=== PATIENT | female | born 1975 | race Caucasian/White ===

== ENCOUNTER 2023-01-14 13:38 | Inpatient (IN) | payer MEDICAID, SELFPAY ==
[2023-01-14] VITALS (9 sets, daily range): BP systolic 119–186; BP diastolic 77–122; PULSE 77–106; RESP 16–26; TEMP 36.4–37.1; O2SAT 95–98; BMI 30.6; BMI 29.7
--- NOTE | ~2023-01-14 | CT_ITS ---
EXAMINATION: CT HEAD WITHOUT CONTRAST (STROKE PROTOCOL) CLINICAL INFORMATION: Stroke protocol. Severe headache. Peripheral vision loss. COMPARISON: 02/02/2010 TECHNIQUE: Contiguous axial imaging was performed from the skull base to vertex without intravenous administration of contrast. This CT examination was performed using dose optimization techniques as appropriate, variously including the following: *Automated exposure control *Adjustment of mA and/or kV according to patient size (this includes techniques or standardized protocols for targeted exams where dose is matched to indication/reason for exam; i.e. extremities or head) *Use of iterative reconstruction technique DLP: 599 mGy-cm FINDINGS: There is no evidence of acute intracranial hemorrhage or territorial infarction. No abnormal mass effect or midline shift is seen. Silvestre to white matter differentiation is well preserved. No extra-axial fluid collections are identified. No hydrocephalus. No significant volume loss. 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 There are a few scattered foci of subcortical white matter low-attenuation changes which are nonspecific. No acute osseous or soft tissue abnormality. The mastoid air cells and visualized portions of the paranasal sinuses are well aerated. CT/CT head for stroke IMPRESSION: * No acute intracranial pathology. 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 * Mild white matter low-attenuation changes, nonspecific. This critical result was discussed with Dr Eulalia Palma at 01/14/2023 2:17 PM and it was ascertained that the content and urgency of the report was understood at the time of direct communication.
--- NOTE | ~2023-01-14 | MR_ITS ---
MRI OF THE BRAIN WITHOUT IV CONTRAST INDICATION: Hypertension and encephalopathy. COMPARISON: CT head and CTA head and neck January 14, 2023. TECHNIQUE: Multiplanar multisequence MR imaging of the brain was obtained without IV contrast. FINDINGS: Motion degraded exam. There is no hydrocephalus, extra-axial surface collection, or herniation. Small chronic appearing infarcts within the high left frontal lobe and the posterior right parasagittal parietal lobe. The major flow voids at the skull base are preserved. There is no acute infarct on diffusion-weighted imaging. There is no intracranial hemorrhage on the gradient recalled echo acquisition. The midline structures are normal. The cerebellar tonsils are normally positioned. The cerebellum and brainstem are normal. The craniocervical junction is normal. Osseous marrow signal intensity is homogenous. The visualized soft tissues are unremarkable. MR/MR head/brain wo con IMPRESSION: Motion degraded exam. No acute intracranial findings. No acute infarcts. Small chronic appearing infarcts within the high left frontal lobe and the posterior right parasagittal parietal lobe.
--- NOTE | ~2023-01-14 | CT_ITS ---
EXAMINATION: CT angio head neck stroke CLINICAL INFORMATION: Peripheral vision loss. Headache. COMPARISON: CT head 01/14/2023. TECHNIQUE: Heat Treating Furnace Tender images were obtained. A CT angiogram of the head and neck was performed in the arterial phase after the intravenous administration of 70 mL Omnipaque 350. Delayed postcontrast images of the head were also obtained. 3D images were processed on an independent workstation under concurrent supervision. Arterial stenoses are measured in accordance with NASCET criteria or similar method if applicable. This CT examination was performed using dose optimization techniques as appropriate, including one or more of the following: Automated exposure control, iterative reconstruction, and adjustment of technique factors (mA and/or kVp) according to patient size (this includes techniques or standardized protocols for targeted exams where dose is matched to indication/reason for exam). Fleischner Society criteria for the followup of incidental pulmonary nodules was implemented if appropriate. Total exam dose-length product 1438 mGy-cm FINDINGS: Head: There is a small age indeterminate cortical infarct involving the left superior frontal gyrus. Silvestre-white matter differentiation is otherwise preserved. Postcontrast images reveal no abnormal intracranial mass or enhancement. No intracranial mass effect or midline shift. No hydrocephalus. The calvarium and skull base are intact. Mastoid air cells and middle ear cavities are well-aerated. No active paranasal sinus disease. CT angiogram neck: This component of the examination is heavily degraded by patient motion particularly near the skull base. The aortic arch apex is normal. Origins of the major aortic branches are widely patent. Common carotid arteries are normal. Small amount of partially calcified atherosclerotic plaque involves both carotid bifurcations. Extracranial internal carotid arteries are grossly patent. The cervical segments of the vertebral arteries are patent. CT angiogram head: This component examination is heavily degraded by patient motion and is therefore nondiagnostic. Other: Soft tissues of the neck including the thyroid gland are normal. No pathologically enlarged cervical lymph nodes. Lung apices are clear. No acute osseous finding. Specifically no worrisome lytic or blastic osseous lesion. CT/CT angio head neck stroke IMPRESSION: The CT angiogram images through the head are heavily degraded by patient motion and are therefore nondiagnostic. Small amount of partially calcified atherosclerotic plaque involves both carotid bifurcations. Cervical carotid and vertebral arteries are grossly patent. There is a small age indeterminate cortical infarct involving the left superior frontal gyrus. A dedicated brain MRI without and with contrast is recommended for better anatomic characterization of this finding. No acute intracranial hemorrhage. No intracranial mass or enhancement. This critical result was discussed with Eulalia Palma at 2:32 PM on 01/14/2023 and it was ascertained that the content and urgency of the report was understood at the time of direct communication.
--- NOTE | 2023-01-14 13:48 | ECG_ITS ---
Test Reason : ACUTE STROKE Blood Pressure : / mmHG Vent. Rate : 084 BPM Atrial Rate : 084 BPM P-R Int : 106 ms QRS Dur : 076 ms QT Int : 384 ms P-R-T Axes : 017 012 011 degrees QTc Int : 453 ms Sinus rhythm with short AR Otherwise normal ECG No previous ECGs available Referred By: Eulalia Palma Electronically Signed By:Fitz Bella
--- NOTE | 2023-01-14 13:50 | ED_ITS ---
HPI - Neuro Symptoms/Deficit General Chief Complaint: Stroke Stated Complaint: VISION IMPAIRMENT HYPERTENSION Time Seen by Provider: 01/14/23 13:47 Source: EMS Mode of arrival: EMS Limitations: no limitations History of Present Illness HPI Narrative: Patient comes to the emergency room complaining complete visual loss on both eyes and complaining of headache. Patient states that she has had this in the past and self-resolved. Patient states that this usually happens when she is under a lot of stress, she is today. Also, patient states that she is known to have hypertension, is supposed to be taking lisinopril but stopped taking it months ago for unclear reason. Related Data Allergies Allergy/AdvReac Type Severity Reaction Status Date / Time codeine [CODEINE] Allergy Unknown HIVES Verified 01/14/23 14:28 Codeine Phosphate Allergy Unknown rash Uncoded 02/09/12 00:00 Review of Systems Review of Systems: Constitutional : No Weight loss, No Fever, No Chills, No Night Sweats, No Fatigue, No Malaise ENT/Mouth : No Hearing loss, No Ear Pain, No Nasal Congestion, No Sinus Pain, No Hoarseness, No sore throat, No Rhinorrhea, No Swallowing Difficulty Eyes: No Eye Pain, No Swelling, No Redness, No Foreign Body, No Discharge, No Vision Changes Cardiovascular : No Chest Pain, No SOB, No Dyspnea on Exertion, No Orthopnea, No Edema, No Palpitations Respiratory : No Cough, No Sputum, No Wheezing, No Smoke Exposure, No Dyspnea Gastrointestinal : No Nausea, No Vomiting, No Diarrhea, No Constipation, No abdominal Pain, No Hematochezia, No Melena Genitourinary : no irregular bleeding, No Dysuria, No Urinary Frequency, No Hematuria, No Urinary Incontinence, No Urgency, No Flank Pain, No Urinary Flow Changes, No Hesitancy Musculoskeletal : No joint pain, No Myalgias, No Joint Swelling Skin : No Skin Lesions, No rash Neuro : No Weakness, No Numbness, No Paresthesias, complaining of headache and complaining of complete visual loss bilaterally Psych : Complaining of anxiety, No Depression, No SI/HI/AH/VH, No Social Issues, Heme/Lymph: No Bruising, No Bleeding,No Lymphadenopathy Endocrine : No Polyuria, No Polydipsia, No Temperature Intolerance PMFSH Past Medical History Medical History (Updated 01/14/23 @ 16:12 by Eulalia Palma MD) Anxiety Depression Hypertension Social History Social History Advance Directives: No Advance Directives Information Provided: Yes Patient : No Physical Exam Vital Signs: Vital Signs: Last Vital Signs Temp 98.4 F 01/14/23 14:29 Pulse 94 01/14/23 14:29 Resp 16 01/14/23 14:29 BP 180/122 H 01/14/23 14:29 Pulse Ox 96 01/14/23 14:29 O2 Del Method Room Air 01/14/23 14:29 BMI result Body Mass Index 30.6 Const: Other: Appearance: Alert. Oriented X3. No acute distress. Eyes: Pupils equal, round and reactive to light. ENT: Pharynx normal. Neck: Normal inspection. Neck supple. No lymph nodes noted. No crepitus CVS: Normal heart rate and rhythm. Pulses normal. Normal S1 and S2 Respiratory: No respiratory distress. Breath sounds normal. No Wheezing. No rales Abdomen: Soft and nontender. No rigidity. No distention. Skin: Skin warm and dry. Normal skin color. Normal skin turgor. Extremities: No lower extremity edema. No Lacerations. No Rash Neuro: Oriented X 3. No motor deficit. No sensory deficit. Moving all extremities. No slurred speech. States that she has complete vision loss in both eyes Psych: calm, cooperative, anxious Course Course Course Narrative: Patient was taking to the CT scan. EMS reported that the patient's blood pressure was between 180 and 200 systolic. -per EMS, they were informed that the patient's were placed the patient does have extensive psychiatric history, especially with anxiety and depression. 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 The CT angio of the brain is nondiagnostic due to patient motion -I discussed the patient and imaging with Dr. Stevenson, unlikely to be a stroke, this is likely hypertensive encephalopathy. Patient already received 5 mg of IV labetalol, blood pressure improvement pending. -14:35: Patient reports that her vision has returned, still slightly blurry but in almost back to normal -around 15:15, patient had a seizure. Patient was given 2 mg of Ativan, patient stop seizing but she was very postictal, combative, patient was given a 2nd dose of 2 mg Ativan. Within a few minutes, patient was able to go to sleep. Patient has soft restraints because she kept trying to pull her IV due to being postictal. Patient does have a small laceration to the left side of the tongue, no stitches needed. No bladder or bowel incontinence. Patient was also given 1500 mg of Keppra. -I discussed the CT scan findings with the patient's family, to their knowledge, patient has never had seizures or strokes that they are aware of. -at this time, patient is sleeping discussed the patient with Dr. Singh, pt being admitted - Differential Diagnosis Differential Diagnoses: The differential diagnosis associated with the presentation includes (Hypertensive encephalopathy, aura, seizure.) Admission/Observation Consideration of admission/observation: Escalation of care including admission/observation considered Consult Healthcare Provider Management of the patient was discussed with: Hospitalist and Copy Reader (I discussed the patient with Dr. Stevenson) Lab Data MDM Lab Attestation statement: I reviewed the patient's lab results. 01/14/23 13:54 01/14/23 13:54 Labs: Lab Results 01/14/23 01/14/23 01/14/23 Range/Units 13:51 13:52 13:54 WBC 6.8 (4.8-10.8) X10*3/uL RBC 4.70 (4.20-5.50) X10*6/uL Hgb 14.8 (12.0-16.0) g/dl Hct 45.2 (37.0-47.0) % MCV 96.2 (80.0-98.0) fL MCH 31.5 (27.0-33.0) pg MCHC 32.7 (31.0-35.0) g/dl RDW 14.1 (11.0-16.0) % Plt Count 310 (160-400) X10*3/uL MPV 9.9 (9.4-12.3) fL Immature Gran % (Auto) 0.3 (0.0-0.4) % Neut % (Auto) 51.3 (45-73) % Lymph % (Auto) 39.5 (20-40) % [place] % (Auto) 7.7 (2-11) % Eos % (Auto) 0.9 (0-4) % Baso % (Auto) 0.3 (0-2) % Lymph # (Auto) 2.7 (1.2-4.9) X10*3/uL [place] # (Auto) 0.5 (0.1-1.2) X10*3/uL Eos # (Auto) 0.1 (0.0-0.4) X10*3/uL Baso # (Auto) 0.0 (0.0-0.2) X10*3/uL Abs Immat Gran (auto) 0.02 (0.00-0.03) X10*3/uL Absolute Neuts (auto) 3.5 (2.0-8.3) x10*3/uL Absolute Nucleated RBC 0.000 (0.0-0.012) X10*3/uL Nucleated RBC % (auto) 0.0 (0.0-0.2) /100WBC PT (11.1-13.3) SEC Whole Blood PT 11.5 (11.1-13.5) sec INR (0.9-1.1) Whole Blood INR 1.0 (0.9-1.1) Sodium (135-145) mmol/L Potassium (3.3-5.1) mmol/L Chloride (96-108) mmol/L Carbon Dioxide (22-29) mmol/L Anion Gap (12-20) BUN (9-16) mg/dL Creatinine (0.5-1.4) mg/dL Estim Creat Clear Calc Estimated GFR POC Glucose 123 H (60-115) mg/dL Random Glucose (60-115) mg/dL Calcium (8.4-10.2) mg/dL Magnesium (1.6-2.6) mg/dL Total Bilirubin (0.0-1.0) mg/dL Direct Bilirubin (0.0-0.5) mg/dL AST (5-31) U/L ALT (0-31) U/L Alkaline Phosphatase (39-117) U/L Troponin I High Sens (<3.5-17.0) ng/L Total Protein (6.5-8.0) g/dL Albumin (3.5-5.0) g/dL Ethyl Alcohol mg/dL 01/14/23 01/14/23 01/14/23 Range/Units 13:54 13:54 13:54 WBC (4.8-10.8) X10*3/uL RBC (4.20-5.50) X10*6/uL Hgb (12.0-16.0) g/dl Hct (37.0-47.0) % MCV (80.0-98.0) fL MCH (27.0-33.0) pg MCHC (31.0-35.0) g/dl RDW (11.0-16.0) % Plt Count (160-400) X10*3/uL MPV (9.4-12.3) fL Immature Gran % (Auto) (0.0-0.4) % Neut % (Auto) (45-73) % Lymph % (Auto) (20-40) % [place] % (Auto) (2-11) % Eos % (Auto) (0-4) % Baso % (Auto) (0-2) % Lymph # (Auto) (1.2-4.9) X10*3/uL [place] # (Auto) (0.1-1.2) X10*3/uL Eos # (Auto) (0.0-0.4) X10*3/uL Baso # (Auto) (0.0-0.2) X10*3/uL Abs Immat Gran (auto) (0.00-0.03) X10*3/uL Absolute Neuts (auto) (2.0-8.3) x10*3/uL Absolute Nucleated RBC (0.0-0.012) X10*3/uL Nucleated RBC % (auto) (0.0-0.2) /100WBC PT 10.7 L (11.1-13.3) SEC Whole Blood PT (11.1-13.5) sec INR 0.9 (0.9-1.1) Whole Blood INR (0.9-1.1) Sodium 138 (135-145) mmol/L Potassium 3.9 (3.3-5.1) mmol/L Chloride 105 (96-108) mmol/L Carbon Dioxide 22 (22-29) mmol/L Anion Gap 15 (12-20) BUN 11 (9-16) mg/dL Creatinine 0.86 (0.5-1.4) mg/dL Estim Creat Clear Calc 89.3 Estimated GFR > 60 POC Glucose (60-115) mg/dL Random Glucose 122 H (60-115) mg/dL Calcium 9.8 (8.4-10.2) mg/dL Magnesium 1.7 (1.6-2.6) mg/dL Total Bilirubin 0.5 (0.0-1.0) mg/dL Direct Bilirubin 0.1 (0.0-0.5) mg/dL AST 87 H (5-31) U/L ALT 71 H (0-31) U/L Alkaline Phosphatase 139 H (39-117) U/L Troponin I High Sens < 2.7 (<3.5-17.0) ng/L Total Protein 7.9 (6.5-8.0) g/dL Albumin 4.1 (3.5-5.0) g/dL Ethyl Alcohol mg/dL 01/14/23 Range/Units 13:54 WBC (4.8-10.8) X10*3/uL RBC (4.20-5.50) X10*6/uL Hgb (12.0-16.0) g/dl Hct (37.0-47.0) % MCV (80.0-98.0) fL MCH (27.0-33.0) pg MCHC (31.0-35.0) g/dl RDW (11.0-16.0) % Plt Count (160-400) X10*3/uL MPV (9.4-12.3) fL Immature Gran % (Auto) (0.0-0.4) % Neut % (Auto) (45-73) % Lymph % (Auto) (20-40) % [place] % (Auto) (2-11) % Eos % (Auto) (0-4) % Baso % (Auto) (0-2) % Lymph # (Auto) (1.2-4.9) X10*3/uL [place] # (Auto) (0.1-1.2) X10*3/uL Eos # (Auto) (0.0-0.4) X10*3/uL Baso # (Auto) (0.0-0.2) X10*3/uL Abs Immat Gran (auto) (0.00-0.03) X10*3/uL Absolute Neuts (auto) (2.0-8.3) x10*3/uL Absolute Nucleated RBC (0.0-0.012) X10*3/uL Nucleated RBC % (auto) (0.0-0.2) /100WBC PT (11.1-13.3) SEC Whole Blood PT (11.1-13.5) sec INR (0.9-1.1) Whole Blood INR (0.9-1.1) Sodium (135-145) mmol/L Potassium (3.3-5.1) mmol/L Chloride (96-108) mmol/L Carbon Dioxide (22-29) mmol/L Anion Gap (12-20) BUN (9-16) mg/dL Creatinine (0.5-1.4) mg/dL Estim Creat Clear Calc Estimated GFR POC Glucose (60-115) mg/dL Random Glucose (60-115) mg/dL Calcium (8.4-10.2) mg/dL Magnesium (1.6-2.6) mg/dL Total Bilirubin (0.0-1.0) mg/dL Direct Bilirubin (0.0-0.5) mg/dL AST (5-31) U/L ALT (0-31) U/L Alkaline Phosphatase (39-117) U/L Troponin I High Sens (<3.5-17.0) ng/L Total Protein (6.5-8.0) g/dL Albumin (3.5-5.0) g/dL Ethyl Alcohol < 10 mg/dL Independent Interpretation I performed an independent interpretation of an: EKG (Interpretation EKG: Sinus rhythm, heart rate 84, the segment depression elevation, T-wave inversion, QTC 453) Radiology Impression Discussion of test interpretation with radiology: I have reviewed the radiologist's reading. Radiologist Impression: FINDINGS: Head: There is a small age indeterminate cortical infarct involving the left superior frontal gyrus. Silvestre-white matter differentiation is otherwise preserved. Postcontrast images reveal no abnormal intracranial mass or enhancement. No intracranial mass effect or midline shift. No hydrocephalus. The calvarium and skull base are intact. Mastoid air cells and middle ear cavities are well-aerated. No active paranasal sinus disease. CT angiogram neck: This component of the examination is heavily degraded by patient motion particularly near the skull base. The aortic arch apex is normal. Origins of the major aortic branches are widely patent. Common carotid arteries are normal. Small amount of partially calcified atherosclerotic plaque involves both carotid bifurcations. Extracranial internal carotid arteries are grossly patent. The cervical segments of the vertebral arteries are patent. CT angiogram head: This component examination is heavily degraded by patient motion and is therefore nondiagnostic. Other: Soft tissues of the neck including the thyroid gland are normal. No pathologically enlarged cervical lymph nodes. Lung apices are clear. No acute osseous finding. Specifically no worrisome lytic or blastic osseous lesion. CT/CT angio head? neck stroke IMPRESSION: The CT angiogram images through the head are heavily degraded by patient motion and are therefore nondiagnostic. Small amount of partially calcified atherosclerotic plaque involves both carotid bifurcations. Cervical carotid and vertebral arteries are grossly patent. There is a small age indeterminate cortical infarct involving the left superior frontal gyrus. A dedicated brain MRI without and with contrast is recommended for better anatomic characterization of this finding. No acute intracranial hemorrhage. No intracranial mass or enhancement. Independent Historian Clinical information obtained from an independent historian. History obtained from or confirmed by: Spouse and Parent External Record Review No previous records available NIH Stroke Scale Internal: Initial- Upon Arrival Level of Consciousness: Alert Level of Consciousness Questions: Answers both questions correctly Level of Consciousness Commands: Performs both tasks correctly Best Gaze: Normal Visual: Bilateral hemianopia Facial Palsy: Normal Motor Arm (Right): No drift Motor Arm (Left): No drift Motor Leg (Right): No drift Motor Leg (Left): No drift Limb Ataxia: Absent Sensory: Normal Best Language: No aphasia Dysarthia: Normal Extinction and Inattention: No abnormality Score: 3 Critical Care Time Critical Care Time Critical Care Time: Yes Total Critical Care Time: 90 Attestation: I have personally provided critical care time. Time includes review of lab data, radiology results, discussion with consultants, and monitoring for potential decompensation. Intervention performed as documented. Discharge Plan Discharge Clinical Impression: Encephalopathy, hypertensive, New onset seizure Patient Disposition: Admitted As Inpatient
[2023-01-14 14:01] LABS: Prothrombin Time Whole Bld POC 11.5 sec (11.1-13.5)
[2023-01-14 14:11] LABS: Glucose, Whole Blood 123 mg/dL (60-115)
[2023-01-14 14:16] LABS: MANUAL DIFF FLAG NO
[2023-01-14 14:19] LABS: Basophils Percent Auto 0.3 % (0-2); Eosinophils Absolute Auto 0.1 X10*3/uL (0.0-0.4); Eosinophils Percent Auto 0.9 % (0-4); Hematocrit 45.2 % (37.0-47.0); Hemoglobin 14.8 g/dl (12.0-16.0); Imm Gran Abs Auto 0.02 X10*3/uL (0.00-0.03); Imm Gran Pct Auto 0.3 % (0.0-0.4); Lymphocytes Absolute Auto 2.7 X10*3/uL (1.2-4.9); Lymphocytes Percent Auto 39.5 % (20-40); Mean Corpuscular HGB Conc 32.7 g/dl (31.0-35.0); Mean Corpuscular Hemoglobin 31.5 pg (27.0-33.0); Mean Corpuscular Volume 96.2 fL (80.0-98.0); Mean Platelet Volume 9.9 fL (9.4-12.3); Monocytes Absolute Auto 0.5 X10*3/uL (0.1-1.2); Monocytes Percent Auto 7.7 % (2-11); Neutrophils Absolute Auto 3.5 x10*3/uL (2.0-8.3); Neutrophils Percent Auto 51.3 % (45-73); Platelet Count 310 X10*3/uL (160-400); Red Cell Distribution Width 14.1 % (11.0-16.0); White Blood Count 6.8 X10*3/uL (4.8-10.8)
[2023-01-14 14:24] LABS: INTERNATIONAL NORM RATIO 0.9 (0.9-1.1); Prothrombin Time 10.7 SEC (11.1-13.3)
[2023-01-14 14:41] LABS: Ethanol < 10 mg/dL
[2023-01-14 14:42] LABS: Alanine Aminotransferase 71 U/L (0-31); Albumin Level 4.1 g/dL (3.5-5.0); Alkaline Phosphatase 139 U/L (39-117); Anion Gap 15 (12-20); Aspartate Amino Transferase 87 U/L (5-31); Bilirubin Direct 0.1 mg/dL (0.0-0.5); Bilirubin Total 0.5 mg/dL (0.0-1.0); Blood Urea Nitrogen 11 mg/dL (9-16); Calcium 9.8 mg/dL (8.4-10.2); Carbon Dioxide 22 mmol/L (22-29); Chloride 105 mmol/L (96-108); Creatinine Clr Calc Pharmacy 89.3; Estimated Glomerular Filt Rate > 60; Glucose Random 122 mg/dL (60-115); Magnesium 1.7 mg/dL (1.6-2.6); Potassium 3.9 mmol/L (3.3-5.1); Sodium 138 mmol/L (135-145); Total Protein 7.9 g/dL (6.5-8.0)
[2023-01-14] MEDS: Labetalol HCL 100 MG/20 ML VIAL IVPUSH (14:48)
--- NOTE | 2023-01-14 14:52 | PC.NURSE ---
pt a&ox4, hypertensive, other vss, medicated per MAR, reporting 7/10 h/a - vision changes are improving. no new orders at this time.
[2023-01-14 15:02] LABS: Troponin-I High Sensitivity < 2.7 ng/L (<3.5-17.0)
[2023-01-14] MEDS: LORazepam 2 MG/ML VIAL IVPUSH ×2 (15:56)
--- NOTE | 2023-01-14 15:56 | PC.NURSE ---
family notified staff of pt change in status, right fixed gazed, pt reporting increased pain, seizure type activity, provider at bedside, medicated w 3mg ativan IV per provider verbal order, remaining 1mg held per MD. seizure pads in place, upper extremity soft restraints applied. pt resting quietly, no new orders at this time.
--- NOTE | 2023-01-14 16:14 | PM.IMHP ---
History of Present Illness Date of Service: 01/14/23 Chief Complaint: Transient visual loss 47 year old female with presented with bilateral visual loss and found to have BP 180/122, and seizure in the ED. Head, CTA head and neck negative for acute finding. She reportedly had similar episode abou 6 years ago. AFter IV labetalol 5 mg, BP is now 120/77. Given Ativan 2 mg x 2 and 500 mg of Keppra. She stopped taking her BP meds for quite some time. Her vision have been resotred and but she's having headche. Her mother and significant other also said she had some facial droop that has reslved. Review of Systems Review of Systems: Gen: no fever Resp: no sob, no cough CV: no chest, no INGRAM, no leg edema GI: No n/v, no abd pain Neuro: No confusion, +headache, memoery issues according to mother [facility] Medical History Anxiety Depression Hypertension Social History Household Members: Significant Other Housing: Apartment Do you presently have visiting nurse or other home services: No Patient Tobacco Use Status: Never used Tobacco Use of substances other than those prescribed or required for medical reasons: No Substance Use Type: Marijuana Substance Use Frequency: Daily Last Used Substance: Unknown Currently Displaying Signs/Symptoms of Drug Intoxication Withdrawal: No Have you been hit, kicked, punched, or otherwise hurt by someone within the past year? If so, by whom?: No Do you feel safe in your current relationship?: Yes Is there a partner from a previous relationship who is making you feel unsafe now?: No Are you made to feel afraid or neglected: No Advance Directives: No Advance Directives Information Provided: Yes Do you have thoughts of harming others: None Do you have a plan to hurt others: No Plan Recently lost weight without trying: No Nutrition Risks: No Nutritional Risk Patient : No Meds Allergies Allergy/AdvReac Type Severity Reaction Status Date / Time codeine [CODEINE] Allergy Unknown HIVES Verified 01/14/23 14:28 Codeine Phosphate Allergy Unknown rash Uncoded 02/09/12 00:00 Home Medications Medication Instructions Recorded Confirmed Last Taken Type acetaminophen 325 mg tablet 650 mg PO Q6H PRN Pain 01/14/23 01/14/23 Unknown History fluoxetine 20 mg capsule 20 mg PO DAILY 01/14/23 01/14/23 Unknown History melatonin 3 mg tablet 3 mg PO BEDTIME PRN Insomnia 01/14/23 01/14/23 Unknown History Physical Exam Vital Signs and Narrative: Vital Signs: Last Vital Signs Temp 98.7 F 01/14/23 15:51 Pulse 101 H 01/14/23 15:51 Resp 16 01/14/23 15:51 BP 120/77 01/14/23 15:51 Pulse Ox 95 01/14/23 15:51 O2 Del Method Room Air 01/14/23 15:51 BMI result Body Mass Index 30.6 Const: Other: Constitutional: Alert, in no distress, overweight. Mental Status: Oriented to person, place and time. Eyes: Pupils are equal, round and reactive to light, vision is now intact Ear, Nose and Throat: Oropharynx clear, mucous membranes moist. Ears and nose without eformities. Trachea midline. Respiratory: Clear to auscultation. No wheezing, rales or rhonchi. Cardiovascular: S1 S2 regular. No murmurs, rubs or gallops. Gastrointestinal: Abdomen soft, non-tender, non-distended. Normal bowel sounds.? Neurologic: Cranial nerves II-XII grossly intact. No focal neurological deficits. Moves all extremities spontaneously.? Skin: No rashes or lesions.? Musculoskeletal: No cyanosis or clubbing. Psychiatric: Normal mood and affect? Results Labs 01/14/23 13:54 01/14/23 13:54 Labs: Laboratory Results - last 24 hr 01/14/23 01/14/23 01/14/23 13:51 13:52 13:54 MCV 96.2 MCH 31.5 MCHC 32.7 RDW 14.1 Plt Count 310 MPV 9.9 Immature Gran % (Auto) 0.3 Neut % (Auto) 51.3 Lymph % (Auto) 39.5 [place] % (Auto) 7.7 Eos % (Auto) 0.9 Baso % (Auto) 0.3 Lymph # (Auto) 2.7 [place] # (Auto) 0.5 Eos # (Auto) 0.1 Baso # (Auto) 0.0 Abs Immat Gran (auto) 0.02 Absolute Neuts (auto) 3.5 Absolute Nucleated RBC 0.000 Nucleated RBC % (auto) 0.0 PT Whole Blood PT 11.5 INR Whole Blood INR 1.0 Anion Gap Estim Creat Clear Calc Estimated GFR POC Glucose 123 H Random Glucose Calcium Magnesium Total Bilirubin Direct Bilirubin AST ALT Alkaline Phosphatase Total Protein Albumin Ethyl Alcohol 01/14/23 01/14/23 01/14/23 13:54 13:54 13:54 MCV MCH MCHC RDW Plt Count MPV Immature Gran % (Auto) Neut % (Auto) Lymph % (Auto) [place] % (Auto) Eos % (Auto) Baso % (Auto) Lymph # (Auto) [place] # (Auto) Eos # (Auto) Baso # (Auto) Abs Immat Gran (auto) Absolute Neuts (auto) Absolute Nucleated RBC Nucleated RBC % (auto) PT 10.7 L Whole Blood PT INR 0.9 Whole Blood INR Anion Gap 15 Estim Creat Clear Calc 89.3 Estimated GFR > 60 POC Glucose Random Glucose 122 H Calcium 9.8 Magnesium 1.7 Total Bilirubin 0.5 Direct Bilirubin 0.1 AST 87 H ALT 71 H Alkaline Phosphatase 139 H Total Protein 7.9 Albumin 4.1 Ethyl Alcohol < 10 Imaging Radiologist's Impressions: Impressions Head CT 01/14/23 13:58 IMPRESSION: * No acute intracranial pathology. 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 * Mild white matter low-attenuation changes, nonspecific. This critical result was discussed with Dr Eulalia Palma at 01/14/2023 2:17 PM and it was ascertained that the content and urgency of the report was understood at the time of direct communication. Head/Neck CTA 01/14/23 14:13 IMPRESSION: The CT angiogram images through the head are heavily degraded by patient motion and are therefore nondiagnostic. Small amount of partially calcified atherosclerotic plaque involves both carotid bifurcations. Cervical carotid and vertebral arteries are grossly patent. There is a small age indeterminate cortical infarct involving the left superior frontal gyrus. A dedicated brain MRI without and with contrast is recommended for better anatomic characterization of this finding. No acute intracranial hemorrhage. No intracranial mass or enhancement. This critical result was discussed with Eulalia Palma at 2:32 PM on 01/14/2023 and it was ascertained that the content and urgency of the report was understood at the time of direct communication. Assessment and Plan (1) Encephalopathy, hypertensive: Status: Acute (2) New onset seizure: Status: Acute Plan 47/female with history of HTN non compliant with meds here with transient julian blindness, seizure and BP of 180/22.. Transient cortico blindness due to Hypertension emergency--vision now restore Hypertension emergency--aggresive treatment of BP, restart oral meds. New onset seizure--likely related to HTN emergency, EEG tomorrow, neuro consult, and no driving per state guideline Headache--Motrin or Tyelenol Time Spent With Patient Time: Total time managing care of this patient today ____ minutes. Quality Stroke Does the patient have a stroke diagnosis?: No VTE Prior VTE?: No VTE Risk Level:: Medical - low VTE Device Contraindication: Treatment Not Indicated VTE Drug Contraindication: Treatment Not Indicated
[2023-01-14] MEDS: levETIRAcetam 500 MG/5 ML VIAL 1500 MG IVPUSH (16:26)
--- NOTE | 2023-01-14 16:42 | PHA.MEDREC ---
Pharmacy Consult ? Medication Reconciliation Pharmacy has completed the medication reconciliation. Patient's family confirmed medications. They were not too sure. They know she is on fluoxetine and believe only the 20 mg tablets. They reported patient stopped taking all BP medications. Claim history showed patient filled HCTZ 25 mg on 11/11/22. Ronna Montgomery, PharmD
[2023-01-14] MEDS: amLODIPine Besylate 5 MG TABLET PO (17:44)
[2023-01-14 17:55] LABS: Appearance Urine Clear; Color Urine Yellow; Glucose Urine UA Negative (Negative); Leukocyte Esterase Urine Negative (Negative); Nitrite Urine Negative (Negative); PH 5.5 (5.0-9.0); Specific Gravity - Urine >= 1.030 (1.005-1.025); Urine Blood Negative (Negative); Urine Ketones Negative (Negative); Urine Protein Trace mg/dL (Neg-Trace)
[2023-01-14 18:03] LABS: Amphetamine Screen Urine Not Detected (Not Detect); Barbiturates, Urine Not Detected (Not Detect); Benzodiazepines Screen Urine Not Detected (Not Detect); Cannabinoid Screen Urine POSITIVE (Not Detect); Cocaine Screen Urine Not Detected (Not Detect); Fentanyl, urine Not Detected (Not Detect); Opiate Screen Urine Not Detected (Not Detect); Phencyclidine Screen Urine Not Detected (Not Detect)
[2023-01-14] MEDS: Acetaminophen 325 MG TABLET 650 MG PO (18:47)
--- NOTE | 2023-01-14 19:03 | PC.NURSE ---
pt requesting ativan for increased anxiety, hospitalist notified.
--- NOTE | 2023-01-14 22:16 | PM.EVENT ---
Event Note Date of Service: 01/14/23 Event Note: Patient reports being a daily drinker last drink 2-3 days ago. Scoring 5 on CIwa, which is. Will start her on phenobarb protocol Time Spent With Patient Time: Total time managing care of this patient today ____ minutes.
[2023-01-14] MEDS: diphenhydrAMINE HCL 25 MG CAPSULE 50 MG PO (22:17)
[2023-01-14] MEDS: Butalb/Acetamin/Caff 50/325/40 TABLET 1 TAB PO (22:18)
[2023-01-14] MEDS: PHENobarbitaL sodium 130 MG/ML IM ONCE 237 MG IM (23:14)
[2023-01-14] MEDS: 0.9 % Sodium Chloride Flush 3 ML SYRINGE IVFLUSH (23:18)
--- NOTE | 2023-01-15 | EEG_ITS ---
This is a 16-channel EEG with an EKG lead. The patient is reported awake during the tracing. Background EEG rhythm is mixed theta, beta of lower amplitude faster posteriorly and lower amplitude fast anteriorly. Photic stimulation does not produce any significant abnormality. Hyperventilation is not performed. Cardiac lead does not reveal any significant abnormality. No sharp wave spikes or paroxysmal tendency noted. Some lead and muscle artifacts are noted. IMPRESSION: No significant abnormality noted on this EEG. MD SHEMAR Palma/HEBER / [id number]
--- NOTE | 2023-01-15 00:09 | PC.NURSE ---
Addendum entered by Elvie Schmidt RN 01/15/23 03:37: Order for PO phenobarbital. Verified dosage with overnight pharmacy. Addendum entered by Elvie Schmidt RN 01/15/23 02:57: Patient is refusing the second dose IM phenobarb, she reports it hurts and she does not want any more IM injections. Patient is also refusing the future dose for 0500 IM phenobarb. She is scoring a 4 on the ciwa; still foggy with the date, mild headache and slight tremors that are felt to touch. Dr. Garcia notified Original Note: On admission assessment, patient answering most questions appropriately, daughter and fiance at bedside. Per patient and daughter, patient is a daily drinker, daughter reports patient drink wine coolers and sometimes shots, last drink 2-3 days ago. On CIWA, patient scored a 5 (patient feeling anxious, reports a headache, uncertain of todays date). Dr. Garcia notified. Phenobarb protocol started. High fall risk precautions in place, seizure precautions in place. Patient refusing telesitter. Bed alarm on.
[2023-01-15 03:32] VITALS: BP 136/74; PULSE 86; RESP 17; TEMP 37.1; O2SAT 97
[2023-01-15] MEDS: PHENobarbitaL 30 MG TABLET 180 MG PO ×2 (03:34→06:34)
[2023-01-15 07:39] VITALS: BP 133/72; PULSE 77; RESP 20; TEMP 36.4; O2SAT 92
[2023-01-15] MEDS: PHENobarbitaL 15 MG TABLET 45 MG PO ×2 (08:46→21:23)
[2023-01-15] MEDS: amLODIPine Besylate 5 MG TABLET PO (08:46)
[2023-01-15] MEDS: FLUoxetine HCl 20 MG CAPSULE PO (08:46)
[2023-01-15] MEDS: 0.9 % Sodium Chloride Flush 3 ML SYRINGE IVFLUSH ×3 (08:51→21:26)
--- NOTE | 2023-01-15 09:18 | PM.DS ---
DS: Providers Provider Date of Service: 01/16/23 Date of admission: 01/14/23 16:45 Primary care physician: Fanta Soto MD Consults: 01/15/23 09:16 Consult to Neurology Routine Consulting Provider: [facility] Reason for consultation: seizure, tranient blindness Has provider been notified: No DS: Diagnosis Discharge Diagnosis (1) Encephalopathy, hypertensive: Status: Acute (2) New onset seizure: Status: Acute DS: Summary Hospital Course Hospital Course: Admission HPI Chief Complaint: Transient visual loss 47 year old female with? presented with bilateral visual loss and found to have BP 180/122,? and seizure in the ED.? Head, CTA head and neck negative for acute finding. She reportedly had similar episode abou 6 years ago. AFter IV labetalol 5 mg,? BP is now 120/77. Given Ativan 2 mg x 2 and 500 mg of Keppra. She stopped taking her BP meds for quite some time. Her vision have been resotred and but she's having headche. Her mother and significant other also said she had some facial droop that has reslved. Hospital course: Patient presented with transient bilateral visual loss, facial drop, headache and BP of 180/122, CTA and CT head were negative for acute infarct but *? 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 She doesn't take her blood pressure medication, She also suffered seizure in the ED and was given Keppra once, fortunately all symptoms have resolved. MRI showed an old frontal infarct, no acute stroke. Neuro recommends ASA, BP control, Statin and SSRI for anxiety. She recieved IV Labetalol, she's is started on Norvasc 5 mg daily, HCTZ 12.5 and strongly advised to take meds as recommended and follow up with PCP for further adjusttment, Baby asprin 81 mg daily added, Lipitor for HLD (LDL: 136, Chol 230, HDL 68, TG 130), EEG showed no seizure at the time of exam, Not to drive for 6 months per state guideline (discussed with her in person). Was see Time Spent with Patient Time attestation: Total time managing care of this patient today ____ minutes. Discharge coordination time: Greater than 30 minutes Quality: Safe Use of Opioids Does Pt have an Active Cancer Diagnosis on the Problem List?: No Quality: Stroke Does the patient have a stroke diagnosis?: No Physical Exam Vital Signs: Vital Signs: Selected Entries 01/16/23 07:35 Temperature 97.6 F Pulse Rate 77 Respiratory Rate 16 Blood Pressure 133/81 Pulse Oximetry 98 Oxygen Delivery Me thod Room Air Const: Other: General: AO X 3, no acute distress Resp: CTA bilateral CVS: S1,S2,RRR GI: +BS, NT, no distention Skin: No rash Neuro: motor grossly intact Psych: appropriate affect DS: Data Data Completed and Pending Labs on day of discharge: Laboratory Results - last 24 hr 01/14/23 01/14/23 01/14/23 13:51 13:52 13:54 WBC 6.8 RBC 4.70 Hgb 14.8 Hct 45.2 MCV 96.2 MCH 31.5 MCHC 32.7 RDW 14.1 Plt Count 310 MPV 9.9 Immature Gran % (Auto) 0.3 Neut % (Auto) 51.3 Lymph % (Auto) 39.5 [place] % (Auto) 7.7 Eos % (Auto) 0.9 Baso % (Auto) 0.3 Lymph # (Auto) 2.7 [place] # (Auto) 0.5 Eos # (Auto) 0.1 Baso # (Auto) 0.0 Abs Immat Gran (auto) 0.02 Absolute Neuts (auto) 3.5 Absolute Nucleated RBC 0.000 Nucleated RBC % (auto) 0.0 PT Whole Blood PT 11.5 INR Whole Blood INR 1.0 Sodium Potassium Chloride Carbon Dioxide Anion Gap BUN Creatinine Estim Creat Clear Calc Estimated GFR POC Glucose 123 H Random Glucose Lactic Acid Calcium Magnesium Total Bilirubin Direct Bilirubin AST ALT Alkaline Phosphatase Troponin I High Sens Total Protein Albumin Urine Color Urine Appearance Urine pH Ur Specific [place] Urine Protein Urine Glucose (UA) Urine Ketones Urine Blood Urine Nitrite Ur Leukocyte Esterase Urine Opiates Screen Urine Fentanyl Screen Ur Barbiturates Screen Ur Phencyclidine Scrn Ur Amphetamines Screen U Benzodiazepines Scrn Urine Cocaine Screen U Marijuana (THC) Screen Ethyl Alcohol 01/14/23 01/14/23 01/14/23 13:54 13:54 13:54 WBC RBC Hgb Hct MCV MCH MCHC RDW Plt Count MPV Immature Gran % (Auto) Neut % (Auto) Lymph % (Auto) [place] % (Auto) Eos % (Auto) Baso % (Auto) Lymph # (Auto) [place] # (Auto) Eos # (Auto) Baso # (Auto) Abs Immat Gran (auto) Absolute Neuts (auto) Absolute Nucleated RBC Nucleated RBC % (auto) PT 10.7 L Whole Blood PT INR 0.9 Whole Blood INR Sodium 138 Potassium 3.9 Chloride 105 Carbon Dioxide 22 Anion Gap 15 BUN 11 Creatinine 0.86 Estim Creat Clear Calc 89.3 Estimated GFR > 60 POC Glucose Random Glucose 122 H Lactic Acid Calcium 9.8 Magnesium 1.7 Total Bilirubin 0.5 Direct Bilirubin 0.1 AST 87 H ALT 71 H Alkaline Phosphatase 139 H Troponin I High Sens < 2.7 Total Protein 7.9 Albumin 4.1 Urine Color Urine Appearance Urine pH Ur Specific [place] Urine Protein Urine Glucose (UA) Urine Ketones Urine Blood Urine Nitrite Ur Leukocyte Esterase Urine Opiates Screen Urine Fentanyl Screen Ur Barbiturates Screen Ur Phencyclidine Scrn Ur Amphetamines Screen U Benzodiazepines Scrn Urine Cocaine Screen U Marijuana (THC) Screen Ethyl Alcohol 01/14/23 01/14/23 01/14/23 13:54 17:35 17:35 WBC RBC Hgb Hct MCV MCH MCHC RDW Plt Count MPV Immature Gran % (Auto) Neut % (Auto) Lymph % (Auto) [place] % (Auto) Eos % (Auto) Baso % (Auto) Lymph # (Auto) [place] # (Auto) Eos # (Auto) Baso # (Auto) Abs Immat Gran (auto) Absolute Neuts (auto) Absolute Nucleated RBC Nucleated RBC % (auto) PT Whole Blood PT INR Whole Blood INR Sodium Potassium Chloride Carbon Dioxide Anion Gap BUN Creatinine Estim Creat Clear Calc Estimated GFR POC Glucose Random Glucose Lactic Acid Calcium Magnesium Total Bilirubin Direct Bilirubin AST ALT Alkaline Phosphatase Troponin I High Sens Total Protein Albumin Urine Color Yellow Urine Appearance Clear Urine pH 5.5 Ur Specific [place] >= 1.030 H Urine Protein Trace Urine Glucose (UA) Negative Urine Ketones Negative Urine Blood Negative Urine Nitrite Negative Ur Leukocyte Esterase Negative Urine Opiates Screen Not Detected Urine Fentanyl Screen Not Detected Ur Barbiturates Screen Not Detected Ur Phencyclidine Scrn Not Detected Ur Amphetamines Screen Not Detected U Benzodiazepines Scrn Not Detected Urine Cocaine Screen Not Detected U Marijuana (THC) Screen POSITIVE H Ethyl Alcohol < 10 01/14/23 18:25 WBC RBC Hgb Hct MCV MCH MCHC RDW Plt Count MPV Immature Gran % (Auto) Neut % (Auto) Lymph % (Auto) [place] % (Auto) Eos % (Auto) Baso % (Auto) Lymph # (Auto) [place] # (Auto) Eos # (Auto) Baso # (Auto) Abs Immat Gran (auto) Absolute Neuts (auto) Absolute Nucleated RBC Nucleated RBC % (auto) PT Whole Blood PT INR Whole Blood INR Sodium Potassium Chloride Carbon Dioxide Anion Gap BUN Creatinine Estim Creat Clear Calc Estimated GFR POC Glucose Random Glucose Lactic Acid 2.0 Calcium Magnesium Total Bilirubin Direct Bilirubin AST ALT Alkaline Phosphatase Troponin I High Sens Total Protein Albumin Urine Color Urine Appearance Urine pH Ur Specific [place] Urine Protein Urine Glucose (UA) Urine Ketones Urine Blood Urine Nitrite Ur Leukocyte Esterase Urine Opiates Screen Urine Fentanyl Screen Ur Barbiturates Screen Ur Phencyclidine Scrn Ur Amphetamines Screen U Benzodiazepines Scrn Urine Cocaine Screen U Marijuana (THC) Screen Ethyl Alcohol Discharge Plan Discharge Anticipated Discharge Date/Time: 01/15/23 09:05 Patient Disposition: Home, Self-Care Discharge Diagnosis: HTN emergency, seizure, TIA Referrals: Fanta Soto MD [Primary Care Provider] - 1 Week Discharge Medications: New atorvastatin 20 mg Tablet 20 mg PO BEDTIME Qty: 30 0RF amlodipine 5 mg Tablet 5 mg PO DAILY Qty: 30 0RF Protocol: Hold for SBP< HOLD for SBP < : 90 aspirin 81 mg Tablet,Chewable 81 mg PO DAILY Qty: 30 0RF Rx Instructions: offer OTC baby aspirin hydrochlorothiazide 12.5 mg Tablet 12.5 mg PO DAILY Qty: 30 0RF Protocol: Hold for SBP< HOLD for SBP < : 90 sertraline 25 mg tablet 25 mg PO DAILY Qty: 14 0RF Continued acetaminophen 325 mg Tablet 650 mg PO Q6H PRN (Reason: Pain) melatonin 3 mg Tablet 3 mg PO BEDTIME PRN (Reason: Insomnia) fluoxetine 20 mg capsule 20 mg PO DAILY Discharge Orders: Discharge Order (Routine); Ordered 01/16/23 Ordered By: Herbie Neal Diet: Advance to usual diet Activity on Discharge: As tolerated Stand Alone Forms: Patient Portal Discharge page Care Plan Goals: stroke prevention, control of blood pressure Health Concerns: as above Plan of Treatment: Take blood pressure medication as directed including hydrochlorothiazide 12.5 mg daily, Norvasc 5 mg daily. Follow-up with her primary care doctor for blood pressure check and medication adjustment as needed. Take Lipitor as directed to redo showed cholesterol--all to prevent stroke, Carlos doctor for referral to an eye doctor. Take 1 baby aspirin daily Take Sertraline for anxiety and follow up with your Doctor in 2 weeks In [place], individuals who have experienced a seizure are not allowed to drive for at least 6 months seizure-free period, this apply to you, uneless after seeing Dr. Stevenson in follow up he states otherwise Assessment: as above
[2023-01-15] MEDS: hydroCHLOROthiazide 12.5 MG TABLET PO (09:37)
[2023-01-15] MEDS: Aspirin 81 MG TAB.CHEW PO (09:37)
--- NOTE | 2023-01-15 09:45 | MHC.CM.PN ---
EMR REVIEWED, PT ADMITTED W/HTN EMERGENCY... CM MET W/PT AND S.O. AT BEDSIDE, PT REPORTS SHE LIVES W/S.O. AND 2 CHILDREN, PT IS INDEP W/ALL CARE, DENIES USE OF DME/SERVICES, PT REPORTS SHE WOULD LIKE TO COMPLETE A HCP PRIOR TO D/C HOWEVER WHEN CM MET W/PT TO COMPLETE PT WAS GROGGY AND SIGNED IN THE WRONG PLACE, CM DISCUSSED W./PT AND CM WILL REVISIT WHEN PT IS MORE ALERT AND AWAKE. ANTIC D/C HOME SELF-CARE W/RECOVERY TEAM INTERVENTION PRIOR TO DC, FAMILY FOR TRANSPORT
[2023-01-15 10:14] LABS: Cholesterol 230 mg/dL; HDL Cholesterol 68 mg/dL; LDL Cholesterol Calculated 136 mg/dl; Triglycerides 130 mg/dL
[2023-01-15 12:00] VITALS: BP 144/86; PULSE 83; RESP 20; TEMP 36.7; O2SAT 95
--- NOTE | 2023-01-15 12:00 | PM.NEUROCN ---
History of Present Illness Data of Consult Service Date: 01/15/23 Primary Care Provider: Fanta Soto MD [facility] Reason for consult: Hypertensive encephalopathy 47 years old woman with anxiety disorder and hypertension, which she has not been treating. She saw her primary care physician few weeks ago and was given of blood pressure medicine but she has not been taking it. She came to hospital when she noted blurred vision. Vision was colitis coping type seeing colored round fingers. This made her vision blurred. She said that it lasted for about 20 minutes. She denied any headaches but in previous documentation she has reported headache. She also stated that few years ago she had similar episode of loss of vision when she was admitted [facility] and was told that it was all due to stress. There was no associated cardiac symptom. Review of Systems Review of Systems: No recent cold or flu-like illness or head trauma PMFSH Past Medical History Medical History Anxiety Depression Hypertension Social History Social History Household Members: Significant Other Housing: Apartment Do you presently have visiting nurse or other home services: No Patient Tobacco Use Status: Never used Tobacco Use of substances other than those prescribed or required for medical reasons: No Substance Use Type: Marijuana Substance Use Frequency: Daily Last Used Substance: Unknown Currently Displaying Signs/Symptoms of Drug Intoxication Withdrawal: No Have you been hit, kicked, punched, or otherwise hurt by someone within the past year? If so, by whom?: No Do you feel safe in your current relationship?: Yes Is there a partner from a previous relationship who is making you feel unsafe now?: No Are you made to feel afraid or neglected: No Advance Directives: No Advance Directives Information Provided: Yes Do you have thoughts of harming others: None Do you have a plan to hurt others: No Plan Recently lost weight without trying: No Nutrition Risks: No Nutritional Risk Patient : No service: No Meds Allergies Allergy/AdvReac Type Severity Reaction Status Date / Time codeine [CODEINE] Allergy Unknown HIVES Verified 01/14/23 14:28 Codeine Phosphate Allergy Unknown rash Uncoded 02/09/12 00:00 Active Medications: Current Medications Acetaminophen (Acetaminophen 325 Mg Tablet) 650 mg PO Q6H PRN PRN Reason: Headache Last Admin: 01/14/23 18:47 Dose: 650 mg Amlodipine Besylate (Amlodipine Besylate 5 Mg Tablet) 5 mg PO DAILY [facility]; Protocol Last Admin: 01/15/23 08:46 Dose: 5 mg Aspirin (Aspirin 81 Mg Tab.Chew) 81 mg PO DAILY [facility] Last Admin: 01/15/23 09:37 Dose: 81 mg Atorvastatin Calcium (Atorvastatin Calcium 20 Mg Tablet) 20 mg PO BEDTIME [facility] Fluoxetine HCl (Fluoxetine Hcl 20 Mg Capsule) 20 mg PO DAILY [facility] Last Admin: 01/15/23 08:46 Dose: 20 mg Hydrochlorothiazide (Hydrochlorothiazide 12.5 Mg Tablet) 12.5 mg PO DAILY [facility]; Protocol Last Admin: 01/15/23 09:37 Dose: 12.5 mg Hydroxyzine HCl (Hydroxyzine Hcl 50 Mg/Ml Vial) 25 mg IM Q4H PRN PRN Reason: anxiety/restlessness Magnesium Hydroxide (Milk Of Magnesia 30 Ml Oral.Susp) 30 ml PO DAILY PRN PRN Reason: Constipation Melatonin (Melatonin 3 Mg Tablet) 3 mg PO BEDTIME PRN PRN Reason: Insomnia Ondansetron HCl (Ondansetron Hcl 4 Mg/2 Ml Vial) 4 mg IVPUSH Q8H PRN PRN Reason: Nausea and Vomiting Pharmacy Consult (Consult Rx Etoh Phenob Po Only) 1 each MISCELLANE ONCE PRN; Protocol PRN Reason: Consult order Phenobarbital (Phenobarbital 15 Mg Tablet) 45 mg PO BID [facility]; Protocol Stop: 01/16/23 21:01 Last Admin: 01/15/23 08:46 Dose: 45 mg Phenobarbital (Phenobarbital 30 Mg Tablet) 30 mg PO BID [facility]; Protocol Stop: 01/18/23 21:01 Phenobarbital (Phenobarbital 30 Mg Tablet) 30 mg PO DAILY [facility]; Protocol Stop: 01/20/23 09:01 Sodium Chloride (0.9 % Sodium Chloride Flush 3 Ml Syringe) 3 ml IVFLUSH [facility] Last Admin: 01/15/23 08:51 Dose: 3 ml Home Medications Medication Instructions Recorded Confirmed Last Taken Type acetaminophen 325 mg tablet 650 mg PO Q6H PRN Pain 01/14/23 01/14/23 Unknown History fluoxetine 20 mg capsule 20 mg PO DAILY 01/14/23 01/14/23 Unknown History melatonin 3 mg tablet 3 mg PO BEDTIME PRN Insomnia 01/14/23 01/14/23 Unknown History Physical Exam Vital Signs: Vital Signs: Last Vital Signs Temp 97.6 F 01/15/23 07:39 Pulse 77 01/15/23 07:39 Resp 20 01/15/23 07:39 BP 133/72 01/15/23 07:39 Pulse Ox 92 01/15/23 07:39 O2 Del Method Room Air 01/15/23 07:39 BMI result Body Mass Index 29.7 Neuro: Other: She is alert and awake with normal spontaneity of speech fluency comprehension and anxious affect. Face is symmetrical. Visual claudio are full. [id number] testing is okay. [id number] testing is slow but okay. Deep tendon reflexes are 3 to 4+ with flexor plantars. Speech is normal. Results Labs 01/14/23 13:54 01/14/23 13:54 Labs: Short CBC 01/14/23 Range/Units 13:54 WBC 6.8 (4.8-10.8) X10*3/uL Hgb 14.8 (12.0-16.0) g/dl Hct 45.2 (37.0-47.0) % Plt Count 310 (160-400) X10*3/uL BMP 01/14/23 13:54 Sodium 138 Potassium 3.9 Chloride 105 Carbon Dioxide 22 BUN 11 Creatinine 0.86 Calcium 9.8 Liver Function 01/14/23 Range/Units 13:54 Total Bilirubin 0.5 (0.0-1.0) mg/dL Direct Bilirubin 0.1 (0.0-0.5) mg/dL AST 87 H (5-31) U/L ALT 71 H (0-31) U/L Alkaline Phosphatase 139 H (39-117) U/L Albumin 4.1 (3.5-5.0) g/dL Urine 01/14/23 Range/Units 17:35 Urine Color Yellow Urine Appearance Clear Urine pH 5.5 (5.0-9.0) Ur Specific [place] >= 1.030 H (1.005-1.025) Urine Protein Trace (Neg-Trace) mg/dL Urine Glucose (UA) Negative (Negative) mg/dL Head CT revealed a chronic left subcortical frontal ischemic infarction. CTA was limited but did not reveal any obvious extracranial stenosis. CT of brain also revealed mild diffuse cortical atrophy. Assessment and Plan (1) Encephalopathy, hypertensive: Status: Acute 47 years old woman with hypertensive encephalopathy resulting in blurred vision. There is a possibility of migraine resulting in similar phenomenon but she denied having migraines in the past. In steroid, she reported that few years ago she had an episode of loss of vision when she was admitted [facility] and was told that it was due to stress. In that regard I see that she has mild cerebral cortical atrophy, which put her at risk for behavioral disorder. But she definitely has uncontrolled hypertension and her blood pressure was quite high, which could explain her visual symptoms and also hyper reflexia on examination from hypertensive encephalopathy. In addition to that, she has a chronic small left frontal ischemic infarction. My recommendations at this time I are education, I talked to the patient frankly and in length explaining risks to her brain and heart with uncontrolled hypertension, appropriate blood pressure medicines, baby aspirin daily, and statin. In addition, I recommend either formal psychiatric consultation or starting her on small dose of an SSRI. She is asking for benzodiazepine but probably an SSRI is a better option for her. Also, a noncontrast MRI of brain can help to precisely define the lesion seen on CT scan and put light on encephalopathy. Time Spent With Patient Time: Total time managing care of this patient today ____ minutes. Procedures Date of Service Date of Service: 01/15/23
--- NOTE | 2023-01-15 13:30 | MHC.STROKE ---
01/14/23 1333 EMS PRE-NOTIFIED HTN, MALONE. NO STROKE ALERT. ARRIVED AT [facility] [place] [facility], STROKE PROTOCOL ACTIVATED AND DR. KING SPOKE WITH DR. CAMPOS. SEE HER NOTE. TODAY I MET WITH THE PATIENT, HER AND MOTHER. SHE HAS A HISTORY OF HTN AND STOPPED TAKING HER MEDICATIONS A FEW YEARS AGO, NO REASON. I REVIEWED THE CTH AND CTA AND DR. CAMPOS'S RECOMMENDATIONS. I EXPLAINED THAT HER TREATMENT PLAN IS FOR STROKE PREVENTION AND REVIEWED HER BP'S, LIPID PANEL AND WHY SHE NEEDS TO BE ON ASPIRIN. I ANSWERED ALL OF THEIR QUESTIONS. I REVIEWED THIS WITH THE RN WELL. SHE HAS A BP CUFF AT HOME AND I ENCOURAGED THEM TO TAKE THE BP AND GAVE THEM THE RANGE GOAL FOR BP AND LDL. WE ALSO DISCUSSED WHY SHE NEEDS TO BE ON A STATIN. I WILL FOLLOW NEEDED. ALL STROKE QUALITY MEASURES ARE MET.
[2023-01-15 16:00] VITALS: BP 135/83; PULSE 86; RESP 20; TEMP 36.1; O2SAT 93
[2023-01-15 18:55] VITALS: BP 122/73; PULSE 90; RESP 20; TEMP 36.8; O2SAT 93
[2023-01-15] MEDS: Atorvastatin Calcium 20 MG TABLET PO (21:23)
[2023-01-15] MEDS: Acetaminophen 325 MG TABLET 650 MG PO (21:23)
[2023-01-15] MEDS: Lidocaine HCl Viscous 2 % 15 ML SOLUTION MUCOUS MEM (23:04)
[2023-01-15 23:49] VITALS: BP 143/79; PULSE 75; RESP 16; TEMP 36.2; O2SAT 96
--- NOTE | 2023-01-16 01:39 | PC.NURSE ---
Patient alert and oriented x 4, pt high risk for fall and has seizure diagnosis, pt refuse camera. Safety education provided to patient and her daughter.
--- NOTE | 2023-01-16 01:43 | PC.NURSE ---
Pt was told that d/t hospital policy her visitor wasn't allowed to stay overnight. 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 MD came to the bedside and explained risk of leaving. Patient later agreed to stay. Patient lost IV access, refused placement of new IV.
[2023-01-16 04:00] VITALS: BP 127/88; PULSE 66; RESP 15; TEMP 36.2; O2SAT 97
[2023-01-16 07:35] VITALS: BP 133/81; PULSE 77; RESP 16; TEMP 36.4; O2SAT 98
[2023-01-16] MEDS: Aspirin 81 MG TAB.CHEW PO (08:01)
[2023-01-16] MEDS: hydroCHLOROthiazide 12.5 MG TABLET PO (08:02)
[2023-01-16] MEDS: amLODIPine Besylate 5 MG TABLET PO (08:02)
[2023-01-16] MEDS: PHENobarbitaL 15 MG TABLET 45 MG PO (08:02)
[2023-01-16] MEDS: FLUoxetine HCl 20 MG CAPSULE PO (08:02)
--- NOTE | 2023-01-16 08:27 | MHC.CM.PN ---
order for home, self care. CM acknowledge.
== END 2023-01-16 08:35 | disposition home or self-care (01) | DRG 52 ==
LOC: HO.ED 16:12 → HO.EDOVER 16:54 → HO.IMC 19:13
PROVIDERS: Admitting Provider Internal Medicine; Emergency Provider Emergency Medicine; PCP Family Medicine; Visit Provider Internal Medicine
DX: I67.4 Hypertensive encephalopathy (principal); R56.9 Unspecified convulsions; F10.90 Alcohol use, unspecified, uncomplicated; F32.A Depression, unspecified; I16.1 Hypertensive emergency; H53.123 Transient visual loss, bilateral; F41.9 Anxiety disorder, unspecified; Y90.0 Blood alcohol level of less than 20 mg/100 ml; I10 Essential (primary) hypertension; Z91.148 Patient's other noncompliance with medication regimen for other reason; Z79.82 Long term (current) use of aspirin; Z79.899 Other long term (current) drug therapy
CPT/HCPCS: 36415; 70450; 70496; 70498; 70551; 80048; 80061; 80076; 80307; 81003; 82947; 83605; 83735; 84484; 85025; 85610; 93005; 95816; 99285; J1953; J2060; J2560

== ENCOUNTER → 2023-01-14 13:48 | Outpatient (BNV) | payer MEDICAID, SELFPAY | PROVIDERS: Admitting Provider Internal Medicine; Emergency Provider Emergency Medicine; PCP Family Medicine; Visit Provider Internal Medicine Cardiovascular Disease | DX: I63.9 Cerebral infarction, unspecified (principal) | CPT/HCPCS: 93010 ==

== ENCOUNTER → 2023-01-14 16:45 | Outpatient (BNV) | payer MEDICAID, SELFPAY | PROVIDERS: Admitting Provider Internal Medicine; Emergency Provider Emergency Medicine; PCP Family Medicine; Visit Provider Internal Medicine | DX: I67.4 Hypertensive encephalopathy (principal); R56.9 Unspecified convulsions | CPT/HCPCS: 99223; 99239; 99499 ==

== ENCOUNTER 2023-01-23 15:02 | Emergency (ER) | payer MEDICAID, SELFPAY ==
[2023-01-23 15:03] VITALS: BP 175/108; PULSE 121; RESP 20; TEMP 36.8; O2SAT 96; BMI 29.2
--- NOTE | 2023-01-23 15:04 | ED_ITS ---
HPI - General Adult General Chief complaint: Neuro Symptoms/Deficit Stated complaint: ? stroke Time Seen by Provider: 01/23/23 16:05 Source: patient, RN notes reviewed and old records reviewed Mode of arrival: ambulatory Limitations: no limitations History of Present Illness HPI narrative: 47-year-old female with past medical history significant for hypertension, seizure disorder, presents for evaluation of numbness, tingling and spasms in her hands. Patient was discharged is facility last week on 01/15/2023. She was admitted for hypertension and new onset seizure. She was discharged with amlodipine and Keppra She has been taking all her medications and has no further seizures She reports that around 1:30 p.m. today she noticed some numbness in both her hands and spasms in her hands She also had symptoms in her left leg with concern for stroke so presents for evaluation Apparently when the patient arrived she had a positive Chvostek sign and positive Trousseau sign. The patient reports her symptoms resolved around 330 to 345 Related Data Home Medications Medication Instructions Recorded Confirmed acetaminophen 325 mg tablet 650 mg PO Q6H PRN Pain 01/14/23 01/14/23 fluoxetine 20 mg capsule 20 mg PO DAILY 01/14/23 01/14/23 melatonin 3 mg tablet 3 mg PO BEDTIME PRN Insomnia 01/14/23 01/14/23 Previous Rx's Medication Instructions Recorded amlodipine 5 mg tablet 5 mg PO DAILY #30 tabs 01/16/23 aspirin 81 mg chewable tablet 81 mg PO DAILY #30 tabs 01/16/23 atorvastatin 20 mg tablet 20 mg PO BEDTIME #30 tabs 01/16/23 hydrochlorothiazide 12.5 mg tablet 12.5 mg PO DAILY #30 tabs 01/16/23 sertraline 25 mg tablet 25 mg PO DAILY #14 tabs 01/16/23 Allergies Allergy/AdvReac Type Severity Reaction Status Date / Time codeine [CODEINE] Allergy Unknown HIVES Verified 01/14/23 14:28 Codeine Phosphate Allergy Unknown rash Uncoded 02/09/12 00:00 Review of Systems Constitutional: Constitutional: Denies chills, Denies fatigue, Denies fever(s) and Denies weakness Eyes: Eyes: Denies blind spots, Denies blurry vision and Denies loss of vision ENT: Denies vertigo and Denies dizziness Cardiovascular: Cardiovascular: Denies chest pain and Denies dyspnea Respiratory: Respiratory: Denies cough and Denies dyspnea Gastrointestinal: Gastrointestinal: Denies abdominal pain, Denies nausea and Denies vomiting Musculoskeletal: Musculoskeletal: Denies back pain, Reports numbness and Reports tingling Integumentary/Breasts: Skin/Breast: Denies rash Neurologic: Denies Abnormal speech present, Denies vertigo, Denies dizziness, Denies focal weakness, Denies loss of vision, Reports numbness, Reports tingling, Reports paresthesias and Denies weakness Psychiatric: Psychiatric: Denies suicidal ideation Endocrine: Endocrine: Denies fatigue PMFSH Past Medical History Medical History Anxiety Depression Hypertension Social History Social History Household Members: Significant Other Housing: Apartment Do you presently have visiting nurse or other home services: No Patient Tobacco Use Status: Never used Tobacco Substance Use Type: Marijuana Advance Directives: No Advance Directives Information Provided: No service: No Physical Exam ED Vital Signs: Vital Signs - 24 hr 01/23/23 15:03 01/23/23 17:48 Temperature 98.3 F Pulse Rate 121 H 94 Respiratory Rate 20 15 Blood Pressure 175/108 H 149/93 H Pulse Oximetry 96 93 Oxygen Delivery Method Room Air Room Air BMI result Body Mass Index 29.2 Const General: healthy appearing, comfortable, no acute distress, alert and awake Nutritional Appearance: well nourished Orientation/consciousness: patient oriented x3 HENMT Head: Yes normocephalic and Yes atraumatic Eyes Eyelids: Yes eyelids normal Conjunctivae: conjunctivae normal Sclerae: sclerae normal Corneas: corneas normal Pupils: Equal, round and reactive pupils present EOM: EOMs intact bilaterally Neck Neck: Yes full ROM Resp Effort & Inspection: normal respiratory effort, able to speak in complete sentences and not labored GI Inspection: No distended Palpation (GI): Soft to palpation, not firm, nontender, no guarding and not rigid Skin General skin exam: no rashes or lesions noted and elasticity normal Neuro General: patient oriented x3 Cranial nerves: Yes CN's II-XII intact bilaterally, Yes Equal, round and reactiv e pupils present and Yes Bilaterally intact EOM present Cognition (Neuro): normal cognition Speech: No Abnormal speech present Extrem Other: Moving all extremities well without any obvious deformities Course Course Course Narrative: This is a rapid medical exam. Deferred additional HPI, ROS, PE to primary provider. 47 yo female with history of anxiety, depression, hypertension here with bilateral arm numbness, left leg numbness since 130pm. Also c/o left arm pain. In triage during blood pressure check left arm is cramping and painful. Seen here one week ago for and admitted for seizure, hypertensive encepahlopathy. Quite anxious in triage, hypertensive in triage, tachycardic in triage. Medications Administered Discontinued Medications Generic Name Dose Route Start Last Admin Trade Name Freq PRN Reason Stop Dose Admin Amlodipine Besylate 5 mg 01/23/23 15:52 01/23/23 16:04 Amlodipine Besylate 5 Mg Tablet PO 01/23/23 15:53 5 mg ONCE ONE Administration Protocol Calcium Gluconate 2 gm in 100 mls @ 50 mls/hr 01/23/23 15:55 01/23/23 16:44 Calcium Gluconate IV 01/23/23 17:54 50 mls/hr ONCE ONE Administration Magnesium Sulfate 2 gm in 50 mls @ 25 mls/hr 01/23/23 15:59 01/23/23 16:44 Magnesium Sulfate/H2o IV 01/23/23 17:58 Infused ONCE ONE Infusion Lorazepam 1 mg 01/23/23 15:52 01/23/23 16:04 Lorazepam 2 Mg/Ml Vial IVPUSH 01/23/23 15:53 1 mg STAT STA Administration Medical Decision Making Medical Decision Making MDM Narrative: 47-year-old male presents for evaluation of numbness and tingling. She also had paresthesias and carpopedal spasms. I arrived on shift at 4:00 p.m. today, the patient reports her symptoms resolved around 3:45 p.m. just prior to my arrival. I spoke to previous provider who reports the patient did have positive Chvostek stand Trousseau sign, but apparently her symptoms resolved prior to my evaluation. She was treated with calcium and magnesium prior to my arrival. She has a NIH stroke score of 0. Her magnesium was low at 1.5 and her phosphorus is low at 2.6. Random calcium was within normal limits, apparently a a ionized calcium level is a send out and will not result today. However, given that her symptoms resolved with electrolyte repletion, I feel the patient can be safely discharged. She follows up with her PCP on Wednesday to have repeat labs. Differential Diagnosis Differential Diagnoses: The differential diagnosis associated with the presentation includes Hypocalcemia Hypomagnesemia Paresthesias CVA less likely Lab Data MDM Lab Attestation statement: I reviewed the patient's lab results. No leukocytosis or anemia. Normal platelet count. Sodium and potassium within normal limits. Patient's magnesium is low at 1.5, phosphorus is low at 2.6. Renal function is within normal limits. 01/23/23 15:18 01/23/23 15:18 Labs: Lab Results 01/23/23 01/23/23 01/23/23 Range/Units 15:17 15:18 15:18 WBC 9.3 (4.8-10.8) X10*3/uL RBC 4.59 (4.20-5.50) X10*6/uL Hgb 14.7 (12.0-16.0) g/dl Hct 44.1 (37.0-47.0) % MCV 96.1 (80.0-98.0) fL MCH 32.0 (27.0-33.0) pg MCHC 33.3 (31.0-35.0) g/dl RDW 13.0 (11.0-16.0) % Plt Count 395 D (160-400) X10*3/uL MPV 9.5 (9.4-12.3) fL Immature Gran % (Auto) 0.2 (0.0-0.4) % Neut % (Auto) 59.6 (45-73) % Lymph % (Auto) 30.1 (20-40) % [place] % (Auto) 8.2 (2-11) % Eos % (Auto) 0.9 (0-4) % Baso % (Auto) 1.0 (0-2) % Lymph # (Auto) 2.8 (1.2-4.9) X10*3/uL [place] # (Auto) 0.8 (0.1-1.2) X10*3/uL Eos # (Auto) 0.1 (0.0-0.4) X10*3/uL Baso # (Auto) 0.1 (0.0-0.2) X10*3/uL Abs Immat Gran (auto) 0.02 (0.00-0.03) X10*3/uL Absolute Neuts (auto) 5.6 (2.0-8.3) x10*3/uL Absolute Nucleated RBC 0.000 (0.0-0.012) X10*3/uL Nucleated RBC % (auto) 0.0 (0.0-0.2) /100WBC PT 12.0 (11.1-13.3) SEC INR 1.0 (0.9-1.1) APTT 28.6 (26.0-36.4) SEC Sodium (135-145) mmol/L Potassium (3.3-5.1) mmol/L Chloride (96-108) mmol/L Carbon Dioxide (22-29) mmol/L Anion Gap (12-20) BUN (9-16) mg/dL Creatinine (0.5-1.4) mg/dL Estim Creat Clear Calc Estimated GFR POC Glucose (60-115) mg/dL Random Glucose (60-115) mg/dL Calcium (8.4-10.2) mg/dL Phosphorus (2.7-4.5) mg/dL Magnesium (1.6-2.6) mg/dL Total Bilirubin (0.0-1.0) mg/dL Direct Bilirubin (0.0-0.5) mg/dL AST (5-31) U/L ALT (0-31) U/L Alkaline Phosphatase (39-117) U/L Total Creatine Kinase (26-140) U/L Troponin I High Sens < 2.7 (<3.5-17.0) ng/L Total Protein (6.5-8.0) g/dL Albumin (3.5-5.0) g/dL 01/23/23 01/23/23 Range/Units 15:18 15:42 WBC (4.8-10.8) X10*3/uL RBC (4.20-5.50) X10*6/uL Hgb (12.0-16.0) g/dl Hct (37.0-47.0) % MCV (80.0-98.0) fL MCH (27.0-33.0) pg MCHC (31.0-35.0) g/dl RDW (11.0-16.0) % Plt Count (160-400) X10*3/uL MPV (9.4-12.3) fL Immature Gran % (Auto) (0.0-0.4) % Neut % (Auto) (45-73) % Lymph % (Auto) (20-40) % [place] % (Auto) (2-11) % Eos % (Auto) (0-4) % Baso % (Auto) (0-2) % Lymph # (Auto) (1.2-4.9) X10*3/uL [place] # (Auto) (0.1-1.2) X10*3/uL Eos # (Auto) (0.0-0.4) X10*3/uL Baso # (Auto) (0.0-0.2) X10*3/uL Abs Immat Gran (auto) (0.00-0.03) X10*3/uL Absolute Neuts (auto) (2.0-8.3) x10*3/uL Absolute Nucleated RBC (0.0-0.012) X10*3/uL Nucleated RBC % (auto) (0.0-0.2) /100WBC PT (11.1-13.3) SEC INR (0.9-1.1) APTT (26.0-36.4) SEC Sodium 138 (135-145) mmol/L Potassium 3.7 (3.3-5.1) mmol/L Chloride 99 (96-108) mmol/L Carbon Dioxide 25 (22-29) mmol/L Anion Gap 18 (12-20) BUN 14 (9-16) mg/dL Creatinine 0.80 (0.5-1.4) mg/dL Estim Creat Clear Calc 93.9 Estimated GFR > 60 POC Glucose 99 (60-115) mg/dL Random Glucose 109 (60-115) mg/dL Calcium 9.9 (8.4-10.2) mg/dL Phosphorus 2.6 L (2.7-4.5) mg/dL Magnesium 1.5 L (1.6-2.6) mg/dL Total Bilirubin 0.3 (0.0-1.0) mg/dL Direct Bilirubin 0.2 (0.0-0.5) mg/dL AST 64 H (5-31) U/L ALT 72 H (0-31) U/L Alkaline Phosphatase 138 H (39-117) U/L Total Creatine Kinase 76 (26-140) U/L Troponin I High Sens (<3.5-17.0) ng/L Total Protein 7.9 (6.5-8.0) g/dL Albumin 4.2 (3.5-5.0) g/dL Tests considered The following testing was considered but not selected: Consider CT scan the brain, however the patient had CT scan, CT angiography and MRI within the last 2 weeks and have a very low suspicion for stroke. This was deferred at this time. Discharge Plan Discharge Clinical Impression: Hypomagnesemia, Paresthesias Patient Disposition: Home, Self-Care Instructions: Paresthesia (ED), Hypomagnesemia (ED) Additional Instructions: You did not have a seizure today Your symptoms are most likely related to low levels of electrolytes Your symptoms were classic for low calcium Unfortunately we could not run an ionized calcium level today but we will call you with results is critical. Your magnesium was low today at 1.5 Follow-up with your primary doctor on Wednesday as scheduled. You should have them redraw electrolytes, specifically sodium, potassium, ph osphorus, magnesium, calcium You may continue taking other medications as prescribed Prescriptions: No Action acetaminophen 325 mg Tablet 650 mg PO Q6H PRN (Reason: Pain) melatonin 3 mg Tablet 3 mg PO BEDTIME PRN (Reason: Insomnia) fluoxetine 20 mg capsule 20 mg PO DAILY atorvastatin 20 mg Tablet 20 mg PO BEDTIME Qty: 30 0RF amlodipine 5 mg Tablet 5 mg PO DAILY Qty: 30 0RF Protocol: Hold for SBP< HOLD for SBP < : 90 aspirin 81 mg Tablet,Chewable 81 mg PO DAILY Qty: 30 0RF Rx Instructions: offer OTC baby aspirin hydrochlorothiazide 12.5 mg Tablet 12.5 mg PO DAILY Qty: 30 0RF Protocol: Hold for SBP< HOLD for SBP < : 90 sertraline 25 mg tablet 25 mg PO DAILY Qty: 14 0RF
--- NOTE | 2023-01-23 15:10 | ECG_ITS ---
Test Reason : SEIZURES Blood Pressure : / mmHG Vent. Rate : 095 BPM Atrial Rate : 095 BPM P-R Int : 112 ms QRS Dur : 080 ms QT Int : 376 ms P-R-T Axes : 026 008 -05 degrees QTc Int : 472 ms Normal sinus rhythm Inferior infarct , age undetermined Abnormal ECG When compared with ECG of 14-JAN-2023 14:42, No significant change was found Referred By: Kayli Newman Electronically Signed By:LEONIDES HENDRIX
[2023-01-23 15:22] LABS: MANUAL DIFF FLAG NO
[2023-01-23 15:23] LABS: Basophils Absolute Auto 0.1 X10*3/uL (0.0-0.2); Eosinophils Absolute Auto 0.1 X10*3/uL (0.0-0.4); Eosinophils Percent Auto 0.9 % (0-4); Hematocrit 44.1 % (37.0-47.0); Hemoglobin 14.7 g/dl (12.0-16.0); Imm Gran Abs Auto 0.02 X10*3/uL (0.00-0.03); Imm Gran Pct Auto 0.2 % (0.0-0.4); Lymphocytes Absolute Auto 2.8 X10*3/uL (1.2-4.9); Lymphocytes Percent Auto 30.1 % (20-40); Mean Corpuscular HGB Conc 33.3 g/dl (31.0-35.0); Mean Corpuscular Volume 96.1 fL (80.0-98.0); Mean Platelet Volume 9.5 fL (9.4-12.3); Monocytes Absolute Auto 0.8 X10*3/uL (0.1-1.2); Monocytes Percent Auto 8.2 % (2-11); Neutrophils Absolute Auto 5.6 x10*3/uL (2.0-8.3); Neutrophils Percent Auto 59.6 % (45-73); Platelet Count 395 X10*3/uL (160-400); Red Blood Count 4.59 X10*6/uL (4.20-5.50); White Blood Count 9.3 X10*3/uL (4.8-10.8)
[2023-01-23 15:31] LABS: Partial Thromboplastin Time 28.6 SEC (26.0-36.4)
[2023-01-23 15:47] LABS: Glucose, Whole Blood 99 mg/dL (60-115)
[2023-01-23 15:56] LABS: Troponin-I High Sensitivity < 2.7 ng/L (<3.5-17.0)
[2023-01-23 15:56] LABS: Alanine Aminotransferase 72 U/L (0-31); Albumin Level 4.2 g/dL (3.5-5.0); Alkaline Phosphatase 138 U/L (39-117); Anion Gap 18 (12-20); Aspartate Amino Transferase 64 U/L (5-31); Bilirubin Direct 0.2 mg/dL (0.0-0.5); Bilirubin Total 0.3 mg/dL (0.0-1.0); Blood Urea Nitrogen 14 mg/dL (9-16); Calcium 9.9 mg/dL (8.4-10.2); Carbon Dioxide 25 mmol/L (22-29); Chloride 99 mmol/L (96-108); Creatinine Clr Calc Pharmacy 93.9; Estimated Glomerular Filt Rate > 60; Glucose Random 109 mg/dL (60-115); Magnesium 1.5 mg/dL (1.6-2.6); Phosphorus 2.6 mg/dL (2.7-4.5); Potassium 3.7 mmol/L (3.3-5.1); Sodium 138 mmol/L (135-145); Total Protein 7.9 g/dL (6.5-8.0)
[2023-01-23] MEDS: amLODIPine Besylate 5 MG TABLET PO (16:04)
[2023-01-23] MEDS: LORazepam 2 MG/ML VIAL 1 MG IVPUSH (16:04)
[2023-01-23] MEDS: Magnesium Sulfate/H2O 2 GM/50 ML PIGGYBACK IV (16:11)
[2023-01-23] MEDS: Calcium Gluconate/NaCl,Iso-Osm 2 GM/100 ML PLAST..BAG IV (16:44)
[2023-01-23 17:48] VITALS: BP 149/93; PULSE 94; RESP 15; O2SAT 93
[2023-01-25 20:34] LABS: Calcium, Ionized 5.1 mg/dL (4.7-5.5)
== END 2023-01-23 18:34 | disposition home or self-care (01) ==
PROVIDERS: Emergency Medicine; Nurse Practitioner Family; Emergency Provider Emergency Medicine
DX: R20.2 Paresthesia of skin (principal); E83.42 Hypomagnesemia; I10 Essential (primary) hypertension; F41.9 Anxiety disorder, unspecified; Z79.899 Other long term (current) drug therapy; Z79.82 Long term (current) use of aspirin
CPT/HCPCS: 36415; 80048; 80076; 82330; 82550; 82947; 83735; 84100; 84484; 85025; 85610; 85730; 93005; 96365; 96375; 99284; J0613; J2060; J3475

== ENCOUNTER 2023-04-20 13:54 | Inpatient (IN) | payer MEDICAID, SELFPAY ==
[2023-04-20] VITALS (8 sets, daily range): BP systolic 107–181; BP diastolic 58–159; PULSE 74–102; RESP 16–19; TEMP 36.2–36.9; O2SAT 96–99; BMI 30.7
--- NOTE | ~2023-04-20 | FL_ITS ---
FLUOROSCOPIC LUMBAR PUNCTURE Indication: Right temporal hyperintense signal on MRI Risks and benefits and possible complications were discussed with the patient and the consent form was signed. Patient was placed prone on the fluoroscopy table. The back was prepped and draped in routine sterile fashion. Betadine was used as a skin antiseptic. Utilizing fluoroscopic guidance, the L3-4 interlaminar space was accessed with a 22 gauge Jasmyne spinal needle and clear CSF fluid obtained passed centrally at the needle hub. 9 cc of fluid was sent for analysis. The needle was removed without immediate complications. Total fluoroscopy time: 8 seconds FL/FL guided lumbar puncture LP IMPRESSION: Successful Fluoroscopic lumbar puncture This procedure was performed by Austen Fatima PA-C and supervised by Dr. Otto.
--- NOTE | ~2023-04-20 | MR_ITS ---
EXAMINATION: MR BRAIN WITHOUT CONTRAST CLINICAL INFORMATION: Postcontrast imaging for temporal encephalitis. COMPARISON: Brain MRI from 04/21/2023 and 01/15/2023. TECHNIQUE: Attempt to perform follow-up postcontrast MRI of the brain. However, the patient was unable to cooperate with the exam at this time. Only motion degraded coronal T2-weighted imaging of the head was obtained. No contrast was utilized for this exam. MR/MR head/brain wo con FINDINGS/IMPRESSION: Limited moderately motion degraded exam redemonstrates chronic regions of cortical T2 FLAIR hyperintensity in the high left frontal lobe and parasagittal right parietal lobe. Similar to the recent MRI, there remains asymmetric T2 FLAIR hyperintensity within the right hippocampus. No overtly demonstrated new signal abnormalities on limited evaluation.
--- NOTE | ~2023-04-20 | MR_ITS ---
EXAMINATION: MR BRAIN WITHOUT CONTRAST CLINICAL INFORMATION: 48-year-old with seizure. COMPARISON: 01/15/2023 MRI TECHNIQUE: Multiplanar multisequence MR imaging of the brain was done without IV contrast. Study is very limited due to motion artifact. FINDINGS: Brain Volume: Grossly within normal limits within the limitations of a qualitative assessment. Structural: No malformations. Brain and Meninges: DWI sequence demonstrates no restricted diffusion to suggest acute or subacute cerebral ischemia. Note that the right hippocampus/mesial right temporal lobe shows asymmetric DWI bright signal without restricted diffusion on the ADC map, which could be artifactual, but could also be related to T2 shine-through as there is asymmetry of T2 signal as well being brighter on the right, the significance of which is uncertain. Cannot exclude the possibility of limbic encephalitis. Enhanced imaging would be of additional value in this regard if this can be obtained. The remainder of the brain is remarkable for the presence of a chronic left frontal lobe infarct which was noted on previous CT of the brain of 04/20/2023. There is also a small probable remote infarct in the right mesial parietal lobe also noted on previous CT. No extra-axial fluid collections, space-occupying process or mass effect are identified. Gradient echo sequence was very limited due to motion artifact. No gross evidence for magnetic susceptibility signal loss to suggest hemorrhage, hemosiderin staining or abnormal mineralization within the limitations of the exam. Ventricles and Subarachnoid Spaces: The ventricular system and subarachnoid spaces are within normal range; there is no hydrocephalus. Orbital Structures: The visualized orbital structures are grossly unremarkable within the limitations of the study. Vascular: Signal voids are noted in the visualized major intracranial vessels. Osseous Structures, Sinuses/Mastoids, Extracranial Soft Tissues: Grossly unremarkable, but very limited assessment. MR/MR head/brain wo con IMPRESSION: 1. Question of the possibility of autoimmune limbic versus herpes encephalitis involving the mesial right temporal lobe. Recommend MRI of the brain with contrast for further assessment if this can be obtained. Sedation may be required for this. Correlate clinically as well. 2. 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 The [facility] staff will call to confirm receipt of this report with acknowledgement of the findings and any recommendations.
--- NOTE | ~2023-04-20 | CT_ITS ---
EXAMINATION: CT HEAD WITHOUT CONTRAST CLINICAL INFORMATION: Seizures and hypertension COMPARISON: 01/14/2023 and 01/15/2023. TECHNIQUE: Contiguous axial imaging was performed from the skull base to vertex without intravenous administration of contrast. This CT examination was performed using dose optimization techniques as appropriate, variously including the following: *Automated exposure control *Adjustment of mA and/or kV according to patient size (this includes techniques or standardized protocols for targeted exams where dose is matched to indication/reason for exam; i.e. extremities or head) *Use of iterative reconstruction technique DLP: 601 mGy-cm FINDINGS: No intra or extra-axial fluid collection, hemorrhage, mass, or mass effect. Sulci and ventricles are unremarkable. Note is made of small involutional changes or areas of diminished attenuation in the left frontal lobe but this is chronic, and unchanged from 01/14/2023 and the brain MRI of 01/15/2023. Calvarium intact. CT/CT head/brain wo IV con IMPRESSION: No acute intracranial pathology.
--- NOTE | 2023-04-20 13:59 | ECG_ITS ---
Test Reason : SEIZURE Blood Pressure : / mmHG Vent. Rate : 096 BPM Atrial Rate : 096 BPM P-R Int : 120 ms QRS Dur : 082 ms QT Int : 556 ms P-R-T Axes : 061 -04 040 degrees QTc Int : 702 ms Normal sinus rhythm Nonspecific ST and T wave abnormality Abnormal ECG When compared with ECG of 23-JAN-2023 15:26, T wave inversion no longer evident in Inferior leads ST more depressed Lateral leads Referred By: Emmanuel Fletcher Electronically Signed By:NEREIDA KIDD MD
--- NOTE | 2023-04-20 14:00 | PC.NURSE ---
pt determined not to be stroke alert anymore on ems arrival per md saha. anxious. normal breathing. htn improved from field now 167/94. see neuro assmt
--- NOTE | 2023-04-20 14:46 | PC.NURSE ---
md saha at bedside- pt start to have seizure like activity. stiff. shaking arms. frothy spit in mouth- clearing secretions. lasted approx 2 min. per md saha ordering iv ativan for seizure. last drink today @ 1100.
[2023-04-20 14:47] LABS: MANUAL DIFF FLAG NO
[2023-04-20 14:50] LABS: Basophils Absolute Auto 0.1 X10*3/uL (0.0-0.2); Basophils Percent Auto 0.6 % (0-2); Eosinophils Absolute Auto 0.1 X10*3/uL (0.0-0.4); Eosinophils Percent Auto 0.6 % (0-4); Hematocrit 43.5 % (37.0-47.0); Hemoglobin 14.8 g/dl (12.0-16.0); Imm Gran Abs Auto 0.03 X10*3/uL (0.00-0.03); Imm Gran Pct Auto 0.4 % (0.0-0.4); Lymphocytes Absolute Auto 1.8 X10*3/uL (1.2-4.9); Lymphocytes Percent Auto 21.2 % (20-40); Mean Corpuscular Hemoglobin 32.8 pg (27.0-33.0); Mean Corpuscular Volume 96.5 fL (80.0-98.0); Mean Platelet Volume 9.6 fL (9.4-12.3); Monocytes Absolute Auto 0.6 X10*3/uL (0.1-1.2); Monocytes Percent Auto 7.3 % (2-11); Neutrophils Absolute Auto 5.9 x10*3/uL (2.0-8.3); Neutrophils Percent Auto 69.9 % (45-73); Platelet Count 291 X10*3/uL (160-400); Red Blood Count 4.51 X10*6/uL (4.20-5.50); Red Cell Distribution Width 14.2 % (11.0-16.0); White Blood Count 8.5 X10*3/uL (4.8-10.8)
[2023-04-20] MEDS: LORazepam 2 MG/ML VIAL IVPUSH (14:56)
--- NOTE | 2023-04-20 14:56 | ED.GENADULT ---
HPI - General Adult General Chief complaint: General Medical Stated complaint: STROKE ALERT Time Seen by Provider: 04/20/23 13:55 Source: patient and EMS Mode of arrival: EMS Limitations: no limitations History of Present Illness HPI narrative: patient called in as a stroke alert. States that she got upset on the phone and started shaking and had high blood pressure. Patient presents hyperventilating with hand feet and face numbness Onset (ago): hour(s) Severity: mild Related Data Home Medications Medication Instructions Recorded Confirmed acetaminophen 325 mg tablet 650 mg PO Q6H PRN Pain 01/14/23 01/14/23 fluoxetine 20 mg capsule 20 mg PO DAILY 01/14/23 01/14/23 melatonin 3 mg tablet 3 mg PO BEDTIME PRN Insomnia 01/14/23 01/14/23 Previous Rx's Medication Instructions Recorded amlodipine 5 mg tablet 5 mg PO DAILY #30 tabs 01/16/23 aspirin 81 mg chewable tablet 81 mg PO DAILY #30 tabs 01/16/23 atorvastatin 20 mg tablet 20 mg PO BEDTIME #30 tabs 01/16/23 hydrochlorothiazide 12.5 mg tablet 12.5 mg PO DAILY #30 tabs 01/16/23 sertraline 25 mg tablet 25 mg PO DAILY #14 tabs 01/16/23 Allergies Allergy/AdvReac Type Severity Reaction Status Date / Time codeine [CODEINE] Allergy Unknown HIVES Verified 04/20/23 14:12 Codeine Phosphate Allergy Unknown rash Uncoded 04/20/23 14:12 Review of Systems Review of Systems: Yes all other systems are reviewed and are negative Neurologic: Denies Sensory deficit (Neuro) PMFSH Past Medical History Medical History Hypertension Depression Anxiety Social History Social History Household Members: Significant Other Housing: Apartment Do you presently have visiting nurse or other home services: No Alcohol intake: current Alcohol intake frequency: 3 or more drinks per day Alcohol type: hard liquor Patient Tobacco Use Status: Never used Tobacco Smoked in Last 30 Days: No Use of substances other than those prescribed or required for medical reasons: Yes Substance Use Type: Marijuana Substance Use Frequency: Occasionally Advance Directives: No Advance Directives Information Provided: No service: No Physical Exam ED Vital Signs: Vital Signs - 24 hr 11/14/23 14:05 04/20/23 14:30 04/20/23 15:10 Temperature 98.2 F 97.9 F 97.9 F Pulse Rate 80 93 74 Respiratory Rate 18 19 16 Blood Pressure 167/94 H 167/94 H 107/58 L Pulse Oximetry 99 98 96 Oxygen Delivery Method Room Air Room Air Nasal Cannula Oxygen Flow Rate 2 BMI result Body Mass Index 30.7 Const Other: anxious obese female shaking Orientation/consciousness: oriented to person and patient oriented x3 Limitations: no limitations HENMT Head: Yes normal to inspection Ears: external ears normal General nose exam: Normal external nose present Mouth: Normal oral and palatal mucosa present and oropharynx normal Throat: Yes posterior oropharynx normal Eyes General: appearance normal, both eyes and all related structures Neck Neck: Yes normal visual inspection Chest Chest palpation & inspection: normal inspection of the chest Resp Auscultation: clear to auscultation bilaterally Cardio Jugular venous distension: no JVD Rate: regular rate Rhythm: regular rhythm Heart sounds: S1 normal heart sound present and S2 normal heart sound present GI Inspection: Yes normal to inspection Palpation (GI): Soft to palpation, nontender and No hepatosplenomegaly present Auscultation: normal bowel sounds General: Yes no CVA tenderness Back/Spine/Pelvis Back: no CVA tenderness Skin General skin exam: no rashes or lesions noted Neuro General: oriented to person and patient oriented x3 Cranial nerves: Yes CN's II-XII intact bilaterally Motor exam (neuro): 5/5 motor strength present throughout Sensory Exam: No Sensory deficit (Neuro) Extrem General: Yes normal to inspection Psych Appearance: grossly normal Course Reevaluation(s) Reevaluation #1: patient had a witnessed tonic clonic seizure. Family states she drank alcohol this morning. IV ativan given Time: 14:57 Reevaluation #2: Patient resting comfortably, BP down to 130 systolic Time: 15:54 Reevaluation #3: physician observation: patient placed in physician observation, needs to wake up from seizure and see if she is in withdrawal or feels better Time: 15:58 Medications Administered Discontinued Medications Generic Name Dose Route Start Last Admin Trade Name Freq PRN Reason Stop Dose Admin Lorazepam 2 mg 04/20/23 13:59 04/20/23 15:07 Lorazepam 2 Mg/Ml Vial IVPUSH 04/20/23 14:00 Not Given ONCE ONE Lorazepam 2 mg 04/20/23 14:53 04/20/23 14:56 Lorazepam 2 Mg/Ml Vial IVPUSH 04/20/23 14:54 2 mg STAT STA Administration Medical Decision Making Differential Diagnosis Differential Diagnoses: The differential diagnosis associated with the presentation includes (anxiety, alcohol withdrawal, seizure, stroke all considered) Admission/Observation Consideration of admission/observation: Escalation of care including admission/observation considered (upon arrival patient considered for admission) Lab Data MDM Lab Attestation statement: I reviewed the patient's lab results. (all within normal limits) 04/20/23 14:43 04/20/23 14:43 Labs: Lab Results 04/20/23 Range/Units 14:43 WBC 8.5 (4.8-10.8) X10*3/uL RBC 4.51 (4.20-5.50) X10*6/uL Hgb 14.8 (12.0-16.0) g/dl Hct 43.5 (37.0-47.0) % MCV 96.5 (80.0-98.0) fL MCH 32.8 (27.0-33.0) pg MCHC 34.0 (31.0-35.0) g/dl RDW 14.2 (11.0-16.0) % Plt Count 291 D (160-400) X10*3/uL MPV 9.6 (9.4-12.3) fL Immature Gran % (Auto) 0.4 (0.0-0.4) % Neut % (Auto) 69.9 (45-73) % Lymph % (Auto) 21.2 (20-40) % [place] % (Auto) 7.3 (2-11) % Eos % (Auto) 0.6 (0-4) % Baso % (Auto) 0.6 (0-2) % Lymph # (Auto) 1.8 (1.2-4.9) X10*3/uL [place] # (Auto) 0.6 (0.1-1.2) X10*3/uL Eos # (Auto) 0.1 (0.0-0.4) X10*3/uL Baso # (Auto) 0.1 (0.0-0.2) X10*3/uL Abs Immat Gran (auto) 0.03 (0.00-0.03) X10*3/uL Absolute Neuts (auto) 5.9 (2.0-8.3) x10*3/uL Absolute Nucleated RBC 0.000 (0.0-0.012) X10*3/uL Nucleated RBC % (auto) 0.0 (0.0-0.2) /100WBC Sodium 136 (135-145) mmol/L Potassium 3.8 (3.3-5.1) mmol/L Chloride 102 (96-108) mmol/L Carbon Dioxide 24 (22-29) mmol/L Anion Gap 14 (12-20) BUN 8 L (9-16) mg/dL Creatinine 0.81 (0.5-1.4) mg/dL Estim Creat Clear Calc 97.2 Estimated GFR > 60 Random Glucose 127 H (60-115) mg/dL Calcium 9.9 (8.4-10.2) mg/dL Troponin I High Sens < 2.7 (<3.5-17.0) ng/L Ethyl Alcohol < 10 mg/dL Independent Interpretation I performed an independent interpretation of an: EKG (sinus [address] or twave changes) and CT Scan (head: no bleed) Radiology Impression Discussion of test interpretation with radiology: I have reviewed the radiologist's reading. Independent Historian Clinical information obtained from an independent historian. History obtained from or confirmed by: Other (family) External Record Review External record reviewed: Inpatient record Chronic Conditions Patient?s care impacted by: Other (anxiety and alcoholism) Social Determinants Patient?s care significantly limited by Social Determinants of Health including: Alcoholism and drug addiction in family Discharge Plan Discharge Clinical Impression: Anxiety, Alcoholism, Seizure Patient Disposition: Still a Patient Prescriptions: No Action acetaminophen 325 mg Tablet 650 mg PO Q6H PRN (Reason: Pain) melatonin 3 mg Tablet 3 mg PO BEDTIME PRN (Reason: Insomnia) fluoxetine 20 mg capsule 20 mg PO DAILY atorvastatin 20 mg Tablet 20 mg PO BEDTIME Qty: 30 0RF amlodipine 5 mg Tablet 5 mg PO DAILY Qty: 30 0RF Protocol: Hold for SBP< HOLD for SBP < : 90 aspirin 81 mg Tablet,Chewable 81 mg PO DAILY Qty: 30 0RF Rx Instructions: offer OTC baby aspirin hydrochlorothiazide 12.5 mg Tablet 12.5 mg PO DAILY Qty: 30 0RF Protocol: Hold for SBP< HOLD for SBP < : 90 sertraline 25 mg tablet 25 mg PO DAILY Qty: 14 0RF
[2023-04-20 15:00] LABS: Anion Gap 14 (12-20); Blood Urea Nitrogen 8 mg/dL (9-16); Calcium 9.9 mg/dL (8.4-10.2); Carbon Dioxide 24 mmol/L (22-29); Chloride 102 mmol/L (96-108); Creatinine Clr Calc Pharmacy 97.2; Estimated Glomerular Filt Rate > 60; Glucose Random 127 mg/dL (60-115); Potassium 3.8 mmol/L (3.3-5.1); Sodium 136 mmol/L (135-145)
[2023-04-20 15:08] LABS: Troponin-I High Sensitivity < 2.7 ng/L (<3.5-17.0)
--- NOTE | 2023-04-20 15:12 | PC.NURSE ---
per md saha hold ecg and go to ct scan- rn talked w ct- on their way. piv c/d/i. en route to ct w rn and staff
[2023-04-20 15:17] LABS: Ethanol < 10 mg/dL
--- NOTE | 2023-04-20 15:23 | PC.NURSE ---
back from t scan- remains on monitor- seizure pads remain on.
--- NOTE | 2023-04-20 19:00 | PC.NURSE ---
Assumed care of pt. Pt lying on stretcher, tremulous, withdrawal like symptoms. Mother at bedside. MD aware of sx, planing for Pheno protocol. No other acute distress.
[2023-04-20] MEDS: levETIRAcetam in NaCl (iso-os) 1,000 MG/100 ML PIGGYBACK 400 MG IV (19:19)
--- NOTE | 2023-04-20 19:24 | PC.NURSE ---
Addendum entered by Elizabeth Rodriguez 04/20/23 19:27: Dr. Garcia made aware, and at bedside talking to pt Original Note: Pt refused ambulation trial due to 03/16 pain, Pt states it feels like the back of my head is going to explode. Pt medicated per AUG. Pt and family aware of plan of care.
--- NOTE | 2023-04-20 19:44 | PM.IMHP ---
History of Present Illness Date of Service: 04/20/23 Chief Complaint: Vision loss, seizure This is a 48-year-old female with pertinent history of essential hypertension, mixed hyperlipidemia, mood disorder, alcohol use disorder, history of CVA who presents to the emergency department for evaluation of visual loss. Patient states she had sudden onset of headache and visual loss while she was at home. No facial droop. No motor extremity weakness. Patient was brought to the ER and witnessed a tonic-clonic seizure episode while in the ER. Of note, patient was admitted at [facility] about 3 months ago for similar complaints. Patient has a history of medication noncompliance. She was found to have a chronic infarct on imaging during previous hospitalization. Her last alcoholic drink was on the day of presentation. Patient is lethargic at the time of my evaluation, likely postictal due to seizure episode. History obtained from mother at bedside and chart review. Unable to obtain review of systems. Review of Systems Review of Systems: Yes Unobtainable due to mental status [facility] Medical History Hypertension Depression Anxiety Pertinent family history: Unable to obtain Social History Household Members: Significant Other Housing: Apartment Do you presently have visiting nurse or other home services: No Alcohol intake: current Alcohol intake frequency: 3 or more drinks per day Alcohol type: hard liquor Patient Tobacco Use Status: Never used Tobacco Smoked in Last 30 Days: No Use of substances other than those prescribed or required for medical reasons: Yes Substance Use Type: Marijuana Substance Use Frequency: Occasionally Advance Directives: No Advance Directives Information Provided: No service: No Meds Allergies Allergy/AdvReac Type Severity Reaction Status Date / Time codeine [CODEINE] Allergy Unknown HIVES Verified 04/20/23 14:12 Codeine Phosphate Allergy Unknown rash Uncoded 04/20/23 14:12 Active Medications: Current Medications Pharmacy Consult (Consult Rx Etoh Phenob Im/Po) 1 each MISCELLANE ONCE PRN; Protocol PRN Reason: Consult order Phenobarbital (Phenobarbital 30 Mg Tablet) 30 mg PO Q4H PRN PRN Reason: Breakthrough alcohol withdrawa Home Medications Medication Instructions Recorded Confirmed Last Taken Type melatonin 3 mg tablet 3 mg PO BEDTIME PRN Insomnia 01/14/23 04/20/23 Unknown History amlodipine 10 mg tablet 10 mg PO DAILY 04/20/23 04/20/23 04/20/23 History fluoxetine 40 mg capsule 40 mg PO DAILY 04/20/23 04/20/23 04/20/23 History hydrochlorothiazide 25 mg tablet 25 mg PO DAILY 04/20/23 04/20/23 04/20/23 History Physical Exam Vital Signs and Narrative: Vital Signs: Last Vital Signs Temp 98.4 F 04/20/23 18:00 Pulse 100 04/20/23 18:00 Resp 18 04/20/23 18:00 BP 150/100 H 04/20/23 18:00 Pulse Ox 97 04/20/23 18:00 O2 Del Method Nasal Cannula 04/20/23 18:00 O2 Flow Rate 2 04/20/23 18:00 BMI result Body Mass Index 30.7 Middle-aged female lying in bed in no distress Neck supple, no JVD Tachycardic with regular rhythm, S1-S2 heard Regular breath sounds bilaterally, no wheezing or crackles appreciated Abdomen soft nontender, no guarding, no rigidity Patient is drowsy and only eye opening to verbal stimulus, slow to respond, unable to follow commands or take part in conversation, unable to assess orientation Psych: Lethargic No pedal edema Results Labs 04/20/23 14:43 04/20/23 14:43 Labs: Laboratory Results - last 24 hr 04/20/23 14:43 MCV 96.5 MCH 32.8 MCHC 34.0 RDW 14.2 Plt Count 291 D MPV 9.6 Immature Gran % (Auto) 0.4 Neut % (Auto) 69.9 Lymph % (Auto) 21.2 [place] % (Auto) 7.3 Eos % (Auto) 0.6 Baso % (Auto) 0.6 Lymph # (Auto) 1.8 [place] # (Auto) 0.6 Eos # (Auto) 0.1 Baso # (Auto) 0.1 Abs Immat Gran (auto) 0.03 Absolute Neuts (auto) 5.9 Absolute Nucleated RBC 0.000 Nucleated RBC % (auto) 0.0 Anion Gap 14 Estim Creat Clear Calc 97.2 Estimated GFR > 60 Random Glucose 127 H Calcium 9.9 Ethyl Alcohol < 10 Imaging Radiologist's Impressions: Impressions Head CT 04/20/23 15:24 IMPRESSION: No acute intracranial pathology. Assessment and Plan (1) Seizure: Status: Acute (2) Alcoholism: Status: Acute (3) Hypertensive emergency: Status: Acute Plan This is a 48-year-old female with pertinent history of essential hypertension, mixed hyperlipidemia, mood disorder, alcohol use disorder, history of CVA who presents to the emergency department for evaluation of visual loss. #. Visual loss: ?likely related to hypertensive emergency. Will admit patient with cardiac monitoring. Also obtaining MRI to rule out acute CVA. Consulted neurology, appreciate assistance #. Seizure, ?due to elevated blood pressure vs alcohol withdrawal: Loaded with Keppra in the ER. Obtaining EEG and consulted neurology #. Hypertensive urgency/emergency: Aggressive control of BP. Restart oral meds, does have a history of medication noncompliance #. Alcohol use disorder: Initiated on phenobarb protocol in the ER. Monitor CIWA. Initaited thiamine, consulted addiction medicine #. Mood disorder: Continue home mood stabilizers #. History of CVA: On antiplatelet agent, increasing statin to high-intensity dosage DVT prophylaxis: Sabrinalakshmix Admit as inpatient and will require two night minimum hospital stay for evaluation of seizure and possible acute CVA with close hemodynamic monitoring (as above), which is not possible in a lesser acute setting. Specialist consult pending Quality Stroke Does the patient have a stroke diagnosis?: No VTE Prior VTE?: No VTE Risk Level:: Medical - moderate - high VTE Device Contraindication: Treatment Not Indicated VTE Drug Contraindication: N/A - Med Ordered
--- NOTE | 2023-04-20 19:48 | MHC.EDTECH ---
This tech took over care of patient at 1900,hourly rounds,vitals and belonging list completed and copy placed in chart, call lindsey within reach and family at bedside
--- NOTE | 2023-04-20 20:10 | PHA.MEDREC ---
Pharmacy Consult ? Medication Reconciliation Pharmacy has completed the medication reconciliation. Patient not responding, utilized claim history to completed med rec. She did report taking morning medications. Ronna Montgomery, EarlineD
[2023-04-20] MEDS: PHENobarbitaL sodium 130 MG/ML IM ONCE 369.2 MG IM (20:18)
[2023-04-20] MEDS: Enoxaparin Sodium 40 MG/0.4 ML SYRINGE SUBCUT (20:19)
--- NOTE | 2023-04-20 21:01 | PC.NURSE ---
Pt taken to MRI by chemical waste management technician
--- NOTE | 2023-04-20 21:17 | PC.NURSE ---
Per reuse technician, pt given sip of water per MD, however refused MRI.
[2023-04-20] MEDS: Atorvastatin Calcium 40 MG TABLET PO (22:20)
[2023-04-20] MEDS: Thiamine HCL 100 MG in 0.9 % Sodium Chloride 100 ML 202 MG IV (22:20)
[2023-04-20] MEDS: PHENobarbitaL sodium 130 MG/ML VIAL IM Q3Hx2 278.2 MG IM (23:44)
[2023-04-21] VITALS (8 sets, daily range): BP systolic 128–169; BP diastolic 84–96; PULSE 73–102; RESP 14–20; TEMP 36.4–37.3; O2SAT 95–98; BMI 29.9
--- NOTE | 2023-04-21 01:20 | MHC.EDTECH ---
Hourly rounds and vitals completed,patient is sleeping at this time and call lindsey within reach
[2023-04-21] MEDS: PHENobarbitaL sodium 130 MG/ML VIAL IM Q3Hx2 278.2 MG IM (03:22)
--- NOTE | 2023-04-21 04:11 | MHC.EDTECH ---
Hourly rounds and vitals completed, patient is sleeping at this time with call césar reynaga
--- NOTE | 2023-04-21 05:49 | MHC.EDTECH ---
Hourly rounds completed,patient is sleeping at this time and call lindsey within reach.
[2023-04-21 05:53] LABS: Hematocrit 40.4 % (37.0-47.0); Hemoglobin 13.3 g/dl (12.0-16.0); Mean Corpuscular HGB Conc 32.9 g/dl (31.0-35.0); Mean Corpuscular Hemoglobin 32.7 pg (27.0-33.0); Mean Corpuscular Volume 99.3 fL (80.0-98.0); Mean Platelet Volume 10.3 fL (9.4-12.3); Platelet Count 265 X10*3/uL (160-400); Red Blood Count 4.07 X10*6/uL (4.20-5.50); Red Cell Distribution Width 14.1 % (11.0-16.0); White Blood Count 7.7 X10*3/uL (4.8-10.8)
[2023-04-21 06:08] LABS: Anion Gap 13 (12-20); Blood Urea Nitrogen 11 mg/dL (9-16); Calcium 9.3 mg/dL (8.4-10.2); Carbon Dioxide 26 mmol/L (22-29); Chloride 102 mmol/L (96-108); Creatinine Clr Calc Pharmacy 97.2; Estimated Glomerular Filt Rate > 60; Glucose Random 92 mg/dL (60-115); Potassium 3.5 mmol/L (3.3-5.1); Sodium 137 mmol/L (135-145)
[2023-04-21] MEDS: PHENobarbitaL 15 MG TABLET 45 MG PO ×2 (08:16→19:50)
[2023-04-21] MEDS: hydroCHLOROthiazide 25 MG TABLET PO (08:16)
[2023-04-21] MEDS: amLODIPine Besylate 10 MG TABLET PO (08:17)
[2023-04-21] MEDS: Aspirin 81 MG TAB.CHEW PO (08:17)
[2023-04-21] MEDS: FLUoxetine HCl 20 MG CAPSULE 40 MG PO (08:17)
[2023-04-21] MEDS: Thiamine HCL 100 MG TABLET PO (08:17)
[2023-04-21 08:58] LABS: Alanine Aminotransferase 127 U/L (0-31); Albumin Level 3.5 g/dL (3.5-5.0); Alkaline Phosphatase 139 U/L (39-117); Aspartate Amino Transferase 149 U/L (5-31); Bilirubin Direct 0.3 mg/dL (0.0-0.5); Bilirubin Total 0.7 mg/dL (0.0-1.0); Magnesium 1.8 mg/dL (1.6-2.6); Total Protein 6.7 g/dL (6.5-8.0)
--- NOTE | 2023-04-21 09:37 | PC.NURSE ---
assumed care of pt at 0700. pt sleeping most of morning. woke up to eat breakfast and take morning meds. pt brought over to EEG, unable to complete due to knotted hair. pt brought back to ED. awaiting MRI. pt has ativan ordered to medicate before scan. pt currently resting quietly on stretcher. seizure pads in place for pt safety. pt CIWA scored as 2. pt offers no complaints, appears well but tired. IV in LAC patent. medicated per aug. VSS. pt on 2L O2 via NC sating 96-97%. rr even/unlabored. call lindsey within pt reach. plan of care ongoing.
--- NOTE | 2023-04-21 10:42 | MHC.CM.PN ---
PATIENT LIVES WITH FAMILY AND SIGNIFICANT OTHER. SHE USES NO DME OR VNA SERVICES. PCP IS WITH [facility]. FAMILY TO TRANSPORT HOME AT TIME OF DC. NO HCP ON FILE AND ONE CAN BE DISCUSSED AT A BETTER TIME, PATIENT IS CURRENTLY LETHARGIC.
--- NOTE | 2023-04-21 11:15 | P.CNNE_ITS ---
History of Present Illness Data of Consult Service Date: 04/21/23 Primary Care Provider: Unknown Physician HPI Reason for consult: Seizure disorder 48 years old woman who probably has been drinking significant alcohol for a while, with it diffuse cerebral cortical and mild cerebellar atrophy on her scan, and a chronic left frontal small lesion probably ischemic in nature, previously seen within episode suggestive of complex migraine. This time she was here with somewhat similar symptoms but then had a grand mal seizure or tonic clonic seizure in emergency room. She said that she had 1 such episode in the past. She also said that she was not drinking recently. There was no physical injury or incontinence associated with this episode. Review of Systems 2 Review of Systems: No recent cold or flu-like illness or trauma. [facility] Past Medical History Medical History Hypertension Depression Anxiety Social History Social History Household Members: Significant Other Housing: Apartment Do you presently have visiting nurse or other home services: No Alcohol intake: current Alcohol intake frequency: 3 or more drinks per day Alcohol type: hard liquor Patient Tobacco Use Status: Never used Tobacco Smoked in Last 30 Days: No Use of substances other than those prescribed or required for medical reasons: Yes Substance Use Type: Marijuana Substance Use Frequency: Occasionally Advance Directives: No Advance Directives Information Provided: No Nutrition Risks: No Nutritional Risk service: No Meds Allergies Allergy/AdvReac Type Severity Reaction Status Date / Time codeine [CODEINE] Allergy Unknown HIVES Verified 04/20/23 14:12 Codeine Phosphate Allergy Unknown rash Uncoded 04/20/23 14:12 Active Medications: Current Medications Acetaminophen (Acetaminophen 325 Mg Tablet) 650 mg PO Q6H PRN PRN Reason: Pain, Mild (Pain Scale 1-3) Amlodipine Besylate (Amlodipine Besylate 10 Mg Tablet) 10 mg PO DAILY [facility]; Protocol Last Admin: 04/21/23 08:17 Dose: 10 mg Aspirin (Aspirin 81 Mg Tab.Chew) 81 mg PO DAILY [facility] Last Admin: 04/21/23 08:17 Dose: 81 mg Atorvastatin Calcium (Atorvastatin Calcium 40 Mg Tablet) 40 mg PO BEDTIME [facility] Last Admin: 04/20/23 22:20 Dose: 40 mg Enoxaparin Sodium (Enoxaparin Sodium 40 Mg/0.4 Ml Syringe) 40 mg SUBCUT Q24H [facility] Last Admin: 04/20/23 20:19 Dose: 40 mg Fluoxetine HCl (Fluoxetine Hcl 20 Mg Capsule) 40 mg PO DAILY [facility] Last Admin: 04/21/23 08:17 Dose: 40 mg Hydrochlorothiazide (Hydrochlorothiazide 25 Mg Tablet) 25 mg PO DAILY [facility]; Protocol Last Admin: 04/21/23 08:16 Dose: 25 mg Melatonin (Melatonin 3 Mg Tablet) 6 mg PO BEDTIME PRN PRN Reason: Insomnia Melatonin (Melatonin 3 Mg Tablet) 3 mg PO BEDTIME PRN PRN Reason: Insomnia Ondansetron HCl (Ondansetron Hcl 4 Mg/2 Ml Vial) 4 mg IVPUSH Q8H PRN PRN Reason: Nausea and Vomiting Pharmacy Consult (Consult Rx Etoh Phenob Im/Po) 1 each MISCELLANE ONCE PRN; Protocol PRN Reason: Consult order Phenobarbital (Phenobarbital 30 Mg Tablet) 30 mg PO Q4H PRN PRN Reason: Breakthrough alcohol withdrawa Phenobarbital (Phenobarbital 15 Mg Tablet) 45 mg PO BID [facility]; Protocol Stop: 04/22/23 21:01 Last Admin: 04/21/23 08:16 Dose: 45 mg Phenobarbital (Phenobarbital 30 Mg Tablet) 30 mg PO BID [facility]; Protocol Stop: 04/24/23 21:01 Phenobarbital (Phenobarbital 15 Mg Tablet) 15 mg PO DAILY [facility]; Protocol Stop: 04/26/23 09:01 Sodium Chloride (0.9 % Sodium Chloride Flush 3 Ml [facility]) [facility] Admin: 04/21/23 07:46 Dose: Not Given Thiamine HCl (Thiamine Hcl 100 Mg Tablet) 100 mg PO DAILY [facility] Last Admin: 04/21/23 08:17 Dose: 100 mg Home Medications Medication Instructions Recorded Confirmed Last Taken Type melatonin 3 mg tablet 3 mg PO BEDTIME PRN Insomnia 01/14/23 04/20/23 Unknown History amlodipine 10 mg tablet 10 mg PO DAILY 04/20/23 04/20/23 04/20/23 History fluoxetine 40 mg capsule 40 mg PO DAILY 04/20/23 04/20/23 04/20/23 History hydrochlorothiazide 25 mg tablet 25 mg PO DAILY 04/20/23 04/20/23 04/20/23 History Physical Exam 2 Vital Signs: Vital Signs: Last Vital Signs Temp 98.9 F 04/21/23 08:20 Pulse 94 04/21/23 08:20 Resp 18 04/21/23 08:20 BP 169/96 H 04/21/23 08:20 Pulse Ox 97 04/21/23 08:20 O2 Del Method Nasal Cannula 04/21/23 08:20 O2 Flow Rate 2 04/21/23 08:20 BMI result Body Mass Index 30.7 Neuro: Other: Alert and awake with normal spontaneity of speech fluency comprehension and vague affect. Oral hygiene is poor. There is no asterisks or significant tremor. Deep tendon reflexes are absent with withdrawing plantars. Results Labs 04/21/23 05:06 04/21/23 05:06 Labs: Short CBC 04/20/23 04/21/23 Range/Units 14:43 05:06 WBC 8.5 7.7 (4.8-10.8) X10*3/uL Hgb 14.8 13.3 (12.0-16.0) g/dl Hct 43.5 40.4 (37.0-47.0) % Plt Count 291 D 265 (160-400) X10*3/uL BMP 04/20/23 04/21/23 14:43 05:06 Sodium 136 137 Potassium 3.8 3.5 Chloride 102 102 Carbon Dioxide 24 26 BUN 8 L 11 Creatinine 0.81 0.81 Calcium 9.9 9.3 D Liver Function 04/21/23 Range/Units 05:06 Total Bilirubin 0.7 (0.0-1.0) mg/dL Direct Bilirubin 0.3 (0.0-0.5) mg/dL AST 149 H (5-31) U/L ALT 127 H (0-31) U/L Alkaline Phosphatase 139 H (39-117) U/L Albumin 3.5 (3.5-5.0) g/dL Her head CT and MRI were reviewed. Findings were as reported above. Assessment and Plan (1) Seizure: Status: Acute 48 years old woman with multiple risk factor for seizure disorder had a generalized seizure in emergency room. My recommendation is to put her on levetiracetam 500 mg twice a day. She should be advised to not to drink alcohol, not drive, and not be involved in activities that could put her life in danger such as swimming alone or sitting in a soaking tub alone. Procedures Date of Service Date of Service: 04/21/23
[2023-04-21] MEDS: LORazepam 2 MG/ML VIAL 1 MG IVPUSH (11:31)
--- NOTE | 2023-04-21 11:50 | PC.NURSE ---
pt medicated per aug for MRI with ativan. pt complaining of pain to IV site in LAC. 2nd IV established to Right Forearm. 20G.pt tolerated well. pt started pulling at IV line, wrapped with bandage and secured. LAC IV dressings changed as well. pt also keeps taking off O2 nasal canula. pt placed back on it, on 2L sating 98%. rr even/unlabored. pt currently resting quietly on stretcher, lethargic and sleeping. awaiting MRI. call lindsey within pt reach. pt own fan on. CIWA 5. plan of care ongoing.
--- NOTE | 2023-04-21 14:43 | HO.PM.IMPN ---
Subjective Subjective Date of Service: 04/21/23 Interval History: no further seizures drinks 10 nips of vodka/day no headache Review of Systems Review of Systems: Yes all other systems are reviewed and are negative Physical Exam Vital Signs: Vital Signs: Last Vital Signs Temp 98.9 F 04/21/23 08:20 Pulse 80 04/21/23 14:01 Resp 14 04/21/23 14:01 BP 151/88 H 04/21/23 14:01 Pulse Ox 95 04/21/23 14:01 O2 Del Method Nasal Cannula 04/21/23 14:01 O2 Flow Rate 2 04/21/23 14:01 BMI result Body Mass Index 30.7 Gen: in no acute distress, disheveled HEENT: sclera anicteric, moist mucus membranes Neck: supple Lungs: clear to auscultation bilaterally Heart: regular rate and rhythm, no murmurs Abd: soft, non-tender, non-distended Ext: no edema Skin: warm/well-perfused Neuro: alert and oriented x3, EOMI, no facial droop, normal strength, normal visual claudio Psych: appropriate affect Objective Data Active Medications Acetaminophen (Acetaminophen 325 Mg Tablet) 650 mg PO Q6H PRN PRN Reason: Pain, Mild (Pain Scale 1-3) Amlodipine Besylate (Amlodipine Besylate 10 Mg Tablet) 10 mg PO DAILY [facility]; Protocol Last Admin: 04/21/23 08:17 Dose: 10 mg Documented By: LINDA Aspirin (Aspirin 81 Mg Tab.Chew) 81 mg PO DAILY [facility] Last Admin: 04/21/23 08:17 Dose: 81 mg Documented By: LINDA Atorvastatin Calcium (Atorvastatin Calcium 40 Mg Tablet) 40 mg PO BEDTIME [facility] Last Admin: 04/20/23 22:20 Dose: 40 mg Documented By: HERBIE Enoxaparin Sodium (Enoxaparin Sodium 40 Mg/0.4 Ml Syringe) 40 mg SUBCUT Q24H [facility] Last Admin: 04/20/23 20:19 Dose: 40 mg Documented By: HERBIE Fluoxetine HCl (Fluoxetine Hcl 20 Mg Capsule) 40 mg PO DAILY [facility] Last Admin: 04/21/23 08:17 Dose: 40 mg Documented By: LINDA Hydrochlorothiazide (Hydrochlorothiazide 25 Mg Tablet) 25 mg PO DAILY [facility]; Protocol Last Admin: 04/21/23 08:16 Dose: 25 mg Documented By: LINDA Levetiracetam (Keppra) 500 mg in 100 mls @ 400 mls/hr IV Q12H [facility] Melatonin (Melatonin 3 Mg Tablet) 6 mg PO BEDTIME PRN PRN Reason: Insomnia Melatonin (Melatonin 3 Mg Tablet) 3 mg PO BEDTIME PRN PRN Reason: Insomnia Ondansetron HCl (Ondansetron Hcl 4 Mg/2 Ml Vial) 4 mg IVPUSH Q8H PRN PRN Reason: Nausea and Vomiting Pharmacy Consult (Consult Rx Etoh Phenob Im/Po) 1 each MISCELLANE ONCE PRN; Protocol PRN Reason: Consult order Phenobarbital (Phenobarbital 30 Mg Tablet) 30 mg PO Q4H PRN PRN Reason: Breakthrough alcohol withdrawa Phenobarbital (Phenobarbital 15 Mg Tablet) 45 mg PO BID [facility]; Protocol Stop: 04/22/23 21:01 Last Admin: 04/21/23 08:16 Dose: 45 mg Documented By: LINDA Phenobarbital (Phenobarbital 30 Mg Tablet) 30 mg PO BID [facility]; Protocol Stop: 04/24/23 21:01 Phenobarbital (Phenobarbital 15 Mg Tablet) 15 mg PO DAILY [facility]; Protocol Stop: 04/26/23 09:01 Sodium Chloride (0.9 % Sodium Chloride Flush 3 Ml [facility]ringe) [facility] Last Admin: 04/21/23 07:46 Dose: Not Given Documented By: LINDA Non-Admin Reason: Med Not Available Thiamine HCl (Thiamine Hcl 100 Mg Tablet) 100 mg PO DAILY [facility] Last Admin: 04/21/23 08:17 Dose: 100 mg Documented By: LINDA Labs 04/21/23 05:06 04/21/23 05:06 Labs: Laboratory Results - last 24 hr 04/20/23 04/21/23 14:43 05:06 MCV 96.5 99.3 H MCH 32.8 32.7 MCHC 34.0 32.9 RDW 14.2 14.1 Plt Count 291 D 265 MPV 9.6 10.3 Immature Gran % (Auto) 0.4 Neut % (Auto) 69.9 Lymph % (Auto) 21.2 [place] % (Auto) 7.3 Eos % (Auto) 0.6 Baso % (Auto) 0.6 Lymph # (Auto) 1.8 [place] # (Auto) 0.6 Eos # (Auto) 0.1 Baso # (Auto) 0.1 Abs Immat Gran (auto) 0.03 Absolute Neuts (auto) 5.9 Absolute Nucleated RBC 0.000 0.000 Nucleated RBC % (auto) 0.0 0.0 Anion Gap 14 13 Estim Creat Clear Calc 97.2 97.2 Estimated GFR > 60 > 60 Random Glucose 127 H 92 Calcium 9.9 9.3 D Magnesium 1.8 Total Bilirubin 0.7 Direct Bilirubin 0.3 AST 149 H ALT 127 H Alkaline Phosphatase 139 H Total Protein 6.7 Albumin 3.5 Ethyl Alcohol < [address] 04/20/23 15:24 IMPRESSION: No acute intracranial pathology. Brain MRI 04/21/23 12:30 IMPRESSION: 1. Question of the possibility of autoimmune limbic versus herpes encephalitis involving the mesial right temporal lobe. Recommend MRI of the brain with contrast for further assessment if this can be obtained. Sedation may be required for this. Correlate clinically as well. 2. 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 The [facility] staff will call to confirm receipt of this report with acknowledgement of the findings and any recommendations. Assessment and Plan (1) Hypertensive emergency: Status: Acute (2) Seizure: Status: Acute (3) Alcoholism: Status: Acute Plan d2 48yo F with HTN, HLD, mood disorder, AUD, prior CVA admitted after seizure + transient visual loss [has resolved] seizure - likely EtOH withdrawal. Neuro consult, EEG, Keppra AUD with possible withdrawal - phenobarbital taper, thiamine, Addiction Medicine consultation MRI findings of ?temporal encephalitis - repeat MRI + contrast, Neuro consult HTN urgency - resume amlodipine + HCTZ mood disorder - fluoxetine HLD - statin hx CVA - ASA VTE ppx - LMWH dispo - TBD In my clinical judgment, the patient requires continued inpatient hospitalization for the following reasons: neuro workup, phenobarbital taper Total time managing care of this patient today: 35 minutes. Quality Stroke Does the patient have a stroke diagnosis?: No VTE Prior VTE?: No VTE Risk Level:: Medical - moderate - high VTE Device Contraindication: Treatment Not Indicated VTE Drug Contraindication: N/A - Med Ordered
--- NOTE | 2023-04-21 16:11 | MHC.EDTECH ---
This pct assumed care of pt at 1500 ,vitals taken ,pt mom is here at bedside ,pt awake and watching television.,call lindsey within Pt reach .
--- NOTE | 2023-04-21 16:15 | MHC.EDTECH ---
Patient was hooked up to court recording monitor by this pct .
--- NOTE | 2023-04-21 17:47 | PC.NURSE ---
report given to FABIAN Fraser. awaiting pt transport.
[2023-04-21 18:46] LABS: Amphetamine Screen Urine Not Detected (Not Detect); Barbiturates, Urine POSITIVE (Not Detect); Benzodiazepines Screen Urine Not Detected (Not Detect); Cannabinoid Screen Urine POSITIVE (Not Detect); Cocaine Screen Urine Not Detected (Not Detect); Fentanyl, urine Not Detected (Not Detect); Opiate Screen Urine Not Detected (Not Detect); Phencyclidine Screen Urine Not Detected (Not Detect)
[2023-04-21] MEDS: Atorvastatin Calcium 40 MG TABLET PO (19:49)
[2023-04-21] MEDS: Enoxaparin Sodium 40 MG/0.4 ML SYRINGE SUBCUT (19:50)
[2023-04-21] MEDS: levETIRAcetam in NaCl (iso-os) 500 MG/100 ML PIGGYBACK 400 MG IV (19:53)
[2023-04-21] MEDS: 0.9 % Sodium Chloride Flush 3 ML SYRINGE IVFLUSH (19:58)
[2023-04-21] MEDS: hydrOXYzine HCL 25 MG TABLET PO (20:14)
[2023-04-22] VITALS (7 sets, daily range): BP systolic 124–150; BP diastolic 75–89; PULSE 71–95; RESP 18–20; TEMP 36.1–37.2; O2SAT 93–98
[2023-04-22 06:32] LABS: Hemoglobin 13.7 g/dl (12.0-16.0); Mean Corpuscular HGB Conc 32.6 g/dl (31.0-35.0); Mean Corpuscular Hemoglobin 32.5 pg (27.0-33.0); Mean Corpuscular Volume 99.5 fL (80.0-98.0); Mean Platelet Volume 9.9 fL (9.4-12.3); Platelet Count 235 X10*3/uL (160-400); Red Blood Count 4.22 X10*6/uL (4.20-5.50); White Blood Count 7.1 X10*3/uL (4.8-10.8)
[2023-04-22 06:41] LABS: Prothrombin Time 11.8 SEC (11.1-13.3)
[2023-04-22 06:47] LABS: Alanine Aminotransferase 93 U/L (0-31); Albumin Level 3.6 g/dL (3.5-5.0); Alkaline Phosphatase 130 U/L (39-117); Anion Gap 13 (12-20); Aspartate Amino Transferase 94 U/L (5-31); Bilirubin Direct 0.4 mg/dL (0.0-0.5); Bilirubin Total 0.8 mg/dL (0.0-1.0); Blood Urea Nitrogen 13 mg/dL (9-16); Calcium 9.1 mg/dL (8.4-10.2); Carbon Dioxide 27 mmol/L (22-29); Chloride 99 mmol/L (96-108); Creatinine Clr Calc Pharmacy 100.9; Estimated Glomerular Filt Rate > 60; Glucose Random 82 mg/dL (60-115); Magnesium 1.9 mg/dL (1.6-2.6); Potassium 3.1 mmol/L (3.3-5.1); Sodium 136 mmol/L (135-145); Total Protein 6.7 g/dL (6.5-8.0)
[2023-04-22 07:23] LABS: Folate 5.4 ng/mL (> or = 4.0); Vitamin B12 352 pg/mL (200-900)
[2023-04-22] MEDS: 0.9 % Sodium Chloride Flush 3 ML SYRINGE IVFLUSH ×2 (09:11→21:05)
[2023-04-22] MEDS: Potassium Chloride ER 20 MEQ TAB.ER.PRT 40 MEQ PO (09:15)
[2023-04-22] MEDS: Thiamine HCL 100 MG TABLET PO (09:15)
[2023-04-22] MEDS: FLUoxetine HCl 20 MG CAPSULE 40 MG PO (09:15)
[2023-04-22] MEDS: amLODIPine Besylate 10 MG TABLET PO (09:15)
[2023-04-22] MEDS: PHENobarbitaL 15 MG TABLET 45 MG PO ×2 (09:15→21:05)
[2023-04-22] MEDS: Aspirin 81 MG TAB.CHEW PO (09:15)
[2023-04-22] MEDS: hydroCHLOROthiazide 25 MG TABLET PO (09:16)
[2023-04-22] MEDS: levETIRAcetam in NaCl (iso-os) 500 MG/100 ML PIGGYBACK 400 MG IV ×2 (09:16→21:23)
--- NOTE | 2023-04-22 11:30 | EEG_ITS ---
This is a 16-channel EEG with an EKG lead. The patient is reported awake and drowsy during the tracing. Background EEG rhythm is 7 to 8 hertz with at times somewhat faster low-amplitude background rhythm with no obvious asymmetry or paroxysmal tendency. Frequent lead and muscle artifacts are noted. Cardiac lead does not reveal any significant abnormality. Photic stimulation is unremarkable. Hyperventilation is not performed. IMPRESSION: Mild slowing with no evidence of seizure disorder. MD SHEMAR Palma/HEBER / [phone]
--- NOTE | 2023-04-22 11:58 | P.PNIM_ITS ---
Subjective Subjective Date of Service: 04/22/23 Interval History: no MALONE no fever no seizures Review of Systems Review of Systems: Yes all other systems are reviewed and are negative Physical Exam 2 Vital Signs: Vital Signs: Last Vital Signs Temp 97.1 F 04/22/23 11:49 Pulse 86 04/22/23 11:49 Resp 18 04/22/23 11:49 BP 124/81 04/22/23 11:49 Pulse Ox 95 04/22/23 11:49 O2 Del Method Nasal Cannula 04/22/23 11:49 O2 Flow Rate 2 04/22/23 11:49 BMI result Body Mass Index 29.9 Gen: in no acute distress, disheveled HEENT: sclera anicteric, moist mucus membranes Neck: supple Lungs: clear to auscultation bilaterally Heart: regular rate and rhythm, no murmurs Abd: soft, non-tender, non-distended Ext: no edema Skin: warm/well-perfused Neuro: alert and oriented x3, EOMI, no facial droop, normal strength, normal visual claudio Psych: appropriate affect Objective Data Active Medications Acetaminophen (Acetaminophen 325 Mg Tablet) 650 mg PO Q6H PRN PRN Reason: Pain, Mild (Pain Scale 1-3) Amlodipine Besylate (Amlodipine Besylate 10 Mg Tablet) 10 mg PO DAILY [facility]; Protocol Last Admin: 04/22/23 09:15 Dose: 10 mg Documented By: PRIETO Aspirin (Aspirin 81 Mg Tab.Chew) 81 mg PO DAILY [facility] Last Admin: 04/22/23 09:15 Dose: 81 mg Documented By: PRIETO Atorvastatin Calcium (Atorvastatin Calcium 40 Mg Tablet) 40 mg PO BEDTIME [facility] Last Admin: 04/21/23 19:49 Dose: 40 mg Documented By: ERIK Enoxaparin Sodium (Enoxaparin Sodium 40 Mg/0.4 Ml Syringe) 40 mg SUBCUT Q24H [facility] Last Admin: 04/21/23 19:50 Dose: 40 mg Documented By: ERIK Fluoxetine HCl (Fluoxetine Hcl 20 Mg Capsule) 40 mg PO DAILY [facility] Last Admin: 04/22/23 09:15 Dose: 40 mg Documented By: PRIETO Hydrochlorothiazide (Hydrochlorothiazide 25 Mg Tablet) 25 mg PO DAILY [facility]; Protocol Last Admin: 04/22/23 09:16 Dose: 25 mg Documented By: PRIETO Levetiracetam (Keppra) 500 mg in 100 mls @ 400 mls/hr IV Q12H [facility] Last Infusion: 04/22/23 09:40 Dose: Infused Documented By: PRIETO Melatonin (Melatonin 3 Mg Tablet) 6 mg PO BEDTIME PRN PRN Reason: Insomnia Melatonin (Melatonin 3 Mg Tablet) 3 mg PO BEDTIME PRN PRN Reason: Insomnia Ondansetron HCl (Ondansetron Hcl 4 Mg/2 Ml Vial) 4 mg IVPUSH Q8H PRN PRN Reason: Nausea and Vomiting Pharmacy Consult (Consult Rx Etoh Phenob Im/Po) 1 each MISCELLANE ONCE PRN; Protocol PRN Reason: Consult order Phenobarbital (Phenobarbital 30 Mg Tablet) 30 mg PO Q4H PRN PRN Reason: Breakthrough alcohol withdrawa Phenobarbital (Phenobarbital 15 Mg Tablet) 45 mg PO BID [facility]; Protocol Stop: 04/22/23 21:01 Last Admin: 04/22/23 09:15 Dose: 45 mg Documented By: PRIETO Phenobarbital (Phenobarbital 30 Mg Tablet) 30 mg PO BID [facility]; Protocol Stop: 04/24/23 21:01 Phenobarbital (Phenobarbital 15 Mg Tablet) 15 mg PO DAILY [facility]; Protocol Stop: 04/26/23 09:01 Sodium Chloride (0.9 % Sodium Chloride Flush 3 Ml Syringe) 3 ml IVFLUSH QSHIFT [facility] Last Admin: 04/22/23 09:11 Dose: 3 ml Documented By: PRIETO Thiamine HCl (Thiamine Hcl 100 Mg Tablet) 100 mg PO DAILY [facility] Last Admin: 04/22/23 09:15 Dose: 100 mg Documented By: PRIETO Labs 04/22/23 06:04 04/22/23 06:04 Labs: Laboratory Results - last 24 hr 04/21/23 04/22/23 18:33 06:04 MCV 99.5 H MCH 32.5 MCHC 32.6 RDW 14.0 Plt Count 235 MPV 9.9 Absolute Nucleated RBC 0.000 Nucleated RBC % (auto) 0.0 PT 11.8 INR 1.0 Anion Gap 13 Estim Creat Clear Calc 100.9 Estimated GFR > 60 Random Glucose 82 Calcium 9.1 Magnesium 1.9 Total Bilirubin 0.8 Direct Bilirubin 0.4 AST 94 H ALT 93 H Alkaline Phosphatase 130 H Total Protein 6.7 Albumin 3.6 Vitamin B12 352 Folate 5.4 Urine Opiates Screen Not Detected Urine Fentanyl Screen Not Detected Ur Barbiturates Screen POSITIVE H Ur Phencyclidine Scrn Not Detected Ur Amphetamines Screen Not Detected U Benzodiazepines Scrn Not Detected Urine Cocaine Screen Not Detected U Marijuana (THC) Screen POSITIVE H Laboratory Results WBC 7.1 X10*3/uL (4.8-10.8) 04/22/23 06:04 RBC 4.22 X10*6/uL (4.20-5.50) 04/22/23 06:04 Hgb 13.7 g/dl (12.0-16.0) 04/22/23 06:04 Hct 42.0 % (37.0-47.0) 04/22/23 06:04 MCV 99.5 fL (80.0-98.0) H 04/22/23 06:04 MCH 32.5 pg (27.0-33.0) 04/22/23 06:04 MCHC 32.6 g/dl (31.0-35.0) 04/22/23 06:04 RDW 14.0 % (11.0-16.0) 04/22/23 06:04 Plt Count 235 X10*3/uL (160-400) 04/22/23 06:04 MPV 9.9 fL (9.4-12.3) 04/22/23 06:04 Immature Gran % (Auto) 0.4 % (0.0-0.4) 04/20/23 14:43 Neut % (Auto) 69.9 % (45-73) 04/20/23 14:43 Lymph % (Auto) 21.2 % (20-40) 04/20/23 14:43 [place] % (Auto) 7.3 % (2-11) 04/20/23 14:43 Eos % (Auto) 0.6 % (0-4) 04/20/23 14:43 Baso % (Auto) 0.6 % (0-2) 04/20/23 14:43 Lymph # (Auto) 1.8 X10*3/uL (1.2-4.9) 04/20/23 14:43 [place] # (Auto) 0.6 X10*3/uL (0.1-1.2) 04/20/23 14:43 Eos # (Auto) 0.1 X10*3/uL (0.0-0.4) 04/20/23 14:43 Baso # (Auto) 0.1 X10*3/uL (0.0-0.2) 04/20/23 14:43 Abs Immat Gran (auto) 0.03 X10*3/uL (0.00-0.03) 04/20/23 14:43 Absolute Neuts (auto) 5.9 x10*3/uL (2.0-8.3) 04/20/23 14:43 Absolute Nucleated RBC 0.000 X10*3/uL (0.0-0.012) 04/22/23 06:04 Nucleated RBC % (auto) 0.0 /100WBC (0.0-0.2) 04/22/23 06:04 PT 11.8 SEC (11.1-13.3) 04/22/23 06:04 INR 1.0 (0.9-1.1) 04/22/23 06:04 Sodium 136 mmol/L (135-145) 04/22/23 06:04 Potassium 3.1 mmol/L (3.3-5.1) L 04/22/23 06:04 Chloride 99 mmol/L (96-108) 04/22/23 06:04 Carbon Dioxide 27 mmol/L (22-29) 04/22/23 06:04 Anion Gap 13 (12-20) 04/22/23 06:04 BUN 13 mg/dL (9-16) 04/22/23 06:04 Creatinine 0.77 mg/dL (0.5-1.4) 04/22/23 06:04 Estim Creat Clear Calc 100.9 04/22/23 06:04 Estimated GFR > 60 04/22/23 06:04 Random Glucose 82 mg/dL (60-115) 04/22/23 06:04 Calcium 9.1 mg/dL (8.4-10.2) 04/22/23 06:04 Magnesium 1.9 mg/dL (1.6-2.6) 04/22/23 06:04 Total Bilirubin 0.8 mg/dL (0.0-1.0) 04/22/23 06:04 Direct Bilirubin 0.4 mg/dL (0.0-0.5) 04/22/23 06:04 AST 94 U/L (5-31) H 04/22/23 06:04 ALT 93 U/L (0-31) H 04/22/23 06:04 Alkaline Phosphatase 130 U/L (39-117) H 04/22/23 06:04 Troponin I High Sens < 2.7 ng/L (<3.5-17.0) 04/20/23 14:43 Total Protein 6.7 g/dL (6.5-8.0) 04/22/23 06:04 Albumin 3.6 g/dL (3.5-5.0) 04/22/23 06:04 Vitamin B12 352 pg/mL (200-900) 04/22/23 06:04 Folate 5.4 ng/mL (> or = 4.0) 04/22/23 06:04 Urine Opiates Screen Not Detected (Not Detect) 04/21/23 18:33 Urine Fentanyl Screen Not Detected (Not Detect) 04/21/23 18:33 Ur Barbiturates Screen POSITIVE (Not Detect) H 04/21/23 18:33 Ur Phencyclidine Scrn Not Detected (Not Detect) 04/21/23 18:33 Ur Amphetamines Screen Not Detected (Not Detect) 04/21/23 18:33 U Benzodiazepines Scrn Not Detected (Not Detect) 04/21/23 18:33 Urine Cocaine Screen Not Detected (Not Detect) 04/21/23 18:33 U Marijuana (THC) Screen POSITIVE (Not Detect) H 04/21/23 18:33 Ethyl Alcohol < 10 mg/dL 04/20/23 14:[address] 04/20/23 15:24 IMPRESSION: No acute intracranial pathology. Brain MRI 04/21/23 21:32 FINDINGS/IMPRESSION: Limited moderately motion degraded exam redemonstrates chronic regions of cortical T2 FLAIR hyperintensity in the high left frontal lobe and parasagittal right parietal lobe. Similar to the recent MRI, there remains asymmetric T2 FLAIR hyperintensity within the right hippocampus. No overtly demonstrated new signal abnormalities on limited evaluation. Assessment and Plan (1) Hypertensive emergency: Status: Acute (2) Seizure: Status: Acute (3) Alcoholism: Status: Acute Plan d3 48yo F with HTN, HLD, mood disorder, AUD, prior CVA admitted after seizure + transient visual loss [has resolved] R temporal enhancement - LP to r/o meningoencephalitis, empiric acyclovir seizure - likely EtOH withdrawal but r/o inflammatory process as above. Neuro consulted, continue Keppra, EEG pending AUD with possible withdrawal - phenobarbital taper, thiamine, Addiction Medicine consultation HTN urgency - resolved, resumed amlodipine + HCTZ mood disorder - fluoxetine HLD - statin hx CVA - ASA VTE ppx - LMWH on hold for LP dispo - TBD In my clinical judgment, the patient requires continued inpatient hospitalization for the following reasons: neuro workup, phenobarbital taper Total time managing care of this patient today: 45 minutes. Quality Stroke Does the patient have a stroke diagnosis?: No VTE Prior VTE?: No VTE Risk Level:: Medical - moderate - high VTE Device Contraindication: Treatment Not Indicated VTE Drug Contraindication: N/A - Med Ordered
--- NOTE | 2023-04-22 15:01 | PC.NURSE ---
Patient alert and oriented x3 still forgetful of events. GUSTAFSON to command 5/5 sensation intact, +pp bilat no edema noted. Denies headache, dizziness or vision changes pupils PERRLA 3B. LSCTA denies SOB or CP, NSR on tele. BS+X4 abdomen soft non-tender denies nausea/vomiting. IV keppra given per order no seizure like activity noted at this time precautions in place. Off unit for EEG this am. IV Acyclovir started per order this afternoon. Plan for LP tomorrow unable to take patient today. Pt updated on plan. Will continue to monitor and report changes
[2023-04-22] MEDS: Atorvastatin Calcium 40 MG TABLET PO (21:05)
[2023-04-23 03:07] VITALS: BP 132/82; PULSE 73; RESP 20; TEMP 36.1; O2SAT 92
[2023-04-23 06:50] LABS: Alanine Aminotransferase 76 U/L (0-31); Albumin Level 3.6 g/dL (3.5-5.0); Alkaline Phosphatase 130 U/L (39-117); Anion Gap 11 (12-20); Aspartate Amino Transferase 81 U/L (5-31); Bilirubin Total 0.7 mg/dL (0.0-1.0); Blood Urea Nitrogen 13 mg/dL (9-16); Calcium 9.2 mg/dL (8.4-10.2); Carbon Dioxide 29 mmol/L (22-29); Chloride 99 mmol/L (96-108); Creatinine Clr Calc Pharmacy 107.9; Estimated Glomerular Filt Rate > 60; Glucose Random 93 mg/dL (60-115); Magnesium 1.8 mg/dL (1.6-2.6); Potassium 3.1 mmol/L (3.3-5.1); Sodium 136 mmol/L (135-145); Total Protein 6.7 g/dL (6.5-8.0)
[2023-04-23 07:17] VITALS: BP 130/78; PULSE 75; RESP 18; TEMP 36.2; O2SAT 95
[2023-04-23 08:25] LABS: HBS Num1 0.03 mIU/mL (0-7.99); HBc Num1 0.09 S/CO (0.00-0.79); HBsAGNum1 0.31 S/CO (0.00-0.99); HIV AB/AG Nonreactive (Nonreactive); HIV Num 1 0.05 S/CO (0.00-0.99); Hepatitis B Core Antibody Nonreactive (Nonreactive); Hepatitis B Surface Antigen Negative (Negative); ~HepC Num1 0.08 S/CO (0.00-0.79); ~Hepatitis B Surface Antibody NONREACTIVE (Nonreactive); ~Hepatitis C Antibody Nonreactive (Nonreactive)
[2023-04-23] MEDS: Thiamine HCL 100 MG TABLET PO (09:46)
[2023-04-23] MEDS: Aspirin 81 MG TAB.CHEW PO (09:46)
[2023-04-23] MEDS: levETIRAcetam in NaCl (iso-os) 500 MG/100 ML PIGGYBACK 400 MG IV ×2 (09:46→21:11)
[2023-04-23] MEDS: hydroCHLOROthiazide 25 MG TABLET PO (09:46)
[2023-04-23] MEDS: FLUoxetine HCl 20 MG CAPSULE 40 MG PO (09:46)
[2023-04-23] MEDS: amLODIPine Besylate 10 MG TABLET PO (09:46)
[2023-04-23] MEDS: PHENobarbitaL 30 MG TABLET PO ×2 (09:46→21:11)
[2023-04-23] MEDS: Potassium Chloride ER 20 MEQ TAB.ER.PRT 40 MEQ PO (09:46)
--- NOTE | 2023-04-23 09:53 | HO.PM.IMPN ---
Subjective Subjective Date of Service: 04/23/23 Interval History: feels well, no MALONE or fever, no visual blurring, no seizures Review of Systems Review of Systems: Yes all other systems are reviewed and are negative Physical Exam Vital Signs: Vital Signs: Last Vital Signs Temp 97.2 F 04/23/23 07:17 Pulse 75 04/23/23 07:17 Resp 18 04/23/23 07:17 BP 130/78 04/23/23 07:17 Pulse Ox 95 04/23/23 07:17 O2 Del Method Room Air 04/23/23 07:17 O2 Flow Rate 2 04/22/23 11:49 BMI result Body Mass Index 29.9 Gen: in no acute distress HEENT: sclera anicteric, moist mucus membranes Neck: supple Lungs: clear to auscultation bilaterally Heart: regular rate and rhythm, no murmurs Abd: soft, non-tender, non-distended Ext: no edema Skin: warm/well-perfused Neuro: alert and oriented x3, no focal findings Psych: appropriate affect Objective Data Active Medications Acetaminophen (Acetaminophen 325 Mg Tablet) 650 mg PO Q6H PRN PRN Reason: Pain, Mild (Pain Scale 1-3) Amlodipine Besylate (Amlodipine Besylate 10 Mg Tablet) 10 mg PO DAILY [facility]; Protocol Last Admin: 04/23/23 09:46 Dose: 10 mg Documented By: BERNADETTE Aspirin (Aspirin 81 Mg Tab.Chew) 81 mg PO DAILY [facility] Last Admin: 04/23/23 09:46 Dose: 81 mg Documented By: BERNADETTE Atorvastatin Calcium (Atorvastatin Calcium 40 Mg Tablet) 40 mg PO BEDTIME [facility] Last Admin: 04/22/23 21:05 Dose: 40 mg Documented By: NIRAV Enoxaparin Sodium (Enoxaparin Sodium 40 Mg/0.4 Ml Syringe) 40 mg SUBCUT Q24H [facility] Last Admin: 04/21/23 19:50 Dose: 40 mg Documented By: ERIK Fluoxetine HCl (Fluoxetine Hcl 20 Mg Capsule) 40 mg PO DAILY [facility] Last Admin: 04/23/23 09:46 Dose: 40 mg Documented By: BERNADETTE Hydrochlorothiazide (Hydrochlorothiazide 25 Mg Tablet) 25 mg PO DAILY [facility]; Protocol Last Admin: 04/23/23 09:46 Dose: 25 mg Documented By: BERNADETTE Levetiracetam (Keppra) 500 mg in 100 mls @ 400 mls/hr IV Q12H [facility] Last Admin: 04/23/23 09:46 Dose: 400 mls/hr Documented By: BERNADETTE Acyclovir Sodium 715.6 mg/ (Sodium Chloride) 264.312 mls @ 264.312 mls/hr IV Q8H [facility] Last Infusion: 04/23/23 07:42 Dose: Infused Documented By: BERNADETTE Melatonin (Melatonin 3 Mg Tablet) 6 mg PO BEDTIME PRN PRN Reason: Insomnia Melatonin (Melatonin 3 Mg Tablet) 3 mg PO BEDTIME PRN PRN Reason: Insomnia Ondansetron HCl (Ondansetron Hcl 4 Mg/2 Ml Vial) 4 mg IVPUSH Q8H PRN PRN Reason: Nausea and Vomiting Pharmacy Consult (Consult Rx Etoh Phenob Im/Po) 1 each MISCELLANE ONCE PRN; Protocol PRN Reason: Consult order Phenobarbital (Phenobarbital 30 Mg Tablet) 30 mg PO Q4H PRN PRN Reason: Breakthrough alcohol withdrawa Phenobarbital (Phenobarbital 30 Mg Tablet) 30 mg PO BID [facility]; Protocol Stop: 04/24/23 21:01 Last Admin: 04/23/23 09:46 Dose: 30 mg Documented By: BERNADETTE Phenobarbital (Phenobarbital 15 Mg Tablet) 15 mg PO DAILY [facility]; Protocol Stop: 04/26/23 09:01 Sodium Chloride (0.9 % Sodium Chloride Flush 3 Ml Syringe) 3 ml IVFLUSH QSHIFT [facility] Last Admin: 04/23/23 09:44 Dose: Not Given Documented By: BERNADETTE Non-Admin Reason: IV Running Thiamine HCl (Thiamine Hcl 100 Mg Tablet) 100 mg PO DAILY [facility] Last Admin: 04/23/23 09:46 Dose: 100 mg Documented By: BERNADETTE Labs 04/22/23 06:04 04/23/23 05:56 Labs: Laboratory Results - last 24 hr 04/23/23 05:56 Hold Purple Top SEE NOTE Anion Gap 11 L Estim Creat Clear Calc 107.9 Estimated GFR > 60 Random Glucose 93 Calcium 9.2 Magnesium 1.8 Total Bilirubin 0.7 AST 81 H ALT 76 H Alkaline Phosphatase 130 H Total Protein 6.7 Albumin 3.6 Hep Bs Antigen Negative Hep Bs Antibody NONREACTIVE Hep B Core Total Ab Nonreactive Hepatitis C Ab (EIA) Nonreactive HIV 1&2 Ab/P24 Ag 4thGn Nonreactive Assessment and Plan (1) Hypertensive emergency: Status: Acute (2) Seizure: Status: Acute (3) Alcoholism: Status: Acute Plan d4 48yo F with HTN, HLD, mood disorder, AUD, prior CVA admitted after seizure + transient visual loss [has resolved] R temporal enhancement - LP to r/o meningoencephalitis today, empiric acyclovir pending results [started 04/22] seizure - likely EtOH withdrawal but r/o inflammatory process as above. Neuro consulted, continue Keppra, EEG read pending AUD with possible withdrawal - phenobarbital taper, thiamine, Addiction Medicine consultation HTN urgency - resolved, resumed amlodipine + HCTZ mood disorder - fluoxetine HLD - statin hx CVA - ASA VTE ppx - LMWH on hold for LP dispo - eventual home In my clinical judgment, the patient requires continued inpatient hospitalization for the following reasons: neuro workup, phenobarbital taper Total time managing care of this patient today: 35 minutes. Quality Stroke Does the patient have a stroke diagnosis?: No VTE Prior VTE?: No VTE Risk Level:: Medical - moderate - high VTE Device Contraindication: Treatment Not Indicated VTE Drug Contraindication: N/A - Med Ordered
[2023-04-23 11:08] VITALS: BP 128/77; PULSE 85; RESP 18; TEMP 36.3; O2SAT 95
--- NOTE | 2023-04-23 11:44 | MHC.CM.PN ---
EMR reviewed and per MD rounds, pt is not medically cleared for D/C today due to pending lumbar puncture and neuro workup. CM will continue to follow.
--- NOTE | 2023-04-23 14:13 | HO.RADPN ---
RADIOLOGY Narrative Narrative: Lumbar puncture at L3-4 performed. 9 cc of clear csf removed and sent for analysis. No immediate complications. Full dictation to follow. Austen MARKHAM Interventional Radiology
--- NOTE | 2023-04-23 14:39 | MHC.RECOVRN ---
48 year old Romansh speaking female presented to [facility] ED via EMS on 04/20/2023 due to difficulty seeing/seeing spots in bilateral eyes, hand spasms/tingling in fingers and toes and left facial weakness.? Pt. experienced a tonic clonic seizure while in the ER and due to lethargy and mental status not returning to baseline after several hours, Pt admitted to [facility]. T/w along with Recovery Support Nurse Fanta, met with pt to discuss alcohol use. Pt. denies any current W/D sx and none observed.? Pt. reports she only started drinking approximately 6 months ago and thinks it was due to stress.? She was drinking 2 sleeves of vodka a day and recently has been able to decrease to 1 sleeve of Vodka per day.? Her last drink was the morning she came into the ER which was 04/20/23.? Pt also reports a history of OUD and is currently receiving MAT services for this.? She reports she has maintained sobriety from opiates for approximately 10 years.? She is currently getting [facility] from [facility] [place] but that clinic has recently closed.? Pt does have a h/o seizures but per her report they are not related to W/D.? Pt. has only disclosed using opiates PO and has not disclosed any IV use.? When I asked if she wanted help to stop drinking she declined.? Patient discussed attending AA and NA in the past but did not find it helpful.? Pt reports a h/o AUD in family on fathers side.? Pt lives with fianc? who is very supportive and is also in recovery for OUD.? Services available for AUD were introduced to pt.? She accepted a referral to our out pt. clinic for OUD as her clinic has closed. ?[facility] appt 05/05 at 2PM.? ?She was given literature on information for AUD and we will continue to follow up with pt. re:? this.? In addition, patient was provided with resources for therapy and Support groups.? Patient?s hospitalist was contacted as she is not currently receiving her suboxone, with request to restart.?
[2023-04-23 14:41] LABS: CSF Appearance Clear, Colorless; CSF Tube # 1
[2023-04-23 14:59] LABS: Glucose CSF 62 mg/dL
[2023-04-23 15:09] VITALS: BP 128/76; PULSE 82; RESP 18; TEMP 35.8; O2SAT 93
[2023-04-23 15:48] LABS: Appearance CSF CLEAR; CSF Monos 60 %; CSF Tube # 4; Color CSF COLORLESS; Lymphocytes CSF 40 %; Red Blood Cell CSF 0 MM*3; White Blood Cell CSF 1 MM*3
[2023-04-23 16:05] LABS: Cryptococcus neoformans/gattii Not Detected (Not Detect.); Enterovirus Not Detected (Not Detect.); Escherichia coli K1 Not Detected (Not Detect.); Haemophilus influenzae Not Detected (Not Detect.); Herpes simplex virus 1 Not Detected (Not Detect.); Herpes simplex virus 2 Not Detected (Not Detect.); Human herpesvirus 6 Not Detected (Not Detect.); Human parechovirus Not Detected (Not Detect.); Listeria monocytogenes Not Detected (Not Detect.); Neisseria meningitidis Not Detected (Not Detect.); Streptococcus agalactiae Not Detected (Not Detect.); Streptococcus pneumoniae Not Detected (Not Detect.); Varicella zoster virus Not Detected (Not Detect.)
--- NOTE | 2023-04-23 18:17 | P.CDIM_ITS ---
PROVIDER RESPONSE TEXT: To clarify, the appropriate diagnosis supported by the clinical indicators: Hypokalemia QUERY TEXT: PHYSICIAN'S DOCUMENTATION REQUEST Date of Query: 04/23/2023 08:41 AM EST Patient Name: Stefany Hutton Admit Date: 04/21/2023 Dear Felix Ott, A review of the medical record indicates additional documentation may be needed. Please review below and update the documentation accordingly. Clinical Indicators: On 05/02/23, potassium 3.1 On 04/23/23, potassium 3.1 The following diagnoses or signs and symptoms were noted in the patient record: Treated with Potassium Chloride 40 meq po once on 04/23/23 Based on the above, could you clarify the appropriate diagnosis, if significant, that supports the ab ove abnormalities and additional evaluation, monitoring, and/or treatment rendered: Hypokalemia Labs indicate a diagnosis of (please specify) Other (explain) Clinically unable to determine (explain) Thank you, Mayra Morales RN Use of terms such as suspected, likely, concern for, or probable (associated with a specific diagnosi s that is being evaluated, monitored, or treated as if it exists) are acceptable and can be coded in the inpatient se tting, when documented at the time of discharge. Please use your independent medical judgment in providing your response. THIS QUERY IS PART OF THE PERMANENT MEDICAL RECORD
[2023-04-23 19:12] VITALS: BP 142/95; PULSE 94; RESP 18; TEMP 35.9; O2SAT 96
[2023-04-23] MEDS: Atorvastatin Calcium 40 MG TABLET PO (21:11)
[2023-04-23] MEDS: 0.9 % Sodium Chloride Flush 3 ML SYRINGE IVFLUSH (21:11)
[2023-04-23 23:52] VITALS: BP 133/79; PULSE 89; RESP 18; TEMP 36.6; O2SAT 92
[2023-04-24 04:00] VITALS: BP 143/56; PULSE 81; RESP 18; TEMP 36.6; O2SAT 93
[2023-04-24 07:09] VITALS: BP 138/74; PULSE 69; RESP 18; TEMP 36.9; O2SAT 93
[2023-04-24 07:14] LABS: Anion Gap 12 (12-20); Blood Urea Nitrogen 11 mg/dL (9-16); Carbon Dioxide 29 mmol/L (22-29); Chloride 102 mmol/L (96-108); Creatinine Clr Calc Pharmacy 100.9; Estimated Glomerular Filt Rate > 60; Glucose Random 94 mg/dL (60-115); Sodium 139 mmol/L (135-145)
[2023-04-24] MEDS: hydroCHLOROthiazide 25 MG TABLET PO (10:24)
[2023-04-24] MEDS: amLODIPine Besylate 10 MG TABLET PO (10:24)
[2023-04-24] MEDS: Aspirin 81 MG TAB.CHEW PO (10:24)
[2023-04-24] MEDS: Buprenorphine/Naloxone 12/3 mg FILM 1 FILM SUBLINGUAL (10:25)
[2023-04-24] MEDS: FLUoxetine HCl 20 MG CAPSULE 40 MG PO (10:25)
[2023-04-24] MEDS: PHENobarbitaL 30 MG TABLET PO (10:25)
[2023-04-24] MEDS: levETIRAcetam 500 MG TABLET PO (10:25)
[2023-04-24] MEDS: 0.9 % Sodium Chloride Flush 3 ML SYRINGE IVFLUSH (10:25)
[2023-04-24] MEDS: Thiamine HCL 100 MG TABLET PO (10:25)
--- NOTE | 2023-04-24 10:56 | P.PNIM_ITS ---
Subjective Subjective Date of Service: 04/24/23 Interval History: no MALONE, no seizures, no tremors, feels well Review of Systems Review of Systems: Yes all other systems are reviewed and are negative Physical Exam 2 Vital Signs: Vital Signs: Last Vital Signs Temp 98.4 F 04/24/23 07:09 Pulse 69 04/24/23 07:09 Resp 18 04/24/23 07:09 BP 138/74 04/24/23 07:09 Pulse Ox 93 04/24/23 07:09 O2 Del Method Room Air 04/24/23 07:09 O2 Flow Rate 2 04/22/23 11:49 BMI result Body Mass Index 29.9 Gen: in no acute distress HEENT: sclera anicteric, moist mucus membranes Neck: supple Lungs: clear to auscultation bilaterally Heart: regular rate and rhythm, no murmurs Abd: soft, non-tender, non-distended Ext: no edema Skin: warm/well-perfused Neuro: alert and oriented x3, no focal findings Psych: appropriate affect Objective Data Active Medications Acetaminophen (Acetaminophen 325 Mg Tablet) 650 mg PO Q6H PRN PRN Reason: Pain, Mild (Pain Scale 1-3) Amlodipine Besylate (Amlodipine Besylate 10 Mg Tablet) 10 mg PO DAILY [facility]; Protocol Last Admin: 04/24/23 10:24 Dose: 10 mg Documented By: BERNADETTE Aspirin (Aspirin 81 Mg Tab.Chew) 81 mg PO DAILY [facility] Last Admin: 04/24/23 10:24 Dose: 81 mg Documented By: BERNADETTE Atorvastatin Calcium (Atorvastatin Calcium 40 Mg Tablet) 40 mg PO BEDTIME [facility] Last Admin: 04/23/23 21:11 Dose: 40 mg Documented By: MINDI Buprenorphine/Naloxone (Buprenorphine/Naloxone 12/3 Mg Film) 1 film SUBLINGUAL DAILY [facility] Last Admin: 04/24/23 10:25 Dose: 1 film Documented By: BERNADETTE Enoxaparin Sodium (Enoxaparin Sodium 40 Mg/0.4 Ml Syringe) 40 mg SUBCUT Q24H [facility] Last Admin: 04/21/23 19:50 Dose: 40 mg Documented By: ERIK Fluoxetine HCl (Fluoxetine Hcl 20 Mg Capsule) 40 mg PO DAILY [facility] Last Admin: 04/24/23 10:25 Dose: 40 mg Documented By: BERNADETTE Hydrochlorothiazide (Hydrochlorothiazide 25 Mg Tablet) 25 mg PO DAILY [facility]; Protocol Last Admin: 04/24/23 10:24 Dose: 25 mg Documented By: BERNADETTE Levetiracetam (Levetiracetam 500 Mg Tablet) 500 mg PO BID [facility] Last Admin: 04/24/23 10:25 Dose: 500 mg Documented By: BERNADETTE Melatonin (Melatonin 3 Mg Tablet) 6 mg PO BEDTIME PRN PRN Reason: Insomnia Melatonin (Melatonin 3 Mg Tablet) 3 mg PO BEDTIME PRN PRN Reason: Insomnia Ondansetron HCl (Ondansetron Hcl 4 Mg/2 Ml Vial) 4 mg IVPUSH Q8H PRN PRN Reason: Nausea and Vomiting Pharmacy Consult (Consult Rx Etoh Phenob Im/Po) 1 each MISCELLANE ONCE PRN; Protocol PRN Reason: Consult order Phenobarbital (Phenobarbital 30 Mg Tablet) 30 mg PO Q4H PRN PRN Reason: Breakthrough alcohol withdrawa Phenobarbital (Phenobarbital 30 Mg Tablet) 30 mg PO BID [facility]; Protocol Stop: 04/24/23 21:01 Last Admin: 04/24/23 10:25 Dose: 30 mg Documented By: BERNADETTE Phenobarbital (Phenobarbital 15 Mg Tablet) 15 mg PO DAILY [facility]; Protocol Stop: 04/26/23 09:01 Sodium Chloride (0.9 % Sodium Chloride Flush 3 Ml Syringe) [facility] Last Admin: 04/24/23 10:25 Dose: 3 ml Documented By: BERNADETTE Thiamine HCl (Thiamine Hcl 100 Mg Tablet) 100 mg PO DAILY [facility] Last Admin: 04/24/23 10:25 Dose: 100 mg Documented By: BERNADETTE Labs 04/22/23 06:04 04/24/23 05:57 Labs: Laboratory Results - last 24 hr 04/23/23 04/23/23 04/24/23 13:41 13:41 05:57 Hold Purple Top Anion Gap 12 Estim Creat Clear Calc 100.9 Estimated GFR > 60 Random Glucose 94 Calcium 9.0 CSF Tube Number 1 4 CSF Volume 3.0 CSF Appearance CLEAR CSF Color COLORLESS CSF WBC 1 CSF RBC 0 CSF Lymphocytes 40 CSF Monocytes % 60 CSF Appearance (b) Clear, Colorless CSF Glucose 62 CSF Total Protein 39.0 CSF C.neoform/gat PCR Not Detected CSF CMV DNA (PCR) Not Detected CSF Enterovirus (PCR) Not Detected CSF E. coli K1 (PCR) Not Detected CSF H. influenzae (PCR) Not Detected CSF HSV I (PCR) Not Detected CSF HSV II (PCR) Not Detected CSF HHV 6 (PCR) Not Detected CSF L.monocytogenes PCR Not Detected CSF N. meningitidis PCR Not Detected CSF Parechovirus (PCR) Not Detected CSF S. agalactiae (PCR) Not Detected CSF S. pneumoniae (PCR) Not Detected CSF VZV (PCR) Not Detected 04/24/23 06:14 Hold Purple Top SEE NOTE Anion Gap Estim Creat Clear Calc Estimated GFR Random Glucose Calcium CSF Tube Number CSF Volume CSF Appearance CSF Color CSF WBC CSF RBC CSF Lymphocytes CSF Monocytes % CSF Appearance (b) CSF Glucose CSF Total Protein CSF C.neoform/gat PCR CSF CMV DNA (PCR) CSF Enterovirus (PCR) CSF E. coli K1 (PCR) CSF H. influenzae (PCR) CSF HSV I (PCR) CSF HSV II (PCR) CSF HHV 6 (PCR) CSF L.monocytogenes PCR CSF N. meningitidis PCR CSF Parechovirus (PCR) CSF S. agalactiae (PCR) CSF S. pneumoniae (PCR) CSF VZV (PCR) Impressions Lumbar Puncture Fluoroscopy 04/23/23 14:11 IMPRESSION: Successful Fluoroscopic lumbar puncture This procedure was performed by Austen Fatima PA-C and supervised by Dr. Otto. Microbiology Microbiology Results: Microbiology 04/23/23 13:41 Gram Stain - Final Cerebrospinal Fluid CSF Examination - Final Fluid Description - Final Assessment and Plan (1) Hypertensive emergency: Status: Acute (2) Seizure: Status: Acute (3) Alcoholism: Status: Acute Plan d5 48yo F with HTN, HLD, mood disorder, AUD, prior CVA admitted after seizure + transient visual loss [has resolved] R temporal enhancement - LP done to r/o meningoencephalitis, PCR negative and only 1 WBCs, normal pr/glu; will d/c acyclovir [started 04/22]. Oligoclonal bands pending. seizure - Neuro consulted, continue Keppra, EEG read pending. Could be due to EtOH withdrawal AUD with possible withdrawal - phenobarbital taper, thiamine, Addiction Medicine consulted, f/u with [facility] 05/05 at 14:00 OUD - resumed Suboxone HTN urgency - resolved, resumed amlodipine + HCTZ mood disorder - fluoxetine HLD - statin hx CVA - ASA VTE ppx - LMWH dispo - eventual home In my clinical judgment, the patient requires continued inpatient hospitalization for the following reasons: EtOH withdrawal Total time managing care of this patient today: 35 minutes. Quality Stroke Does the patient have a stroke diagnosis?: No VTE Prior VTE?: No VTE Risk Level:: Medical - moderate - high VTE Device Contraindication: Treatment Not Indicated VTE Drug Contraindication: N/A - Med Ordered
--- NOTE | 2023-04-24 12:57 | P.DS_ITS ---
DS: Providers Provider Date of Service: 04/24/23 Date of admission: 04/20/23 19:43 Date of discharge: 04/24/23 Primary care physician: Unknown Physician Consults: 04/20/23 19:42 Consult to Neurology Routine Consulting Provider: [facility] Reason for consultation: seizure, visual loss 04/20/23 19:52 Addiction Medicine Routine Consulting Provider: Addiction Covering Reason for consultation: alcohol use disorder DS: Diagnosis Discharge Diagnosis (1) Hypertensive emergency: Status: Acute (2) Seizure: Status: Acute (3) Alcoholism: Status: Acute (4) Alcohol withdrawal: Status: Acute DS: Summary Hospital Course Hospital Course: from admission H+P by hospitlaist Dorian Amaya, 04/20/23: This is a 48-year-old female with pertinent history of essential hypertension, mixed hyperlipidemia, mood disorder, alcohol use disorder, history of CVA who presents to the emergency department for evaluation of visual loss. Patient states she had sudden onset of headache and visual loss while she was at home. No facial droop. No motor extremity weakness. Patient was brought to the ER and witnessed a tonic-clonic seizure episode while in the ER. Of note, patient was admitted at [facility] about 3 months ago for similar complaints. Patient has a history of medication noncompliance. She was found to have a chronic infarct on imaging during previous hospitalization. Her last alcoholic drink was on the day of presentation. Patient is lethargic at the time of my evaluation, likely postictal due to seizure episode. History obtained from mother at bedside and chart review. Unable to obtain review of systems. Ms Hutton is a 48yo F with HTN, HLD, mood disorder, AUD, and prior CVA. She was admitted after seizure + transient visual loss. Neurology was consulted. She was started on phenobarbital taper for concern of alcohol withdrawal. She was also started on Keppra. MRI showed R temporal enhancement. CSF analysis was normal and meningoencephalitis panel was negative; oligoclonal bands are pending at the time of discharge. She did not have any more seizures and she ambulated normally and had no persistent neurological deficit. She met with Addiction Medicine and will follow up with [facility] on 05/05/23 at 14:00. Hypertension normalized with resumption of her home high blood pressure medications. She was discharged on Keppra and should follow up with Nephrology in 2 weeks. Time Attestation Discharge coordination time: Greater than 30 minutes Quality: Safe Use of Opioids Does Pt have an Active Cancer Diagnosis on the Problem List?: No Quality: Stroke Does the patient have a stroke diagnosis?: No Physical Exam Vital Signs: Vital Signs: Last Vital Signs Temp 98.4 F 04/24/23 07:09 Pulse 69 04/24/23 07:09 Resp 18 04/24/23 07:09 BP 138/74 04/24/23 07:09 Pulse Ox 93 04/24/23 07:09 O2 Del Method Room Air 04/24/23 07:09 O2 Flow Rate 2 04/22/23 11:49 BMI result Body Mass Index 29.9 Gen: in no acute distress HEENT: sclera anicteric, moist mucus membranes Neck: supple Lungs: clear to auscultation bilaterally Heart: regular rate and rhythm, no murmurs Abd: soft, non-tender, non-distended Ext: no edema Skin: warm/well-perfused Neuro: alert and oriented x3, no focal findings Psych: appropriate affect DS: Data Data Completed and Pending Completed studies during hospitalization [Text1]: Laboratory Results WBC 7.1 X10*3/uL (4.8-10.8) 04/22/23 06:04 RBC 4.22 X10*6/uL (4.20-5.50) 04/22/23 06:04 Hgb 13.7 g/dl (12.0-16.0) 04/22/23 06:04 Hct 42.0 % (37.0-47.0) 04/22/23 06:04 MCV 99.5 fL (80.0-98.0) H 04/22/23 06:04 MCH 32.5 pg (27.0-33.0) 04/22/23 06:04 MCHC 32.6 g/dl (31.0-35.0) 04/22/23 06:04 RDW 14.0 % (11.0-16.0) 04/22/23 06:04 Plt Count 235 X10*3/uL (160-400) 04/22/23 06:04 MPV 9.9 fL (9.4-12.3) 04/22/23 06:04 Immature Gran % (Auto) 0.4 % (0.0-0.4) 04/20/23 14:43 Neut % (Auto) 69.9 % (45-73) 04/20/23 14:43 Lymph % (Auto) 21.2 % (20-40) 04/20/23 14:43 Jessamine % (Auto) 7.3 % (2-11) 04/20/23 14:43 Eos % (Auto) 0.6 % (0-4) 04/20/23 14:43 Baso % (Auto) 0.6 % (0-2) 04/20/23 14:43 Lymph # (Auto) 1.8 X10*3/uL (1.2-4.9) 04/20/23 14:43 Jessamine # (Auto) 0.6 X10*3/uL (0.1-1.2) 04/20/23 14:43 Eos # (Auto) 0.1 X10*3/uL (0.0-0.4) 04/20/23 14:43 Baso # (Auto) 0.1 X10*3/uL (0.0-0.2) 04/20/23 14:43 Abs Immat Gran (auto) 0.03 X10*3/uL (0.00-0.03) 04/20/23 14:43 Absolute Neuts (auto) 5.9 x10*3/uL (2.0-8.3) 04/20/23 14:43 Absolute Nucleated RBC 0.000 X10*3/uL (0.0-0.012) 04/22/23 06:04 Nucleated RBC % (auto) 0.0 /100WBC (0.0-0.2) 04/22/23 06:04 Hold Purple Top SEE NOTE 04/24/23 06:14 PT 11.8 SEC (11.1-13.3) 04/22/23 06:04 INR 1.0 (0.9-1.1) 04/22/23 06:04 Sodium 139 mmol/L (135-145) 04/24/23 05:57 Potassium 4.0 mmol/L (3.3-5.1) D 04/24/23 05:57 Chloride 102 mmol/L (96-108) 04/24/23 05:57 Carbon Dioxide 29 mmol/L (22-29) 04/24/23 05:57 Anion Gap 12 (12-20) 04/24/23 05:57 BUN 11 mg/dL (9-16) 04/24/23 05:57 Creatinine 0.77 mg/dL (0.5-1.4) 04/24/23 05:57 Estim Creat Clear Calc 100.9 04/24/23 05:57 Estimated GFR > 60 04/24/23 05:57 Random Glucose 94 mg/dL (60-115) 04/24/23 05:57 Calcium 9.0 mg/dL (8.4-10.2) 04/24/23 05:57 Magnesium 1.8 mg/dL (1.6-2.6) 04/23/23 05:56 Total Bilirubin 0.7 mg/dL (0.0-1.0) 04/23/23 05:56 Direct Bilirubin 0.4 mg/dL (0.0-0.5) 04/22/23 06:04 AST 81 U/L (5-31) H 04/23/23 05:56 ALT 76 U/L (0-31) H 04/23/23 05:56 Alkaline Phosphatase 130 U/L (39-117) H 04/23/23 05:56 Troponin I High Sens < 2.7 ng/L (<3.5-17.0) 04/20/23 14:43 Total Protein 6.7 g/dL (6.5-8.0) 04/23/23 05:56 Albumin 3.6 g/dL (3.5-5.0) 04/23/23 05:56 Vitamin B12 352 pg/mL (200-900) 04/22/23 06:04 Folate 5.4 ng/mL (> or = 4.0) 04/22/23 06:04 CSF Tube Number 1 04/23/23 13:41 CSF Tube Number 4 04/23/23 13:41 CSF Volume 3.0 ML 04/23/23 13:41 CSF Appearance CLEAR 04/23/23 13:41 CSF Color COLORLESS 04/23/23 13:41 CSF WBC 1 MM*3 04/23/23 13:41 CSF RBC 0 MM*3 04/23/23 13:41 CSF Lymphocytes 40 % 04/23/23 13:41 CSF Monocytes % 60 % 04/23/23 13:41 CSF Appearance (b) Clear, Colorless 04/23/23 13:41 CSF Glucose 62 mg/dL 04/23/23 13:41 CSF Total Protein 39.0 mg/dL (15-45) 04/23/23 13:41 CSF C.neoform/gat PCR Not Detected (Not Detect.) 04/23/23 13:41 CSF CMV DNA (PCR) Not Detected (Not Detect.) 04/23/23 13:41 CSF Enterovirus (PCR) Not Detected (Not Detect.) 04/23/23 13:41 CSF E. coli K1 (PCR) Not Detected (Not Detect.) 04/23/23 13:41 CSF H. influenzae (PCR) Not Detected (Not Detect.) 04/23/23 13:41 CSF HSV I (PCR) Not Detected (Not Detect.) 04/23/23 13:41 CSF HSV II (PCR) Not Detected (Not Detect.) 04/23/23 13:41 CSF HHV 6 (PCR) Not Detected (Not Detect.) 04/23/23 13:41 CSF L.monocytogenes PCR Not Detected (Not Detect.) 04/23/23 13:41 CSF N. meningitidis PCR Not Detected (Not Detect.) 04/23/23 13:41 CSF Parechovirus (PCR) Not Detected (Not Detect.) 04/23/23 13:41 CSF S. agalactiae (PCR) Not Detected (Not Detect.) 04/23/23 13:41 CSF S. pneumoniae (PCR) Not Detected (Not Detect.) 04/23/23 13:41 CSF VZV (PCR) Not Detected (Not Detect.) 04/23/23 13:41 Urine Opiates Screen Not Detected (Not Detect) 04/21/23 18:33 Urine Fentanyl Screen Not Detected (Not Detect) 04/21/23 18:33 Ur Barbiturates Screen POSITIVE (Not Detect) H 04/21/23 18:33 Ur Phencyclidine Scrn Not Detected (Not Detect) 04/21/23 18:33 Ur Amphetamines Screen Not Detected (Not Detect) 04/21/23 18:33 U Benzodiazepines Scrn Not Detected (Not Detect) 04/21/23 18:33 Urine Cocaine Screen Not Detected (Not Detect) 04/21/23 18:33 U Marijuana (THC) Screen POSITIVE (Not Detect) H 04/21/23 18:33 Ethyl Alcohol < 10 mg/dL 04/20/23 14:43 Hep Bs Antigen Negative (Negative) 04/23/23 05:56 Hep Bs Antibody NONREACTIVE (Nonreactive) 04/23/23 05:56 Hep B Core Total Ab Nonreactive (Nonreactive) 04/23/23 05:56 Hepatitis C Ab (EIA) Nonreactive (Nonreactive) 04/23/23 05:56 HIV 1&2 Ab/P24 Ag 4thGn Nonreactive (Nonreactive) 04/23/23 05:[address] 04/20/23 15:24 IMPRESSION: No acute intracranial pathology. Brain MRI 04/21/23 21:32 FINDINGS/IMPRESSION: Limited moderately motion degraded exam redemonstrates chronic regions of cortical T2 FLAIR hyperintensity in the high left frontal lobe and parasagittal right parietal lobe. Similar to the recent MRI, there remains asymmetric T2 FLAIR hyperintensity within the right hippocampus. No overtly demonstrated new signal abnormalities on limited evaluation. Lumbar Puncture Fluoroscopy 04/23/23 14:11 IMPRESSION: Successful Fluoroscopic lumbar puncture This procedure was performed by Austen Fatima PA-C and supervised by Dr. Otto. Labs on day of discharge: Discharge Plan Discharge Anticipated Discharge Date/Time: 04/24/23 12:52 Patient Disposition: Home, Self-Care Discharge Diagnosis: seizure, hypertensive urgency, alcohol withdrawal Referrals: Vitaliy Stevenson MD [Physician] - 2 Weeks Sheila Alexis CNP [Nurse Practitioner] - 1 Week Physician,Unknown J [Primary Care Provider] - 1 Week Discharge Medications: New buprenorphine-naloxone [Suboxone] 12-3 mg Film 1 film sublingual DAILY Qty: 1 0RF levetiracetam 500 mg Tablet 500 mg PO BID Qty: 60 0RF thiamine mononitrate (vit B1) 100 mg Tablet 100 mg PO DAILY Qty: 30 0RF Continued melatonin 3 mg Tablet 3 mg PO BEDTIME PRN (Reason: Insomnia) atorvastatin 20 mg Tablet 20 mg PO BEDTIME Qty: 30 0RF aspirin 81 mg Tablet,Chewable 81 mg PO DAILY Qty: 30 0RF Rx Instructions: offer OTC baby aspirin fluoxetine 40 mg capsule 40 mg PO DAILY amlodipine 10 mg tablet 10 mg PO DAILY hydrochlorothiazide 25 mg tablet 25 mg PO DAILY Discharge Orders: Discharge Order (Routine); Ordered 04/24/23 Ordered By: Felix Ott Diet: Advance to usual diet Activity on Discharge: As tolerated Stand Alone Forms: Patient Portal Discharge page Care Plan Goals: control seizures control blood pressure sobriety Health Concerns: seizure, hypertensive urgency, alcohol withdrawal Plan of Treatment: take Keppra [levetiracetam] 500 mg twice daily follow up with Neurology [Dr Stevenson] in 2 weeks avoid alcohol take your blood pressure medications appointment on 05/05/23 at 14:[address] [facility], [address] [place] [address] [phone], [phone] Please follow up with your primary care doctor within 1 week. Return to the hospital if you experience recurrent or worsening symptoms. Assessment: See Discharge Summary.
--- NOTE | 2023-04-24 14:45 | MHC.RECOVRN ---
RN met with patient, briefly, to check in. She has family visiting. Reports she is doing well- denies any concerning s/s. She is tolerating the Suboxone 12-3mg film without issue. She is aware and agreeable to keeping her OV at [facility] 05/05 at 2pm. Denies having any other questions or need for resources at this time. She is discharging today- confirmed hospitalist included scripts for Suboxone in DC orders. Discussed w/Sheila.
== END 2023-04-24 13:59 | disposition home or self-care (01) | DRG 199 ==
LOC: HO.ED 15:57 → HO.EDOVER 19:53 → HO.IMC 04-21 17:33 → HO.S3 04-24 11:11 → HO.IMC 04-24 11:18
PROVIDERS: Physician Assistant Surgical; Admitting Provider Student in an Organized Health Care Education/Training Program; Emergency Provider Emergency Medicine; PCP Family Medicine; Visit Provider Family Medicine
PROC: 009U3ZZ Drainage of Spinal Canal, Percutaneous Approach (ICD-10-PCS; CPT 62270; principal; 2023-04-23 12:30)
DX: I16.1 Hypertensive emergency (principal); R56.9 Unspecified convulsions; E78.2 Mixed hyperlipidemia; I10 Essential (primary) hypertension; F39 Unspecified mood [affective] disorder; E87.6 Hypokalemia; F10.239 Alcohol dependence with withdrawal, unspecified; F11.20 Opioid dependence, uncomplicated; Z79.82 Long term (current) use of aspirin; Z79.899 Other long term (current) drug therapy
CPT/HCPCS: 36415; 62328; 70450; 70551; 80048; 80053; 80076; 80307; 82607; 82746; 82945; 83735; 83916; 84157; 84484; 85025; 85027; 85610; 86704; 86706; 86803; 87015; 87070; 87205; 87340; 87389; 87483; 89051; 93005; 95816; 97162; 99285; A9585; J0133; J1650; J1953; J2060; J2560; J3411

== ENCOUNTER 2023-04-20 19:43 | Outpatient (BNV) | payer MEDICAID, SELFPAY | END 2023-04-23 13:35 | PROVIDERS: Admitting Provider Student in an Organized Health Care Education/Training Program; Emergency Provider Emergency Medicine; Visit Provider Radiology Diagnostic Radiology | DX: R56.9 Unspecified convulsions (principal) | CPT/HCPCS: 62328 ==

== ENCOUNTER → 2023-04-20 19:43 | Outpatient (BNV) | payer MEDICAID, SELFPAY | PROVIDERS: Admitting Provider Student in an Organized Health Care Education/Training Program; Emergency Provider Emergency Medicine; Visit Provider Student in an Organized Health Care Education/Training Program | DX: I16.1 Hypertensive emergency (principal); R56.9 Unspecified convulsions; F10.20 Alcohol dependence, uncomplicated | CPT/HCPCS: 99222; 99232; 99239 ==

== ENCOUNTER 2023-06-11 05:05 | Inpatient (IN) | payer MEDICAID, SELFPAY ==
[2023-06-11] VITALS (9 sets, daily range): BP systolic 157–196; BP diastolic 93–105; PULSE 65–134; RESP 17–22; TEMP 36.9–37.9; O2SAT 87–98; BMI 35.6
--- NOTE | ~2023-06-11 | MR_ITS ---
EXAMINATION: MR BRAIN WITHOUT AND WITH CONTRAST CLINICAL INFORMATION: Hypodensity left frontal gyrus. COMPARISON: CT scan of the head 06/11/2023. TECHNIQUE: Multiplanar MR imaging of the brain was performed without contrast. FINDINGS: Patient motion degrades image quality therefore the diagnostic accuracy of this examination is limited. There is a small focus of cystic encephalomalacia involving the left superior frontal gyrus best visualized on axial image 20 of 26 series 5 representing chronic changes of an old infarct. No acute territorial infarct. No pathological magnetic susceptibility artifact. Intracranial vascular flow voids are grossly maintained. Postcontrast images reveal no abnormal intracranial mass or enhancement. There is no intracranial mass effect or midline shift. Lateral and third ventricles are normal. No hydrocephalus. Midline structures including the cervicomedullary junction are normal. No acute bone marrow signal changes. No mastoid middle ear effusion. No active paranasal sinus disease. Globes and orbits are symmetric. 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 Otherwise unremarkable examination. No evidence of acute territorial infarct or hemorrhage. No abnormal intracranial mass or enhancement.
--- NOTE | 2023-06-11 06:08 | PC.NURSE ---
Patient BIBA from home for evaluation of possible seizure. Patient's returned home and found patient shaking on the couch. He contacted EMS services. Per EMS reports patient presented shaking, however was trying to remove blood pressure cuff, screaming. When transferred to ED stretcher patient became shaky, when RN attempted to apply BP cuff, patient moved her arm away and continued to shake, moan, and opened her eyes to see what RN was doing. EKG completed, patient continued to have intermitted controlled seizure like activity, no urinary incontinence, no tongue biting. Dr. Palma called to bedside and assessed patient, labs ordered and drawn, 20 G IV line inserted to left foirearm, manager land in place, HR 86, normal sinus rhythm. Seizure precautions in place.
--- NOTE | 2023-06-11 07:03 | ED.GENADULT ---
HPI - General Adult General Chief complaint: Seizure Stated complaint: seizure Time Seen by Provider: 06/11/23 06:37 Source: patient Mode of arrival: ambulatory Limitations: other (palomo historian ) History of Present Illness HPI narrative: 38-year-old female presents for complaints of just feeling unwell. Patient reports she has been feeling this way for few days, she reports she may have had a seizure, has been reported to EMS that he found her shaking on the couch and she was having a seizure. When patient arrived according to nursing and previous provider on patient appeared to be postictal. patient does have history of alcoholism last drink a few days ago she also does have history of alcohol withdrawal patient palomo historian. Related Data Home Medications Medication Instructions Recorded Confirmed melatonin 3 mg tablet 3 mg PO BEDTIME PRN Insomnia 01/14/23 04/20/23 amlodipine 10 mg tablet 10 mg PO DAILY 04/20/23 04/20/23 fluoxetine 40 mg capsule 40 mg PO DAILY 04/20/23 04/20/23 hydrochlorothiazide 25 mg tablet 25 mg PO DAILY 04/20/23 04/20/23 Previous Rx's Medication Instructions Recorded aspirin 81 mg chewable tablet 81 mg PO DAILY #30 tabs 01/16/23 atorvastatin 20 mg tablet 20 mg PO BEDTIME #30 tabs 01/16/23 buprenorphine 12 mg-naloxone 3 mg 1 film sublingual DAILY #1 ea 04/24/23 sublingual film (Suboxone) levetiracetam 500 mg tablet 500 mg PO BID #60 tabs 04/24/23 thiamine mononitrate (vit B1) 100 100 mg PO DAILY #30 tabs 04/24/23 mg tablet Allergies Allergy/AdvReac Type Severity Reaction Status Date / Time codeine [CODEINE] Allergy Unknown HIVES Verified 04/20/23 14:12 Codeine Phosphate Allergy Unknown rash Uncoded 04/20/23 14:12 Review of Systems Review of Systems: Constitutional : No Weight loss, No Fever, No Chills, No Fatigue, No Malaise ENT/Mouth : No sore throat, No Rhinorrhea Eyes: No Eye Pain, No Swelling, No Redness Cardiovascular : No Chest Pain, No SOB, No Dyspnea on Exertion, No Orthopnea, No Edema, No Palpitations Respiratory : No Cough, No Sputum, No Wheezing Gastrointestinal : No Nausea, No Vomiting, No Diarrhea, No Constipation, No abdominal Pain, No Hematochezia, No Melena Genitourinary : No Dysuria, No Urinary Frequency, No Hematuria, Musculoskeletal : No joint pain, No Myalgias, No Joint Swelling Skin : No Skin Lesions, No rash Neuro : No Weakness, No Numbness, No Dizziness, No Headache Psych : No Anxiety/Panic, No Depression All other systems reviewed and are negative Yes all other systems are reviewed and are negative [facility] Past Medical History Attestation statement: The following information was validated with the patient. Source: old records reviewed and nursing notes reviewed Onset Date is defined in the Problem List Problems that require an onset date and time if occurred within 24 hrs of arrival to the ED Aortic Dissection and Rupture; Neurologic impairment; Cardiopulmonary Arrest; Endotracheal Intubation; Insertion or Replacement of Mechanical Circulatory Assist Device Medical History Hypertension Depression Anxiety Social History Social History Household Members: Spouse and Children Housing: Apartment Do you presently have visiting nurse or other home services: No Alcohol intake: current Alcohol intake frequency: 3 or more drinks per day Alcohol type: hard liquor Comment: patient and family refuse camera Patient Tobacco Use Status: Never used Tobacco Substance Use Type: Marijuana Advance Directives: No service: No Physical Exam ED Vital Signs: Vital Signs - 24 hr 06/11/23 05:17 06/11/23 06:27 06/11/23 08:00 Temperature 98.6 F 98.5 F Pulse Rate 65 97 87 Respiratory Rate 18 17 22 H Blood Pressure 157/100 H 166/105 H Pulse Oximetry 98 98 Oxygen Delivery Method Room Air Room Air 06/11/23 08:32 Temperature Pulse Rate Respiratory Rate Blood Pressure Pulse Oximetry 87 L Oxygen Delivery Method Room Air BMI result Body Mass Index 35.6 vss Appearance: Alert.? Oriented X3.? No acute distress.? Head: Normocephalic, atraumatic, no step-offs or deformities Eyes: Pupils equal, round and reactive to light.? Neck: Normal inspection.? Neck supple.? CVS: Normal heart rate and rhythm.? Pulses normal.? Respiratory: No respiratory distress.? Breath sounds normal.? Abdomen: Soft and nontender.? Skin: Skin warm and dry.? Normal skin color.? Normal skin turgor.? Extremities: No lower extremity edema.? No calf ttp. 5/5 strength to bilateral upper and lower extremities Neuro: Oriented X 3.? No motor deficit.? No sensory deficit. CN 2-12 intact Course Reevaluation(s) Reevaluation #1: CBC no acute findings. Chemistry with elevated anion gap ( likely due to high lactic from seizure vs ? ethanol) , elevated glucose, elevated lactic acid. elevated lactic acid likely due to seizure unlikely due to sepsis/ infection. Chronically elevated transaminases. Troponin negative, CPK normal. Patient's ethanol negative. CIWA- 18 Patient now tells nurse and I she is trying to stop drinking last drank a few days ago and typically has a bottle of vodka . Time: 08:33 Reevaluation #2: Patient 87% on RA viral test and cxr ordered. Time: 08:34 Reevaluation #3: chest x-ray b/l atelectasis with left frontal lobe para gyral hypodensity ( MRI recommended ) no need for emergent MRI but hospitalist aware of finding. plan at this time is hospital admission Time: 10:08 Medications Administered Discontinued Medications Generic Name Dose Route Start Last Admin Trade Name Freq PRN Reason Stop Dose Admin Levetiracetam 1,500 mg in 100 mls @ 400 mls/hr 06/11/23 06:30 06/11/23 07:10 Keppra IV 06/11/23 06:44 Infused ONCE ONE Infusion Sodium Chloride 1,000 mls @ 999 mls/hr 06/11/23 08:15 06/11/23 08:19 Ns IV 06/11/23 09:15 999 mls/hr .Q1H1M ALESSIA Administration Sodium Chloride 1,000 mls @ 999 mls/hr 06/11/23 08:15 06/11/23 08:21 Ns IV 06/11/23 09:15 999 mls/hr .Q1H1M ALESSIA Administration Lorazepam 2 mg 06/11/23 06:55 06/11/23 07:01 Lorazepam 2 Mg/Ml Vial IVPUSH 06/11/23 06:56 2 mg ONCE ONE Administration Ondansetron HCl 4 mg 06/11/23 08:13 06/11/23 08:18 Ondansetron Hcl 4 Mg/2 Ml Vial IVPUSH 06/11/23 08:14 4 mg ONCE ONE Administration Phenobarbital Sodium 320 mg 06/11/23 09:00 06/11/23 08:39 Phenobarbital Sodium 130 Mg/Ml Im Once IM 06/11/23 09:01 320 mg ONCE ONE Administration Protocol Medical Decision Making Medical Decision Making [facility] Narrative: 704 48 yo f presents s/p seizure witnessed by PE patient anxious appearing this is likely Alcohol withdrawal seizure versus epileptic seizure versus pseudo-seizure. Will rule out rhabdo, electrolyte abnormalities. Will rule out intracranial pathologies such as intracranial hemorrhage although stroke, posterior stroke and intracranial hemorrhage or unlikely. Patient very anxious. Will also rule out UTI patient will receive 2 mg of IV Ativan to increased seizure threshold as well as Keppra. Labs, EKG will be obtained Differential Diagnosis Differential Diagnoses: The differential diagnosis associated with the presentation includes this is likely alcohol withdrawal seizure versus epileptic seizure versus pseudo-seizure. Will rule out rhabdo, electrolyte abnormalities. Will rule out intracranial pathologies such as intracranial hemorrhage although stroke, posterior stroke and intracranial hemorrhage or unlikely. Patient very anxious. Will also rule out UTI Admission/Observation Consideration of admission/observation: Escalation of care including admission/observation considered unlikely Lab Data [facility] Lab Attestation statement: I reviewed the patient's lab results. 06/11/23 06:05 06/11/23 06:05 Labs: Lab Results 06/11/23 06/11/23 06/11/23 Range/Units 06:05 07:12 09:34 WBC 8.6 (4.8-10.8) X10*3/uL RBC 4.41 (4.20-5.50) X10*6/uL Hgb 14.5 (12.0-16.0) g/dl Hct 46.7 (37.0-47.0) % MCV 105.9 H (80.0-98.0) fL MCH 32.9 (27.0-33.0) pg MCHC 31.0 (31.0-35.0) g/dl RDW 14.0 (11.0-16.0) % Plt Count 299 D (160-400) X10*3/uL MPV 10.0 (9.4-12.3) fL Immature Gran % (Auto) 0.6 H (0.0-0.4) % Neut % (Auto) 52.9 (45-73) % Lymph % (Auto) 37.7 (20-40) % Crook % (Auto) 6.7 (2-11) % Eos % (Auto) 1.6 (0-4) % Baso % (Auto) 0.5 (0-2) % Lymph # (Auto) 3.2 (1.2-4.9) X10*3/uL Crook # (Auto) 0.6 (0.1-1.2) X10*3/uL Eos # (Auto) 0.1 (0.0-0.4) X10*3/uL Baso # (Auto) 0.0 (0.0-0.2) X10*3/uL Abs Immat Gran (auto) 0.05 H (0.00-0.03) X10*3/uL Absolute Neuts (auto) 4.5 (2.0-8.3) x10*3/uL Absolute Nucleated RBC 0.020 H (0.0-0.012) X10*3/uL Nucleated RBC % (auto) 0.2 (0.0-0.2) /100WBC Sodium 138 (135-145) mmol/L Potassium 3.8 (3.3-5.1) mmol/L Chloride 104 (96-108) mmol/L Carbon Dioxide 13 L (22-29) mmol/L Anion Gap 25 H (12-20) BUN 9 (9-16) mg/dL Creatinine 0.91 (0.5-1.4) mg/dL Estim Creat Clear Calc 81.0 Estimated GFR > 60 Random Glucose 195 H (60-115) mg/dL Lactic Acid 12.8 H* (0.5-2.0) mmol/L Lactic Acid F/U @ 2Hr 1.9 (0.5-2.0) mmol/L Calcium 9.2 (8.4-10.2) mg/dL Magnesium 1.8 (1.6-2.6) mg/dL Total Bilirubin 0.4 (0.0-1.0) mg/dL AST 148 H (5-31) U/L ALT 131 H (0-31) U/L Alkaline Phosphatase 144 H (39-117) U/L Total Creatine Kinase 55 (26-140) U/L Troponin I High Sens < 2.7 (<3.5-17.0) ng/L Total Protein 6.7 (6.5-8.0) g/dL Albumin 3.8 (3.5-5.0) g/dL Ethyl Alcohol < 10 mg/dL COVID-19 (EDILBERTO) Negative (Negative) COVID-19 Clin Com See Note Independent Interpretation I performed an independent interpretation of an: Plain X-Ray and CT Scan Radiology Impression Discussion of test interpretation with radiology: I have reviewed the radiologist's reading. Tests considered The following testing was considered but not selected: considered Encephalittis/ meningitis but unlikely nol indication for LP Chronic Conditions Patient?s care impacted by: Hypertension and Other (alcohol use d/o, HLD ) Critical Care Time Critical Care Time Critical Care Time: Yes Total Critical Care Time: 45 Attestation: I attest to this time spent taking care of the patient, obtaining history, physical, reviewing labs, imaging, speaking to my attending Discharge Plan Discharge Clinical Impression: Alcohol withdrawal, Seizure Patient Disposition: Admitted As Inpatient Prescriptions: No Action melatonin 3 mg Tablet 3 mg PO BEDTIME PRN (Reason: Insomnia) atorvastatin 20 mg Tablet 20 mg PO BEDTIME Qty: 30 0RF aspirin 81 mg Tablet,Chewable 81 mg PO DAILY Qty: 30 0RF Rx Instructions: offer OTC baby aspirin fluoxetine 40 mg capsule 40 mg PO DAILY amlodipine 10 mg tablet 10 mg PO DAILY hydrochlorothiazide 25 mg tablet 25 mg PO DAILY buprenorphine-naloxone [Suboxone] 12-3 mg Film 1 film sublingual DAILY Qty: 1 0RF levetiracetam 500 mg Tablet 500 mg PO BID Qty: 60 0RF thiamine mononitrate (vit B1) 100 mg Tablet 100 mg PO DAILY Qty: 30 0RF
--- NOTE | 2023-06-11 10:34 | PC.NURSE ---
this RN resumed care of pt at this time. vs up to date. nsr on the personnel monitor. pt incontinent of urine. bedding changed/fresh linen applied. purewick applied so urine sample can be obtained. when changing pt - pt felt warm to touch. 100.2 rectal temp obtained/documented. CIWA updated in worklist. pt c/o 03/16 headache at this time. seizure pads in place. will administer 3rd liter of fluid once prior fluids are infused. resting comfortably in no apparent distress. partner bedside for support. pt/family aware of pending admission at this time. call lindsey placed within reach.
--- NOTE | 2023-06-11 11:02 | PM.IMHP ---
History of Present Illness Date of Service: 06/11/23 Chief Complaint: seizures The patient is a 48 year old female with a long standing history of alcohol disorder and possible seizure disorder who [place] [facility] [place]. The patient is currently post-ictal/sedate/unable to provide a meaningful history. Hence, the history is obtained from the patient's significant other Cj @ [phone] and her mother Blanca @ [phone]. The patient was admitted in April for seizures which were initially felt to be alcohol withdrawal seizures. Work up during that admission was + for abnormal MRI (see report). Her CSF was normal and negative for meningoencephalitis. She was treated with phenobarb and keppra, the second whic she was discharged on. Per discussion with Cj, she may have only taken it 2-3 weeks. Cj reports that she typically drinks 20 nips (shots) of vodka daily. She has been trying to taper off and find an outpatient rehab. She was down the 8 drinks over the last several days, with last drink the evening before admission. Apparently, overnight, the patient woke up her significant other around 330AM stating that she was having visual changes (this happens when she is about to have seizures). [facility] ambulance was called and she was brought to the ED. Apparently she had a witnessed seizure. In the ED, the patient was given IV keprra, IV ativan, IM phenobarb, IVF. Her initial lactate was 12 and now has normalized. She remains altered and will be admitted for further care. Review of Systems Review of Systems: unable to review due to mental status [facility] Medical History Hypertension Depression Anxiety Social History Household Members: Spouse and Children Housing: Apartment Do you presently have visiting nurse or other home services: No Alcohol intake: current Alcohol intake frequency: 3 or more drinks per day Alcohol type: hard liquor Comment: patient and family refuse camera Patient Tobacco Use Status: Never used Tobacco Smoked in Last 30 Days: No Use of substances other than those prescribed or required for medical reasons: Yes Substance Use Type: Marijuana Advance Directives: No Patient : No service: No Meds Allergies Allergy/AdvReac Type Severity Reaction Status Date / Time codeine [CODEINE] Allergy Unknown HIVES Verified 04/20/23 14:12 Codeine Phosphate Allergy Unknown rash Uncoded 04/20/23 14:12 Active Medications: Current Medications Acetaminophen (Acetaminophen 325 Mg Tablet) 650 mg PO Q6H PRN PRN Reason: Pain, Mild (Pain Scale 1-3) Enoxaparin Sodium (Enoxaparin Sodium 40 Mg/0.4 Ml Syringe) 40 mg SUBCUT Q24H [facility] Levetiracetam (Keppra) 500 mg in 100 mls @ 400 mls/hr IV Q12H [facility] Pharmacy Consult (Consult Rx Etoh Phenob Im/Po) 1 each MISCELLANE ONCE PRN; Protocol PRN Reason: Consult Order Phenobarbital (Phenobarbital 15 Mg Tablet) 45 mg PO BID [facility]; Protocol Stop: 06/13/23 09:01 Phenobarbital (Phenobarbital 30 Mg Tablet) 30 mg PO BID [facility]; Protocol Stop: 06/15/23 09:01 Phenobarbital (Phenobarbital 30 Mg Tablet) 30 mg PO Q24H [facility]; Protocol Stop: 06/16/23 21:01 Phenobarbital Sodium (Phenobarbital Sodium 130 Mg/Ml Vial Im Q3hx2) 240 mg IM Q3H [facility]; Protocol Stop: 06/11/23 15:01 Sodium Chloride (0.9 % Sodium Chloride Flush 3 Ml Syringe) 3 ml IVFLUSH QSHIFT [facility] Home Medications Medication Instructions Recorded Confirmed Last Taken Type amlodipine 10 mg tablet 10 mg PO DAILY 04/20/23 06/11/23 06/10/23 History fluoxetine 40 mg capsule 40 mg PO DAILY 04/20/23 06/11/23 06/10/23 History hydrochlorothiazide 25 mg tablet 25 mg PO DAILY 04/20/23 06/11/23 06/10/23 History Physical Exam Vital Signs and Narrative: Vital Signs: Last Vital Signs Temp 100.2 F 06/11/23 10:32 Pulse 97 06/11/23 10:32 Resp 22 H 06/11/23 10:32 BP 168/100 H 06/11/23 10:32 Pulse Ox 95 06/11/23 10:32 O2 Del Method Nasal Cannula 06/11/23 10:32 O2 Flow Rate 2.5 06/11/23 10:32 BMI result Body Mass Index 35.6 Const: Other: Constitutional - somnolent but answering questions with shoulder shrug/head shake Eyes - PEERLA Cardiovascular - S1S2, RRR, No edema Respiratory - diminished sounds Gastrointestinal - NT / ND; +BS; No rebound or guarding - No CVA tenderness Extremities - no calf tenderness bilaterally, no swelling Musculoskeletal - Normal inspection, normal ROM Skin - Warm/Dry Neurological - somnolent, but does move all 4 limbs when asked to, no obvious facial asymmetry Results Labs 06/11/23 06:05 06/11/23 06:05 Labs: Laboratory Results - last 24 hr 06/11/23 06/11/23 06/11/23 06:05 07:12 09:34 MCV 105.9 H MCH 32.9 MCHC 31.0 RDW 14.0 Plt Count 299 D MPV 10.0 Immature Gran % (Auto) 0.6 H Neut % (Auto) 52.9 Lymph % (Auto) 37.7 [place] % (Auto) 6.7 Eos % (Auto) 1.6 Baso % (Auto) 0.5 Lymph # (Auto) 3.2 [place] # (Auto) 0.6 Eos # (Auto) 0.1 Baso # (Auto) 0.0 Abs Immat Gran (auto) 0.05 H Absolute Neuts (auto) 4.5 Absolute Nucleated RBC 0.020 H Nucleated RBC % (auto) 0.2 Anion Gap 25 H Estim Creat Clear Calc 81.0 Estimated GFR > 60 Random Glucose 195 H Lactic Acid 12.8 H* Lactic Acid F/U @ 2Hr 1.9 Calcium 9.2 Magnesium 1.8 Total Bilirubin 0.4 AST 148 H ALT 131 H Alkaline Phosphatase 144 H Total Creatine Kinase 55 Total Protein 6.7 Albumin 3.8 Ethyl Alcohol < 10 COVID-19 ([facility]) Negative COVID-19 Clin Com See Note Influenza Type A (PCR) NEGATIVE Influenza Type B (PCR) NEGATIVE RSV RNA Qual (PCR) NEGATIVE SARS-CoV-2 RNA (RT-PCR) NEGATIVE Imaging Radiologist's Impressions: Impressions Head CT 06/11/23 08:53 IMPRESSION: Left frontal lobe para gyral hypodensity question underlying inflammatory, infectious process or underlying lesion. Recommend of patient MRI brain without and with contrast. Bibasilar atelectasis. Chest X-Ray 06/11/23 09:15 IMPRESSION: Left frontal lobe para gyral hypodensity question underlying inflammatory, infectious process or underlying lesion. Recommend of patient MRI brain without and with contrast. Bibasilar atelectasis. Assessment and Plan (1) Alcohol withdrawal: Status: Acute (2) Seizure: Status: Acute Plan 48 yo F with history of alcohol use disorder and possible seizure disorder who presents with witnessed seizures. 1. Alcohol dependence with acute withdrawal Phenobarb Thiamin monitor lytes Care team consult once she is more awake last drink the day prior to admission per family 2. Seizures patient typically drinks 20 shots per day, down to 6-8 over the last several days additionally she was discharged on keprra last admission, but has been non-compliant will continue keprra 500mg BID (IV for now given mental status) consult neurology abnormal CT, MRI previously completed; will await neuro input prior to repeat 3. Lactic acidosis due to seizures and not sepsis normalized 4. Acute hypoxic respiratory failure, possible aspiration pneumonia SpO2 87% on RA, CXR with bibasilar atelectasis; she also has a low grade temp of 100.2 will empirically cover with antibiotics patients hypoxia, mental status ad lactate are NOT due to severe sepsis 5. Transaminitis due to alcohol, monitor 5. HTN uncontrolled likely exacerbated by alcohol withdrawal, monitor for now and resume PO meds once able 6. mood continue fluoxetine 7. OUD suboxone once more awake 8. history of cva statin/aspirin Full Code DVT pptx, Lovenox Patient with severe alcohol withdrawal with seizures antcipated to require 48-72 hours of treatment and monitoring, along with abnormal CT requiring specialist input. Admission expected to span at least 2 midnights and therefore, will be admitted as inpatient. Quality Stroke Does the patient have a stroke diagnosis?: No VTE Prior VTE?: No VTE Risk Level:: Medical - moderate - high VTE Device Contraindication: N/A - Device Ordered VTE Drug Contraindication: N/A - Med Ordered
--- NOTE | 2023-06-11 11:11 | PHA.MEDREC ---
Pharmacy Consult ? Medication Reconciliation Pharmacy has completed the medication reconciliation. Spoke to patient's BF (zeb - [phone]) to confirm meds. Per patient's BF, patient stopped taking Keppra for over 3 weeks because it made them feel like they ran a marathon when waking up and caused their body to hurt/ache all over.
--- NOTE | 2023-06-11 12:34 | PC.NURSE ---
pt passed swallow eval. medication administered per provider order. seizure pads remain in place. family bedside. call lindsey placed within reach.
--- NOTE | 2023-06-11 14:18 | PC.NURSE ---
vss and up to date at this time. nsr on the monitoring and evaluation advisor. pt remains lethargic but easily arouseable to verbal/physical stimuli. CIWA updated. no sob/wob noted. respirations remain even and unlabored. pt resting comfortably in no apparent distress w/ the lights dimmed. call lindsey placed within reach.
--- NOTE | 2023-06-11 16:06 | PC.NURSE ---
assumed care of pt at 1600
--- NOTE | 2023-06-11 19:37 | PC.NURSE ---
this rn assumed care of pt. pt changed and repositioned at this time. delay in Keppra admin due to pt only having one iv access. pt comfortable in bed at this time.
--- NOTE | 2023-06-11 20:42 | PC.NURSE ---
pt medicated per mar, no acute distress noted.
[2023-06-12] VITALS (7 sets, daily range): BP systolic 115–195; BP diastolic 73–118; PULSE 69–86; RESP 14–20; TEMP 36–36.8; O2SAT 92–96; BMI 34.4
--- NOTE | 2023-06-12 04:53 | PC.NURSE ---
pt medicated per mar, per provider order.
--- NOTE | 2023-06-12 05:16 | PC.NURSE ---
pt changed and repositioned at this time, purewick replaced.
[2023-06-12 07:42] LABS: Alanine Aminotransferase 87 U/L (0-31); Albumin Level 3.5 g/dL (3.5-5.0); Alkaline Phosphatase 125 U/L (39-117); Anion Gap 14 (12-20); Aspartate Amino Transferase 94 U/L (5-31); Blood Urea Nitrogen 5 mg/dL (9-16); Calcium 8.9 mg/dL (8.4-10.2); Carbon Dioxide 23 mmol/L (22-29); Chloride 104 mmol/L (96-108); Creatinine Clr Calc Pharmacy 98.3; Estimated Glomerular Filt Rate > 60; Glucose Random 90 mg/dL (60-115); Potassium 3.1 mmol/L (3.3-5.1); Sodium 138 mmol/L (135-145); Total Protein 6.6 g/dL (6.5-8.0)
--- NOTE | 2023-06-12 07:43 | HO.PM.IMPN ---
Subjective Subjective Date of Service: 06/12/23 Interval History: Seen in follow up for alcohol withdrawal seizure, hypoxia Interval history: No overnight events, no further seizures. On CIWA, phenobarbital. No cough, sob, chest pain. Afebrile. weaned from o2 Review of Systems Review of Systems: Yes all other systems are reviewed and are negative Physical Exam Vital Signs: Vital Signs: Last Vital Signs Temp 98.8 F 06/11/23 23:12 Pulse 74 06/12/23 04:16 Resp 20 06/12/23 04:16 BP 151/99 H 06/12/23 05:14 Pulse Ox 96 06/12/23 04:16 O2 Del Method Room Air 06/12/23 04:16 O2 Flow Rate 2.5 06/11/23 18:34 BMI result Body Mass Index 35.6 Constitutional - Awake and Alert, No apparent distress Eyes - PERRLA, EOMI Cardiovascular - S1S2, RRR, No edema Respiratory - Normal lung expansion, Normal respiratory effort, No respiratory distress, CTA bilaterally Gastrointestinal - NT / ND; +BS; No rebound or guarding Extremities - no calf tenderness bilaterally, no swelling Skin - Warm/Dry Neurological - Alert & oriented x3 Psychological - Appropriate affect Objective Data Active Medications Acetaminophen (Acetaminophen 325 Mg Tablet) 650 mg PO Q6H PRN PRN Reason: Pain, Mild (Pain Scale 1-3) Amlodipine Besylate (Amlodipine Besylate 10 Mg Tablet) 10 mg PO DAILY [facility]; Protocol Aspirin (Aspirin 81 Mg Tab.Chew) 81 mg PO DAILY [facility] Atorvastatin Calcium (Atorvastatin Calcium 20 Mg Tablet) 20 mg PO BEDTIME [facility] Last Admin: 06/11/23 20:41 Dose: 20 mg Documented By: CHRISTIAN Enoxaparin Sodium (Enoxaparin Sodium 40 Mg/0.4 Ml Syringe) 40 mg SUBCUT Q24H [facility] Last Admin: 06/11/23 12:07 Dose: 40 mg Documented By: ABHAY Fluoxetine HCl (Fluoxetine Hcl 20 Mg Capsule) 40 mg PO DAILY [facility] Hydrochlorothiazide (Hydrochlorothiazide 25 Mg Tablet) 25 mg PO DAILY [facility]; Protocol Levetiracetam (Keppra) 500 mg in 100 mls @ 400 mls/hr IV Q12H [facility] Last Infusion: 06/12/23 06:36 Dose: Infused Documented By: CHRISTIAN Ampicillin Sodium/Sulbactam (Sodium 3 gm/ Sodium Chloride) 100 mls @ 200 mls/hr IV Q6H [facility] Last Infusion: 06/12/23 06:17 Dose: Infused Documented By: CHRISTIAN Pharmacy Consult (Consult Rx Etoh Phenob Im/Po) 1 each MISCELLANE ONCE PRN; Protocol PRN Reason: Consult Order Phenobarbital (Phenobarbital 15 Mg Tablet) 45 mg PO BID [facility]; Protocol Stop: 06/13/23 09:01 Last Admin: 06/11/23 20:40 Dose: 45 mg Documented By: CHRISTIAN Phenobarbital (Phenobarbital 30 Mg Tablet) 30 mg PO BID [facility]; Protocol Stop: 06/15/23 09:01 Phenobarbital (Phenobarbital 30 Mg Tablet) 30 mg PO Q24H [facility]; Protocol Stop: 06/16/23 21:01 Sodium Chloride (0.9 % Sodium Chloride Flush 3 Ml Syringe) 3 ml IVFLUSH QSHIFT [facility] Last Admin: 06/12/23 00:00 Dose: Not Given Documented By: CHRISTIAN Non-Admin Reason: IV Running Thiamine HCl (Thiamine Hcl 100 Mg Tablet) 100 mg PO DAILY [facility] Labs 06/11/23 06:05 06/12/23 06:04 Labs: Laboratory Results - last 24 hr 06/11/23 06/11/23 06/11/23 06:05 09:34 12:38 Hold Purple Top Anion Gap Estim Creat Clear Calc Estimated GFR Random Glucose Lactic Acid F/U @ 2Hr 1.9 Calcium Magnesium 1.8 AST ALT Alkaline Phosphatase Total Creatine Kinase 55 Total Protein Albumin Urine Color Yellow Urine Appearance Clear Urine pH 8.0 Ur Specific [place] 1.010 Urine Protein Negative Urine Glucose (UA) Negative Urine Ketones Negative Urine Blood Negative Urine Nitrite Negative Ur Leukocyte Esterase Negative Urine Opiates Screen Not Detected Urine Fentanyl Screen Not Detected Ur Barbiturates Screen POSITIVE H Ur Phencyclidine Scrn Not Detected Ur Amphetamines Screen Not Detected U Benzodiazepines Scrn Not Detected Urine Cocaine Screen Not Detected U Marijuana (THC) Screen POSITIVE H Influenza Type A (PCR) NEGATIVE Influenza Type B (PCR) NEGATIVE RSV RNA Qual (PCR) NEGATIVE SARS-CoV-2 RNA (RT-PCR) NEGATIVE 06/12/23 06:04 Hold Purple Top SEE NOTE Anion Gap 14 Estim Creat Clear Calc 98.3 Estimated GFR > 60 Random Glucose 90 Lactic Acid F/U @ 2Hr Calcium 8.9 Magnesium AST 94 H ALT 87 H Alkaline Phosphatase 125 H Total Creatine Kinase Total Protein 6.6 Albumin 3.5 Urine Color Urine Appearance Urine pH Ur Specific [place] Urine Protein Urine Glucose (UA) Urine Ketones Urine Blood Urine Nitrite Ur Leukocyte Esterase Urine Opiates Screen Urine Fentanyl Screen Ur Barbiturates Screen Ur Phencyclidine Scrn Ur Amphetamines Screen U Benzodiazepines Scrn Urine Cocaine Screen U Marijuana (THC) Screen Influenza Type A (PCR) Influenza Type B (PCR) RSV RNA Qual (PCR) SARS-CoV-2 RNA (RT-PCR) Assessment and Plan (1) Alcohol withdrawal: Status: Acute (2) Seizure: Status: Acute (3) Alcoholism: Status: Acute Plan 48 yo F with history of alcohol use disorder and possible seizure disorder who presents with witnessed seizures, likely alcohol withdrawal seizures has patient recently made significant decrease in amount of alcohol consumed on daily basis currently being monitored for withdrawal and on phenobarbital per protocol Alcohol dependence with acute withdrawal/seizure Phenobarb per protocol Thiamine, folic acid monitor lytes addiction med consult last drink the day prior to admission per family Seizures patient typically drinks 20 shots per day, down to 6-8 over the last several days additionally she was discharged on keppra last admission, but has been non-compliant will continue keprra 500mg BID, change to PO given improvement in mental status neuro consult abnormal CT, MRI previously completed; will await neuro input prior to repeat Lactic acidosis due to seizures and not sepsis normalized Acute hypoxic respiratory failure, possible aspiration pneumonia SpO2 87% on RA, CXR with bibasilar atelectasis; she also has a low grade temp of 100.2 empiric unasyn (initiated 06/11) patients hypoxia, mental status ad lactate are NOT due to severe sepsis Transaminitis due to alcohol, monitor HTN uncontrolled likely exacerbated by alcohol withdrawal, resume hctz and amlodipine mood disorder continue fluoxetine OUD suboxone once more awake history of cva statin/aspirin Full Code DVT pptx, Lovenox Patient with severe alcohol withdrawal with seizures anticipated requires ongoing inpt stay for ongoing management of alcohol withdrawal with recent alcohol withdrawal seizures on phenobarbital per protocol and closely monitoring on CIWA Quality Stroke Does the patient have a stroke diagnosis?: No VTE Prior VTE?: No VTE Risk Level:: Medical - moderate - high VTE Device Contraindication: N/A - Device Ordered VTE Drug Contraindication: N/A - Med Ordered
[2023-06-12 07:57] LABS: Bilirubin Total 0.8 mg/dL (0.0-1.0)
[2023-06-12 08:11] LABS: Magnesium 1.8 mg/dL (1.6-2.6)
--- NOTE | 2023-06-12 08:36 | PC.NURSE ---
resting quietly in room, alert and oriented with respirations even and unlabored. offering no complaints at this time. CIWA scale completed, ciwa of 1. call lindsey remains within reach.
--- NOTE | 2023-06-12 11:44 | PC.NURSE ---
Addendum entered by Clara Crenshaw 06/12/23 11:57: requesting ativan for anxiety, hospitalist aware Original Note: patient continues to be alert and oriented, respirations even and unlabored. ambulating to bathroom independently with strong, steady gait. medicated per the MAR. family at bedside, call lindsey within reach.
--- NOTE | 2023-06-12 12:27 | PM.NEUROCN ---
History of Present Illness Data of Consult Service Date: 06/12/23 Primary Care Provider: Fanta Soto MD [facility] Reason for consult: Seizure disorder 48 years old woman with long history of alcohol abuse, a left frontal embolic ischemic type of lesion noted on her CT scan in 2022, which was not there in 2009, right hippocampal hyper intensity on FLAIR noted on MRI of brain in 2022 suggestive of mesial sclerosis, has been admitted in [facility] with seizure disorder before was here again with a seizure. She did not know much detail of what happens during the seizure but stated that before the seizure suddenly she would turned blind? and dizzy and then something what happened. Has mother stated that her eyes would roll over, body would extend on both sides, and she would shake. She had multiple similar episode during last few months to years, usually attributed to alcohol drinking. During last admission she had a lumbar puncture to investigated any possibility of an inflammatory process affecting her hippocampus, which did not reveal any obvious signs of inflammation or a pathology in CSF. Review of Systems Review of Systems: No recent cold or flu-like illness. She was still drinking. [facility] Past Medical History Medical History Hypertension Depression Anxiety Social History Social History Household Members: Spouse and Children Housing: Apartment Do you presently have visiting nurse or other home services: No Alcohol intake: current Alcohol intake frequency: 3 or more drinks per day Alcohol type: hard liquor Comment: patient and family refuse camera Patient Tobacco Use Status: Never used Tobacco Smoked in Last 30 Days: No Use of substances other than those prescribed or required for medical reasons: Yes Substance Use Type: Marijuana Advance Directives: No Nutrition Risks: No Nutritional Risk Patient : No service: No Meds Allergies Allergy/AdvReac Type Severity Reaction Status Date / Time codeine [CODEINE] Allergy Unknown HIVES Verified 04/20/23 14:12 Codeine Phosphate Allergy Unknown rash Uncoded 04/20/23 14:12 Active Medications: Current Medications Acetaminophen (Acetaminophen 325 Mg Tablet) 650 mg PO Q6H PRN PRN Reason: Pain, Mild (Pain Scale 1-3) Amlodipine Besylate (Amlodipine Besylate 10 Mg Tablet) 10 mg PO DAILY [facility]; Protocol Last Admin: 06/12/23 08:32 Dose: 10 mg Aspirin (Aspirin 81 Mg Tab.Chew) 81 mg PO DAILY [facility] Last Admin: 06/12/23 08:31 Dose: 81 mg Atorvastatin Calcium (Atorvastatin Calcium 20 Mg Tablet) 20 mg PO BEDTIME [facility] Last Admin: 06/11/23 20:41 Dose: 20 mg Buprenorphine/Naloxone (Buprenorphine/Naloxone 12/3 Mg Film) 1 film SUBLINGUAL DAILY [facility] Last Admin: 06/12/23 11:39 Dose: 1 film Enoxaparin Sodium (Enoxaparin Sodium 40 Mg/0.4 Ml Syringe) 40 mg SUBCUT Q24H [facility] Last Admin: 06/12/23 11:40 Dose: Not Given Fluoxetine HCl (Fluoxetine Hcl 20 Mg Capsule) 40 mg PO DAILY [facility] Last Admin: 06/12/23 08:31 Dose: 40 mg Folic Acid (Folic Acid 1 Mg Tablet) 1 mg PO DAILY [facility] Last Admin: 06/12/23 11:40 Dose: 1 mg Hydrochlorothiazide (Hydrochlorothiazide 25 Mg Tablet) 25 mg PO DAILY [facility]; Protocol Last Admin: 06/12/23 08:32 Dose: 25 mg Ampicillin Sodium/Sulbactam (Sodium 3 gm/ Sodium Chloride) 100 mls @ 200 mls/hr IV Q6H [facility] Last Admin: 06/12/23 11:39 Dose: 200 mls/hr Levetiracetam (Levetiracetam 500 Mg Tablet) 500 mg PO BID [facility] Pharmacy Consult (Consult Rx Etoh Phenob Im/Po) 1 each MISCELLANE ONCE PRN; Protocol PRN Reason: Consult Order Phenobarbital (Phenobarbital 15 Mg Tablet) 45 mg PO BID [facility]; Protocol Stop: 06/13/23 09:01 Last Admin: 06/12/23 08:31 Dose: 45 mg Phenobarbital (Phenobarbital 30 Mg Tablet) 30 mg PO BID [facility]; Protocol Stop: 06/15/23 09:01 Phenobarbital (Phenobarbital 30 Mg Tablet) 30 mg PO Q24H [facility]; Protocol Stop: 06/16/23 21:01 Sodium Chloride (0.9 % Sodium Chloride Flush 3 Ml Syringe) 3 ml IVFLUSH QSHIFT [facility] Last Admin: 06/12/23 08:38 Dose: 3 ml Thiamine HCl (Thiamine Hcl 100 Mg Tablet) 100 mg PO DAILY [facility] Last Admin: 06/12/23 08:32 Dose: 100 mg Home Medications Medication Instructions Recorded Confirmed Last Taken Type amlodipine 10 mg tablet 10 mg PO DAILY 04/20/23 06/11/23 06/10/23 History fluoxetine 40 mg capsule 40 mg PO DAILY 04/20/23 06/11/23 06/10/23 History hydrochlorothiazide 25 mg tablet 25 mg PO DAILY 04/20/23 06/11/23 06/10/23 History Physical Exam Vital Signs: Vital Signs: Last Vital Signs Temp 98.8 F 06/11/23 23:12 Pulse 69 06/12/23 07:58 Resp 18 06/12/23 07:58 BP 147/90 H 06/12/23 07:58 Pulse Ox 94 06/12/23 07:58 O2 Del Method Room Air 06/12/23 07:58 O2 Flow Rate 2.5 06/11/23 18:34 BMI result Body Mass Index 35.6 Neuro: Other: She is alert and awake with normal spontaneity of speech fluency comprehension and affect. Face is symmetrical. Visual claudio are full. Deep tendon reflexes are absent with flat plantars. Results Labs 06/11/23 06:05 06/12/23 06:04 Labs: BMP 06/12/23 06:04 Sodium 138 Potassium 3.1 L Chloride 104 Carbon Dioxide 23 BUN 5 L Creatinine 0.75 Calcium 8.9 Liver Function 06/12/23 Range/Units 06:04 Total Bilirubin 0.8 (0.0-1.0) mg/dL AST 94 H (5-31) U/L ALT 87 H (0-31) U/L Alkaline Phosphatase 125 H (39-117) U/L Albumin 3.5 (3.5-5.0) g/dL Urine 06/11/23 Range/Units 12:38 Urine Color Yellow Urine Appearance Clear Urine pH 8.0 (5.0-9.0) Ur Specific [place] 1.010 (1.005-1.025) Urine Protein Negative (Neg-Trace) mg/dL Urine Glucose (UA) Negative (Negative) mg/dL As reported in HPI. Recent CT scan did not reveal any new pathology. 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 Alcohol drinking only complicated this picture. She was prescribed Keppra, which she said she did not like. I recommend starting her on phenobarbital 30 mg twice a day, which might help to counter alcoholism. She should be strongly advised to discontinue drinking alcohol. (2) Epilepsy: Qualifiers: Epilepsy type: other generalized Intractability: not intractable Status epilepticus: without status epilepticus Qualified Code(s): G40.409 - Other generalized epilepsy and epileptic syndromes, not intractable, without status epilepticus Status: Acute (3) Cerebral infarction: Qualifiers: Cerebral infarction mechanism: embolism Precerebral and cerebral artery: middle cerebral artery Laterality of affected vessel: left Qualified Code(s): I63.412 - Cerebral infarction due to embolism of left middle cerebral artery Status: Acute Etiology of this embolic infarct is unclear. Previous CTA of brain and neck did not reveal any large vessel disease. I recommend an echocardiogram with bubble studies to rule out shunting. Because of this solitary lesion, hypercoagulable state seems unlikely to be the cause. Baby aspirin daily and blood pressure control her recommended. (4) Alcoholism: Status: Acute She should be referred for detox and should be given prescription for thiamine, folate, multi vitamin and B complex vitamins. Procedures Date of Service Date of Service: 06/12/23
--- NOTE | 2023-06-12 16:06 | MHC.RECOVRN ---
Attempted to meet with pt in ED19 after consult placed to Addiction Medicine for alcohol use. Pt had been BIBA from home for evaluation of possible seizure. Upon evaluation, pt admitted for seizure and alcohol withdrawal. Pts mother present when t/w entered the room, discussing pts alcohol use. Pt sitting in bed, awake, appears drowsy. Briefly discussed resources and different levels of care, answered all questions by mother and pt. Provided written information as well as t/w contact information. Will return at a later time to obtain history.
[2023-06-12 18:09] LABS: Cholesterol 225 mg/dL (<200); HDL Cholesterol 55 mg/dL (>40); LDL Cholesterol Calculated 138 mg/dL (<100); Triglycerides 164 mg/dL (<150)
--- NOTE | 2023-06-12 18:50 | PC.NURSE ---
Pt arrived from ED on stretcher able to ambulate with steady gait, oriented to room, call lindsey system and staff. Alert to self, place and year off on month. Speech clear, face symmetric, tongue midline. GUSTAFSON to command 5/5 sensation intact, +pp bilat no edema noted. Denies headache, dizziness or vision changes pupils PERRLA 2B. LSCTA denies SOB or CP, NSR on tele. BS+X4 abdomen soft non-tender denies nausea/vomiting tolerating diet. Denies pain/discomfort. VOiding without difficulty. IV antibiotics given per order. Initial ciwa on arrival 0. Pt c/o anxiety 1830 asking for ativan A. Rosalie MARKHAM notified one time dose ordered. Bed in lowest locked position alarm and camera for safety. No siezure like activity noted at this time. Will continue to monitor and report changes
--- NOTE | 2023-06-12 22:48 | PC.NURSE ---
Late Entry 1300: Dr. Stevenson evaluated patient. See neuro note for full evaluation and recommendations.
[2023-06-13 03:19] VITALS: BP 138/82; PULSE 65; RESP 19; TEMP 36.5; O2SAT 95
[2023-06-13 07:17] VITALS: BP 133/66; PULSE 69; RESP 19; TEMP 36.8; O2SAT 92
--- NOTE | 2023-06-13 07:33 | HO.PM.IMPN ---
Subjective Subjective Date of Service: 06/13/23 Interval History: Seen in follow up for alcohol withdrawal seizure, hypoxia Interval history: No overnight events, no further seizures. On CIWA, phenobarbital. No cough, sob, chest pain Review of Systems Review of Systems: Yes all other systems are reviewed and are negative Physical Exam Vital Signs: Vital Signs: Last Vital Signs Temp 98.2 F 06/13/23 07:17 Pulse 69 06/13/23 07:17 Resp 19 06/13/23 07:17 BP 133/66 06/13/23 07:17 Pulse Ox 92 06/13/23 07:17 O2 Del Method Room Air 06/13/23 07:17 O2 Flow Rate 2.5 06/11/23 18:34 BMI result Body Mass Index 34.4 Constitutional - Awake and Alert, No apparent distress Eyes - PERRLA, EOMI Cardiovascular - S1S2, RRR, No edema Respiratory - Normal lung expansion, Normal respiratory effort, No respiratory distress, CTA bilaterally Gastrointestinal - NT / ND; +BS; No rebound or guarding Extremities - no calf tenderness bilaterally, no swelling Skin - Warm/Dry Neurological - Alert & oriented x3 Psychological - Appropriate affect Objective Data Active Medications Acetaminophen (Acetaminophen 325 Mg Tablet) 650 mg PO Q6H PRN PRN Reason: Pain, Mild (Pain Scale 1-3) Amlodipine Besylate (Amlodipine Besylate 10 Mg Tablet) 10 mg PO DAILY [facility]; Protocol Last Admin: 06/12/23 08:32 Dose: 10 mg Documented By: LYNDA Aspirin (Aspirin 81 Mg Tab.Chew) 81 mg PO DAILY [facility] Last Admin: 06/12/23 08:31 Dose: 81 mg Documented By: YLNDA Atorvastatin Calcium (Atorvastatin Calcium 80 Mg Tablet) 80 mg PO BEDTIME [facility] Last Admin: 06/12/23 21:07 Dose: 80 mg Documented By: BAYLEE Buprenorphine/Naloxone (Buprenorphine/Naloxone 12/3 Mg Film) 1 film SUBLINGUAL DAILY [facility] Last Admin: 06/12/23 11:39 Dose: 1 film Documented By: LYNDA Enoxaparin Sodium (Enoxaparin Sodium 40 Mg/0.4 Ml Syringe) 40 mg SUBCUT Q24H [facility] Last Admin: 06/12/23 11:40 Dose: Not Given Documented By: LYNDA Non-Admin Reason: Patient Refused Fluoxetine HCl (Fluoxetine Hcl 20 Mg Capsule) 40 mg PO DAILY [facility] Last Admin: 06/12/23 08:31 Dose: 40 mg Documented By: LYNDA Folic Acid (Folic Acid 1 Mg Tablet) 1 mg PO DAILY [facility] Last Admin: 06/12/23 11:40 Dose: 1 mg Documented By: LYNDA Hydrochlorothiazide (Hydrochlorothiazide 25 Mg Tablet) 25 mg PO DAILY [facility]; Protocol Last Admin: 06/12/23 08:32 Dose: 25 mg Documented By: LYNDA Ampicillin Sodium/Sulbactam (Sodium 3 gm/ Sodium Chloride) 100 mls @ 200 mls/hr IV Q6H [facility] Last Infusion: 06/13/23 06:39 Dose: Infused Documented By: BAYLEE Levetiracetam (Levetiracetam 500 Mg Tablet) 500 mg PO BID [facility] Last Admin: 06/12/23 21:07 Dose: 500 mg Documented By: BAYLEE Pharmacy Consult (Consult Rx Etoh Phenob Im/Po) 1 each MISCELLANE ONCE PRN; Protocol PRN Reason: Consult Order Phenobarbital (Phenobarbital 15 Mg Tablet) 45 mg PO BID [facility]; Protocol Stop: 06/13/23 09:01 Last Admin: 06/12/23 21:06 Dose: 45 mg Documented By: BAYLEE Phenobarbital (Phenobarbital 30 Mg Tablet) 30 mg PO BID [facility]; Protocol Stop: 06/15/23 09:01 Phenobarbital (Phenobarbital 30 Mg Tablet) 30 mg PO Q24H [facility]; Protocol Stop: 06/16/23 21:01 Sodium Chloride (0.9 % Sodium Chloride Flush 3 Ml Syringe) 3 ml IVFLUSH QSHIFT [facility] Last Admin: 06/13/23 00:28 Dose: 3 ml Documented By: BAYLEE Thiamine HCl (Thiamine Hcl 100 Mg Tablet) 100 mg PO DAILY [facility] Last Admin: 06/12/23 08:32 Dose: 100 mg Documented By: LYNDA Labs 06/13/23 06:46 06/13/23 06:46 Labs: Laboratory Results - last 24 hr 06/12/23 06/13/23 06:04 06:46 MCV 102.6 H MCH 34.4 H MCHC 33.5 RDW 13.8 Plt Count 217 D MPV 10.2 Immature Gran % (Auto) 0.5 H Neut % (Auto) 52.4 Lymph % (Auto) 37.7 Jerome % (Auto) 6.0 Eos % (Auto) 2.9 Baso % (Auto) 0.5 Lymph # (Auto) 2.1 Jerome # (Auto) 0.3 Eos # (Auto) 0.2 Baso # (Auto) 0.0 Abs Immat Gran (auto) 0.03 Absolute Neuts (auto) 2.9 Absolute Nucleated RBC 0.000 Nucleated RBC % (auto) 0.0 Anion Gap 14 12 Estim Creat Clear Calc 98.3 93.9 Estimated GFR > 60 > 60 Random Glucose 90 91 Calcium 8.9 8.9 Magnesium 1.8 2.0 Total Bilirubin 0.8 AST 94 H ALT 87 H Alkaline Phosphatase 125 H Total Protein 6.6 Albumin 3.5 Triglycerides 164 H Cholesterol 225 H LDL Cholesterol, Calc 138 H HDL Cholesterol 55 Assessment and Plan (1) Alcohol withdrawal: Status: Acute (2) Seizure: Status: Acute (3) Alcoholism: Status: Acute Plan 48 yo F with history of alcohol use disorder and possible seizure disorder who presents with witnessed seizures, likely alcohol withdrawal seizures has patient recently made significant decrease in amount of alcohol consumed on daily basis currently being monitored for withdrawal and on phenobarbital per protocol Alcohol dependence with acute withdrawal/seizure Phenobarb per protocol (D3) Thiamine, folic acid monitor lytes addiction med consult last drink the day prior to admission per family Seizures patient typically drinks 20 shots per day, down to 6-8 over the last several days additionally she was discharged on keppra last admission, but has been non-compliant likely has 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 Alcohol complicated picture per neuro Check MRI brain w/wo contrast Change keppra to phenobarb 30mg BID. Counseled on alcohol cessation neuro input appreciated Cerebral infarction -seen on prior head ct/mri -LDL 138, increase atorvastatin to 80mg nightly -continue asa daily -echo wtih bubble per neurology ?Multiple sclerosis possibly contributing to seizure disorder MRI brain w/wo contrast ordered Lactic acidosis due to seizures and not sepsis normalized Acute hypoxic respiratory failure, possible aspiration pneumonia SpO2 87% on RA, CXR with bibasilar atelectasis; she also has a low grade temp of 100.2 empiric unasyn (initiated 06/11) patients hypoxia, mental status ad lactate are NOT due to severe sepsis Transaminitis due to alcohol, monitor HTN uncontrolled likely exacerbated by alcohol withdrawal, resume hctz and amlodipine mood disorder continue fluoxetine OUD suboxone once more awake history of cva statin/aspirin Full Code DVT pptx, Lovenox Patient with severe alcohol withdrawal with seizures anticipated requires ongoing inpt stay for ongoing management of alcohol withdrawal with recent alcohol withdrawal seizures on phenobarbital per protocol and closely monitoring on CIWA as well as further work up for MS given this is possibly contributing to seizure activity Quality Stroke Does the patient have a stroke diagnosis?: No VTE Prior VTE?: No VTE Risk Level:: Medical - moderate - high VTE Device Contraindication: N/A - Device Ordered VTE Drug Contraindication: N/A - Med Ordered
--- NOTE | 2023-06-13 11:04 | MHC.CM.PN ---
Pt self-care, lives at home with her 18 year old son, 11 year old daughter, and her fiance. Pts fiance will transport her home. HCP completed, now on file. PCP: Dr. Fanta Soto
[2023-06-13 11:18] VITALS: BP 143/83; PULSE 85; RESP 20; TEMP 36.9; O2SAT 96
--- NOTE | 2023-06-13 12:52 | MHC.RECOVRN ---
Addendum entered by Fanta Orellana 06/14/23 09:49: Pt has [facility] appt 06/17 at 10:30AM with Marycarmen Steiner NP. Original Note: Met with pt and pts partner, Cj, in 452 to follow up after meeting yesterday. Pt laying in bed, awake, alert, easily engages in conversation. Pt and partner familiar with t/w from previous consults. Pt reports alcohol use, up to 2 sleeves vodka daily, x 7 months. Prior to that, pt had been in recovery from all substances for approx 12 years. Pt reports remote hx Percocet use, has been taking Suboxone for years. During last admission, pt reported her [facility] office was closing and an appt was made at the [facility]. Pt did not make it to that appt. Per [facility], pts last Suboxone rx was in March 2023. Pt reports she has been buying films illicitly but has continued taking the medication. Denies Percocet/illicit opioid use. Discussed [facility] again, pt would like to make an appt. T/w to make pt appt Wednesday morning when office is open. In regards to alcohol use, educated pt on STAR, pt is interested in campral. This will also be addressed at [facility] intake appt. Discussed other recovery support options, pt is not interested in inpatient treatment at this time. Provided pt with written resources as well as [facility] and t/w contact information. Pt denies questions or concerns at this time.
[2023-06-13 15:27] VITALS: BP 123/74; PULSE 71; RESP 16; TEMP 36.1; O2SAT 92
[2023-06-13 20:00] VITALS: BP 121/75; PULSE 77; RESP 18; TEMP 36.4; O2SAT 92
[2023-06-13 23:29] VITALS: BP 120/72; PULSE 73; RESP 16; TEMP 36.4; O2SAT 92
[2023-06-14 03:22] VITALS: BP 141/83; PULSE 68; RESP 16; TEMP 36.4; O2SAT 91
--- NOTE | 2023-06-14 07:00 | CA_ITS ---
Transthoracic Echocardiogram Patient (Last, First, Middle): Stefany Hutton A Gender: Female Date of : 1975 Age: 48 Procedure Date: 06/14/2023 Procedure Type: Transthoracic Echocardiogram [place] [facility] [place]: 160.02 cm Weight: 90.72 kg BSA: 1.93 m2 Heart Rate: 74 bpm BP: 147 / 90 mmHg Airplane Mechanic: ОЛЬГА Fragoso MD: Paula MARKHAM Head Of Ethics And Compliance: Jovon Palmer MD Symptoms: cva Study Quality: Technically Difficult ECG Rhythm: Sinus Conclusions: - 1. Normal LV systolic and diastolic function with LVEF of 60 65%. 2. No evidence of shunting on this study after agitated saline 3. Normal cardiac valvular Dopplers 4. No gross pericardial effusion Findings Procedure Information Contrast agent, definity, is being given per protocol without apparent complications. Left Ventricle Normal left ventricular size, thickness, and systolic function. The visually estimated ejection fraction is between 60-65%. Spectral Doppler is indicative of a normal filling pattern. Right Ventricle The right ventricle was not well visualized. Atria The left atrium is normal in size. There is no evidence of interatrial shunt by agitated saline. The right atrium was not well visualized. Aortic Valve The aortic valve structure and function is likely normal. There is no aortic valve stenosis. There is no aortic valve regurgitation. Mitral Valve Likely normal mitral valve structure and function. There is trace mitral valve regurgitation. There is no mitral valve stenosis. Tricuspid Valve Likely normal tricuspid valve structure and function. Tricuspid regurgitation envelope is inadequate for calculation of right ventricular systolic pressure. Great Vessels All visible segments of the aorta are normal in size. The pulmonary artery was not well visualized. Venous The inferior vena cava is normal in size and collapses greater than 50% with inspiration. Pericardium/Pleural The pericardium was not well visualized. Prior Study Comparison No prior study available for comparison. Recommendations, Care & Conclusions Consider a MOLLY if clinically appropriate. Measurements 2D Linear Measurements IVSd: 0.97 0.6-0.9/0.6-1.0 cm LVIDd: 4.38 3.9-5.3/4.2-5.9 cm LVIDd Index: 2.27 2.4-3.2/2.2-3.1 cm/m2 LVIDs: 2.04 2.0-3.6 cm LVPWd: 0.97 0.7-1.1 cm LA Diam: 2.80 2.7-3.8/3.0-4.0 cm LAIDs Index: 1.45 1.5-2.3 cm/m2 LV Mass: 174.65 67-162/88-224 g LV Mass Index: 90.49 43-95/49-115 g/m2 LVOT Diam: 1.90 3.0+(-)1.3 cm 2D Systolic Function EF 4C: 60.90 >55% EF 2C: 62.50 >55% EF BiP: 60.80 >55% Mitral Valve MV Pk E: 0.72 MV PK A: 0.74 MV Decel Time: 303.00 E/A: 1.00 E'Lateral: 7.07 E'Medial: 6.20 E/E' Med: 11.60 E/E' Lat: 10.20 PHT: 89.00 MVA PHT: 2.47 Decel [place]: 2.38 Aortic Valve AoV Pk Abdirahman: 1.19 AoV Mn Abdirahman: 0.91 AoV VTI: 0.24 AoV Pk Grad: 6.00 Aov Mn Grad: 4.00 CYNTHIA Cont.VTI: 2.55 LVOT LVOT Pk Abdirahman: 1.13 LVOT Mn Abdirahman: 0.79 LVOT VTI: 0.21 LVOT Pk Grad: 5.00 LVOT Mn Grad: 3.00 LVOT Diam: 1.90 LVOT Area: 2.84 Diastolic Function MV Pk E: 0.72 MV Pk A: 0.74 E/A: 1.00 E'Medial: 6.20 E/E' Med: 11.60 E' Laterial: 7.07 E/E' Lat: 10.20 Right Ventricle TAPSE (mm): 16.60 TVS' Abdirahman: 10.70 Great Vessels Aorta Sinus of Valsalva: 3.10 2.0-3.5 cm Ao Asc: 2.80 2.1-3.4 cm Pulmonary Valve PV Pk Abdirahman: 0.81 Peak PV Grad: 3.00 Updated in Other Vendor System with Status of Final Jovon Palmer MD electronically signed on 06/14/2023 4:10:59 PM with status of Final
[2023-06-14 07:36] LABS: Anion Gap 12 (12-20); Blood Urea Nitrogen 13 mg/dL (9-16); Calcium 9.7 mg/dL (8.4-10.2); Carbon Dioxide 32 mmol/L (22-29); Chloride 97 mmol/L (96-108); Creatinine Clr Calc Pharmacy 88.2; Estimated Glomerular Filt Rate > 60; Glucose Random 89 mg/dL (60-115); Potassium 4.3 mmol/L (3.3-5.1); Sodium 137 mmol/L (135-145)
[2023-06-14 07:45] VITALS: BP 134/84; PULSE 80; RESP 18; TEMP 36.3; O2SAT 94
--- NOTE | 2023-06-14 10:48 | P.DS_ITS ---
DS: Providers Provider Date of Service: 06/15/23 Date of admission: 06/11/23 10:51 Date of discharge: 06/15/23 Primary care physician: Fanta Soto MD Attending physician on admission: Figueroa Lou Consults: 06/11/23 10:59 Consult to Neurology Routine Consulting Provider: [facility] Reason for consultation: seizures, abnormal CT brain (and prior MRI), alcohol withdrawal 06/12/23 10:50 Addiction Medicine Routine Consulting Provider: Addiction Covering Reason for consultation: etoh dependence, substance use Attending physician on discharge: Herbie [facility] Discharging clinician: Paula Wiggins DS: Diagnosis Discharge Diagnosis (1) Alcohol withdrawal: Status: Acute (2) Seizure: Status: Acute (3) Alcoholism: Status: Acute DS: Summary Hospital Course Hospital Course: HPI on admission by Dr. Lou 06/11: The patient is a 48 year old female with a long standing history of alcohol disorder and possible seizure disorder who presented to [facility] ED by ambulance. The patient is currently post-ictal/sedate/unable to provide a meaningful history. Hence, the history is obtained from the patient's significant other Cj @ [phone] and her mother Blanca @ [phone]. The patient was admitted in April for seizures which were initially felt to be alcohol withdrawal seizures. Work up during that admission was + for abnormal MRI (see report). Her CSF was normal and negative for meningoencephalitis. She was treated with phenobarb and keppra, the second whic she was discharged on. Per discussion with Cj, she may have only taken it 2-3 weeks. Cj reports that she typically drinks 20 nips (shots) of vodka daily. She has been trying to taper off and find an outpatient rehab. She was down the 8 drinks over the last several days, with last drink the evening before admission. Gina arently, overnight, the patient woke up her significant other around 330AM stating that she was having visual changes (this happens when she is about to have seizures). [facility] was brought to [facility]. Apparently she had a witnessed seizure. In the ED, the patient was given IV keprra, IV ativan, IM phenobarb, IVF. Her initial lactate was 12 and now has normalized. She remains altered and will be admitted for further care. Hospital course: Pt admitted to med/tele for further management of seizure likely in setting of alcohol withdrawal as she had been trying to cut back on alcohol intake at home rather rapidly. She was monitored on CIWA and treated with phenobarbital per protocol for alcohol withdrawal. 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 Echocardiogram with bubble study was performed to evaluate for any shunting was negative. MRI w/wo contrast showing small chronic cortical infarct involving left superior frontal gyrus, otherwise unremarkable. Neuro recommended treated with phenobarbital 30mg BID for seizures as well as etoh w/d. She understands that she cannot drink alcohol on this medication and expresses desire for total cessation. Was evaluated by addiction team while admitted and will follow up outpt for campral. She declines inpt rehab. She should follow up with neurology on an outpt basis as well as pcp. Continue baby aspirin and antihypertensives to control blood pressure and reduce risk of recurrent CVA. Continue all other home meditions. Status at Discharge Functional status at discharge: independent ambulation Overall status at discharge: patient is progressing back to baseline Time Attestation Discharge coordination time: Greater than 30 minutes Quality: Safe Use of Opioids Does Pt have an Active Cancer Diagnosis on the Problem List?: No Quality: Stroke Does the patient have a stroke diagnosis?: No Physical Exam Vital Signs: Vital Signs: Last Vital Signs Temp 97.4 F 06/14/23 07:45 Pulse 80 06/14/23 07:45 Resp 18 06/14/23 07:45 BP 134/84 06/14/23 07:45 Pulse Ox 94 06/14/23 07:45 O2 Del Method Room Air 06/14/23 07:45 O2 Flow Rate 2.5 06/11/23 18:34 BMI result Body Mass Index 34.4 DS: Data Data Completed and Pending Completed studies during hospitalization [Text1]: Procedures Detoxification Services for Substance Abuse Treatment (04/20/23) Drainage of Spinal Canal, Percutaneous Approach, Diagnostic (04/20/23) Fluoroscopy of Spinal Cord (04/20/23) Labs on day of discharge: Laboratory Results - last 24 hr 06/14/23 06/14/23 06:06 06:09 Hold Purple Top SEE NOTE Sodium 137 Potassium 4.3 D Chloride 97 Carbon Dioxide 32 H Anion Gap 12 BUN 13 Creatinine 0.82 Estim Creat Clear Calc 88.2 Estimated GFR > 60 Random Glucose 89 Calcium 9.7 D Discharge Plan Discharge Anticipated Discharge Date/Time: 06/15/23 10:14 Patient Disposition: Home, Self-Care Discharge Diagnosis: alcohol withdrawal with seizure, alcohol use disorder Referrals: [facility] 06/17/23 10:30 AM [Other] - 1 Week Vitaliy Stevenson MD [Physician] - 1 Week Fanta Soto MD [Primary Care Provider] - 1 Week Discharge Medications: New buprenorphine-naloxone [Suboxone] 12-3 mg film 1 film buccal Q24H Qty: 5 0RF atorvastatin 80 mg Tablet 80 mg PO BEDTIME Qty: 90 0RF amoxicillin-pot clavulanate 875-125 mg Tablet 1 tab PO Q12H Qty: 1 0RF vitamin B complex Tablet 1 tab PO DAILY Qty: 90 0RF phenobarbital 30 mg tablet 30 mg PO BID Qty: 120 0RF Continued aspirin 81 mg Tablet,Chewable 81 mg PO DAILY Qty: 30 0RF Rx Instructions: offer OTC baby aspirin fluoxetine 40 mg capsule 40 mg PO DAILY amlodipine 10 mg tablet 10 mg PO DAILY hydrochlorothiazide 25 mg tablet 25 mg PO DAILY buprenorphine-naloxone [Suboxone] 12-3 mg Film 1 film sublingual DAILY Qty: 1 0RF Discontinued atorvastatin 20 mg Tablet 20 mg PO BEDTIME Qty: 30 0RF levetiracetam 500 mg Tablet 500 mg PO BID Qty: 60 0RF thiamine mononitrate (vit B1) 100 mg Tablet 100 mg PO DAILY Qty: 30 0RF Discharge Orders: Discharge Order (Routine); Ordered 06/15/23 Ordered By: Paula Wiggins Diet: Advance to usual diet Activity on Discharge: As tolerated Stand Alone Forms: Patient Portal Discharge page Other Ambulatory Orders: Phenobarbital (Routine) Timeframe: 1 Week Facility: [facility] - Location: Laboratory Ordered By: Paula Wiggins Care Plan Goals: Alcohol cessation Prevent seizures Health Concerns: Alcohol use disorder Alcohol withdrawal Epilepsy Cerebral infarction Plan of Treatment: Alcohol use disorder with wthdrawal and seizures -continue phenobarbital 30mg twice daily -Follow up with [facility] as scheduled to initiate campral -Stop drinking alcohol- you have completed phenobarbital protocol for acute alcohol withdrawal -Take vitamin b complex daily Seizures/Cerebral infarction -likely multifactorial related to alcohol use as well cerebral infarction and possible MS seen on prior imaging, though repeat MRI did not appear consistent with this -Echocardiogram did not show any evidence of shunting which could predispose you to embolic stroke -Continue phenobarbital as above -Continue atorvastatin 80mg and aspirin 81 mg daily -Follow up with neurology Assessment: See above. See discharge summary Discharge Date/Time: 06/15/23 11:16
[2023-06-14 11:23] VITALS: BP 135/86; PULSE 95; RESP 19; TEMP 36.6; O2SAT 94
--- NOTE | 2023-06-14 14:03 | HO.PM.IMPN ---
Subjective Subjective Date of Service: 06/14/23 Interval History: Seen in follow up for alcohol withdrawal seizure, hypoxia Interval history: No overnight events, no further seizures. On CIWA, phenobarbital. No cough, sob, chest pain. Very anxious Review of Systems Review of Systems: Yes all other systems are reviewed and are negative Physical Exam Vital Signs: Vital Signs: Last Vital Signs Temp 97.8 F 06/14/23 11:23 Pulse 95 06/14/23 11:23 Resp 19 06/14/23 11:23 BP 135/86 06/14/23 11:23 Pulse Ox 94 06/14/23 11:23 O2 Del Method Room Air 06/14/23 11:23 O2 Flow Rate 2.5 06/11/23 18:34 BMI result Body Mass Index 34.4 Constitutional - Awake and Alert, No apparent distress Eyes - PERRLA, EOMI Cardiovascular - S1S2, RRR, No edema Respiratory - Normal lung expansion, Normal respiratory effort, No respiratory distress, CTA bilaterally Gastrointestinal - NT / ND; +BS; No rebound or guarding Extremities - no calf tenderness bilaterally, no swelling Skin - Warm/Dry Neurological - Alert & oriented x3 Psychological - Appropriate affect, anxious Objective Data Active Medications Acetaminophen (Acetaminophen 325 Mg Tablet) 650 mg PO Q6H PRN PRN Reason: Pain, Mild (Pain Scale 1-3) Amlodipine Besylate (Amlodipine Besylate 10 Mg Tablet) 10 mg PO DAILY PENDING SALE TO [facility]; Protocol Last Admin: 06/14/23 08:17 Dose: 10 mg Documented By: MAC Aspirin (Aspirin 81 Mg Tab.Chew) 81 mg PO DAILY PENDING SALE TO [facility] Last Admin: 06/14/23 08:16 Dose: 81 mg Documented By: MAC Atorvastatin Calcium (Atorvastatin Calcium 80 Mg Tablet) 80 mg PO BEDTIME PENDING SALE TO [facility] Last Admin: 06/13/23 21:09 Dose: 80 mg Documented By: BAYLEE Buprenorphine/Naloxone (Buprenorphine/Naloxone 12/3 Mg Film) 1 film SUBLINGUAL DAILY PENDING SALE TO [facility] Last Admin: 06/14/23 08:16 Dose: 1 film Documented By: MAC Enoxaparin Sodium (Enoxaparin Sodium 40 Mg/0.4 Ml Syringe) 40 mg SUBCUT Q24H PENDING SALE TO [facility] Last Admin: 06/14/23 13:46 Dose: 40 mg Documented By: MAC Fluoxetine HCl (Fluoxetine Hcl 20 Mg Capsule) 40 mg PO DAILY PENDING SALE TO [facility] Last Admin: 06/14/23 08:17 Dose: 40 mg Documented By: MAC Folic Acid (Folic Acid 1 Mg Tablet) 1 mg PO DAILY PENDING SALE TO [facility] Last Admin: 06/14/23 08:17 Dose: 1 mg Documented By: MAC Hydrochlorothiazide (Hydrochlorothiazide 25 Mg Tablet) 25 mg PO DAILY PENDING SALE TO [facility]; Protocol Last Admin: 06/14/23 08:17 Dose: 25 mg Documented By: MAC Ampicillin Sodium/Sulbactam (Sodium 3 gm/ Sodium Chloride) 100 mls @ 200 mls/hr IV Q6H PENDING SALE TO [facility] Last Admin: 06/14/23 13:46 Dose: 200 mls/hr Documented By: MAC Levetiracetam (Levetiracetam 500 Mg Tablet) 500 mg PO BID PENDING SALE TO [facility] Last Admin: 06/14/23 08:17 Dose: 500 mg Documented By: MAC Pharmacy Consult (Consult Rx Etoh Phenob Im/Po) 1 each MISCELLANE ONCE PRN; Protocol PRN Reason: Consult Order Phenobarbital (Phenobarbital 30 Mg Tablet) 30 mg PO BID PENDING SALE TO [facility]; Protocol Stop: 06/15/23 09:01 Last Admin: 06/14/23 08:17 Dose: 30 mg Documented By: MAC Sodium Chloride (0.9 % Sodium Chloride Flush 3 Ml Syringe) 3 ml IVFLUSH QSHIFT PENDING SALE TO [facility] Last Admin: 06/14/23 08:16 Dose: 3 ml Documented By: MAC Thiamine HCl (Thiamine Hcl 100 Mg Tablet) 100 mg PO DAILY PENDING SALE TO [facility] Last Admin: 06/14/23 08:17 Dose: 100 mg Documented By: MAC Labs 06/13/23 06:46 06/14/23 06:09 Labs: Laboratory Results - last 24 hr 06/14/23 06/14/23 06:06 06:09 Hold Purple Top SEE NOTE Anion Gap 12 Estim Creat Clear Calc 88.2 Estimated GFR > 60 Random Glucose 89 Calcium 9.7 D Assessment and Plan (1) Alcohol withdrawal: Status: Acute (2) Seizure: Status: Acute (3) Alcoholism: Status: Acute Plan 48 yo F with history of alcohol use disorder and possible seizure disorder who presents with witnessed seizures, likely alcohol withdrawal seizures has patient recently made significant decrease in amount of alcohol consumed on daily basis currently being monitored for withdrawal and on phenobarbital per protocol Alcohol dependence with acute withdrawal/seizure Continue phenobarb 30mg BID per neuro Thiamine, folic acid monitor lytes addiction med input appreciated. 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 Alcohol complicated picture per neuro Check MRI brain w/wo contrast- attempted MRI earlier today but unable to tolerate due to anxiety. MRI rescheduled to later tonight Change keppra to phenobarb 30mg BID per neuro. Counseled on alcohol cessation neuro input appreciated Cerebral infarction seen on prior head ct/mri LDL 138, increase atorvastatin to 80mg nightly continue asa daily echo with bubble per neurology MRI w/wo contrast ordered given possible MS noted on prior MRI which could be contributory ?Multiple sclerosis possibly contributing to seizure disorder MRI brain w/wo contrast ordered Lactic acidosis due to seizures and not sepsis normalized Acute hypoxic respiratory failure, possible aspiration pneumonia SpO2 87% on RA, CXR with bibasilar atelectasis; she also has a low grade temp of 100.2 empiric unasyn (initiated 06/11), change to augmentin 875 BID x 3 days patients hypoxia, mental status ad lactate are NOT due to severe sepsis Transaminitis due to alcohol, monitor HTN uncontrolled likely exacerbated by alcohol withdrawal, resume hctz and amlodipine mood disorder continue fluoxetine OUD suboxone once more awake history of cva statin/aspirin Full Code DVT pptx, Lovenox Patient with severe alcohol withdrawal with seizures anticipated requires ongoing inpt stay further work up for MS with MRI w/wo contrast and echo w/ bubble study to r/o shunting as this could be contributing to seizures and putting her at increased risk for CVA. Given poor outpt compliance studies should be completed as an inpt Quality Stroke Does the patient have a stroke diagnosis?: No VTE Prior VTE?: No VTE Risk Level:: Medical - moderate - high VTE Device Contraindication: N/A - Device Ordered VTE Drug Contraindication: N/A - Med Ordered
[2023-06-14 15:17] VITALS: BP 123/85; PULSE 80; RESP 20; TEMP 36; O2SAT 92
[2023-06-14 19:20] VITALS: BP 120/83; PULSE 82; RESP 20; TEMP 36.3; O2SAT 94
[2023-06-14] MEDS: LORazepam 2 MG/ML VIAL IVPUSH (19:30)
[2023-06-14] MEDS: gadobutroL 10 ML VIAL IVPUSH (20:42)
[2023-06-14] MEDS: Atorvastatin Calcium 80 MG TABLET PO (21:31)
[2023-06-14] MEDS: levETIRAcetam 500 MG TABLET PO (21:31)
[2023-06-14] MEDS: PHENobarbitaL 30 MG TABLET PO (21:32)
[2023-06-14] MEDS: Amoxicillin/Potassium Clav 875 MG TABLET PO (21:32)
[2023-06-14 23:46] VITALS: BP 126/71; PULSE 74; RESP 18; TEMP 36.6; O2SAT 94
[2023-06-15 03:58] VITALS: BP 123/81; PULSE 74; RESP 20; TEMP 36.5; O2SAT 95
[2023-06-15 07:05] VITALS: BP 127/75; PULSE 81; RESP 18; TEMP 36.9; O2SAT 97
[2023-06-15] MEDS: FLUoxetine HCl 20 MG CAPSULE 40 MG PO (07:39)
[2023-06-15] MEDS: amLODIPine Besylate 10 MG TABLET PO (07:39)
[2023-06-15] MEDS: Buprenorphine/Naloxone 12/3 mg FILM 1 FILM SUBLINGUAL (07:39)
[2023-06-15] MEDS: Aspirin 81 MG TAB.CHEW PO (07:39)
[2023-06-15] MEDS: Amoxicillin/Potassium Clav 875 MG TABLET PO (07:39)
[2023-06-15] MEDS: levETIRAcetam 500 MG TABLET PO (07:40)
[2023-06-15] MEDS: hydroCHLOROthiazide 25 MG TABLET PO (07:40)
[2023-06-15] MEDS: Folic Acid 1 MG TABLET PO (07:40)
[2023-06-15] MEDS: Thiamine HCL 100 MG TABLET PO (07:40)
[2023-06-15] MEDS: PHENobarbitaL 30 MG TABLET PO (07:40)
--- NOTE | 2023-06-15 10:38 | MHC.CM.PN ---
Patient has been medically cleared for dc to home today, self care.
== END 2023-06-15 11:16 | disposition home or self-care (01) | DRG 53 ==
LOC: HO.ED 10:11 → HO.EDOVER 11:19 → HO.IMC 06-12 15:35
PROVIDERS: Admitting Provider Family Medicine; Emergency Provider Student in an Organized Health Care Education/Training Program; PCP Family Medicine; Visit Provider Physician Assistant
DX: G40.909 Epilepsy, unspecified, not intractable, without status epilepticus (principal); J96.01 Acute respiratory failure with hypoxia; J69.0 Pneumonitis due to inhalation of food and vomit; F10.239 Alcohol dependence with withdrawal, unspecified; F11.20 Opioid dependence, uncomplicated; F41.9 Anxiety disorder, unspecified; F32.A Depression, unspecified; G35 Multiple sclerosis; G93.81 Temporal sclerosis; R56.9 Unspecified convulsions; E87.20 Acidosis, unspecified; Z86.73 Personal history of transient ischemic attack (TIA), and cerebral infarction without residual deficits; Z91.148 Patient's other noncompliance with medication regimen for other reason; Z20.822 Contact with and (suspected) exposure to COVID-19; Z79.82 Long term (current) use of aspirin; Z79.899 Other long term (current) drug therapy
CPT/HCPCS: 0241U; 36415; 70450; 70553; 71045; 80048; 80053; 80061; 80307; 81003; 82550; 83605; 83735; 84484; 85025; 87635; 93005; 93306; 97161; 97165; 99285; A9585; J0295; J1650; J1920; J1953; J2060; J2405; J2560; Q9957

== ENCOUNTER → 2023-06-11 05:24 | Outpatient (BNV) | payer MEDICAID, SELFPAY | PROVIDERS: Admitting Provider Family Medicine; Emergency Provider Student in an Organized Health Care Education/Training Program; PCP Family Medicine; Visit Provider Internal Medicine Cardiovascular Disease | DX: R94.31 Abnormal electrocardiogram [ECG] [EKG] (principal) | CPT/HCPCS: 93010 ==

== ENCOUNTER 2023-06-11 10:51 | Outpatient (BNV) | payer MEDICAID, SELFPAY | END 2023-06-14 07:00 | PROVIDERS: Admitting Provider Family Medicine; Emergency Provider Student in an Organized Health Care Education/Training Program; PCP Family Medicine; Visit Provider Internal Medicine Cardiovascular Disease | DX: I63.9 Cerebral infarction, unspecified (principal) | CPT/HCPCS: 93306 ==

== ENCOUNTER → 2023-06-11 10:51 | Outpatient (BNV) | payer MEDICAID, SELFPAY | PROVIDERS: Admitting Provider Family Medicine; Emergency Provider Student in an Organized Health Care Education/Training Program; PCP Family Medicine; Visit Provider Family Medicine | DX: F10.939 Alcohol use, unspecified with withdrawal, unspecified (principal); R56.9 Unspecified convulsions; F10.20 Alcohol dependence, uncomplicated | CPT/HCPCS: 99223; 99232; 99239 ==

== ENCOUNTER 2023-07-05 13:18 | Outpatient (AMB) | payer MEDICAID, SELFPAY ==
--- NOTE | 2023-07-05 13:20 | A.OFFVISCC_ITS ---
Intake Vital Signs 07/05/23 13:25 BP 126/78 Blood Pressure Location Lt radial Position Sitting Pulse 94 Pulse Source Pulse Oximeter Pulse Oximetry (%) 97 Oxygen Delivery Method Room Air Intake Visit Reasons: MAT Intake Intake Note: the patient presents for a mat intake Fish Conservationist Required: No Allergies codeine [CODEINE] Allergy (Unknown, Verified 07/05/23 13:26) HIVES Codeine Phosphate Allergy (Unknown, Uncoded 07/05/23 13:26) rash Medication List - Last Reconciled 07/05/23 by Sheila Alexis CNP amlodipine 10 mg PO DAILY aspirin 81 mg PO DAILY atorvastatin 80 mg PO BEDTIME buprenorphine-naloxone 12-3 mg (Suboxone) 1 film buccal Q24H fluoxetine 40 mg PO DAILY phenobarbital 30 mg PO BID vitamin B complex 1 tab PO DAILY Do you need a note to return to daycare/school/sports/work: No HPI MAT Intake HPI Details Patient presents for continuation of treatment for OUD and possibly start treatment for AUD She reports that she had previously been treated at [facility] until they recently closed Has been at 12mg for one year Substance Use History: -started using pain medications when juliano churchill was sick 2009 (taking his hospice pain medications) -she continued to use pills after his de ath, and when she found herself considering heroin use, she entered treatment (outpatient) -went to [facility] about 13 years ago -no other type of MOUD -currently drinking past 1.5 years --vod ka and whiskey 25-30 nips daily -recently seizing --she denies that it i s related to alcohol use -23 days no alcohol --has been taking ph enobarbitol for seizures(was started here at [facility]) Medical History: -[facility]--Fanta Soto (PCP) -hypertension -new onset seizures 4 within the last ye ar -started on phenobarbitol while at [facility] f or seizures--still has to see neurology Social History: -unemployed at this time --resigned as s he reports she was starting to drink before and during work -previously employed at [employer] -engaged and lives with 2 of her 3 child carley -father with AUD She reports her goals are to continue abstaining from alcohol use PFSH Medical History Hypertension Depression Anxiety Social History Household Members: Children Housing: Apartment Do you presently have visiting nurse or other home services: No Alcohol intake: current Alcohol intake frequency: 3 or more drinks per day Alcohol type: hard liquor Comment: patient and family refuse camera Patient Tobacco Use Status: Never used Tobacco Substance Use Type: Marijuana service: No Review of Systems Const Reports as per HPI Psych Reports anxiety and Reports difficulty concentrating Physical Exam Vital Signs: Last Vital Signs Pulse 94 07/05/23 13:25 BP 126/78 07/05/23 13:25 Pulse Ox 97 07/05/23 13:25 Oxygen Delivery Method Room Air 07/05/23 13:25 Const General: cooperative, healthy appearing and anxious Psych Appearance: well kempt Speech and movement: Clear speech present Affect: Anxious affect present Attitude: cooperative Thought process: Circumstantial thought process present Insight: Fair insight present (Psych) Judgement: Fair judgement present (Psych) Results AMB 14 Panel Urine Drug Screen Urine Marijuana (THC) Positive Last Edit by Lizet Bautista CMA on 07/05/23 14:11 Urine Cocaine Negative Last Edit by Lizet Bautista CMA on 07/05/23 14:11 Urine Morphine Negative Last Edit by Lizet Bautista CMA on 07/05/23 14:11 Urine Methamphetamine Negative Last Edit by Lizet Bautista CMA on 07/05/23 14:11 Urine Amphetamine Negative Last Edit by Lizet Bautista CMA on 07/05/23 14:1 1 Urine Benzodiazepine Positive Last Edit by Lizet Bautista CMA on 07/05/23 14:11 Urine Barbiturates Positive Last Edit by Lizet Bautista CMA on 07/05/23 14: 11 Urine Methadone Negative Last Edit by Lizet Bautista CMA on 07/05/23 14:11 Urine Buprenorphine Positive Last Edit by Lizet Bautista CMA on 07/05/23 14 :11 Urine Tricyclic Antidepressant Negative Last Edit by Lizet Bautista CMA on 07/05/23 14:11 Urine MDMA Negative Last Edit by Lizet Bautista CMA on 07/05/23 14:11 Urine Oxycodone Negative Last Edit by Lizet Bautista CMA on 07/05/23 14:11 Urine Phencyclidine Negative Last Edit by Lizet Bautista CMA on 07/05/23 14 :11 Urine Propoxyphene Negative Last Edit by Lizet Bautista CMA on 07/05/23 14: 11 Results Reviewed Results Reviewed: Laboratory Last Values POC Urine Buprenorphine Positive 07/05/23 14:02 POC Urine Morphine Negative 07/05/23 14:02 POC Urine Oxycodone Negative 07/05/23 14:02 POC Urine Methadone Negative 07/05/23 14:02 POC Urine Propoxyphene Negative 07/05/23 14:02 POC Urine Barbiturates Positive 07/05/23 14:02 POC U Tricyclic Antidpr Negative 07/05/23 14:02 POC Urine PCP Negative 07/05/23 14:02 POC Ur Amphetamines Negative 07/05/23 14:02 POC Ur Methamphetamine Negative 07/05/23 14:02 POC Urine MDMA Negative 07/05/23 14:02 POC Ur Benzodiazepine Positive 07/05/23 14:02 POC Urine Cocaine Negative 07/05/23 14:02 POC Ur Marijuana (THC) Positive 07/05/23 14:02 Assessment & Plan Assessment & Plan (1) Alcohol use disorder, severe, dependence: Code(s): F10.20 - Alcohol dependence, uncomplicated Plan: * Discussed STAR, agreeable to Link --reviewed dosing, goals of medication, and side effects--also provided information in writing * relapse and risk reduciton discussion (2) Opioid use disorder, moderate, in sustained remission: Code(s): F11.21 - Opioid dependence, in remission Plan: * continue suboxone at current dose * follow up 2 weeks Orders: Orders AMB 14 Panel Urine Drug Screen 07/05/23 Z51.81 - Encounter for therapeutic drug level monitoring Medications: New acamprosate 666 mg (2 x 333 mg) PO BID 120 tabs 0RF Refilled buprenorphine-naloxone 12-3 mg (Suboxone) 1 film buccal Q24H 5 ea 0RF buprenorphine-naloxone 12-3 mg (Suboxone) 1 film buccal Q24H 15 ea 0RF Coding Level of Care Code New Pt Level 4 (10690) Diagnoses Alcohol use disorder, severe, dependence F10.20 Opioid use disorder, moderate, in sustained remission F11.21
[2023-07-05 13:25] VITALS: BP 126/78; PULSE 94; O2SAT 97
== END 2023-07-05 14:06 | disposition home or self-care (01) ==
PROVIDERS: PCP Family Medicine; Visit Provider Nurse Practitioner Psychiatric/Mental Health
DX: F10.20 Alcohol dependence, uncomplicated (principal); F11.21 Opioid dependence, in remission
CPT/HCPCS: 99204

== ENCOUNTER → 2023-07-05 13:18 | Outpatient (BNVA) | payer MEDICAID, SELFPAY | PROVIDERS: PCP Family Medicine; Visit Provider Nurse Practitioner Psychiatric/Mental Health | DX: F10.20 Alcohol dependence, uncomplicated (principal); F11.21 Opioid dependence, in remission | CPT/HCPCS: 80305; 99212 ==

== ENCOUNTER 2023-07-19 13:31 | Outpatient (AMB) | payer MEDICAID, SELFPAY ==
--- NOTE | 2023-07-19 13:33 | MHC.AM.SUB ---
Intake Vital Signs 07/19/23 13:39 BP 136/90 H Blood Pressure Location Lt radial Position Sitting Pulse 94 Pulse Source Pulse Oximeter Pulse Oximetry (%) 93 Oxygen Delivery Method Room Air Comment had 3 coffees Intake Visit Reasons: MAT Visit Intake Note: the patient presents for a mat visit Wired Music Operator Required: No Allergies codeine [CODEINE] Allergy (Unknown, Verified 07/19/23 13:41) HIVES Codeine Phosphate Allergy (Unknown, Uncoded 07/19/23 13:41) rash Do you need a note to return to daycare/school/sports/work: No HPI MAT Visit HPI Details Patient presents for GUY follow up Chely father after last visit Tearful reporting she drank 2 nights ago drank 6 drinks when out with family yesterday drank 17 shots of vodka nothing today Has not had phenobarb since last She reports that PCP will not refill her phenobarb Rx written for 2 months based on #tabs When asked about this patient reports she has been taking more when I needed it , when asked to expand on that she said she took more when she had increased craving for alcohol. This technical publications writer reinforced that medication was indicated for her seizure disorder and not as a PRN She has not contacted neurology office yet. [facility] Medical History Hypertension Depression Anxiety Social History Household Members: Children Housing: Apartment Do you presently have visiting nurse or other home services: No Alcohol intake: current Alcohol intake frequency: 3 or more drinks per day Alcohol type: hard liquor Comment: patient and family refuse camera Patient Tobacco Use Status: Never used Tobacco Substance Use Type: Marijuana service: No Review of Systems Const Reports as per HPI, Reports difficulty sleeping and Reports poor appetite Psych Reports anxiety, Reports depression and Reports anhedonia Physical Exam Vital Signs: Last Vital Signs Pulse 94 07/19/23 13:39 BP 136/90 H 07/19/23 13:39 Pulse Ox 93 07/19/23 13:39 Oxygen Delivery Method Room Air 07/19/23 13:39 Const General: cooperative and anxious Nutritional Appearance: average body habitus Orientation/consciousness: patient oriented x3 Neuro General: patient oriented x3 Psych Appearance: well kempt Speech and movement: Clear speech present Affect: Sad affect present Attitude: cooperative Thought process: Circumstantial thought process present Insight: Limited insight present (Psych) Judgement: Limited judgement present (Psych) Assessment & Plan Assessment & Plan (1) Alcohol use disorder, severe, dependence: Code(s): F10.20 - Alcohol dependence, uncomplicated Plan: patient stopped campral as she felt it made her sick risk reduction discussion related to ongoing drinking RN to collaborate with patient regarding neuro appt follow up 2 weeks Orders: Orders Liver Panel 07/19/23 F10.20 - Alcohol dependence, uncomplicated Medications: Refilled buprenorphine-naloxone 12-3 mg (Suboxone) 1 film buccal Q24H 15 ea 0RF Coding Level of Care Code Est Pt Level 4 (90581) Diagnoses Alcohol use disorder, severe, dependence F10.20
[2023-07-19 13:39] VITALS: BP 136/90; PULSE 94; O2SAT 93
== END 2023-07-19 14:41 | disposition home or self-care (01) ==
PROVIDERS: PCP Family Medicine; Visit Provider Nurse Practitioner Psychiatric/Mental Health
DX: F10.20 Alcohol dependence, uncomplicated (principal)
CPT/HCPCS: 99214

== ENCOUNTER → 2023-07-19 13:31 | Outpatient (BNVA) | payer MEDICAID, SELFPAY | PROVIDERS: PCP Family Medicine; Visit Provider Nurse Practitioner Psychiatric/Mental Health | DX: F10.20 Alcohol dependence, uncomplicated (principal) | CPT/HCPCS: 99212 ==

== ENCOUNTER 2023-08-08 00:19 | Inpatient (IN) | payer MEDICAID, SELFPAY ==
[2023-08-08] VITALS (8 sets, daily range): BP systolic 129–173; BP diastolic 90–145; PULSE 79–105; RESP 14–20; TEMP 36.4–36.8; O2SAT 93–98; BMI 29.9
--- NOTE | 2023-08-08 | ECG_ITS ---
Test Reason : VOMITTING Blood Pressure : / mmHG Vent. Rate : 083 BPM Atrial Rate : 083 BPM P-R Int : 122 ms QRS Dur : 082 ms QT Int : 418 ms P-R-T Axes : 038 009 017 degrees QTc Int : 491 ms Normal sinus rhythm Nonspecific ST abnormality Prolonged QT Abnormal ECG When compared with ECG of 11-JUN-2023 05:21, No significant change was found Referred By: Generic ED Physician Electronically Signed By:MARINA BERRY
--- NOTE | 2023-08-08 00:47 | ED_ITS ---
HPI - Nausea/Vomiting/Diarrhea General Chief complaint: Nausea/Vomiting/Diarrhea Stated complaint: NAUSEA/VOMITING X1 HOUR,ETOH USE EARLIER PER EMS Time Seen by Provider: 08/08/23 00:47 Source: patient Mode of arrival: ambulatory Limitations: no limitations History of Present Illness HPI Narrative: Patient with history of depression Alcoholic drinks vodka been drinking heavy for last 1 year trying to go to detox decreased alcohol intake today last drink was early in the morning comes here as for last few hours been vomiting multiple times at few watery stool with diffuse abdominal cramps vomiting and diarrhea came 1st than abdominal pain pain is mostly in mid abdomen no radiation of the pain no fever no chills no urinary symptoms patient does have history of alcohol withdrawal seizures used to be on Keppra during last admission in 06/30 patient was changed to phenobarb 30 mg twice daily but patient took 60 mg twice daily to stop drinking when she finished her phenobarb about 10 days ago ,she started drinking again Related Data Home Medications Medication Instructions Recorded Confirmed amlodipine 10 mg tablet 10 mg PO DAILY 04/20/23 07/05/23 fluoxetine 40 mg capsule 40 mg PO DAILY 04/20/23 07/05/23 Previous Rx's Medication Instructions Recorded aspirin 81 mg chewable tablet 81 mg PO DAILY #30 tabs 01/16/23 atorvastatin 80 mg tablet 80 mg PO BEDTIME #90 tabs 06/15/23 phenobarbital 30 mg tablet 30 mg PO BID #120 tabs 06/15/23 vitamin B complex 1 tab PO DAILY #90 tabs 06/15/23 acamprosate 333 mg tablet,delayed 666 mg (2 x 333 mg) PO BID #120 07/05/23 release tabs buprenorphine 12 mg-naloxone 3 mg 1 film buccal Q24H #15 ea 07/19/23 sublingual film (Suboxone) Allergies Allergy/AdvReac Type Severity Reaction Status Date / Time codeine [CODEINE] Allergy Unknown HIVES Verified 08/08/23 00:32 Codeine Phosphate Allergy Unknown rash Uncoded 08/08/23 00:32 Review of Systems 2 Review of Systems: Yes all other systems are reviewed and are negative PMF Past Medical History Medical History Hypertension Depression Anxiety Social History Social History Household Members: Children Housing: Apartment Do you presently have visiting nurse or other home services: No Alcohol intake: current Alcohol intake frequency: 0-2 drinks per day Alcohol type: hard liquor Comment: patient and family refuse camera Patient Tobacco Use Status: Never used Tobacco Smoked in Last 30 Days: Yes Use of substances other than those prescribed or required for medical reasons: Yes Substance Use Type: Marijuana Advance Directives: Yes Advance Directives on File: Yes Advance Directives Date on File: 06/16/23 Patient : No service: No Physical Exam 2 Vital Signs: Vital Signs: Last Vital Signs Temp 97.6 F 08/08/23 06:27 Pulse 85 08/08/23 06:27 Resp 18 08/08/23 06:27 BP 173/102 H 08/08/23 06:27 Pulse Ox 96 08/08/23 06:27 O2 Del Method Room Air 08/08/23 06:27 BMI result Body Mass Index 29.9 Appearance: Alert. Oriented X3. No acute distress. Anxious Eyes: No pallor or icterus ENT: Pharynx normal. Oral Mucosa moist Neck: Normal inspection. Neck supple. CVS: Normal heart rate and rhythm. Pulses normal. Respiratory: No respiratory distress. Equal air entry bilateral, no wheezing/rales/rhonchi Abdomen: Soft mid abdominal tenderness no rebound tenderness or guarding Bowel sounds are present, no mass palpable, no CVA tenderness Skin: Skin warm and dry. Normal skin color. Normal skin turgor. Extremities: No lower extremity edema. No calf tenderness Neuro: Oriented X 3. No motor deficit. Medications Administered Discontinued Medications Generic Name Dose Route Start Last Admin Trade Name Neftaliq PRN Reason Stop Dose Admin Amlodipine Besylate 10 mg 08/08/23 06:32 08/08/23 06:44 Amlodipine Besylate 10 Mg Tablet PO 08/08/23 06:33 10 mg ONCE ONE Administration Protocol Sodium Chloride 1,000 mls @ 999 mls/hr 08/08/23 01:09 08/08/23 02:31 Ns IV 08/08/23 02:09 Infused .Q1H1M ONE Infusion Magnesium Sulfate 2 gm in 50 mls @ 150 mls/hr 08/08/23 01:34 08/08/23 02:31 Magnesium Sulfate/H2o IV 08/08/23 01:53 Infused ONCE ONE Infusion Lorazepam 2 mg 08/08/23 01:14 08/08/23 01:30 Lorazepam 2 Mg/Ml Vial IVPUSH 08/08/23 01:15 2 mg ONCE ONE Administration Morphine Sulfate 4 mg 08/08/23 01:09 08/08/23 01:30 Morphine Sulfate 4 Mg/Ml Cartridge IVPUSH 08/08/23 01:10 4 mg ONCE ONE Administration Protocol Ondansetron HCl 4 mg 08/08/23 01:09 08/08/23 01:29 Ondansetron Hcl 4 Mg/2 Ml Vial IVPUSH 08/08/23 01:10 4 mg ONCE ONE Administration Phenobarbital Sodium 237.9 mg 08/08/23 07:00 08/08/23 07:24 Phenobarbital Sodium 130 Mg/Ml Im Once IM 08/08/23 07:01 237.9 mg ONCE ONE Administration Protocol Potassium Bicarbonate 50 meq 08/08/23 05:48 08/08/23 06:10 Potassium Bicarbonate/Cit Ac 25 Meq Tablet.Eff PO 08/08/23 05:49 50 meq ONCE ONE Administration Thiamine HCl 100 mg 08/08/23 06:32 08/08/23 06:45 Thiamine Hcl 100 Mg Tablet PO 08/08/23 06:33 100 mg ONCE ONE Administration Medical Decision Making Medical Decision Making [facility] Narrative: Patient's alcohol withdrawal with alcohol dependence with history of alcohol withdrawal seizures started on phenobarb protocol patient wants to go home will watch for some time after loading doses if she feels good plan to discharge on p.o. phenobarb 60 mg twice a day Differential Diagnosis Differential Diagnoses: The differential diagnosis associated with the presentation includes Alcohol withdrawal Lab Data [facility] Lab Attestation statement: I reviewed the patient's lab results. 08/08/23 00:48 08/08/23 00:48 Labs: Lab Results 08/08/23 Range/Units 00:48 WBC 6.5 (4.8-10.8) X10*3/uL RBC 4.70 D (4.20-5.50) X10*6/uL Hgb 14.8 (12.0-16.0) g/dl Hct 43.1 (37.0-47.0) % MCV 91.7 (80.0-98.0) fL MCH 31.5 (27.0-33.0) pg MCHC 34.3 (31.0-35.0) g/dl RDW 13.2 (11.0-16.0) % Plt Count 240 (160-400) X10*3/uL MPV 9.5 (9.4-12.3) fL Immature Gran % (Auto) 0.2 (0.0-0.4) % Neut % (Auto) 53.5 (45-73) % Lymph % (Auto) 37.7 (20-40) % [place] % (Auto) 6.4 (2-11) % Eos % (Auto) 1.7 (0-4) % Baso % (Auto) 0.5 (0-2) % Lymph # (Auto) 2.5 (1.2-4.9) X10*3/uL [place] # (Auto) 0.4 (0.1-1.2) X10*3/uL Eos # (Auto) 0.1 (0.0-0.4) X10*3/uL Baso # (Auto) 0.0 (0.0-0.2) X10*3/uL Abs Immat Gran (auto) 0.01 (0.00-0.03) X10*3/uL Absolute Neuts (auto) 3.5 (2.0-8.3) x10*3/uL Absolute Nucleated RBC 0.000 (0.0-0.012) X10*3/uL Nucleated RBC % (auto) 0.0 (0.0-0.2) /100WBC Sodium 141 (135-145) mmol/L Potassium 3.0 L (3.3-5.1) mmol/L Chloride 104 (96-108) mmol/L Carbon Dioxide 24 (22-29) mmol/L Anion Gap 16 (12-20) BUN 7 L (9-16) mg/dL Creatinine 0.76 (0.5-1.4) mg/dL Estim Creat Clear Calc 98.9 Estimated GFR > 60 Random Glucose 121 H (60-115) mg/dL Calcium 8.8 D (8.4-10.2) mg/dL Magnesium 1.3 L* (1.6-2.6) mg/dL Total Bilirubin 0.3 (0.0-1.0) mg/dL AST 107 H (5-31) U/L ALT 80 H (0-31) U/L Alkaline Phosphatase 145 H (39-117) U/L Total Protein 6.9 (6.5-8.0) g/dL Albumin 3.6 (3.5-5.0) g/dL Lipase 17 (8-78) U/L Urine Color Yellow Urine Appearance Cloudy Urine pH 8.5 (5.0-9.0) Ur Specific [place] 1.020 (1.005-1.025) Urine Protein 30 (1+) H (Neg-Trace) mg/dL Urine Glucose (UA) Negative (Negative) mg/dL Urine Ketones Trace (Negative) mg/dL Urine Blood Negative (Negative) Urine Nitrite Negative (Negative) Ur Leukocyte Esterase Small (1+) H (Negative) Urine RBC 3-5 H (0-2) /HPF Urine WBC 11-20 (0-5) /HPF Ur Squamous Epith Cells >20 (0-2) /HPF Urine Bacteria 4+ (None Seen) Hyaline Casts 3-5 (0-2) /LPF Independent Interpretation I performed an independent interpretation of an: EKG Interpretation: Normal sinus rhythm heart rate 83 beats per minute nonspecific STT wave changes no acute ischemia QTC 491 millisecond Discharge Plan Discharge Clinical Impression: Alcohol withdrawal Patient Disposition: Still a Patient Prescriptions: No Action atorvastatin 80 mg Tablet 80 mg PO BEDTIME Qty: 90 0RF vitamin B complex Tablet 1 tab PO DAILY Qty: 90 0RF phenobarbital 30 mg tablet 30 mg PO BID Qty: 120 0RF aspirin 81 mg Tablet,Chewable 81 mg PO DAILY Qty: 30 0RF Rx Instructions: offer OTC baby aspirin fluoxetine 40 mg capsule 40 mg PO DAILY amlodipine 10 mg tablet 10 mg PO DAILY acamprosate 333 mg tablet,delayed release (DR/EC) 666 mg PO BID Qty: 120 0RF buprenorphine-naloxone [Suboxone] 12-3 mg film 1 film buccal Q24H Qty: 15 0RF
[2023-08-08 00:52] LABS: MANUAL DIFF FLAG NO
[2023-08-08 00:54] LABS: Basophils Percent Auto 0.5 % (0-2); Eosinophils Absolute Auto 0.1 X10*3/uL (0.0-0.4); Eosinophils Percent Auto 1.7 % (0-4); Hematocrit 43.1 % (37.0-47.0); Hemoglobin 14.8 g/dl (12.0-16.0); Imm Gran Abs Auto 0.01 X10*3/uL (0.00-0.03); Imm Gran Pct Auto 0.2 % (0.0-0.4); Lymphocytes Absolute Auto 2.5 X10*3/uL (1.2-4.9); Lymphocytes Percent Auto 37.7 % (20-40); Mean Corpuscular HGB Conc 34.3 g/dl (31.0-35.0); Mean Corpuscular Hemoglobin 31.5 pg (27.0-33.0); Mean Corpuscular Volume 91.7 fL (80.0-98.0); Mean Platelet Volume 9.5 fL (9.4-12.3); Monocytes Absolute Auto 0.4 X10*3/uL (0.1-1.2); Monocytes Percent Auto 6.4 % (2-11); Neutrophils Absolute Auto 3.5 x10*3/uL (2.0-8.3); Neutrophils Percent Auto 53.5 % (45-73); Platelet Count 240 X10*3/uL (160-400); Red Cell Distribution Width 13.2 % (11.0-16.0); White Blood Count 6.5 X10*3/uL (4.8-10.8)
[2023-08-08 00:55] LABS: Appearance Urine Cloudy; Color Urine Yellow; Glucose Urine UA Negative (Negative); Leukocyte Esterase Urine Small (1+) (Negative); Nitrite Urine Negative (Negative); PH 8.5 (5.0-9.0); UMIC TRIGGER UACC YES; Urine Blood Negative (Negative); Urine Ketones Trace mg/dL (Negative); Urine Protein 30 (1+) mg/dL (Neg-Trace)
--- NOTE | 2023-08-08 00:58 | PC.NURSE ---
pt biba from home reporting waking up 3 hours ago with nausea, vomiting and diarrhea. pt reports drinking vodka multiple times a day every day. pt reports last alcoholic drink was this afternoon. pt denies hx of alcohol withdraw. pt denies chest pain and sob. 20G placed in left wrist, labs obtained and sent to lab.
[2023-08-08 01:03] LABS: Bacteria Urine 4+ (None Seen); Squamous Epithelial Cell Urine >20 /HPF (0-2); UACC Culture Trigger YES
[2023-08-08 01:10] LABS: Alanine Aminotransferase 80 U/L (0-31); Albumin Level 3.6 g/dL (3.5-5.0); Alkaline Phosphatase 145 U/L (39-117); Anion Gap 16 (12-20); Aspartate Amino Transferase 107 U/L (5-31); Bilirubin Total 0.3 mg/dL (0.0-1.0); Blood Urea Nitrogen 7 mg/dL (9-16); Calcium 8.8 mg/dL (8.4-10.2); Carbon Dioxide 24 mmol/L (22-29); Chloride 104 mmol/L (96-108); Creatinine Clr Calc Pharmacy 98.9; Estimated Glomerular Filt Rate > 60; Glucose Random 121 mg/dL (60-115); Lipase 17 U/L (8-78); Sodium 141 mmol/L (135-145); Total Protein 6.9 g/dL (6.5-8.0)
[2023-08-08 01:26] LABS: Magnesium 1.3 mg/dL (1.6-2.6)
[2023-08-08] MEDS: ondansetron HCL 4 MG/2 ML VIAL IVPUSH (01:29)
[2023-08-08] MEDS: 0.9 % Sodium Chloride 1,000 ML 999 ML IV (01:29)
[2023-08-08] MEDS: Morphine Sulfate 4 MG/ML CARTRIDGE IVPUSH (01:30)
[2023-08-08] MEDS: LORazepam 2 MG/ML VIAL IVPUSH (01:30)
--- NOTE | 2023-08-08 01:34 | PC.NURSE ---
pt CIWA=8, provider aware. pt medicated per mar.
[2023-08-08] MEDS: Magnesium Sulfate/H2O 2 GM/50 ML PIGGYBACK IV (02:01)
[2023-08-08] MEDS: Potassium Bicarbonate/Cit AC 25 MEQ TABLET.EFF 50 MEQ PO (06:10)
--- NOTE | 2023-08-08 06:29 | PC.NURSE ---
provider at bedside discussing pt care.
[2023-08-08] MEDS: amLODIPine Besylate 10 MG TABLET PO (06:44)
[2023-08-08] MEDS: Thiamine HCL 100 MG TABLET PO (06:45)
[2023-08-08] MEDS: PHENobarbitaL sodium 130 MG/ML IM ONCE 237.9 MG IM (07:24)
--- NOTE | 2023-08-08 08:57 | MHC.RECOVRN ---
Met with pt in ED17 after consult placed to Addiction Medicine for outpatient alcohol program after taking phenobarbital not as prescribed. Pt had presented to the ED reporting nausea, vomiting, and diarrhea, last alcohol use afternoon prior to arrival. Pt had been transitioned from Keppra to phenobarb for seizures during an admission to the hospital, pt reports she was instead taking phenobarb to help her not drink. Pt does not have an outpatient prescriber for phenobarb and does not have any left. Pt does report 20-30 shots of vodka daily since March. Pt currently goes to [facility] for outpatient [facility] treatment and is prescribed Suboxone. Denies concerns regarding opioids. Discussed treatment options, pt reports she has been attempting to go to [facility], however, is having difficulty finding a facility that accepts her insurance. Discussed admission to [facility] to complete detox process here, pt agreeable. Pt denies other questions or concerns for t/w. Discussed with ED provider.
--- NOTE | 2023-08-08 09:54 | P.HPHOSP_ITS ---
History of Present Illness Date of Service: 08/08/23 Chief Complaint: n/v 48F PMH etoh dependence, htn, opiate dependence, mood disorder, ?epilepsy, cva without residual deficits presented with nausea and vomiting. Symptoms began night prior to presentation. Was unable to drink regular amount of alcohol. Came to ED. In ED started to go into alcohol withdrawal with tremors and agitation. Lab significant for hypokalemia and hypo magnesemia. Patient denies chest pain, fever, chills, shortness of breath Review of Systems 2 Review of Systems: Yes all other systems are reviewed and are negative [facility] Medical History Hypertension Depression Anxiety Social History Household Members: Children Housing: Apartment Do you presently have visiting nurse or other home services: No Alcohol intake: current Alcohol intake frequency: 0-2 drinks per day Alcohol type: hard liquor Comment: patient and family refuse camera Patient Tobacco Use Status: Never used Tobacco Smoked in Last 30 Days: Yes Use of substances other than those prescribed or required for medical reasons: Yes Substance Use Type: Marijuana Advance Directives: Yes Advance Directives on File: Yes Advance Directives Date on File: 06/16/23 Patient : No service: No Meds Allergies Allergy/AdvReac Type Severity Reaction Status Date / Time codeine [CODEINE] Allergy Unknown HIVES Verified 08/08/23 00:32 Codeine Phosphate Allergy Unknown rash Uncoded 08/08/23 00:32 Active Medications: Current Medications Pharmacy Consult (Consult Rx Etoh Phenob Im/Po) 1 each MISCELLANE ONCE PRN; Protocol PRN Reason: Consult order Phenobarbital (Phenobarbital 15 Mg Tablet) 45 mg PO BID ALESSIA; Protocol Stop: 08/10/23 09:01 Phenobarbital (Phenobarbital 30 Mg Tablet) 30 mg PO BID ALESSIA; Protocol Stop: 08/12/23 09:01 Phenobarbital (Phenobarbital 15 Mg Tablet) 15 mg PO DAILY ALESSIA; Protocol Stop: 08/14/23 09:01 Phenobarbital Sodium (Phenobarbital Sodium 130 Mg/Ml Vial Im Q3hx2) 178.1 mg IM Q3H ALESSIA; Protocol Stop: 08/08/23 13:01 Home Medications Medication Instructions Recorded Confirmed Last Taken Type amlodipine 10 mg tablet 10 mg PO DAILY 04/20/23 08/08/23 06/10/23 History fluoxetine 40 mg capsule 40 mg PO DAILY 04/20/23 08/08/23 06/10/23 History thiamine HCl (vitamin B1) 100 mg 100 mg PO DAILY 08/08/23 08/08/23 Unknown History tablet (Vitamin B-1) Physical Exam 2 Vital Signs and Narrative: Vital Signs: Last Vital Signs Temp 97.6 F 08/08/23 06:27 Pulse 85 08/08/23 06:27 Resp 18 08/08/23 06:27 BP 173/102 H 08/08/23 06:27 Pulse Ox 96 08/08/23 06:27 O2 Del Method Room Air 08/08/23 06:27 BMI result Body Mass Index 29.9 General: AO X 3, no acute distress Resp: CTA bilateral, no accessory muscles used CVS: S1,S2,RRR GI: soft, non tender, non distended Neuro: motor grossly intact, alert Psych: appropriate affect, appropriate insight Results Labs 08/08/23 00:48 08/08/23 00:48 Labs: Laboratory Results - last 24 hr 08/08/23 00:48 MCV 91.7 MCH 31.5 MCHC 34.3 RDW 13.2 Plt Count 240 MPV 9.5 Immature Gran % (Auto) 0.2 Neut % (Auto) 53.5 Lymph % (Auto) 37.7 [place] % (Auto) 6.4 Eos % (Auto) 1.7 Baso % (Auto) 0.5 Lymph # (Auto) 2.5 [place] # (Auto) 0.4 Eos # (Auto) 0.1 Baso # (Auto) 0.0 Abs Immat Gran (auto) 0.01 Absolute Neuts (auto) 3.5 Absolute Nucleated RBC 0.000 Nucleated RBC % (auto) 0.0 Anion Gap 16 Estim Creat Clear Calc 98.9 Estimated GFR > 60 Random Glucose 121 H Calcium 8.8 D Magnesium 1.3 L* Total Bilirubin 0.3 AST 107 H ALT 80 H Alkaline Phosphatase 145 H Total Protein 6.9 Albumin 3.6 Lipase 17 Urine Color Yellow Urine Appearance Cloudy Urine pH 8.5 Ur Specific [place] 1.020 Urine Protein 30 (1+) H Urine Glucose (UA) Negative Urine Ketones Trace Urine Blood Negative Urine Nitrite Negative Ur Leukocyte Esterase Small (1+) H Urine RBC 3-5 H Urine WBC 11-20 Ur Squamous Epith Cells >20 Urine Bacteria 4+ Hyaline Casts 3-5 Assessment and Plan (1) Opioid use disorder, moderate, in sustained remission: Status: Acute Plan 48F PMH etoh dependence, htn, opiate dependence, mood disorder, ?epilepsy, cva without residual deficits presented with nausea and vomiting Alcohol dependence with withdrawal Phenobarb protocol, monitor CIWA Acute hypokalemia and hypomagnesemia Replace and monitor Nausea vomiting due to alcoholic gastritis PPI Opiate dependence Suboxone Epilepsy Continue phenobarb and Keppra History of CVA Aspirin statin ' mood disorder fluoexitine htn amlodipine DVT prophylaxis with Lovenox Full Code Patient with alcohol withdrawal and significant electrolyte abnormalities, expected require at least 2 midnights of inpatient management until withdrawal symptoms improve and electrolytes normalized Quality Stroke Does the patient have a stroke diagnosis?: No VTE Prior VTE?: No VTE Risk Level:: Medical - moderate - high VTE Device Contraindication: Treatment Not Indicated VTE Drug Contraindication: N/A - Med Ordered
[2023-08-08] MEDS: PHENobarbitaL sodium 130 MG/ML VIAL IM Q3Hx2 178.1 MG IM ×2 (09:59→13:30)
[2023-08-08 10:45] LABS: Amphetamine Screen Urine Not Detected (Not Detect); Barbiturates, Urine POSITIVE (Not Detect); Benzodiazepines Screen Urine Not Detected (Not Detect); Cannabinoid Screen Urine POSITIVE (Not Detect); Cocaine Screen Urine Not Detected (Not Detect); Fentanyl, urine Not Detected (Not Detect); Opiate Screen Urine POSITIVE (Not Detect); Phencyclidine Screen Urine Not Detected (Not Detect)
--- NOTE | 2023-08-08 11:25 | PHA.MEDREC ---
Pharmacy Consult ? Medication Reconciliation Pharmacy has completed the medication reconciliation. spoke with patient to confirm medications. She reports taking amlodipine however last fill was a 90 DS 01/26. She denies HCTZ 25mg despite recent prescription in claim history. She denies taking acamprosate, phenobarbital and keppra at home. Per PDMP, suboxone last warp picker 07/19/23 for a 15 DS.
[2023-08-08] MEDS: Buprenorphine/Naloxone 12/3 mg FILM 1 FILM BUCCAL (12:42)
--- NOTE | 2023-08-08 19:17 | PC.NURSE ---
This RN discovered that patient had not taken her Potassium orally, it was still in the cup, she stated it was nasty and refused to drink. I will contact the provider. time discovered was approx 1600.
[2023-08-08] MEDS: Atorvastatin Calcium 80 MG TABLET PO (20:07)
[2023-08-08] MEDS: PHENobarbitaL 15 MG TABLET 45 MG PO (20:10)
[2023-08-08] MEDS: Acetaminophen 325 MG TABLET 650 MG PO (20:18)
--- NOTE | 2023-08-08 20:24 | PC.NURSE ---
This teletypewriter operator assumed care of this Pt at 1900. Pt A&Ox3, sitting on stretcher, reports 8 headache, Pt medicated per AUG.
[2023-08-08] MEDS: 0.9 % Sodium Chloride Flush 3 ML SYRINGE IVFLUSH (23:37)
[2023-08-09] VITALS (8 sets, daily range): BP systolic 133–151; BP diastolic 89–98; PULSE 76–103; RESP 12–20; TEMP 36.1–36.7; O2SAT 92–97
[2023-08-09 06:27] LABS: Mean Corpuscular HGB Conc 33.3 g/dl (31.0-35.0); Mean Corpuscular Hemoglobin 32.2 pg (27.0-33.0); Mean Corpuscular Volume 96.5 fL (80.0-98.0); Mean Platelet Volume 10.2 fL (9.4-12.3); Platelet Count 193 X10*3/uL (160-400); Red Blood Count 4.04 X10*6/uL (4.20-5.50); Red Cell Distribution Width 13.2 % (11.0-16.0); White Blood Count 5.2 X10*3/uL (4.8-10.8)
[2023-08-09 06:44] LABS: INTERNATIONAL NORM RATIO 0.9 (0.9-1.1); Prothrombin Time 11.5 SEC (11.1-13.3)
[2023-08-09] MEDS: Omeprazole 40 MG CAPSULE.DR PO (06:50)
[2023-08-09 07:01] LABS: Alanine Aminotransferase 86 U/L (0-31); Albumin Level 3.1 g/dL (3.5-5.0); Alkaline Phosphatase 131 U/L (39-117); Anion Gap 9 (12-20); Aspartate Amino Transferase 162 U/L (5-31); Bilirubin Direct 0.4 mg/dL (0.0-0.5); Bilirubin Total 0.8 mg/dL (0.0-1.0); Blood Urea Nitrogen 11 mg/dL (9-16); Calcium 8.4 mg/dL (8.4-10.2); Carbon Dioxide 31 mmol/L (22-29); Chloride 103 mmol/L (96-108); Creatinine Clr Calc Pharmacy 97.6; Estimated Glomerular Filt Rate > 60; Glucose Fasting 79 mg/dL (60-99); Magnesium 1.8 mg/dL (1.6-2.6); Potassium 3.5 mmol/L (3.3-5.1); Sodium 139 mmol/L (135-145); Total Protein 5.9 g/dL (6.5-8.0)
--- NOTE | 2023-08-09 09:14 | P.PNIM_ITS ---
Subjective Subjective Date of Service: 08/09/23 Interval History: anxious Physical Exam 2 Vital Signs: Vital Signs: Last Vital Signs Temp 98.3 F 08/08/23 20:00 Pulse 102 H 08/09/23 06:53 Resp 14 08/09/23 06:53 BP 135/93 H 08/09/23 06:53 Pulse Ox 93 08/09/23 06:53 O2 Del Method Room Air 08/09/23 06:53 BMI result Body Mass Index 29.9 General: AO X 3, anxious appearing, slight tremor Resp: CTA bilateral, no accessory muscles used CVS: S1,S2,RRR GI: soft, non tender, non distended Neuro: motor grossly intact, alert Psych: appropriate affect, appropriate insight Objective Data Active Medications Acetaminophen (Acetaminophen 325 Mg Tablet) 650 mg PO Q6H PRN PRN Reason: Pain, Mild (Pain Scale 1-3) Last Admin: 08/08/23 20:18 Dose: 650 mg Documented By: FROY Amlodipine Besylate (Amlodipine Besylate 10 Mg Tablet) 10 mg PO DAILY [facility]; Protocol Aspirin (Aspirin Enteric Coated 81 Mg Tablet.) 81 mg PO DAILY [facility] Atorvastatin Calcium (Atorvastatin Calcium 80 Mg Tablet) 80 mg PO BEDTIME [facility] Last Admin: 08/08/23 20:07 Dose: 80 mg Documented By: FROY Buprenorphine/Naloxone (Buprenorphine/Naloxone 12/3 Mg Film) 1 film BUCCAL Q24H [facility] Last Admin: 08/08/23 12:42 Dose: 1 film Documented By: BUSHRA Enoxaparin Sodium (Enoxaparin Sodium 40 Mg/0.4 Ml Syringe) 40 mg SUBCUT Q24H [facility] Fluoxetine HCl (Fluoxetine Hcl 20 Mg Capsule) 40 mg PO DAILY [facility] Omeprazole (Omeprazole 40 Mg Capsule.) 40 mg PO DAILY@0630 [facility] Last Admin: 08/09/23 06:50 Dose: 40 mg Documented By: FROY Ondansetron HCl (Ondansetron Hcl 4 Mg/2 Ml Vial) 4 mg IVPUSH Q8H PRN PRN Reason: Nausea and Vomiting Pharmacy Consult (Consult Rx Etoh Phenob Im/Po) 1 each MISCELLANE ONCE PRN; Protocol PRN Reason: Consult order Phenobarbital (Phenobarbital 15 Mg Tablet) 45 mg PO BID [facility]; Protocol Stop: 08/10/23 09:01 Last Admin: 08/08/23 20:10 Dose: 45 mg Documented By: FROY Phenobarbital (Phenobarbital 30 Mg Tablet) 30 mg PO BID [facility]; Protocol Stop: 08/12/23 09:01 Phenobarbital (Phenobarbital 15 Mg Tablet) 15 mg PO DAILY [facility]; Protocol Stop: 08/14/23 09:01 Sodium Chloride (0.9 % Sodium Chloride Flush 3 Ml Syringe) 3 ml IVFLUSH QSHIFT [facility] Last Admin: 08/08/23 23:37 Dose: 3 ml Documented By: FROY Thiamine HCl (Thiamine Hcl 100 Mg Tablet) 100 mg PO DAILY [facility] Labs 08/09/23 04:47 08/09/23 04:47 Labs: Laboratory Results - last 24 hr 08/08/23 08/09/23 10:33 04:47 MCV 96.5 MCH 32.2 MCHC 33.3 RDW 13.2 Plt Count 193 MPV 10.2 Absolute Nucleated RBC 0.000 Nucleated RBC % (auto) 0.0 PT 11.5 INR 0.9 Anion Gap 9 L Estim Creat Clear Calc 97.6 Estimated GFR > 60 Fasting Glucose 79 Calcium 8.4 Magnesium 1.8 Total Bilirubin 0.8 Direct Bilirubin 0.4 AST 162 H ALT 86 H Alkaline Phosphatase 131 H Total Protein 5.9 L Albumin 3.1 L Urine Opiates Screen POSITIVE H Urine Fentanyl Screen Not Detected Ur Barbiturates Screen POSITIVE H Ur Phencyclidine Scrn Not Detected Ur Amphetamines Screen Not Detected U Benzodiazepines Scrn Not Detected Urine Cocaine Screen Not Detected U Marijuana (THC) Screen POSITIVE H Assessment and Plan (1) Opioid use disorder, moderate, in sustained remission: Status: Acute Plan 48F PMH etoh dependence, htn, opiate dependence, mood disorder, ?epilepsy, cva without residual deficits presented with nausea and vomiting Alcohol dependence with withdrawal Phenobarb protocol, monitor CIWA alcholic fatty liver abstinence recommended Acute hypokalemia and hypomagnesemia Replaced Nausea vomiting due to alcoholic gastritis PPI Opiate dependence Suboxone Epilepsy Continue phenobarb does not appear to be on keppra at home anymore History of CVA Aspirin statin mood disorder fluoexitine htn amlodipine DVT prophylaxis with Lovenox Full Code reason for continued hospitalization:active withdrawal Quality Stroke Does the patient have a stroke diagnosis?: No VTE Prior VTE?: No VTE Risk Level:: Medical - moderate - high VTE Device Contraindication: Treatment Not Indicated VTE Drug Contraindication: N/A - Med Ordered
[2023-08-09] MEDS: Enoxaparin Sodium 40 MG/0.4 ML SYRINGE SUBCUT (11:29)
[2023-08-09] MEDS: PHENobarbitaL 15 MG TABLET 45 MG PO ×2 (11:29→20:02)
[2023-08-09] MEDS: amLODIPine Besylate 10 MG TABLET PO (11:30)
[2023-08-09] MEDS: Aspirin Enteric Coated 81 MG TABLET.DR PO (11:30)
[2023-08-09] MEDS: Buprenorphine/Naloxone 12/3 mg FILM 1 FILM BUCCAL (11:30)
[2023-08-09] MEDS: Thiamine HCL 100 MG TABLET PO (11:30)
[2023-08-09] MEDS: FLUoxetine HCl 20 MG CAPSULE 40 MG PO (11:30)
[2023-08-09] MEDS: 0.9 % Sodium Chloride Flush 3 ML SYRINGE IVFLUSH ×3 (11:34→23:58)
--- NOTE | 2023-08-09 16:01 | MHC.CM.PN ---
Met with patient in regards to discharge planning. Patient lives with her fiance and 2 children, ambulates independently and is active with [facility] for Suboxone. PCP verified as Dr Soto. Copy of HCP verified to be on file. Patient received 2 Pfizer vaccines. No additional services anticipated to be needed. Patient's fiance will transport her home when medically stable. Continue to monitor for d/c needs.
[2023-08-09] MEDS: Acetaminophen 325 MG TABLET 650 MG PO (17:47)
--- NOTE | 2023-08-09 19:45 | PC.NURSE ---
This RN assumed care at 1900. Pt reporting feeling very agitated and anxious d/t a pt in hallway talking abut alcohol which is very triggering for her. Pt requesting ativan and this RN educated pt on not mixing phenoand ativan. Pt verbalized understanding and stated she would take anything at this time. Pt scoring 9 on CIWA scale. notified and asked this RN to give PRN pheno. informed there is no PRN order Awaiting orders at this time.
[2023-08-09] MEDS: Atorvastatin Calcium 80 MG TABLET PO (20:02)
[2023-08-10] VITALS (7 sets, daily range): BP systolic 119–149; BP diastolic 76–89; PULSE 64–84; RESP 16–20; TEMP 36.3–36.9; O2SAT 94–96
[2023-08-10] MEDS: FLUoxetine HCl 20 MG CAPSULE 40 MG PO (08:04)
[2023-08-10] MEDS: Aspirin Enteric Coated 81 MG TABLET.DR PO (08:04)
[2023-08-10] MEDS: Thiamine HCL 100 MG TABLET PO (08:04)
[2023-08-10] MEDS: amLODIPine Besylate 10 MG TABLET PO (08:04)
[2023-08-10] MEDS: Enoxaparin Sodium 40 MG/0.4 ML SYRINGE SUBCUT (08:05)
[2023-08-10] MEDS: PHENobarbitaL 15 MG TABLET 45 MG PO (08:05)
[2023-08-10] MEDS: 0.9 % Sodium Chloride Flush 3 ML SYRINGE IVFLUSH ×2 (08:06→17:10)
--- NOTE | 2023-08-10 09:58 | HO.PM.IMPN ---
Subjective Subjective Date of Service: 08/10/23 Interval History: anxious Physical Exam Vital Signs: Vital Signs: Last Vital Signs Temp 98.4 F 08/10/23 07:45 Pulse 75 08/10/23 07:45 Resp 20 08/10/23 07:45 BP 127/84 08/10/23 07:45 Pulse Ox 95 08/10/23 07:45 O2 Del Method Room Air 08/10/23 07:45 BMI result Body Mass Index 29.9 General: AO X 3, anxious appearing, slight tremor Resp: CTA bilateral, no accessory muscles used CVS: S1,S2,RRR GI: soft, non tender, non distended Neuro: motor grossly intact, alert Psych: appropriate affect, appropriate insight Objective Data Active Medications Acetaminophen (Acetaminophen 325 Mg Tablet) 650 mg PO Q6H PRN PRN Reason: Pain, Mild (Pain Scale 1-3) Last Admin: 08/09/23 17:47 Dose: 650 mg Documented By: JENARO Amlodipine Besylate (Amlodipine Besylate 10 Mg Tablet) 10 mg PO DAILY [facility]; Protocol Last Admin: 08/10/23 08:04 Dose: 10 mg Documented By: AMADOR Aspirin (Aspirin Enteric Coated 81 Mg Tablet.) 81 mg PO DAILY [facility] Last Admin: 08/10/23 08:04 Dose: 81 mg Documented By: AMADOR Atorvastatin Calcium (Atorvastatin Calcium 80 Mg Tablet) 80 mg PO BEDTIME [facility] Last Admin: 08/09/23 20:02 Dose: 80 mg Documented By: ROMA Buprenorphine/Naloxone (Buprenorphine/Naloxone 12/3 Mg Film) 1 film BUCCAL Q24H [facility] Last Admin: 08/09/23 11:30 Dose: 1 film Documented By: CHARLES Enoxaparin Sodium (Enoxaparin Sodium 40 Mg/0.4 Ml Syringe) 40 mg SUBCUT Q24H [facility] Last Admin: 08/10/23 08:05 Dose: 40 mg Documented By: AMADOR Fluoxetine HCl (Fluoxetine Hcl 20 Mg Capsule) 40 mg PO DAILY [facility] Last Admin: 08/10/23 08:04 Dose: 40 mg Documented By: AMADOR Omeprazole (Omeprazole 40 Mg Capsule.) 40 mg PO DAILY@0630 [facility] Last Admin: 08/10/23 08:04 Dose: 40 mg Documented By: AMADOR Ondansetron HCl (Ondansetron Hcl 4 Mg/2 Ml Vial) 4 mg IVPUSH Q8H PRN PRN Reason: Nausea and Vomiting Pharmacy Consult (Consult Rx Etoh Phenob Im/Po) 1 each MISCELLANE ONCE PRN; Protocol PRN Reason: Consult order Phenobarbital (Phenobarbital 30 Mg Tablet) 30 mg PO BID [facility]; Protocol Stop: 08/12/23 09:01 Phenobarbital (Phenobarbital 15 Mg Tablet) 15 mg PO DAILY [facility]; Protocol Stop: 08/14/23 09:01 Sodium Chloride (0.9 % Sodium Chloride Flush 3 Ml Syringe) 3 ml IVFLUSH QSHIFT [facility] Last Admin: 08/10/23 08:06 Dose: 3 ml Documented By: AMADOR Thiamine HCl (Thiamine Hcl 100 Mg Tablet) 100 mg PO DAILY [facility] Last Admin: 08/10/23 08:04 Dose: 100 mg Documented By: AMADOR Labs 08/09/23 04:47 08/09/23 04:47 Microbiology Microbiology Results: Microbiology 08/08/23 Unknown Urine Culture - Final Urine clean catch - Urine galindo top Lactobacillus species Assessment and Plan (1) Opioid use disorder, moderate, in sustained remission: Status: Acute Plan 48F PMH etoh dependence, htn, opiate dependence, mood disorder, ?epilepsy, cva without residual deficits presented with nausea and vomiting Alcohol dependence with withdrawal improving, but still with withdrawal Phenobarb protocol, monitor CIWA alcholic fatty liver abstinence recommended Acute hypokalemia and hypomagnesemia Replaced Nausea vomiting due to alcoholic gastritis PPI Opiate dependence Suboxone Epilepsy Continue phenobarb does not appear to be on keppra at home anymore History of CVA Aspirin statin mood disorder fluoexitine htn amlodipine DVT prophylaxis with Lovenox Full Code reason for continued hospitalization:active withdrawal Quality Stroke Does the patient have a stroke diagnosis?: No VTE Prior VTE?: No VTE Risk Level:: Medical - moderate - high VTE Device Contraindication: Treatment Not Indicated VTE Drug Contraindication: N/A - Med Ordered
[2023-08-10] MEDS: Acetaminophen 325 MG TABLET 650 MG PO (11:44)
[2023-08-10] MEDS: Buprenorphine/Naloxone 12/3 mg FILM 1 FILM BUCCAL (11:44)
[2023-08-10] MEDS: ondansetron HCL 4 MG/2 ML VIAL IVPUSH ×2 (11:44→20:31)
--- NOTE | 2023-08-10 14:07 | HO.ADDICTCON ---
History of Present Illness Date of Service: 08/10/23 Chief Complaint: ETOH Withdrawal Reason for Consult: alcohol use disorder Sources of Information: patient interviewed and chart reviewed HPI Narrative: Patient is a 48 year old cacuasian female with AUD and seizure disorder medically admitted with alcohol withdrawal. Known to this justowriter operator via previous admission and outpatient treatment for AUD at the [facility]. Seen in room 478, awake, alert, pleasant and engaged in interview. She reports that once she ran out of phenobarbital, she started drinking again. She reports drinking btwn 2-3 sleeves daily, Sleeve=10 nips. Discussed STAR, she did not care for Campral, felt it made her nauseous and could not tolerate it. She is not a candidate for Naltrexone as she is prescribed Suboxone. She expressed interest in Disulfiram. This justowriter operator provided verbal information, and significant risks associated with consuming alcohol while taking this medication. Patient asking about seizure medications at discharge and how to manage that ongoing. This justowriter operator unsure of this at time of evaluation, however CM was able to schedule an appt with neurology next month. Review of Systems Constitutional: Reports as per HPI and Reports no additional constitutional complaints Diagnostics Vital Signs (24Hr): Vital Signs - 24 hr 08/09/23 14:14 08/09/23 18:07 08/09/23 19:13 Temperature 98.1 F 98.1 F Pulse Rate 98 85 103 H Respiratory Rate 12 16 17 Blood Pressure 133/89 151/95 H 150/90 H Pulse Oximetry 95 96 95 Oxygen Delivery Method Room Air Room Air Room Air 08/09/23 20:00 08/10/23 00:00 08/10/23 03:53 Temperature 96.9 F 98.3 F 97.6 F Pulse Rate 86 64 80 Respiratory Rate 20 16 16 Blood Pressure 137/91 H 149/89 H 123/85 Pulse Oximetry 92 96 94 Oxygen Delivery Method Room Air Room Air Room Air 08/10/23 07:45 08/10/23 11:20 Temperature 98.4 F 98.4 F Pulse Rate 75 80 Respiratory Rate 20 18 Blood Pressure 127/84 134/81 Pulse Oximetry 95 95 Oxygen Delivery Method Room Air Room Air BMI result Body Mass Index 29.9 Labs 08/09/23 04:47 08/09/23 04:47 Labs: Laboratory Results - last 48 hr 03/04/24 04:47 WBC 5.2 RBC 4.04 L Hgb 13.0 Hct 39.0 MCV 96.5 MCH 32.2 MCHC 33.3 RDW 13.2 Plt Count 193 MPV 10.2 Absolute Nucleated RBC 0.000 Nucleated RBC % (auto) 0.0 PT 11.5 INR 0.9 Sodium 139 Potassium 3.5 Chloride 103 Carbon Dioxide 31 H Anion Gap 9 L BUN 11 Creatinine 0.77 Estim Creat Clear Calc 97.6 Estimated GFR > 60 Fasting Glucose 79 Calcium 8.4 Magnesium 1.8 Total Bilirubin 0.8 Direct Bilirubin 0.4 AST 162 H ALT 86 H Alkaline Phosphatase 131 H Total Protein 5.9 L Albumin 3.1 L Mental Status Exam Mental Status Exam Patient Appearance: Appropriate Patient Orientation: Person, Place, Time and Situation Level of Consciousness: Awake and Appropriate Patient Behavior: Appropriate and Talkative Mood Description: Calm Affect Description: Calm Ability to Follow Directions: Excellent Speech Pattern: Clear Medications Medications Current Medications Acetaminophen (Acetaminophen 325 Mg Tablet) 650 mg PO Q6H PRN PRN Reason: Pain, Mild (Pain Scale 1-3) Last Admin: 08/10/23 11:44 Dose: 650 mg Amlodipine Besylate (Amlodipine Besylate 10 Mg Tablet) 10 mg PO DAILY [facility]; Protocol Last Admin: 08/10/23 08:04 Dose: 10 mg Aspirin (Aspirin Enteric Coated 81 Mg Tablet.) 81 mg PO DAILY [facility] Last Admin: 08/10/23 08:04 Dose: 81 mg Atorvastatin Calcium (Atorvastatin Calcium 80 Mg Tablet) 80 mg PO BEDTIME [facility] Last Admin: 08/09/23 20:02 Dose: 80 mg Buprenorphine/Naloxone (Buprenorphine/Naloxone 12/3 Mg Film) 1 film BUCCAL Q24H [facility] Last Admin: 08/10/23 11:44 Dose: 1 film Enoxaparin Sodium (Enoxaparin Sodium 40 Mg/0.4 Ml Syringe) 40 mg SUBCUT Q24H [facility] Last Admin: 08/10/23 08:05 Dose: 40 mg Fluoxetine HCl (Fluoxetine Hcl 20 Mg Capsule) 40 mg PO DAILY [facility] Last Admin: 08/10/23 08:04 Dose: 40 mg Hydroxyzine HCl (Hydroxyzine Hcl 25 Mg Tablet) 25 mg PO Q8H PRN PRN Reason: Anxiety Omeprazole (Omeprazole 40 Mg Capsule.) 40 mg PO DAILY@0630 [facility] Last Admin: 08/10/23 08:04 Dose: 40 mg Ondansetron HCl (Ondansetron Hcl 4 Mg/2 Ml Vial) 4 mg IVPUSH Q8H PRN PRN Reason: Nausea and Vomiting Last Admin: 08/10/23 11:44 Dose: 4 mg Pharmacy Consult (Consult Rx Etoh Phenob Im/Po) 1 each MISCELLANE ONCE PRN; Protocol PRN Reason: Consult order Phenobarbital (Phenobarbital 30 Mg Tablet) 30 mg PO BID [facility]; Protocol Stop: 08/12/23 09:01 Phenobarbital (Phenobarbital 15 Mg Tablet) 15 mg PO DAILY [facility]; Protocol Stop: 08/14/23 09:01 Sodium Chloride (0.9 % Sodium Chloride Flush 3 Ml Syringe) 3 ml IVFLUSH QSHIFT [facility] Last Admin: 08/10/23 08:06 Dose: 3 ml Thiamine HCl (Thiamine Hcl 100 Mg Tablet) 100 mg PO DAILY [facility] Last Admin: 08/10/23 08:04 Dose: 100 mg Allergies Allergies Allergy/AdvReac Type Severity Reaction Status Date / Time codeine [CODEINE] Allergy Unknown HIVES Verified 08/08/23 00:32 Codeine Phosphate Allergy Unknown rash Uncoded 08/08/23 00:32 Assessment & Plan Assessment & Plan (1) Alcohol use disorder, severe, dependence: Status: Acute Code(s): F10.20 - Alcohol dependence, uncomplicated Assessment and Plan: will bring printed materials related to Disulfiram-- needs appt with CCC prior to discharge Total time managing care of this patient today _45___ minutes. PMFSH Past Medical History Medical History Hypertension Depression Anxiety Social History Social History Household Members: Family Housing: Apartment Do you presently have visiting nurse or other home services: No Alcohol intake: current Alcohol intake frequency: 0-2 drinks per day Alcohol type: hard liquor Comment: patient and family refuse camera Patient Tobacco Use Status: Never used Tobacco Substance Use Type: Marijuana Advance Directives Date on File: 06/16/23 service: No
[2023-08-10] MEDS: Atorvastatin Calcium 80 MG TABLET PO (20:27)
[2023-08-10] MEDS: PHENobarbitaL 30 MG TABLET PO (20:27)
[2023-08-10] MEDS: hydrOXYzine HCL 25 MG TABLET PO (20:28)
[2023-08-11] MEDS: 0.9 % Sodium Chloride Flush 3 ML SYRINGE IVFLUSH ×2 (00:54→08:24)
[2023-08-11 03:44] VITALS: BP 130/81; PULSE 71; RESP 14; TEMP 36.8; O2SAT 94
[2023-08-11] MEDS: Omeprazole 40 MG CAPSULE.DR PO ×2 (06:12→06:15)
[2023-08-11 07:56] VITALS: BP 134/86; PULSE 66; RESP 20; TEMP 36.2; O2SAT 96
--- NOTE | 2023-08-11 08:06 | PM.DS ---
DS: Providers Provider Date of Service: 08/11/23 Date of admission: 08/08/23 09:53 Primary care physician: Fanta Soto MD Consults: 08/08/23 08:06 Addiction Medicine Stat Consulting Provider: Addiction Covering Reason for consultation: Outpatient etoh program, pt overtook prescribed phenobarb 08/08/23 08:15 Consult to Care Team Stat Comment: Reason for consultation: Needs verified outpatient etoh option pls DS: Diagnosis Discharge Diagnosis (1) Alcohol use disorder, severe, dependence: Status: Acute DS: Summary Hospital Course Hospital Course: from initial hpi: 48F PMH etoh dependence, htn, opiate dependence, mood disorder, ?epilepsy, cva without residual deficits presented with nausea and vomiting. Symptoms began night prior to presentation. Was unable to drink regular amount of alcohol. Came to ED. In ED started to go into alcohol withdrawal with tremors and agitation. Lab significant for hypokalemia and hypo magnesemia. Patient denies chest pain, fever, chills, shortness of breath hospital course: Patient was admitted for alcohol dependence with withdrawal. She was treated phenobarbital protocol and withdrawal symptoms resolved. She was seen by addiction medicine and will continue to follow up outpatient in the community. Course complicated by acute hypokalemia and hypomagnesemia which was replaced. Her nausea and vomiting likely due to alcoholic gastritis she was treated with PPI and this resolved. For opiate dependence was continued on Suboxone. Patient has a reported history of seizure disorder but does not appear to be on antiepileptics at home. For history of CVA was continue aspirin statin. For mood disorder was continued on fluoxetine. For hypertension was continued on amlodipine. Patient is feeling better will be discharged home. Time Attestation Discharge Coordination Time: discharge time of __35__ minutes Quality: Safe Use of Opioids Does Pt have an Active Cancer Diagnosis on the Problem List?: No Quality: Stroke Does the patient have a stroke diagnosis?: No Physical Exam Vital Signs: Vital Signs: Last Vital Signs Temp 97.1 F 08/11/23 07:56 Pulse 66 08/11/23 07:56 Resp 20 08/11/23 07:56 BP 134/86 08/11/23 07:56 Pulse Ox 96 08/11/23 07:56 O2 Del Method Room Air 08/11/23 07:56 BMI result Body Mass Index 29.9 General: AO X 3, no acute distress Resp: CTA bilateral, no accessory muscles used CVS: S1,S2,RRR GI: soft, non tender, non distended Neuro: motor grossly intact, alert Psych: appropriate affect, appropriate insight DS: Data Data Completed and Pending Completed studies during hospitalization [Text1]: Procedures Detoxification Services for Substance Abuse Treatment (06/11/23) Drainage of Spinal Canal, Percutaneous Approach, Diagnostic (04/20/23) Fluoroscopy of Spinal Cord (04/20/23) Discharge Plan Discharge Anticipated Discharge Date/Time: 08/11/23 08:04 Patient Disposition: Home, Self-Care Discharge Diagnosis: etoh withdrawal Referrals: Vitaliy Stevenson MD [Physician] - 09/08/23 3:30 pm (NEUROLOGY FOLLOW-UP) Fanta Soto MD [Primary Care Provider] - 1 Week Discharge Medications: Continued fluoxetine 40 mg capsule 40 mg PO DAILY amlodipine 10 mg tablet 10 mg PO DAILY thiamine HCl (vitamin B1) [Vitamin B-1] 100 mg tablet 100 mg PO DAILY buprenorphine-naloxone [Suboxone] 12-3 mg film 1 film buccal Q24H Qty: 15 0RF Discharge Orders: Discharge Order (Routine); Ordered 08/11/23 Ordered By: Andriy Leung Diet: Advance to usual diet Activity on Discharge: As tolerated Stand Alone Forms: Patient Portal Discharge page Care Plan Goals: avoid etoh and opiates Health Concerns: polysubstance dependence Plan of Treatment: continue to follow up with addiction medicine Assessment: see above Discharge Date/Time: 08/11/23 10:42
[2023-08-11] MEDS: Enoxaparin Sodium 40 MG/0.4 ML SYRINGE SUBCUT (08:23)
[2023-08-11] MEDS: Aspirin Enteric Coated 81 MG TABLET.DR PO (08:23)
[2023-08-11] MEDS: Thiamine HCL 100 MG TABLET PO (08:23)
[2023-08-11] MEDS: amLODIPine Besylate 10 MG TABLET PO (08:24)
[2023-08-11] MEDS: FLUoxetine HCl 20 MG CAPSULE 40 MG PO (08:24)
[2023-08-11] MEDS: PHENobarbitaL 30 MG TABLET PO (08:24)
[2023-08-11] MEDS: Buprenorphine/Naloxone 12/3 mg FILM 1 FILM BUCCAL (10:28)
--- NOTE | 2023-08-11 10:28 | MHC.CM.PN ---
Pt has been medically cleared for DC, she will home via family transport, DC plan is self care.
== END 2023-08-11 10:42 | disposition home or self-care (01) | DRG 241 ==
LOC: HO.ED 08:16 → HO.EDOVER 09:56 → HO.IMC 08-09 19:04
PROVIDERS: Internal Medicine; Admitting Provider Internal Medicine; Emergency Provider Student in an Organized Health Care Education/Training Program; PCP Family Medicine; Visit Provider Internal Medicine
DX: K29.20 Alcoholic gastritis without bleeding (principal); K70.0 Alcoholic fatty liver; Z86.73 Personal history of transient ischemic attack (TIA), and cerebral infarction without residual deficits; E83.42 Hypomagnesemia; I10 Essential (primary) hypertension; F11.20 Opioid dependence, uncomplicated; G40.909 Epilepsy, unspecified, not intractable, without status epilepticus; F10.239 Alcohol dependence with withdrawal, unspecified; E87.6 Hypokalemia; Z79.899 Other long term (current) drug therapy
CPT/HCPCS: 36415; 80048; 80053; 80076; 80307; 81001; 83690; 83735; 85025; 85027; 85610; 87086; 93005; 99285; J1650; J2060; J2270; J2405; J2560; J3475

== ENCOUNTER → 2023-08-08 00:55 | Outpatient (BNV) | payer MEDICAID, SELFPAY | PROVIDERS: Admitting Provider Internal Medicine; Emergency Provider Student in an Organized Health Care Education/Training Program; Visit Provider Internal Medicine | DX: R11.10 Vomiting, unspecified (principal) | CPT/HCPCS: 93010 ==

== ENCOUNTER → 2023-08-08 09:53 | Outpatient (BNV) | payer MEDICAID, SELFPAY | PROVIDERS: Admitting Provider Internal Medicine; Emergency Provider Student in an Organized Health Care Education/Training Program; Visit Provider Internal Medicine | DX: F10.130 Alcohol abuse with withdrawal, uncomplicated (principal); F11.11 Opioid abuse, in remission; K29.20 Alcoholic gastritis without bleeding; K70.0 Alcoholic fatty liver | CPT/HCPCS: 99223; 99232; 99233; 99239 ==

== ENCOUNTER → 2023-08-08 09:53 | Outpatient (BNV) | payer OTHER, SELFPAY | PROVIDERS: Admitting Provider Internal Medicine; Emergency Provider Student in an Organized Health Care Education/Training Program; PCP Family Medicine; Visit Provider Nurse Practitioner Psychiatric/Mental Health | DX: F10.20 Alcohol dependence, uncomplicated (principal) | CPT/HCPCS: 99232 ==

== ENCOUNTER 2023-08-12 10:10 | Outpatient (AMB) | payer MEDICAID, SELFPAY ==
--- NOTE | 2023-08-12 10:11 | A.OFFVISCC_ITS ---
Intake Vital Signs 08/12/23 10:25 BP 110/72 Blood Pressure Location Lt radial Position Sitting Pulse 96 Pulse Source Pulse Oximeter Pulse Oximetry (%) 97 Oxygen Delivery Method Room Air Intake Visit Reasons: MAT Intake Note: the patient presents for a mat visit [employer] Principal Required: No Allergies codeine [CODEINE] Allergy (Unknown, Verified 08/12/23 10:27) HIVES Codeine Phosphate Allergy (Unknown, Uncoded 08/12/23 10:27) rash Do you need a note to return to daycare/school/sports/work: No HPI MAT HPI Details Patient presents for MAt visit She was discharged yesterday from hospital where she was medically detoxed with phenobarb She reports she started drinking 1 year ago and boredom is her main trigger Discussed with her pursuing hobbies and interests to stay busy Reports she has multiple strong family supports She has tried campral previously and was unable to tolerate (nausea) She is interested in trialing disulfiram PFSH Medical History Hypertension Depression Anxiety Social History Household Members: Family Housing: Apartment Do you presently have visiting nurse or other home services: No Alcohol intake: current Alcohol intake frequency: 0-2 drinks per day Alcohol type: hard liquor Comment: patient and family refuse camera Patient Tobacco Use Status: Never used Tobacco Substance Use Type: Marijuana Advance Directives Date on File: 06/16/23 service: No Review of Systems Const Reports as per HPI Physical Exam Vital Signs: Last Vital Signs Pulse 96 08/12/23 10:25 BP 110/72 08/12/23 10:25 Pulse Ox 97 08/12/23 10:25 Oxygen Delivery Method Room Air 08/12/23 10:25 Const General: cooperative and healthy appearing Resp Effort & Inspection: normal respiratory effort Psych Appearance: grossly normal Mental Status: mental status grossly normal Speech and movement: Normal speech and movement present Affect: normal affect Attitude: cooperative Assessment & Plan Assessment & Plan (1) Opioid use disorder, moderate, in sustained remission: Code(s): F11.21 - Opioid dependence, in remission Plan: -Mass pat reviewed -Suboxone refilled at same dose -Follow up 1 week (2) Alcohol use disorder, severe, dependence: Code(s): F10.20 - Alcohol dependence, uncomplicated Plan: -Start disulfiram 250mg daily -Med education provided -Discussed with her to follow up with clinic for any questions or concerns -Reviewed with her to have lab draw for liver panel in 2 weeks -Relapse prevention discussed -Provided her with resources for AA and [facility], provided her with AA book -Discussed IOP, she is uninterested at this time -Follow up 1 week Medications: New disulfiram 250 mg PO DAILY 30 tabs 0RF folic acid 1 mg PO DAILY 30 tabs 0RF Refilled buprenorphine-naloxone 12-3 mg (Suboxone) 1 film buccal Q24H 15 ea 0RF Coding Level of Care Code Est Pt Level 3 (55205) Diagnoses Opioid use disorder, moderate, in sustained remission F11.21 Alcohol use disorder, severe, dependence F10.20
[2023-08-12 10:25] VITALS: BP 110/72; PULSE 96; O2SAT 97
== END 2023-08-12 10:43 | disposition home or self-care (01) ==
PROVIDERS: PCP Family Medicine; Visit Provider Nurse Practitioner Family
DX: F11.21 Opioid dependence, in remission (principal); F10.20 Alcohol dependence, uncomplicated
CPT/HCPCS: 99213

== ENCOUNTER → 2023-08-12 10:10 | Outpatient (BNVA) | payer MEDICAID, SELFPAY | PROVIDERS: PCP Family Medicine; Visit Provider Nurse Practitioner Family | DX: F11.21 Opioid dependence, in remission (principal); F10.20 Alcohol dependence, uncomplicated | CPT/HCPCS: 99212 ==

== ENCOUNTER 2023-09-15 13:14 | Outpatient (AMB) | payer MEDICAID, SELFPAY ==
--- NOTE | 2023-09-15 13:19 | A.OFFVISCC_ITS ---
Intake Vital Signs 09/15/23 13:25 BP 150/80 H Blood Pressure Location Rt radial Position Sitting Respiration 19 Pulse 103 H Pulse Source Pulse Oximeter Pulse Oximetry (%) 98 Intake Visit Reasons: MAT Allergies codeine [CODEINE] Allergy (Unknown, Verified 08/12/23 10:27) HIVES Codeine Phosphate Allergy (Unknown, Uncoded 08/12/23 10:27) rash HPI MAT HPI Details Patient presents for MAT appointment She reports she has been in contact with [facility] She facilitated an insurance change because she was hoping to go to [facility] She is hopeful and future oriented regarding recovery Has been drinking 15 nips of vodka daily Reports her mother took custody of her children this week and that was a major motivator for her to change insurance and seek treatment Has been out of suboxone x 2-3 days and bought it [address] Has been having hot flashes that cause her discomfort HPI Comments History of Present Illness Details Patient presents for MAT visit [facility] Medical History Hypertension Depression Anxiety Social History Household Members: Family Housing: Apartment Do you presently have visiting nurse or other home services: No Alcohol intake: current Alcohol intake frequency: 0-2 drinks per day Alcohol type: hard liquor Comment: patient and family refuse camera Patient Tobacco Use Status: Never used Tobacco Substance Use Type: Marijuana Advance Directives Date on File: 06/16/23 service: No Review of Systems Const Reports as per HPI Physical Exam Vital Signs: Last Vital Signs Pulse 103 H 09/15/23 13:25 Resp 19 09/15/23 13:25 BP 150/80 H 09/15/23 13:25 Pulse Ox 98 09/15/23 13:25 Const General: cooperative and no acute distress Resp Effort & Inspection: normal respiratory effort and able to speak in complete sentences Psych Appearance: grossly normal Mental Status: mental status grossly normal Speech and movement: Normal speech and movement present Affect: normal affect Attitude: cooperative Thought process: Normal thought process present Results AMB 14 Panel Urine Drug Screen Urine Marijuana (THC) Negative Last Edit by Shayla Lai RN on 09/15/23 13:28 Urine Cocaine Negative Last Edit by Shayla Lai RN on 09/15/23 13:28 Urine Morphine Negative Last Edit by Shayla Lai RN on 09/15/23 13:28 Urine Methamphetamine Negative Last Edit by Shayla Lai RN on 09/15/23 13:28 Urine Amphetamine Negative Last Edit by Shayla Lai RN on 09/15/23 13:28 Urine Benzodiazepine Negative Last Edit by Shayla Lai RN on 09/15/23 13 :28 Urine Barbiturates Positive Last Edit by Shayla Lai RN on 09/15/23 13:2 8 Urine Methadone Negative Last Edit by Shayla Lai RN on 09/15/23 13:28 Urine Buprenorphine Positive Last Edit by Shayla Lai RN on 09/15/23 13: 28 Urine Tricyclic Antidepressant Negative Last Edit by Shayla Lai RN on 09/15/23 13:28 Urine MDMA Negative Last Edit by Shayla Lai RN on 09/15/23 13:28 Urine Oxycodone Negative Last Edit by Shayla Lai RN on 09/15/23 13:28 Urine Phencyclidine Negative Last Edit by Shayla Lai RN on 09/15/23 13: 28 Urine Propoxyphene Negative Last Edit by Shayla Lai RN on 09/15/23 13:2 8 Results Reviewed Results Reviewed: Laboratory Last Values POC Urine Buprenorphine Positive 09/15/23 13:27 POC Urine Morphine Negative 09/15/23 13:27 POC Urine Oxycodone Negative 09/15/23 13:27 POC Urine Methadone Negative 09/15/23 13:27 POC Urine Propoxyphene Negative 09/15/23 13:27 POC Urine Barbiturates Positive 09/15/23 13:27 POC U Tricyclic Antidpr Negative 09/15/23 13:27 POC Urine PCP Negative 09/15/23 13:27 POC Ur Amphetamines Negative 09/15/23 13:27 POC Ur Methamphetamine Negative 09/15/23 13:27 POC Urine MDMA Negative 09/15/23 13:27 POC Ur Benzodiazepine Negative 09/15/23 13:27 POC Urine Cocaine Negative 09/15/23 13:27 POC Ur Marijuana (THC) Negative 09/15/23 13:27 Assessment & Plan Assessment & Plan (1) Opioid use disorder, moderate, in sustained remission: Code(s): F11.21 - Opioid dependence, in remission Plan: -Mass pat reviewed -Cont suboxone 12mg daily -Reviewed with her to call the office next time she is about to run out of suboxone -Added clonidine .1mg tid to address vasomotor symptoms of menopause -Recovery supports discussed -Patient planning admission to [facility] on 09/15 -Follow up 3 weeks Orders: Orders AMB 14 Panel Urine Drug Screen 09/15/23 F11.21 - Opioid dependence, in remission Medications: New clonidine HCl 0.1 mg PO TID 42 tabs 0RF Refilled buprenorphine-naloxone 12-3 mg (Suboxone) 1 film buccal Q24H 21 ea 0RF Coding Level of Care Code Est Pt Level 3 (66441) Diagnoses Opioid use disorder, moderate, in sustained remission F1121
[2023-09-15 13:25] VITALS: BP 150/80; PULSE 103; RESP 19; O2SAT 98
== END 2023-09-15 13:52 | disposition home or self-care (01) ==
PROVIDERS: PCP Family Medicine; Visit Provider Nurse Practitioner Family
DX: F11.21 Opioid dependence, in remission (principal)
CPT/HCPCS: 99213

== ENCOUNTER → 2023-09-15 13:14 | Outpatient (BNVA) | payer MEDICAID, SELFPAY | PROVIDERS: PCP Family Medicine; Visit Provider Nurse Practitioner Family | DX: F11.21 Opioid dependence, in remission (principal) | CPT/HCPCS: 80305; 99212 ==

== ENCOUNTER 2023-10-06 14:23 | Outpatient (AMB) | payer OTHER, SELFPAY ==
[2023-10-06 14:27] VITALS: BP 136/84; PULSE 94; O2SAT 94
--- NOTE | 2023-10-06 14:27 | A.OFFVISCC_ITS ---
Vital Signs 10/06/23 14:27 BP 136/84 Blood Pressure Location Rt brachial Position Sitting Pulse 94 Pulse Source Pulse Oximeter Pulse Oximetry (%) 94 Oxygen Delivery Method Room Air Intake Visit Reasons: MAT Allergies codeine [CODEINE] Allergy (Unknown, Verified 10/06/23 14:27) HIVES Codeine Phosphate Allergy (Unknown, Uncoded 10/06/23 14:27) rash HPI HPI MAT: Details: Patient presents for OUD/AUD treatment and follow up Discharged from [facility] in [place] on Wednesday States she left a week early because there was bullying and she did not find the atmosphere therapeutic She has attended AA twice this week, feels good about this Denies any cravings for alcohol Has plans to keep busy with gardening and her family States her partner is in long-term recovery and has been very supportive HPI Comments Details: Patient presents for MAT visit [facility] Medical History Hypertension Depression Anxiety Social History Household Members: Family Housing: Apartment Do you presently have visiting nurse or other home services: No Alcohol intake: current Alcohol intake frequency: 0-2 drinks per day Alcohol type: hard liquor Comment: patient and family refuse camera Patient Tobacco Use Status: Never used Tobacco Substance Use Type: Marijuana Advance Directives Date on File: 06/16/23 service: No Review of Systems Const Reports as per HPI Physical Exam Vital Signs: Last Vital Signs Pulse 94 10/06/23 14:27 BP 136/84 10/06/23 14:27 Pulse Ox 94 10/06/23 14:27 Oxygen Delivery Method Room Air 10/06/23 14:27 Const General: cooperative and no acute distress Resp Effort & Inspection: normal respiratory effort and able to speak in complete sentences Psych Appearance: grossly normal Mental Status: mental status grossly normal Speech and movement: Normal speech and movement present Affect: normal affect Attitude: cooperative Thought process: Normal thought process present Assessment & Plan Assessment & Plan (1) Opioid use disorder, moderate, in sustained remission: Code(s): F11.21 - Opioid dependence, in remission Category: Medical Plan: -Mass pat reviewed -Suboxone refill sent to pharmacy (2) Alcohol use disorder, severe, dependence: Code(s): F10.20 - Alcohol dependence, uncomplicated Category: Medical Plan: -Discussed recovery supports -RN will place quality assurance coach referral -Follow up 3 weeks Medications: Refilled buprenorphine-naloxone 12-3 mg (Suboxone) 1 film buccal Q24H 21 ea 0RF Discontinued disulfiram Discontinued Reason: None 250 mg PO DAILY 30 tabs 0RF
== END 2023-10-06 15:02 | disposition home or self-care (01) ==
PROVIDERS: PCP Family Medicine; Visit Provider Nurse Practitioner Family
DX: F11.21 Opioid dependence, in remission (principal); F10.20 Alcohol dependence, uncomplicated
CPT/HCPCS: 99213

== ENCOUNTER → 2023-10-06 14:23 | Outpatient (BNVA) | payer MEDICAID, SELFPAY | PROVIDERS: PCP Family Medicine; Visit Provider Nurse Practitioner Family ==

== ENCOUNTER 2023-10-27 12:55 | Outpatient (AMB) | payer OTHER, SELFPAY ==
[2023-10-27 12:57] VITALS: BP 138/80; PULSE 83; O2SAT 97
--- NOTE | 2023-10-27 12:57 | MHC.AM.SUB ---
Vital Signs 10/27/23 12:57 BP 138/80 Blood Pressure Location Rt brachial Position Sitting Pulse 83 Pulse Source Pulse Oximeter Pulse Oximetry (%) 97 Oxygen Delivery Method Room Air Intake Visit Reasons: MAT Visit Allergies codeine [CODEINE] Allergy (Unknown, Verified 10/06/23 14:27) HIVES Codeine Phosphate Allergy (Unknown, Uncoded 10/06/23 14:27) rash HPI HPI MAT Visit: Details: Patient presents for MAT visit Reports she has been alcohol free for 7 weeks, is feeling proud Denies any urges or cravings for alcohol States she goes to twice a week and this has been helpful for her Has no concerns for recovery today She has been gardening to keep busy HPI Comments Details: Patient presents for MAT visit [facility] Medical History Hypertension Depression Anxiety Social History Household Members: Family Housing: Apartment Do you presently have visiting nurse or other home services: No Alcohol intake: current Alcohol intake frequency: 0-2 drinks per day Alcohol type: hard liquor Comment: patient and family refuse camera Patient Tobacco Use Status: Never used Tobacco Substance Use Type: Marijuana Advance Directives Date on File: 06/16/23 service: No Review of Systems Const Reports as per HPI Physical Exam Vital Signs: Last Vital Signs Pulse 83 10/27/23 12:57 BP 138/80 10/27/23 12:57 Pulse Ox 97 10/27/23 12:57 Oxygen Delivery Method Room Air 10/27/23 12:57 Const General: cooperative and no acute distress Resp Effort & Inspection: normal respiratory effort and able to speak in complete sentences Psych Appearance: grossly normal Mental Status: mental status grossly normal Speech and movement: Normal speech and movement present Affect: normal affect Attitude: cooperative Thought process: Normal thought process present Assessment & Plan Assessment & Plan (1) Opioid use disorder, moderate, in sustained remission: Code(s): F11.21 - Opioid dependence, in remission Category: Medical Plan: -Mass pat reviewed -Suboxone refill sent to pharmacy -She is requesting clonidine refill, rx sent to pharmacy (2) Alcohol use disorder, severe, dependence: Code(s): F10.20 - Alcohol dependence, uncomplicated Category: Medical Plan: -Relapse prevention discussed -Follow up 4 weeks Medications: Refilled clonidine HCl 0.1 mg PO TID 270 tabs 2RF buprenorphine-naloxone 12-3 mg (Suboxone) 1 film buccal Q24H 30 ea 0RF
== END 2023-10-27 13:16 | disposition home or self-care (01) ==
PROVIDERS: PCP Family Medicine; Visit Provider Nurse Practitioner Family
DX: F11.21 Opioid dependence, in remission (principal); F10.20 Alcohol dependence, uncomplicated
CPT/HCPCS: 99213

== ENCOUNTER → 2023-10-27 12:55 | Outpatient (BNVA) | payer OTHER, SELFPAY | PROVIDERS: PCP Family Medicine; Visit Provider Nurse Practitioner Family ==

== ENCOUNTER 2023-11-24 12:51 | Outpatient (AMB) | payer OTHER, SELFPAY ==
--- NOTE | 2023-11-24 13:02 | A.OFFVISCC_ITS ---
Vital Signs 11/24/23 13:05 BP 130/70 Blood Pressure Location Lt brachial Position Sitting Respiration 19 Pulse 80 Pulse Source Pulse Oximeter Pulse Oximetry (%) 98 Intake Visit Reasons: MAT Visit Allergies codeine [CODEINE] Allergy (Unknown, Verified 10/06/23 14:27) HIVES Codeine Phosphate Allergy (Unknown, Uncoded 10/06/23 14:27) rash HPI HPI MAT Visit: Details: Patient presents for MAT appointment Reports her sober date is 09/15 Has had no alcohol Is feeling positive about her recovery Denies any concerns at this time Attending AA via Zoom 3x weekly, states she is speaking now at meetings HPI Comments Details: Patient presents for MAT visit [facility] Medical History Hypertension Depression Anxiety Social History Household Members: Family Housing: Apartment Do you presently have visiting nurse or other home services: No Alcohol intake: current Alcohol intake frequency: 0-2 drinks per day Alcohol type: hard liquor Comment: patient and family refuse camera Patient Tobacco Use Status: Never used Tobacco Substance Use Type: Marijuana Advance Directives Date on File: 06/16/23 service: No Review of Systems Const Reports as per HPI Physical Exam Vital Signs: Last Vital Signs Pulse 80 11/24/23 13:05 Resp 19 11/24/23 13:05 BP 130/70 11/24/23 13:05 Pulse Ox 98 11/24/23 13:05 Const General: cooperative and no acute distress Resp Effort & Inspection: normal respiratory effort and able to speak in complete sentences Psych Appearance: grossly normal Mental Status: mental status grossly normal Speech and movement: Normal speech and movement present Affect: normal affect Attitude: cooperative Thought process: Normal thought process present Assessment & Plan Assessment & Plan (1) Opioid use disorder, moderate, in sustained remission: Code(s): F11.21 - Opioid dependence, in remission Category: Medical Plan: -NAOMI arnett reviewed -Suboxone rx sent to pharmacy -Follow up 8 weeks, reviewed she can call for earlier appt if needed (2) Alcohol use disorder, severe, dependence: Code(s): F10.20 - Alcohol dependence, uncomplicated Category: Medical Plan: -Doing well maintaining recovery -Attending AA 2-3 x weekly Medications: Refilled buprenorphine-naloxone 12-3 mg (Suboxone) 1 film buccal Q24H 30 ea 1RF
[2023-11-24 13:05] VITALS: BP 130/70; PULSE 80; RESP 19; O2SAT 98
== END 2023-11-24 13:14 | disposition home or self-care (01) ==
PROVIDERS: PCP Family Medicine; Visit Provider Nurse Practitioner Family
DX: F11.21 Opioid dependence, in remission (principal); F10.20 Alcohol dependence, uncomplicated
CPT/HCPCS: 99213

== ENCOUNTER → 2023-11-24 12:51 | Outpatient (BNVA) | payer OTHER, SELFPAY | PROVIDERS: PCP Family Medicine; Visit Provider Nurse Practitioner Family ==

== ENCOUNTER 2024-03-02 11:18 | Outpatient (REF) | payer OTHER, SELFPAY ==
[2024-03-02 13:00] LABS: Alanine Aminotransferase 20 U/L (0-31); Albumin Level 4.2 g/dL (3.5-5.0); Alkaline Phosphatase 92 U/L (39-117); Aspartate Amino Transferase 20 U/L (5-31); Bilirubin Direct 0.1 mg/dL (0.0-0.5); Bilirubin Total 0.4 mg/dL (0.0-1.0); Total Protein 7.4 g/dL (6.5-8.0)
== END 2024-03-02 11:19 | disposition home or self-care (01) ==
LOC: HO.LAB 11:18
PROVIDERS: PCP Family Medicine; Visit Provider Nurse Practitioner Psychiatric/Mental Health
DX: F10.20 Alcohol dependence, uncomplicated (principal)
CPT/HCPCS: 36415; 80076

== ENCOUNTER 2024-03-06 13:26 | Outpatient (AMB) | payer OTHER, SELFPAY ==
--- NOTE | 2024-03-06 13:32 | A.OFFVISCC_ITS ---
Vital Signs 03/06/24 13:33 BP 140/80 H Blood Pressure Location Rt radial Position Sitting Respiration 19 Pulse 101 H Pulse Source Pulse Oximeter Pulse Oximetry (%) 98 Intake Visit Reasons: MAT Office Allergies codeine [CODEINE] Allergy (Unknown, Verified 10/06/23 14:27) HIVES Codeine Phosphate Allergy (Unknown, Uncoded 10/06/23 14:27) rash Medication List - Last Reconciled 03/06/24 by Sheila Alexis [employer]PPLY [employer]IST buprenorphine-naloxone 12-3 mg (Suboxone) 1 film buccal Q24H clonidine HCl 0.1 mg PO TID fluoxetine 40 mg PO DAILY folic acid 1 mg PO DAILY thiamine HCl (vitamin B1) (Vitamin B-1) 100 mg PO DAILY HPI HPI MAT Office: Details: Patient presents for follow up [facility] X2 for AUD 2 weeks no alcohol Medications: -suboxone 12mg QD -clonidine 0.1mg TID no constipation Support from family and fiancee looking to return to work reporting anxiety related to ongoing thoughts of drinking reviewed lab work PFSH Medical History Hypertension Depression Anxiety Social History Household Members: Family Housing: Apartment Do you presently have visiting nurse or other home services: No Alcohol intake: current Alcohol intake frequency: 0-2 drinks per day Alcohol type: hard liquor Comment: patient and family refuse camera Patient Tobacco Use Status: Never used Tobacco Substance Use Type: Marijuana Advance Directives Date on File: 06/16/23 service: No Review of Systems Const Reports as per HPI Physical Exam Vital Signs: Last Vital Signs Pulse 101 H 03/06/24 13:33 Resp 19 03/06/24 13:33 BP 140/80 H 03/06/24 13:33 Pulse Ox 98 03/06/24 13:33 Const General: cooperative, healthy appearing, anxious and well groomed Assessment & Plan Assessment & Plan (1) Alcohol use disorder, severe, dependence: Code(s): F10.20 - Alcohol dependence, uncomplicated Category: Medical Plan: * restart campral * reviewed medication, goals of treatment, side effects (2) Opioid use disorder, moderate, in sustained remission: Code(s): F11.21 - Opioid dependence, in remission Category: Medical Plan: * continue suboxone at current dose Medications: New thiamine HCl (vitamin B1) (Vitamin B-1) 100 mg PO DAILY 90 tabs 0RF Refilled buprenorphine-naloxone 12-3 mg (Suboxone) 1 film buccal Q24H 30 ea 0RF folic acid 1 mg PO DAILY 90 tabs 0RF
[2024-03-06 13:33] VITALS: BP 140/80; PULSE 101; RESP 19; O2SAT 98
== END 2024-03-06 13:56 | disposition home or self-care (01) ==
PROVIDERS: PCP Family Medicine; Visit Provider Nurse Practitioner Psychiatric/Mental Health
DX: F10.20 Alcohol dependence, uncomplicated (principal); F11.21 Opioid dependence, in remission
CPT/HCPCS: 99214

== ENCOUNTER → 2024-03-06 13:26 | Outpatient (BNVA) | payer OTHER, SELFPAY | PROVIDERS: PCP Family Medicine; Visit Provider Nurse Practitioner Psychiatric/Mental Health ==

== ENCOUNTER 2024-04-21 09:28 | Outpatient (AMB) | payer OTHER, SELFPAY ==
--- NOTE | 2024-04-21 09:23 | A.OFFVISCC_ITS ---
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 --feels fulfilled with schedule and sense of purpose Review of Systems Const Reports as per HPI and Reports no additional complaints Telehealth Telehealth Telehealth Platform: Telephone Location of provider rendering services: practice address Location of patient: other Patient Identification confirmed using: Name, : Yes Telehealth method: voice only Patient verbally consented to treatment: Yes Patient verbally consented to billing insurance company: Yes Minutes spent on Phone/Video with Pt.: 15 Assessment & Plan Assessment & Plan (1) Alcohol use disorder, severe, dependence: Code(s): F10.20 - Alcohol dependence, uncomplicated Category: Medical Plan: * continue campral * relapse prevention discussion (2) Opioid use disorder, moderate, in sustained remission: Code(s): F11.21 - Opioid dependence, in remission Category: Medical Plan: * continue suboxone at current dose * follow up 4 weeks Medications: Refilled buprenorphine-naloxone 12-3 mg (Suboxone) 1 film buccal Q24H 30 ea 0RF PFSH Medical History Hypertension Depression Anxiety Social History Household Members: Family Housing: Apartment Do you presently have visiting nurse or other home services: No Alcohol intake: current Alcohol intake frequency: 0-2 drinks per day Alcohol type: hard liquor Comment: patient and family refuse camera Patient Tobacco Use Status: Never used Tobacco Substance Use Type: Marijuana Advance Directives Date on File: 06/16/23 service: No
== END 2024-04-21 09:28 | disposition home or self-care (01) ==
LOC: HO.HCC 09:28
PROVIDERS: PCP Family Medicine; Visit Provider Nurse Practitioner Psychiatric/Mental Health
DX: F10.20 Alcohol dependence, uncomplicated (principal); F11.21 Opioid dependence, in remission
CPT/HCPCS: 99214

== ENCOUNTER → 2024-04-21 09:28 | Outpatient (BNVA) | payer OTHER, SELFPAY | PROVIDERS: PCP Family Medicine; Visit Provider Nurse Practitioner Psychiatric/Mental Health ==

== ENCOUNTER 2024-05-19 10:31 | Outpatient (AMB) | payer OTHER, SELFPAY ==
--- NOTE | 2024-05-19 10:32 | A.OFFVISCC_ITS ---
Intake Visit Reasons: Tele Allergies codeine [CODEINE] Allergy (Unknown, Verified 10/06/23 14:27) HIVES Codeine Phosphate Allergy (Unknown, Uncoded 10/06/23 14:27) rash HPI HPI Tele: Details: Patient presents for AUD treatment follow up Reports that she has been trying to get into [facility] facility for the last week No longer working -- drinking increased Currently drinking 20-25 shots of whiskey daily Waiting to hear back from [facility]--she is on the waitlist Has not been eating, but has been taking her vitamins and drinking Reporting some stomach pain, loose stools Denies vomiting Review of Systems Const Reports as per HPI Telehealth Telehealth Telehealth Platform: Telephone Location of provider rendering services: practice address Location of patient: address on file Patient Identification confirmed using: Name, : Yes Telehealth method: voice only Patient verbally consented to treatment: Yes Patient verbally consented to billing insurance company: Yes Minutes spent on Phone/Video with Pt.: 15 Assessment & Plan Assessment & Plan (1) Alcohol use disorder, severe, dependence: Code(s): F10.20 - Alcohol dependence, uncomplicated Category: Medical Plan: * will continue to seek admission to [facility] --patient facilitating this on her own (2) Opioid use disorder, moderate, in sustained remission: Code(s): F11.21 - Opioid dependence, in remission Category: Medical Plan: * continue suboxone at current dose * patient to call for follow up when discharged from [facility] Medications: Refilled buprenorphine-naloxone 12-3 mg (Suboxone) 1 film buccal Q24H 30 ea 0RF PFSH Medical History Hypertension Depression Anxiety Social History Household Members: Family Housing: Apartment Do you presently have visiting nurse or other home services: No Alcohol intake: current Alcohol intake frequency: 0-2 drinks per day Alcohol type: hard liquor Comment: patient and family refuse camera Patient Tobacco Use Status: Never used Tobacco Substance Use Type: Marijuana Advance Directives Date on File: 06/16/23 service: No
== END 2024-05-19 10:58 | disposition home or self-care (01) ==
PROVIDERS: PCP Family Medicine; Visit Provider Nurse Practitioner Psychiatric/Mental Health
DX: F10.20 Alcohol dependence, uncomplicated (principal); F11.21 Opioid dependence, in remission
CPT/HCPCS: 99214

== ENCOUNTER → 2024-05-19 10:31 | Outpatient (BNVA) | payer OTHER, SELFPAY | PROVIDERS: PCP Family Medicine; Visit Provider Nurse Practitioner Psychiatric/Mental Health ==

== ENCOUNTER 2024-09-15 13:40 | Outpatient (AMB) | payer OTHER, SELFPAY ==
--- NOTE | 2024-09-15 13:52 | MHC.OFFVIS ---
Vital Signs 09/15/24 13:58 Height 5 ft 6 in Weight 190 lb BMI 30.7 Pulse 77 Pulse Source Pulse Oximeter Pulse Oximetry (%) 97 Oxygen Delivery Method Room Air Intake Visit Reasons: MAT Allergies codeine [CODEINE] Allergy (Unknown, Verified 09/15/24 13:59) HIVES Codeine Phosphate Allergy (Unknown, Uncoded 10/06/23 14:27) rash HPI HPI MAT: Details: She has both AUD and OUD. She feels like needs more than 12 mg Suboxone and has been buying suboxone off husbands friend. She just got out of rehab and hasnt drank in four months. [facility] Medical History Hypertension Depression Anxiety Social History Household Members: Family Housing: Apartment Do you presently have visiting nurse or other home services: No Alcohol intake: current Alcohol intake frequency: 0-2 drinks per day Alcohol type: hard liquor Comment: patient and family refuse camera Patient Tobacco Use Status: Never used Tobacco Substance Use Type: Marijuana Advance Directives Date on File: 06/16/23 service: No Physical Exam Vital Signs: Last Vital Signs Pulse 77 09/15/24 13:58 Pulse Ox 97 09/15/24 13:58 Oxygen Delivery Method Room Air 09/15/24 13:58 BMI result Body Mass Index 30.7 Const General: cooperative Results AMB 14 Panel Urine Drug Screen Urine Marijuana (THC) Positive Last Edit by Jagdish Almanza CMA on 09/15/24 14:04 Urine Cocaine Negative Last Edit by Jagdish Almanza CMA on 09/15/24 14:04 Urine Morphine Negative Last Edit by Jagdish Almanza CMA on 09/15/24 14:04 Urine Methamphetamine Negative Last Edit by Jagdish Almanza CMA on 09/15/24 14:04 Urine Amphetamine Negative Last Edit by Jagdish Almanza CMA on 09/15/24 14:04 Urine Benzodiazepine Negative Last Edit by Jagdish Almanza CMA on 09/15/24 14:04 Urine Barbiturates Negative Last Edit by Jagdish Almanza CMA on 09/15/24 14:04 Urine Methadone Negative Last Edit by Jagdish Almanza CMA on 09/15/24 14:04 Urine Buprenorphine Positive Last Edit by Jagdish Almanza CMA on 09/15/24 14:04 Urine Tricyclic Antidepressant Negative Last Edit by Jagdish Almanza CMA on 09/15/24 14:04 Urine MDMA Negative Last Edit by Jagdish Almanza CMA on 09/15/24 14:04 Urine Oxycodone Negative Last Edit by Jagdish Almanza CMA on 09/15/24 14:04 Urine Phencyclidine Negative Last Edit by Jagdish Almanza CMA on 09/15/24 14:04 Urine Propoxyphene Negative Last Edit by Jagdish Almanza CMA on 09/15/24 14:04 Results Reviewed Results Reviewed: Laboratory Last Values POC Urine Buprenorphine Positive 09/15/24 13:59 POC Urine Morphine Negative 09/15/24 13:59 POC Urine Oxycodone Negative 09/15/24 13:59 POC Urine Methadone Negative 09/15/24 13:59 POC Urine Propoxyphene Negative 09/15/24 13:59 POC Urine Barbiturates Negative 09/15/24 13:59 POC U Tricyclic Antidpr Negative 09/15/24 13:59 POC Urine PCP Negative 09/15/24 13:59 POC Ur Amphetamines Negative 09/15/24 13:59 POC Ur Methamphetamine Negative 09/15/24 13:59 POC Urine MDMA Negative 09/15/24 13:59 POC Ur Benzodiazepine Negative 09/15/24 13:59 POC Urine Cocaine Negative 09/15/24 13:59 POC Ur Marijuana (THC) Positive 09/15/24 13:59 Assessment & Plan Assessment & Plan (1) Opioid use disorder, moderate, in sustained remission: Comment: She has been needing for Suboxone Code(s): F11.21 - Opioid dependence, in remission Category: Medical Plan: Would increase to 16 mg,2 of 8 mg daily See in one month Thiamine,MVI Hepatitis C and HIV. Orders: Orders HIV Ab/Ag Today F11.21 - Opioid dependence, in remission Hepatitis C Antibody Today F11.21 - Opioid dependence, in remission AMB 14 Panel Urine Drug Screen Today Z51.81 - Encounter for therapeutic drug level monitoring Medications: New buprenorphine-naloxone 8-2 mg (Suboxone) place 1 film on inside of (each) cheek 2 film sublingual DAILY 30 days 60 ea 0RF Coding Level of Care Code Est Pt Level 3 (26679) Diagnoses Opioid use disorder, moderate, in sustained remission F11.21
[2024-09-15 13:58] VITALS: PULSE 77; O2SAT 97; BMI 30.7
--- OUTSIDE RECORDS SUMMARY | 2024-09-15 13:59 | XMS_ITS | Data Portability ---
Author Organization [facility], , [facility] Address [address] [place] [address] Care Team Providers Care Line Up Worker Name Role Phone SAW SOTO Primary Care Provider [phone] [facility] Addiction Medicine Assessment No assessment recorded. Plan of Treatment Reminders Order Date Submit Date Provider Last Modified By Organization Details Last Modified Time Details Appointments Mammo Jacob bond 2024 02:00P M [facility] Mammography Not available Not available Not available Lab TSH, serum or plasm a 2024 025 [facility], [address] [place] [address], [id number], 08/17/2024 10:23:39 CMP, serum or plasm a 2024 025 [facility], [address] [place] [address], [id number], 08/17/2024 10:23:39 CBC 2024 025 [facility], [address] [place] [address], [id number], 08/17/2024 10:23:39 pregn lacey test, urine [email or web address] [facility], [address] [place] [address], [id number], 03/23/2023 16:58:28 Referral neuro logis t refer ral - seizu re like activ ity dx with HTN encep halop athy. seen by Dr. Ghassan tovar inpt. needs outpt follo w up. 2022 023 [email or web address] Vitaliy Stevenson MD, [address] [facility] , [facility] [place], [address], 03/23/2023 16:50:47 Procedures None recor ded. Surgeries None recor ded. Imaging US, abdom en, compl ete - 49 y/o with hx of alcoh ol, now with edema , pleas e asses s 2024 025 [facility] (Imaging), [address], [place], [address], 08/14/2024 14:04:53 MAMMO , scree galina, tomos ynthe sis, bilat eral - 2nd Look Consu lt/Di ag Mammo /US Breas t/Bobby ded Asp/B reast Bx/Cl ip Place ment, as clini nery indic ated. 2024 025 [facility] (Imaging), [address], [place], [address], 08/03/2024 16:02:16 US, abdom en + pelvi s - abdom inal move ments x2.5 month s and worse galina. bloat ing. 2022 023 [facility] (Imaging), [address], [place], [address], 03/29/2023 20:14:14 Medication Orders hydro xyzin e HCl 25 mg table t 2024 025 [facility], [address] [facility] [place], [id number], 07/05/2024 17:35:23 aspir in 81 mg chewa ble table t [address] [facility], [facility] [id number], 07/05/2024 16:50:36 fluox etine 40 mg capsu le 2022 023 bca44 [facility] #75486, [address] [place], [place], [id number], 06/16/2023 10:14:20 hydro chlor othia zide 25 mg table t 2022 023 [facility]44 [facility] #50312, [address] [place], [place], [id number], 06/16/2023 10:15:05 amlod ipine 10 mg table t 2022 023 [facility]44 [facility] #95910, [address] [place], [place], [id number], 06/16/2023 10:14:36 Patient TargetsNo targets recorded. Patient Instructions Encounter Date Encounter Id Patient Instructions Last Modified By Organization Details Last Modified Time 01/26/2023 [id number] Blood pressure check instructions -Do not have caffeine, smoke a cigarette/use nicotine or exercise for 30 minutes prior -Sit for 10 minutes with both feet on the floor quietly (read, etc) with an empty bladder -Make sure the cuff fits your arm/wrist and is not over a shirt sleeve -Place arm on flat, level surface around heart level -Do not use an arm with a shunt or the same side as a mastectomy -If you are taking blood pressure medications, make sure it is at least an hour after taking your daily medications -Low blood pressures are <100/50 -Normal blood pressure is 100-129/50-79 -Stage I Hypertension is 130-140/80-90 -Stage 2 Hypertension is >140/90 -Keep taking current medications -Switch back to fluoxetine from sertraline Not available 01/26/2023 09:57:37 03/01/2023 [id number] -Fasting labwork (nothing to eat/drink for 12 hours prior to appointment except water) in 2-3 months with follow-up hypertension -Wellness visit after April Not available 03/01/2023 14:02:14 07/05/2024 [id number] -Take gabapentin 300mg twice daily (half tablet) until they're gone -Labwork tomorrow -Ultrasound liver (see if they can do with the labwork -Check out the IOP at [facility] -STOP HCTZ because I don't think that is helping -START hydroxyzine 25mg 3x daily for jitteriness -Follow-up 1 week for swelling and alcohol Not available 07/05/2024 17:32:15 Reason for Referral Neurologist Referral for Sei zure seizure like activity dx with HTN encephalopathy. seen by Dr. Stevenson inpt. needs outpt follow up. Referring Physician: Melody Nuno, Family Medicine, Encounter Date: 01/18/2023 Results Created Date Observation Date Name Description Value Unit Range Abnormal Flag Note LastModifiedBy Organization Detail LastModifiedTime 03/23/2003/23/2023 POC HCG HCG POC NEGATI VE Not Available [facility] [address] [place], [address], 03/23/2023 16:43:48 01/21/2001/15/2023 elect roenc ephal ogram No observ ation record ed. [facility] (Medical Records) [address] [place], [address], 01/20/2023 15:42:09 03/29/20 23 03/29/2023 US, abdom en + pelvi s CLINIC AL HISTOR Y: Abdomi nal bloati ng. Weight gain. TECHNI QUE: 2D sonogr aphy of the abdome n perfor med. The bladde r was incomp letely disten ded. Transa bdomin al imagin g of the pelvis was nondia gnosti c. Endova ginal sonogr aphy of the female pelvis is also perfor med. COMPAR SALLY: None. FINDIN GS: ABDOME N The aorta and IVC are normal sized. The liver is slight ly echoge rabia relati ve to the right kidney . This is not convin cing for fatty liver. There are no solid liver masses or intrah epatic duct dilata tion. The gallbl adder is thin-w alled. There are no gallst ones and there is no perich olecys tic fluid. The patien t is not focall y tender during examin ation of the gallbl adder. Common duct: 6 mm Right kidney 5.2 x 11.1 cm. The right kidney is normal in echote xture. There is no solid mass, stone, or hydron ephros is. Left kidney 5.7-10 .4 cm. The left kidney is normal in echote xture. There is no solid mass, stone, or hydron ephros is. There is no ascite s. The visual ized portio ns of the pancre as are normal . There is some limita tion due to overly ing bowel gas. Spleen 7.5 cm. The spleen is unrema rkable . PELVIS Uterus 4.2 x 2.6 x 6.4 cm. The uterus has a normal echote xture. Endome trium 4 mm. There is no focal endome trial abnorm ality. There is minima l fluid within the endome trial cavity . Right ovary 2.0 x 2.0 x 2.9 cm, 6.0 mL The right ovary is within normal limits . Left ovary 1.1 x 1.2 x 1.9 cm, 1.4 mL The left ovary is within normal limits . There is no abnorm al free fluid. IMPRES RENARD: 1. Unrema rkable comple te abdomi nal ultras ound. 2. Minima l endome trial fluid. Otherw ise unrema rkable endova ginal pelvic ultras ound. Freya lewis Physic kaylen: Solomon Lisa ms [facility] (Imaging) [address], [place], [address], 04/05/2023 13:15:26 04/27/20 23 04/22/2023 elect roenc ephal ogram No observ ation record ed. [facility] [place] [address] (Medical Records) [address] [facility], [place], [address], 04/27/2023 14:02:43 06/11/19 24 06/11/2023 CT, brain , w/o contr ast No observ ation record ed. [address] [place], [address], 06/14/2023 18:19:49 06/11/19 24 06/11/2023 XR, chest No observ ation record ed. [address] [place], [address], 06/14/2023 18:19:50 06/14/19 24 06/14/2023 MRI, head, w/wo contr ast No observ ation record ed. [address] [place], [address], 06/16/2023 18:57:42 Result Notes None recorded. Problems Name Problem SNOMED Code Status Onset Date Resolution Date Notes Provider Name and Address Organization Details Recorded Time Major depressi on, melancho lic type 038953452 Active Saw Soto [address] [place] [address], , [facility] 12:05:54 Insect bite, nonvenom ous, of shoulder 391064317 Completed 04/05/2013 Reena Damian PA-C [address] [place] [address], , [facility] 10:35:12 Joint pain in ankle and foot Completed 09/08/2011 [facility] Available [facility] 03:34:35 Benign essentia l hyperten renard [id number] Completed 08/26/2017 Removal Reason: in remissio n Saw Soto [address] [place] [address], , [facility] 14:33:20 Hip pain 23886696 Completed 04/05/2013 Reena Damian PA-C [address] [place] [address], , [facility] 10:35:12 Acute pharyngi tis 608172233 Completed 04/05/2013 Reena Damian PA-C [address] [place] [address], [address] [place] [address] , [facility] 10:35:12 Bronchit is 15394573 Active Phyllis Srinivasan NP [address] [place] [address], [address] [place] [address] , [facility] 20:58:55 Opioid dependen ce in remissio n 169063120 Active 2017 on suboxone Saw Soto [address] [place] [address], [address] [place] [address] , [facility] 14:32:26 Tobacco user 025742951 Completed 201805/20/2021 Saw Soto [address] [place] [address], [phone] , [facility] 16:01:20 Ex-smoke r 0088525 Active 2019 Saw Soto [address] [place] [address], [phone] , [facility] 16:01:16 Anxiety 75962224 Active 2022 Valerie Rico PA-C [address] [place] [address], [phone] , [facility] 14:57:33 Essentia l hyperten renard 28828789 Active 2022 Valerie Rico PA-C [address] [place] [address], [phone] , [facility] 15:36:54 Hyperten sive encephal opathy 69217940 Active 2022 RASHI Pollard [address] [place] [address], [address] [place] [address] , [facility] 18:07:27 Alcohol withdraw al 166441032 Active 2023 Wih seizures : Per [facility] discharg e summary 06/15/23 Esthela Fuller RN null, [facility] 4 10:32:38 Seizure 84749551 Active 2023 Per [facility] discharg e summary 06/15/23 Esthela Fuller RN null, [facility] 4 10:31:58 Alcohol dependen 90963674 Active Saw Soto [address] [place] [address], [phone] , [facility] 19:44:49 Problem Notes None recorded. Procedures Surgical History Date Name Laterality Status Provider Name and Address Organization Details Recorded Time 07/05/19 25 Smoking cessation counseling completed Rubia Lopez [facility] 07/05/2024 16:52:44 12/01/19 23 Smoking cessation counseling completed Rhonda العلي [facility] 11/26/2022 14:44:20 11/12/19 23 Smoking cessation counseling completed Leandra Jon Nahomy [facility] 11/11/2022 14:46:56 05/20/20 21 Smoking cessation counseling completed Chanell Hampton [facility] 05/20/2021 11:59:37 04/18/20 20 Smoking cessation counseling completed Rhonda Diaz [facility] 04/18/2020 08:57:55 04/18/20 20 Carbon Monoxide Testing completed Rhonda Diaz [facility] 04/18/2020 08:57:55 01/25/20 19 Smoking cessation counseling completed Leeanne Danielson MD [address] [place] [address], [phone], [facility] 01/24/2019 10:19:53 01/25/20 19 Carbon Monoxide Testing completed Leeanne Danielson MD [address] [place] [address], [phone], [facility] 01/24/2019 10:19:53 06/07/18 95 Arthroscopy completed Not Available [facility] 04/23/20 11 06:06:16 Imaging Results Imaging Date Name Status LastModified by Organization Details LastModified Time 01/15/2023 electroencephalogram completed [facility] (Medical Records) [address] [place], [address], 01/20/2023 15:42:09 03/29/2023 US, abdomen + pelvis completed [facility] (Imaging) [address] [place], [address], 04/05/2023 13:15:26 04/22/2023 electroencephalogram completed [address] (Medical Records) [address] [place] [address], [address], 04/27/2023 14:02:43 06/11/2023 CT, brain, w/o contrast completed [address], [address], 06/14/2023 18:19:49 06/11/2023 XR, chest completed [address], [address], 06/14/2023 18:19:50 06/14/2023 MRI, head, w/wo contrast completed [address], [address], 06/16/2023 18:57:42 Procedure Notes None recorded. Medical Equipment None Reported. Allergies Allergen ID Allergen Name Allergen Category Reaction Reaction Severity Criticality Documentation Date Start Date Code Code System Note Provider Name and Address Organization Details Recorded Time 73790 codeine medicatio n rash Not available Not available 04/22/2011 6217 RxNorm NAOMI Cannon [place] Merged With [facility] 1 12:56:35 Medications Name Sig Start Date Stop Date Status Note LastModified by Organization Details LastModified Time Prescript ion - Prior Authoriza tion Request 04/18 completed Not Available Not Available Not Available fluoxetin e 40 mg capsule TAKE 1 CAPSULE BY MOUTH EVERY DAY active Not Available Not Available No t Available amoxicill in 500 mg capsule TK 1 C PO Q 12 HOURS X 10 DAYS 01/24 completed Not Available Not Available Not Available Percocet 7.5 mg-325 mg tablet Take 1 tablet 3 times a day by oral route as needed for 21 days. 09/29 completed Not Available Not Available Not Available atorvasta tin 80 mg tablet TAKE 1 TABLET BY MOUTH AT BEDTIME active Not taking 07/05/24 cc Not Available Not Available Not Available clonidine HCl 0.1 mg tablet TAKE 1 TABLET BY MOUTH THREE TIMES DAILY active Not Available Not Available No t Available gabapenti n 600 mg tablet Take 1 tablet twice a day by oral route. active Rx from pt's rehab Not Available Not Available Not Available doxycycli ne hyclate 100 mg capsule TK 1 C PO BID FOR 7 DAYS 06/10 completed Not Available Not Available Not Available atorvasta tin 20 mg tablet Take 1 tablet every day by oral route at bedtime. 06/16 completed dose increase d Per [facility] discharg e summary 06/15/23, not reconcil ed with pt. Not Available Not Available Not Available clindamyc in HCl 300 mg capsule Take 1 capsule twice a day by oral route for 7 days. 04/29 completed Not Available Not Available Not Available triamcino lone acetonide 0.5 % topical cream APPLY THIN LAYER TOPICALL Y TO THE AFFECTED AREA TWICE DAILY 03/01 completed Not Available Not Available Not Available azithromy lisset 250 mg tablet 2 tablets on day 1, then one a day for 4 days 2013 active Not Available Not Available Not Avai lable ibuprofen 800 mg tablet TAKE 1 TABLET BY MOUTH EVERY 8 HOURS X 5 DAYS 11/11 completed Not Available Not Available Not Available levetirac etam 500 mg tablet TAKE 1 TABLET BY MOUTH TWICE DAILY 06/16 completed disconti nued Per [facility] discharg e summary 06/15/23, not reconcil ed with pt. Not Available Not Available Not Available citalopra m 10 mg tablet TAKE 1 TABLET BY MOUTH EVERY DAY 11/30 completed Not Available Not Available Not Available Vicodin ES 7.5 mg-750 mg tablet Take 1 tablet 3 times a day by oral route as needed for 10 days. 05/08 completed Not Available Not Available Not Available ondansetr on HCl 4 mg tablet Take 1 tablet every 8 hours by oral route as needed. 2010 active Not Available Not Available Not Avai lable fluoxetin e 10 mg tablet TAKE 2 TABLETS BY MOUTH EVERY DAY active Not Available Not Available No t Available sertralin e 100 mg tablet Take 1 tablet every day by oral route for 30 days. 2010 active Not Available Not Available Not Avai lable Formula tablet TAKE 1 TABLET BY MOUTH DAILY 2011 active Not Available Not Available Not Avai lable Clotrimaz ole-7 1 % vaginal cream Insert 1 applicat orful every day by vaginal route at bedtime for 7 days. 04/29 completed Not Available Not Available Not Available amlodipin e 5 mg tablet Take 1 tablet every day by oral route. 01/26 completed taking 10mg 01/21/23 HK Not Available Not Available Not Available aspirin 81 mg tablet,de layed release 08/26 completed Not Available Not Available Not Available amoxicill in 500 mg tablet TK 1 T PO TID X 7 DAYS 01/24 completed Not Available Not Available Not Available citalopra m 20 mg tablet TAKE 1 TABLET BY MOUTH EVERY DAY 08/26 completed Not taking 08-26-17 JG Not Available Not Available Not Available Percocet 10 mg-325 mg tablet active 2 tabs Q 6 hrs Not Available Not Available Not Available amlodipin e 10 mg tablet TAKE 1 TABLET BY MOUTH EVERY DAY 2023 active Not Available Not Available Not Avai lable erythromy lisset 5 mg/gram (0.5 %) eye ointment Apply 1 cm ribbon into the lower conjunct ival sac(s) in the affected eye(s) by ophthalm ic route 4 times per day 2013 active Not Available Not Available Not Avai lable lisinopri l 10 mg tablet TAKE 1 TABLET BY MOUTH EVERY DAY 08/26 completed 08-26-17 Not taking JG Not Available Not Available Not Available Anaprox DS 550 mg tablet Take 1 tablet every 12 hours by oral route for 7 days. 05/11 completed Not Available Not Available Not Available Dilaudid 4 mg tablet Take 1 tablet 3 times a day by oral route as needed for pain for 30 days. 06/20 completed Not Available Not Available Not Available ibuprofen 400 mg tablet Take 1 tablet 3 times a day by oral route as needed. 08/26 completed Not taking 08-26-17 JG Not Available Not Available Not Available hydrochlo rothiazid e 12.5 mg capsule TAKE 1 CAPSULE BY MOUTH EVERY MORNING 11/30 completed Not Available Not Available Not Available fluoxetin e 10 mg capsule TAKE 1 CAPSULE BY MOUTH DAILY 01/18 completed not taking 01/18/23 TR Not Available Not Available Not Available phenobarb ital 30 mg tablet TAKE 1 TABLET BY MOUTH TWICE DAILY FOR 5 DAYS 07/05 completed Not taking 07/05/24 cc Not Available Not Available Not Available gabapenti n 300 mg capsule Take 1 capsule every day by oral route at bedtime for 30 days. 08/26 completed Not taking 18 JG Not Available Not Available Not Available sertralin e 25 mg tablet Take 1 tablet every day by oral route. 01/26 completed per [facility] d/c Not Available Not Available Not Available aspirin 81 mg chewable tablet CHEW AND SWALLOW 1 TABLET BY MOUTH EVERY DAY active Per [facility] discharg e summary 06/15/23, not reconcil ed with pt. Not taking 07/05/24 cc Not Available Not Available Not Available folic acid 1 mg tablet TAKE 1 TABLET BY MOUTH DAILY active Not Available Not Available No t Available amoxicill in 250 mg capsule TAKE 1 CAPSULE BY MOUTH EVERY 8 HOURS FOR 7 DAYS 04/27 completed Not taking JACKSON Not Available Not Available Not Available hydroxyzi ne HCl 25 mg tablet TAKE 1 TABLET BY MOUTH THREE TIMES DAILY FOR 10 DAYS NEEDED active Not Available Not Available No t Available hydrochlo rothiazid e 25 mg tablet TAKE 1 TABLET BY MOUTH EVERY DAY active Not Available Not Available No t Available lorazepam 1 mg tablet Take 1 tablet 3 times a day by oral route as needed. 08/26 completed Not taking 08-26-18 JG Not Available Not Available Not Available ketoconaz ole 2 % topical cream APPLY TO THE AFFECTED AREA(S) BY TOPICAL ROUTE ONCE DAILY 08/26 completed Not taking 08-26-18 JG Not Available Not Available Not Available Vitamin B-1 100 mg tablet TAKE 1 TABLET BY MOUTH DAILY active Not Available Not Available No t Available ondansetr on 4 mg disintegr ating tablet 06/10 completed Not Available Not Available Not Available fluoxetin e 20 mg capsule TAKE 1 CAPSULE BY MOUTH EVERY DAY 01/18 completed not taking 01/18/23 TR Not Available Not Available Not Available sertralin e 50 mg tablet Take 1/2 tablet daily at bedtime for first week, then may increase to full tablet during second week. 2009 active Not Available Not Available Not Avai lable naproxen 500 mg tablet TK 1 T PO BID 06/10 completed Not Available Not Available Not Available amoxicill in 875 mg-potass ium clavulana te 125 mg tablet Take 1 tablet every 12 hours by oral route. 07/05 completed Per [facility] discharg e summary 06/15/23, not reconcil ed with pt. Not Available Not Available Not Available Subutex 8 mg sublingua l tablet Place 1 tablet twice a day by sublingu al route. 06/10 completed Not Available Not Available Not Available acamprosa te 333 mg tablet,de layed release TAKE 2 TABLETS BY MOUTH THREE TIMES DAILY 07/05 completed Not taking 07/05/24 cc Not Available Not Available Not Available chlorhexi dine gluconate 0.12 % mouthwash 01/24 completed Not Available Not Available Not Available vitamin B complex 1 tab by mouth daily active Per [facility] discharg e summary 06/15/23, not reconcil ed with pt. Not Available Not Available Not Available phenobarb ital 30mg po BID 07/05 completed Per [facility] discharg e summary 06/15/23, not reconcil ed with pt. Not taking 07/05/24 cc Not Available Not Available Not Available lorazepam active PRN per pt's rehab Not Available Not Available Not Available Aspir-81 1 tab p.o. daily 08/26 completed per [facility] Not Available Not Available Not Available ProAir HFA 90 mcg/actua tion aerosol inhaler INHALE 2 PUFFS BY MOUTH EVERY 4 HOURS NEEDED 04/18 completed Not taking 08-26-18 JG, Pt not taking 09/29/19 NMT Not Available Not Available Not Available hydrochlo rothiazid e 12.5 mg tablet TAKE 1 TABLET BY MOUTH DAILY 01/26 completed Not Available Not Available Not Available buprenorp charissa 8 mg-naloxo ne 2 mg sublingua l film 06/16 completed dosage changed Per [facility] discharg e summary 06/15/23, not reconcil ed with pt. Not Available Not Available Not Available Suboxone 12 mg-3 mg sublingua l film DISSVOLE 1 FILM UNDER THE TONGUE DAILY active Not Available Not Available No t Available Vitals Date Recorded Body height Body mass index (BMI) Body weight Heart rate Systolic blood pressure Diastolic blood pressure Provider Name and Address Organization Details Last Updated DateTime 3 164.47 cm 30.1 kg/m2 99624.1 3 g 80 /min 172 mm[Hg] 120 mm[Hg] Shyla Joiner MA [facility] 3 13:41:15 Date Recorded Systolic blood pressure Diastolic blood pressure Systolic blood pressure Diastolic blood pressure Provider Name and Address Organization Details Last Updated DateTime 01/18/2023 160 mm[Hg] 110 mm[Hg] 134 mm[Hg] 98 mm[Hg] RASHI De La O [address] [place] [address], [phone] , [facility] 3 18:05:48 Date Recorded Body height Body mass index (BMI) Body weight Heart rate Systolic blood pressure Diastolic blood pressure Systolic blood pressure Diastolic blood pressure Provider Name and Address Organization Details Last Updated DateTime 3 164.47 cm 30.7 kg/m2 62647.5 g 88 /min 160 mm[Hg] 96 mm[Hg] 164 mm[Hg] 96 mm[Hg] Rhonda العلي MA [facility] 3 09:37:43 Date Recorded Body height Body mass index (BMI) Body weight Heart rate Systolic blood pressure Diastolic blood pressure Provider Name and Address Organization Details Last Updated DateTime 3 164.47 cm 32 kg/m2 88108.8 4 g 80 /min 126 mm[Hg] 76 mm[Hg] Rhonda العلي MA [facility] 3 13:49:16 Date Recorded Systolic blood pressure Diastolic blood pressure Provider Name and Address Organization Details Last Updated DateTime 03/01/2023 121 mm[Hg] 88 mm[Hg] Brandon Gray [facility] 03/01/2023 10:16:09 Date Recorded Body height Body mass index (BMI) Body weight Oxygen saturation Oxygen saturation in Arterial blood by Pulse oximetry Heart rate Systolic blood pressure Diastolic blood pressure Provider Name and Address Organization Details Last Updated DateTime 3 164.47 cm 31.4 kg/m2 39704.7 7 g 96 % 96 % 114 /min 148 mm[Hg] 94 mm[Hg] Rubia Loepz MA [facility] 16:29:12 Date Recorded Body height Body mass index (BMI) Body weight Heart rate Body temperature Oxygen saturation Oxygen saturation in Arterial blood by Pulse oximetry Oxygen saturation Oxygen saturation in Arterial blood by Pulse oximetry Systolic blood pressure Diastolic blood pressure Provider Name and Address Organization Details Last Updated DateTime 164.47 cm 36.2 kg/m2 74263.9 5 g 75 /min 98.6 [degF] 91 % 91 % 93 % 93 % 122 mm[Hg] 76 mm[Hg] Rubia Lopez MA [facility] 5 16:55:51 Date Recorded Systolic blood pressure Diastolic blood pressure Provider Name and Address Organization Details Last Updated DateTime 08/11/2023 134 mm[Hg] 86 mm[Hg] Valerie Rico PA-C [address] [place] [address], [address], [facility] 03/13/2024 11:29:20 Social History Question Answer Notes LastModified by Organizat ion Details LastModified Time Tobacco Smoking Status Former Smoker quit a few weeks ago 01/18/23 [facility] 13:34:08 What Is Your Level Of Alcohol Consumption? None Information not available 07/25/2015 Do You Wear A Helmet When Biking? No Does Not Ride Information not available 08/26/2017 What Is Your Level Of Caffeine Consumption? Moderate 3 Medium Coffees A Day Information not available 08/26/2017 How Much Tobacco Do You Chew? None Information not available 07/25/2015 Are You Currently Employed? Yes Information not available 05/20/2021 What Type Of Diet Are You Following? REGULAR Information not available 08/26/2017 Which Illicit Or Recreational Drugs Have You Used? MJ 2 Times A Day [email or web address] Information not available 07/01/2012 Do You Or Have You Ever Used E-cigarettes Or Vape? Current User Of Electronic Cigarettes 07/05/24 Cc Information not available 07/05/2024 What Is The Highest Grade Or Level Of School You Have Completed Or The Highest Degree You Have Received? [id number] Information not available 05/20/2021 Have There Been Any Changes To Your Family Or Social Situation? No Information not available 05/20/2021 Are There Any Guns Present In Your Home? No Information not available 07/25/2015 Do You Use Insect Repellent Routinely? No Information not available 05/20/2021 Patient Has Health Care Proxy Signed And In Chart Yes [email or web address] Information not available 05/21/2021 What Was The Date Of Your Most Recent Tobacco Screening? 07/05/2024 Information not available 07/05/2024 How Many Children Do You Have? 3 2 Daughters In The House (1 Son Graduated And Out Of The House) Information not available 05/20/2021 What Is Your Current Pack Years? 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 Yes Information not available 05/20/2021 Are You Sexually Active? No Information not available 05/20/2021 Do You Have Smoke And Carbon Monoxide Detectors In Your Home? Yes Information not available 05/20/2021 Are You Passively Exposed To Smoke? No Information not available 05/20/2021 Do You Or Have You Ever Used Smokeless Tobacco? Never Used Smokeless Tobacco Information not available 04/18/2020 What Types Of Sporting Activities Do You Participate In? None Information not available 08/26/2017 Do You Use Sunscreen Routinely? Yes Information not available 07/25/2015 How Many Years Have You Smoked Tobacco? 21 Information not available 05/20/2021 Do You Or Have You Ever Used Any Other Forms Of Tobacco Or Nicotine? No Information not available 05/20/2021 Sex: Female Functional Status Question Answer Note LastModified by Organization D etails LastModified Time What is your exercise level? None Information not available 05/20/2021 Mental Status None recorded. Family History Relationship Description Onset Age of this Age Resolved Age Notes LastModified by Organization Details LastModified Time Father Heart disease 50 [email or web address] [id number] Not available 01/16/2013 03:01:10 Father Malignant tumor of lung hx tobacc o - 62 Not available 08/26/2017 14:30:26 Father Diabetes mellitus Not available 08/26 14:30:53 Mother Hyperlipidem ia [email or web address] [id number] Not available 01/16/2013 03:01:10 Maternal Grandfather Chronic obstructive pulmonary disease 75 previo usly record ed as COPD [email or web address] [id number] Not available 01/16/2013 03:01:10 Maternal Grandmother Cerebrovascu lar accident 75 previo usly record ed as Stroke [email or web address] [id number] Not available 01/16/2013 03:01:10 Paternal Grandfather Heart disease 35 35 [email or web address] [id number] Not available 01/16/2013 03:01:10 Paternal Grandmother Chronic hepatitis C 62 [email or web address] [id number] Not available 01/16/2013 03:01:10 Sister Schizophreni a Not available 08/26 14:31:32 Sister Depressive disorder Not available 08/26 14:31:41 Sister Anxiety Not availabl e 08/26/2017 14:31:59 Notes:Sister - healthy No fa arun hx breast/colon CA Medical History Condition Response Substance Abuse Y Gynecological HistoryNo gynecological history recorded. Obstetrics History GPAL:G 0 P 0 0 0 0 Immunizations Vaccine Type Date Status Note Provider Nam e and Address Organization Details Recorded Time Tdap 08/26/2017 completed Not Available [facility] 06/24/2019 02:22:32 COVID-19, mRNA, LNP-S, PF, 30 mcg/0.3 mL dose 09/29/2020 completed NAOMI Canales [place] [facility] 05/20/2021 15:04:13 COVID-19, mRNA, LNP-S, PF, 30 mcg/0.3 mL dose 10/20/2020 completed NAOMI Canales [facility] 05/20/2021 15:04:23 Past Encounters Encounter ID Performer Location Encounter Start Date Encounter Closed Date Diagnosis/Indication Diagnosis SNOMED-CT Code Diagnosis ICD10 Code Diagnosis Note [id number] , [facility], OFF[address] [place] [address] 04/28/2010 14:01:02 05/07/2010 08:22:34 [id number] [facility], OFFICE [address] [place] [address] 05/04/2010 09:32:18 05/08/2010 13:50:06 [id number] , [facility], OFFICE [address] [facility] [place] [address] 05/21/2010 15:38:42 05/27/2010 14:18:09 [id number] , [facility], OFFICE [address] [facility] [place] [address] 07/15/2010 14:28:44 07/18/2010 15:14:52 [id number] Radiology , [facility] [address] [place] [address] 07/22/2010 11:32:04 07/23/2010 12:18:14 [id number] , [facility], OFFICE [address] [place] [address] 09/08/2010 10:08:03 09/11/2010 13:42:00 [id number] , [facility], OFFICE [address] [place] [address] 04/22/2011 11:24:04 04/22/2011 14:15:58 [id number] [facility], OFFICE [address] [place] [address] 09/08/2011 13:54:48 09/08/2011 15:32:36 [id number] [facility] , [facility] [address] [place] [address] 09/08/2011 14:59:25 09/09/2011 14:30:19 [id number] Saw Soto , [facility], OFFICE [address] [facility] [place] [address] 05/25/2012 11:07:26 05/25/2012 11:43:59 [id number] Leopoldo Cho MD , [facility], OFFICE [address] [place] [address] 07/01/2012 10:16:56 07/01/2012 10:55:19 [id number] Phyllis Srinivasan NP , [facility], OFFICE [address] [place] [address] 07/04/2012 09:47:24 07/04/2012 10:30:01 [id number] BOBBY Young , [facility], OFFICE [address] [place] [address] 11/03/2012 13:44:19 11/03/2012 14:05:26 [id number] Do Major LPN , [facility], OFFICE [address] [place] [address] 10/09/2013 14:36:47 10/09/2013 15:32:59 Conjunctivitis 1200035 [id number] Phyllis Srinivasan NP , [facility], OFFICE [address] [place] [address] 12/25/2013 10:51:15 12/25/2013 11:33:54 Bronchitis [id number] Gillian Monique , [facility], OFFICE [address] [place] [address] 07/11/2015 11:06:43 07/11/2015 12:43:14 Ophthalmic migraine 55549892 G43.B0 Agree stress may very well be a trigger and treating underlying symptoms is important. Would still recommend prophylact ic medication . Would avoid topamax initially given that can cause depression , would hold off on using a BP med because pt may not need to be on this permanentl y. 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 Ophthalmic migraine 9565 5001 G43.B0 Pt is doing better with the gabapentin . Recommend increasing to 600mg. Will try to have her go back to work. If she is having issue with worsening migraines, may need to start gradually and work back up to speed. [id number] Saw Soto , [facility], OFFICE [address] [place] [address] 08/26/2017 13:48:31 08/26/2017 15:05:01 Adult health examination 364659399 Z00.00 see Risk Assessment and Lifestyle Change Counseling section above Counseling 534883892 Z71 .9 Depression screening 171 381868 Z13.89 depression screening tool administer ed, entered into emr, scored and discussed, time greater than 7.5 minutes, some depression . Active or passive immunization 127409812 Z23 Unintentio nal weight loss 578327337 R63.4 Suspicious this could be the suboxone, but will check other labwork to be sure. Amenorrhea 14799820 N91. 2 Will get labwork. Psoriasis 2892119 L40.9 Neoplasm o f uncertain behavior of skin 91271666 D48.5 Opioid dep endence in remission 796246688 F11.21 [id number] Leeanne Danielson MD , [facility], OFFICE [address] [place] [address] 01/24/2019 09:31:48 01/24/2019 13:45:13 Abnormal breath sounds 231707123 R09.89 43 year old with history of tobacco use, one month cough and now left sided chest pain to shoulder and abnormal breath sounds on exam EGG without acute changes though RBBB and EKG from ER pending to compare. X-ray of chest normal. I will treat for bronchitis and pleuritis and if pain continues she will follow up and would consider chest CT. Rest. Nutrition discussed briefly and would benefit from further discussion . Smoking cessation discussed and informatio n for cessation given. Will have smoking cessation counselor follow up with her. She will follow with with primary provider as needed. Chest pain 16958975 R07. 9 As above. Tobacco user 177321926 Z 72.0 above. Smoking cessation discussed and will refer for counseling . Cigarette smoker 4882186 7 F17.210 As above Bronchitis 71120722 J40 As above.At least 40 minutes spent on patient care with over 50% of the time face to face in counseling and coordinati on on above concerns. [id number] Gillian Gaines MD , [facility], OFFICE [address] [place] [address] 06/10/2019 11:03:20 06/10/2019 12:07:17 Pain of left shoulder joint 9178314308 3138242 M25.512 reaching, stretching injury two months ago with worsening pain and limitation with any extension, abduction, internal and external rotationcl unking on examlimite d exam with pain, pt tearfulche ck xraystart PTokay ibuprofen as needed as she has been [id number] YAKOV Waddell, [facility], OFFICE [address] [place] [address] 09/29/2019 11:42:51 10/02/2019 13:18:42 Infection of tooth 668875765 K04.7 chronic poor dentition with worsening pain x3 days. no fevers. Rx Augmentin for likely infection. can also do warm salt water gargles. strongly encouraged to follow up with dentist for extraction . call if fever or pain significan tly worsens Jaw pain 219956049 R68.8 4 likely related to chronic dentition and clenching jaw at night. will try otc mouth guard and follow up with dental [id number] Saw Soto , [facility], OFFICE [address] [place] [address] 04/18/2020 08:55:29 04/24/2020 12:28:38 Opioid dependence in remission 094199782 F11.21 Pt is doing very well with [facility], will refax referral. Further plans as below. Cigarette smoker 2692667 7 F17.210 Tobacco user 833394841 Z 72.0 [id number] Dee Baxter RN BSN [place], [facility], OFFICE [address] [place] [address] 04/15/2021 15:46:13 04/17/2021 16:03:43 Tuberculosis screening 736311744 Z11.7 [id number] Saw DARLING, [facility], OFFICE [address] [place] [address] 05/20/2021 14:52:12 05/20/2021 16:02:25 Adult health examination 922804039 Z00.00 see Risk Assessment and Lifestyle Change Counseling section above Counseling 091226883 Z71 .9 including cardiovasc ular risk reduction counseling Depression screening 171 827451 Z13.31 depression screening tool administer ed, entered into emr, scored and discussed, time greater than 7.5 minutes, significan t depression ; plan as below Screening for alcohol abuse 655359992 Z13.39 Screening for disorder 142789323 Z11.59 Screening for malignant neoplasm of colon 923858224 Z12.11 Major depr ession, melancholic type 818777060 F32.9 Citalopram caused sleepiness . Review of chart shows pt was on sertraline and doesn't recall that it was effective or not. Will use fluoxetine as below. Amenorrhea 32100187 N91. 2 Will get labwork to assess for source. Psoriasis 0036373 L40.9 Refilled. Opioid dep endence in remission 671079174 F11.21 Pt is doing very well with current program [id number] Bailey Mo NP , [facility], OFFICE [address] [place] [address] 08/21/2021 15:59:09 08/29/2021 14:11:28 Screening for malignant neoplasm of colon 011632290 Z12.11 Peripheral edema 1364210 00 R60.9 see above Essential hypertension 59133538 I10 hx of HTN with weight gain in the past. will start HCTZ which may also help with edema. work on a low salt/cara atri diet. follow up in 2-3 weeks Bilateral ankle joint pain 1903957177 1309632 M25.571 persistent bilateral ankle pain and swelling x2-3 months. worse in the morning. no injury. she has gained about 60lb in the last 10 months since she stopped smoking. will get xrays and labs. try low salt diet [id number] RASHI Colindres , [facility], OFFICE [address] [place] [address] 04/27/2022 14:26:52 04/27/2022 16:32:06 Adult health examination 230607086 Z00.00 Counseling 202281512 Z71 .9 Depression screening 171 395683 Z13.31 depression screening tool administer ed, entered into emr, scored and discussed, time greater than 7.5 minutes Active or passive immunization 740860331 Z23 flu- declinesco vid- vac x2 declines booster Major depr ession, melancholic type 956845871 F32.9 Will increase Fluoxetine to 40mg daily, continue with regular counseling Please contact the office if no improvemen t or any worsening symptoms develop Opioid dep endence in remission 012602098 F11.21 Doing well on Suboxone at [facility] Screening for malignant neoplasm of cervix 620148756 Z12.4 Pain in right foot 09850 53190 65491 M79.671 Old fracture in R foot, pain has returned in the area of fracture, will get xray [id number] Valerie Rico PA-C , [facility], OFF[address] [place] [address] 10/14/2022 13:57:09 10/15/2022 09:18:25 Thoracic back pain 322977737 M54.6 - continue with heating pad and motrin, stretching , practicing deep breaths- recommend out of work the rest of this week- no heavy lifting until pain resolves- work note given- call if not improving- declines muscle relaxant for now [id number] Valerie Rico PA-C , [facility], OFFICE [address] [place] [address] 11/11/2022 14:36:49 11/11/2022 15:04:51 Screening mammography 19776404 Z12.31 declined at this time Major depr ession, melancholic type 558645197 F33.3 - worsening symptoms and unable to work, FMLA filled out for three weeks through 12/02- follow up 2-3 weeks- will taper off fluoxetine - decrease to 20mg for 7 days- then stop fluoxetine , and start citalopram - schedule appt with your therapist Screening for malignant neoplasm of colon 016444942 Z12.11 IFOB due march Tobacco user 133890296 Z 72.0 We discussed your smoking today for more than 3 minutes. Cigarette use is the leading cause of preventabl e disease, disability , and in the [place]. We talked about tools and medication s available to help you in smoking cessation. We discussed utilizing our smoking cessation head field hockey coach and online resources. Your personal goal: to quit, has been doing well and not smoking daily Anxiety 22451492 F41.9 - recent worsening, plan as above Essential hypertension 75362131 I10 - high today but also at previous visits- increase HCTZ to 25mg- follow up two weeks [id number] Valerie Rico PA-C , [facility], [address] [place] [address] 11/30/2022 15:21:02 12/01/2022 10:48:08 Major depression, melancholic type 863311304 F33.3 - worsening symptoms and unable to work, work note given for another month out- will slow down taper off fluoxetine - decrease to 30mg for two weeks, the last taper resulted in many symptoms- in two weeks, can decrease to 20mg- schedule appt with Claribel- continue with therapy Tobacco user 527918390 Z 72.0 We discussed your smoking today for more than 3 minutes. Cigarette use is the leading cause of preventabl e disease, disability , and in the [place]. We talked about tools and medication s available to help you in smoking cessation. We discussed utilizing our smoking cessation head field hockey coach and online resources. Your personal goal: continue to not smoke! Anxiety 84589426 F41.9 - recent worsening, plan as above Essential hypertension 01026601 I10 - high today but also at previous visits- discussed importance of taking medication s daily and consistent ly- low salt diet- walking for exercise- follow up two weeks [id number] NAOMI Roger, [facility], OFFICE [address] [place] [address] 01/18/2023 13:24:52 01/20/2023 08:47:49 Seizure 68730952 R56.9 taken to ER for seizure activity, related to uncontroll ed HTN as abovef/u with neurology, referral placed statcurren tly not on any anti seizure medication aware not to drive or swim by self until cleared by neurology Opioid dep endence in remission 102950558 F11.21 stable, on suboxone through [facility] Essential hypertension 03336667 I10 still above goalincrea se amlodipine to 10mg - take second 5mg dose today once home and then call in BP reading later today to check into ER with any BP >200s/120s or with any severe headache, vision changesf/u 1 week, should get labs in 1-2 weeks Hypertensi ve encephalopathy 81608411 I67.4 admission discharge notes reviewedmi ld headache otherwise no neurologic al deficitshe ad CT showing 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 Will refill old script and have pt stop sertraline . Essential hypertension 16965478 I10 Blood pressures not at goal yet, but JUST on HCTZ 25mg for a couple of days. Goal is <130/80. To continue with amlodipine 10mg and HCTZ 25mg; new script sent. To f/u with for BP's next week as scheduled. [id number] Saw DARLING, [facility], [address]ICE [address] [place] [address] 03/01/2023 13:43:24 03/01/2023 14:07:39 Hypertensive encephalopathy 09618102 I67.4 Essential hypertension 24883834 I10 Blood pressures at goal on HCTZ 25mg and amlodipine 10mg daily. Plan on labwork and follow-up in 2-3 months Major depr ession, melancholic type 079132042 F32.9 Pt was doing better on fluoxetine ; no real clear reason why this was changed. Will refill old script and have pt stop sertraline . [id number] RASHI Pollard, [facility], [address] [place] [address] 03/23/2023 16:07:30 03/23/2023 16:50:16 Active or passive immunization 622399023 Z23 flu - declines Abdominal discomfort 433 89006 R10.9 bloating and like movements x2.5 months, worseningP OC hcg negativech george abd US and call with any worsening or new symptoms in the interim Essential hypertension 52463358 I10 above goal, is very anxious todayconti dionisio current regimen and home checks, reena have staff call for reading later this week Anxiety 22058658 F41.9 regarding above symptoms, plan as aboveaware of [facility] resources if needed [id number] Saw Soto , [facility], [address] [place] [address] 07/05/2024 16:38:15 07/06/2024 09:21:44 Active or passive immunization 609148002 Z23 flu - declines 07/05/24 cc Screening for malignant neoplasm of colon 330837059 Z12.11 Stool kit mailed to pt 04/12/24, reminded to complete Screening mammography 24 366521 Z12.31 Ordered 07/05/24 cc Edema of l ower extremity 301572083 R60.0 Given timing of swelling, likely a result of mirtazapin e or gabapentin . Would still want to check labwork. Will have pt do this nonfasting tomorrow. Pt has already been off mirtazapin e x3 days without any improvemen t, so more suspicious for the gabapentin . Chronic al coholism in remission 669141439 F10.21 Currently pt has not had any alcohol since 05/21/24. She is not currently on anything for sobriety. Naltrexone is not an option given pt is on suboxone for opiate hx. She did not find acamprosat e helpful. She declines disulfiram . Opioid dep endence in remission 819471198 F11.21 Pt is doing very well with current program on suboxone. Generalize d anxiety disorder 66166431 F41.1 Pt is on fluoxetine ; would want to consider increasing this, but would add hydroxyzin e in meantime. Health Concerns Section Related Observation LastModified by Organization Detai ls LastModified Time None Recorded Concern Status LastModified by Organization Details LastModified Time None Recorded Advance Directives Directive None Recorded Payers Encounter Date Sequence Insurance Name Policy Number Policy Steele Covered Member ID Steele Member ID Guarantor Name 01/18/2023 1 [facility] HP - DOS ON OR AFTER 2022 - FORMERLY [facility] ACO (MEDICAID REPLACEMENT - HMO) Stefany Hutton [id number] Stefany Hutton 01/26/2023 1 [employer] - DOS ON OR AFTER 2022 - [employer] (MEDICAID REPLACEMENT - HMO) Stefany Hutton [id number] Stefany Hutton 03/01/2023 1 [employer] - DOS ON OR AFTER 2022 - [employer] (MEDICAID REPLACEMENT - HMO) Stefany Hutton [id number] Stefany Hutton 03/23/2023 1 [employer] - DOS ON OR AFTER 2022 - [employer] (MEDICAID REPLACEMENT - HMO) Stefany Hutton [id number] Stefany Hutton 07/05/2024 1 [employer] - DOS ON OR AFTER 2022 - [employer] (MEDICAID REPLACEMENT - HMO) Stefany Hutton [id number] Stefany Hutton Notes Date Note Type Note Provider Name and Address Organization Details Recorded Time 01/18/2023 text/html 01/18/23-hospital f/uadmitted to [facility] x2 nightsreports was at work then taken by ambulance for acute vision changes, dx with HTN encephalopathy, CT showing small chronic infarct involving the left superior frontal gyrusreports known HTN but missed med doses often - lisinopril and ? HCTZ, now on amlodipine and HCTZd/c fluoxetine and switch to sertraline, unsure whyBP about an hour ago at home 147/109, 148/112, 167/118, yesterday in similar rangehas occipital headaches, doesn't feel like self since? FLMA again until BP is figured out, has talked w/ HR but no paperwork in hand yet RASHI Pollard [address] [place] [address], [place], [address], [facility] [place]18/[place]23 18:11:32 01/26/2023 text/html Pt comes in toda y to complete [facility] paperwork. She was hospitalized 01/14-01/16 for HTN encephalopathy diagnosed after acute vision changes onset at work. CT brain showed small chronic infarct. She has a hx of HTN and unfortunately prior to this hadn't always gotten medications regularly. She is now on amlodipine 10mg daily and HCTZ 25mg daily. Pt c/o depression and anxiety. She felt that the fluoxetine was working much better than sertraline did; unclear why changed inpatient and no specific mention in discharge summary. Pt would like to go back on the fluoxetine. 01/18/23-hospital f/uadmitted to [facility] x2 nightsreports was at work then taken by ambulance for acute vision changes, dx with HTN encephalopathy, CT showing small chronic infarct involving the left superior frontal gyrusreports known HTN but missed med doses often - lisinopril and ? HCTZ, now on amlodipine and HCTZd/c fluoxetine and switch to sertraline, unsure whyBP about an hour ago at home 147/109, 148/112, 167/118, yesterday in similar rangehas occipital headaches, doesn't feel like self since? FLMA again until BP is figured out, has talked w/ HR but no paperwork in hand yet Saw Soto [address] [place] [address], [id number] [facility] [place] 10:01:55 03/01/2023 text/html [facility] encephalopathy. She is on HCTZ 25mg, amlodipine 10mg daily. She is also on atorvastatin and aspirin 81mg. She is feeling well overall. 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 She sometimes is getting ankle swelling - this comes and goes. She did get compression stockings. Pt also c/o depression and anxiety. She is back on her fluoxetine and feeling better than the sertraline had her feeling. From last visit: Pt comes in today to complete [facility] paperwork. She was hospitalized 01/14-01/16 for HTN encephalopathy diagnosed after acute vision changes onset at work. CT brain showed small chronic infarct. She has a hx of HTN and unfortunately prior to this hadn't always gotten medications regularly. She is now on amlodipine 10mg daily and HCTZ 25mg daily. Pt c/o depression and anxiety. She felt that the fluoxetine was working much better than sertraline did; unclear why changed inpatient and no specific mention in discharge summary. Pt would like to go back on the fluoxetine. Saw Soto [address] [place], [phone], [facility] [place] 14:07:18 03/23/2023 text/html 03/23/23-x2.5 we eks reports stomach movements movements all throughout the day, feels like she is has 3 children, youngest 11 yo, feels exactly like pregnancies with themno patterns w/ food or anything elsemult tests, at least 6, all negativeno period since 40 yo, not on bcfeels otherwise well, no N/V, fevers, vaginal symptoms, abd pains, urinary symptoms RASHI Pollard [address] [place], [phone], [facility] [place] 16:56:50 07/05/2024 text/html a/vmg-smoking [id number] bypatient.Notes:Pt quit smoking cigarettes, she is vaping 1 cartridge every 3 weeks. Prior was rolling cigarettes and going through 8 per day Pt comes in today c/o worsening swelling and redness BLE over the past ten days. It started while she was at a program for alcohol and was being given lorazepam, gabapentin and mirtazapine. She was in the program for 30 days, meds were started a few days before she was discharged (discharged 06/26/24). She is no longer on the mirtazapine (ended three days ago). Pt was having 30-40 shots of whiskey daily prior to admission (went to [facility] in [place]). Pt was recommended to follow up with [facility]. She is thinking about one, but hasn't had a specific recommendation besides one in [place]. Pt started taking HCTZ 25mg she had over the past three days due to swelling. She isn't urinating more and hasn't noticed any change in the swelling. Pt previously was on acamprosate which was unhelpful for her and so she stopped taking it (also difficult to take 3x daily). Pt c/o significant anxiety. She is on fluoxetine 40mg daily. She was given lorazepam in the program which she found very helpful and she wants to keep taking this. Saw Soto [address] [place] [address], [place], [phone], [facility] [place] 17:35:21 OBGyn Episode No OBEpisode recorded.
== END 2024-09-15 14:30 | disposition home or self-care (01) ==
LOC: HO.HID 13:40
PROVIDERS: PCP Family Medicine; Visit Provider Internal Medicine
DX: F11.21 Opioid dependence, in remission (principal)
CPT/HCPCS: 99213

== ENCOUNTER 2024-10-13 09:47 | Outpatient (AMB) | payer OTHER, SELFPAY ==
--- NOTE | 2024-10-13 09:47 | MHC.OFFVIS ---
Vital Signs 10/13/24 09:49 Height 5 ft 6 in Weight 193 lb BMI 31.1 Pulse 78 Pulse Source Pulse Oximeter Pulse Oximetry (%) 96 Oxygen Delivery Method Room Air Intake Visit Reasons: MAT Allergies codeine [CODEINE] Allergy (Unknown, Verified 10/13/24 09:52) HIVES Codeine Phosphate Allergy (Unknown, Uncoded 10/06/23 14:27) rash HPI HPI MAT: Details: She is doing well with two 8/2 mg Suboxone strips daily. She feels much better. 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 [facility] Medical History Hypertension Depression Anxiety Social History Household Members: Family Housing: Apartment Do you presently have visiting nurse or other home services: No Alcohol intake: current Alcohol intake frequency: 0-2 drinks per day Alcohol type: hard liquor Comment: patient and family refuse camera Patient Tobacco Use Status: Never used Tobacco Substance Use Type: Marijuana Advance Directives Date on File: 06/16/23 service: No Review of Systems Const All systems reviewed & are unremarkable except as noted in HPI and below Physical Exam Vital Signs: Last Vital Signs Pulse 78 10/13/24 09:49 Pulse Ox 96 10/13/24 09:49 Oxygen Delivery Method Room Air 10/13/24 09:49 BMI result Body Mass Index 31.1 Const General: cooperative Results AMB 14 Panel Urine Drug Screen Urine Marijuana (THC) Positive Last Edit by Jagdish Almanza CMA on 10/13/24 09:55 Urine Cocaine Negative Last Edit by Jagdish Almanza CMA on 10/13/24 09:55 Urine Morphine Negative Last Edit by Jagdish Almanza CMA on 10/13/24 09:55 Urine Methamphetamine Negative Last Edit by Jagdish Almanza CMA on 10/13/24 09:55 Urine Amphetamine Negative Last Edit by Jagdish Almanza CMA on 10/13/24 09:55 Urine Benzodiazepine Negative Last Edit by Jagdish Almanza CMA on 10/13/24 09:55 Urine Barbiturates Negative Last Edit by Jagdish Almanza CMA on 10/13/24 09:55 Urine Methadone Negative Last Edit by Jagdish Almanza CMA on 10/13/24 09:55 Urine Buprenorphine Positive Last Edit by Jagdish Almanza CMA on 10/13/24 09:55 Urine Tricyclic Antidepressant Negative Last Edit by Jagdish Almanza CMA on 10/13/24 09:55 Urine MDMA Negative Last Edit by Jagdish Almanza CMA on 10/13/24 09:55 Urine Oxycodone Negative Last Edit by Jagdish Almanza CMA on 10/13/24 09:55 Urine Phencyclidine Negative Last Edit by Jagdish Almanza CMA on 10/13/24 09:55 Urine Propoxyphene Negative Last Edit by Jagdish Almanza CMA on 10/13/24 09:55 Results Reviewed Results Reviewed: Laboratory Last Values POC Urine Buprenorphine Positive 10/13/24 09:54 POC Urine Morphine Negative 10/13/24 09:54 POC Urine Oxycodone Negative 10/13/24 09:54 POC Urine Methadone Negative 10/13/24 09:54 POC Urine Propoxyphene Negative 10/13/24 09:54 POC Urine Barbiturates Negative 10/13/24 09:54 POC U Tricyclic Antidpr Negative 10/13/24 09:54 POC Urine PCP Negative 10/13/24 09:54 POC Ur Amphetamines Negative 10/13/24 09:54 POC Ur Methamphetamine Negative 10/13/24 09:54 POC Urine MDMA Negative 10/13/24 09:54 POC Ur Benzodiazepine Negative 10/13/24 09:54 POC Urine Cocaine Negative 10/13/24 09:54 POC Ur Marijuana (THC) Positive 10/13/24 09:54 Assessment & Plan Assessment & Plan (1) Opioid use disorder, moderate, in sustained remission: Comment: She has been doing well with two Suboxone daily Code(s): F11.21 - Opioid dependence, in remission Category: Medical Plan: Continue Suboxone 8/2 daily,60 and one refill. See in one month (2) Alcohol use disorder, severe, dependence: Code(s): F10.20 - Alcohol dependence, uncomplicated Category: Medical Plan: na Orders: Orders AMB 14 Panel Urine Drug Screen Today Z51.81 - Encounter for therapeutic drug level monitoring Medications: New buprenorphine-naloxone 8-2 mg (Suboxone) place [facility] sublingual DAILY 60 ea 0RF 30 days Coding Level of Care Code Est Pt Level 3 (21237) Diagnoses Opioid use disorder, moderate, in sustained remission F11.21 Alcohol use disorder, severe, dependence F10.20
[2024-10-13 09:49] VITALS: PULSE 78; O2SAT 96; BMI 31.1
--- OUTSIDE RECORDS SUMMARY | 2024-10-13 10:11 | XMS_ITS | Data Portability ---
Author Organization [facility], , [facility] Address [address] [place] [address] Care Team Providers Care Base Wad Operator Adjuster Name Role Phone SAW SOTO Primary Care Provider [phone] [facility] Addiction Medicine SEBASTIEN BARRAZA OTHER Assessment No assessment recorded. Plan of Treatment Reminders Order Date Submit Date Provider Last Modified By Organization Details Last Modified Time Details Appointments Mammo gram, Cuonge galina 2024 02:00P M [facility] Mammography Not available Not available Not available Lab TSH, serum or plasm a 2024 025 [facility], [address] [place] [address], [id number], 08/17/2024 10:23:39 CMP, serum or plasm a 2024 025 [facility], [address] [place] [address], [id number], 08/17/2024 10:23:39 CBC 2024 025 [facility], [address] [place] [address], [id number], 08/17/2024 10:23:39 pregn lacey test, urine [email or web address] [facility], [address] [place] [address], [id number], 03/23/2023 16:58:28 Referral neuro logis t refer ral - seizu re like activ ity dx with HTN encep halop athy. seen by Dr. Ghassan tovar inpt. needs outpt follo w up. 2022 023 [email or web address] Vitaliy Stevenson MD, [address] [place] [address] [place], [address], 03/23/2023 16:50:47 Procedures None recor ded. Surgeries None recor ded. Imaging US, abdom en, compl ete - 49 y/o with hx of alcoh ol, now with edema , pleas e asses s 2024 025 [facility] (Imaging), [address], [place], [address], 08/14/2024 14:04:53 MAMMO , scree galina, tomos ynthe sis, bilat eral - 2nd Look Consu lt/Di ag Mammo /US Breas t/Bobby ded Asp/B reast Bx/Cl ip Place ment, as clini nery indic ated. 2024 025 [facility] (Imaging), [address], [place], [address], 08/03/2024 16:02:16 US, abdom en + pelvi s - abdom inal move ments x2.5 month s and worse galina. bloat ing. 2022 023 [facility] (Imaging), [address], [place], [address], 03/29/2023 20:14:14 Medication Orders hydro xyzin e HCl 25 mg table t 2024 025 [facility], [address] [facility] [place], [id number], 07/05/2024 17:35:23 aspir in 81 mg chewa ble table t [address] [facility]19, [address] [facility] [place], [id number], 07/05/2024 16:50:36 fluox etine 40 mg capsu le [address] [facility]65690, [address] [place], [place], [id number], 06/16/2023 10:14:20 hydro chlor othia zide 25 mg table t [address] [facility]24773, [address] [place], [place], [id number], 06/16/2023 10:15:05 amlod ipine 10 mg table t [address] [facility] #06686, [address] [place], [place], [id number], 06/16/2023 10:14:36 Patient TargetsNo targets recorded. Patient Instructions Encounter Date Encounter Id Patient Instructions Last Modified By Organization Details Last Modified Time 01/26/2023 [id number] Blood pressure check instructions -Do not have [...] from sertraline Not available 01/26/2023 09:57:37 03/01/2023 [id number] -Fasting labwork (nothing to eat/drink for 12 hours prior to appointment except water) in 2-3 months with follow-up hypertension -Wellness visit after April ls Not available 03/01/2023 14:02:14 07/05/2024 [id number] -Take gabapentin 300mg twice daily (half tablet) until they're gone -Labwork tomorrow -Ultrasound liver (see if they can do with the labwork -Check out the IOP at [place] and [place] -STOP HCTZ because I don't think that [...] HCG HCG POC NEGATI VE Not Available [facility] [address] [place], [address], 03/23/2023 16:43:48 01/21/2001/15/2023 elect ronaila ephal ogram No observ ation record ed. [facility] (Medical Records) [address] [place], [address], 01/20/2023 15:42:09 03/29/2003/29/2023 US, abdom en + pelvi s CLINIC [...] unrema rkable endova ginal pelvic ultras ound. Readin g Physic kaylen: Solomon Lisa ms [facility] (Imaging) [address], [place], [address], 04/05/2023 13:15:26 04/27/20 23 04/22/2023 elect roenc ephal ogram No observ ation record ed. [facility] (Medical Records) [address] [facility], [place], [address], 04/27/2023 14:02:43 06/11/19 24 06/11/2023 CT, brain , w/o contr ast No observ ation record ed. [facility] [id number] [place], [address], 06/14/2023 18:19:49 06/11/19 24 06/11/2023 XR, chest No observ ation record ed. [facility] [id number] [place], [address], 06/14/2023 18:19:50 06/14/19 24 06/14/2023 MRI, head, w/wo contr ast No observ ation record ed. [facility] [id number] [place], [address], 06/16/2023 18:57:42 Result Notes None recorded. Problems Name Problem SNOMED Code Status Onset Date Resolution Date Notes Provider Name and Address Organization Details Recorded Time Major depressi on, melancho lic type 883440094 Active Saw Soto [address] [place] [address], [phone] , [facility] 6 12:05:54 Insect bite, nonvenom ous, of shoulder 367956652 Completed 04/05/2013 Reena Damian PA-C [address] [place] [address], [address] , [facility] 3 10:35:12 Joint pain in ankle and foot Completed 09/08/2011 Not Available [facility] 3 03:34:35 Benign essentia l hyperten renard 1136735 Completed 08/26/2017 Removal Reason: in remissio n Saw Soto [address] [place] [address], [address] , [facility] 8 14:33:20 Pain of hip region 32385818 Completed 04/05/2013 Reena Damian PA-C [address] [place] [address], [address] , [facility] 3 10:35:12 Acute pharyngi tis 216542713 Completed 04/05/2013 Reena Damian PA-C [address] [place] [address], [phone] , [facility] 3 10:35:12 Bronchit is 70185952 Active Phyllis Srinivasan NP [address] [place] [address], [address] , [facility] 4 20:58:55 Opioid dependen ce in remissio n 916226812 Active 2017 on suboxone Saw Soto [address] [place] [address], [address] , [facility] 8 14:32:26 Tobacco user 472963439 Completed 201805/20/2021 Saw Soto [address] [place] [address], [address] , [facility] 1 16:01:20 Ex-smoke r 0901511 Active 2019 Saw Soto [address] [place] [address], [address] , [facility] 1 16:01:16 Anxiety 08398617 Active 2022 Valerie Rico PA-C [address] [place] [address], [address] , [facility] 3 14:57:33 Essentia l hyperten renard 14751454 Active 2022 Valerie Rico PA-C [address] [place] [address], [address] , [facility] 3 15:36:54 Hyperten sive encephal opathy 21329584 Active 2022 RASHI Pollard [address] [place] [address], [address] , [facility] 3 18:07:27 Alcohol withdraw al 558200474 Active 2023 Wih seizures : Per [facility] discharg e summary 06/15/23 Esthela Fuller RN null, [facility] 4 10:32:38 Seizure 65028844 Active 2023 Per [facility] discharg e summary 06/15/[address] [facility] 4 10:31:58 Alcohol dependen ce 73022040 Active Saw Trinidad Soto [address] [place] [address], [address] , [facility] 4 19:44:49 Problem Notes None recorded. Procedures Surgical History Date Name Laterality Status Provider Name and Address Organization Details Recorded Time 07/05/19 25 Smoking cessation counseling completed Rubia Lopez [facility] 07/05/2024 16:52:44 12/01/19 23 Smoking cessation counseling completed Rhonda العلي [facility] 11/26/2022 14:44:20 11/12/19 23 Smoking cessation counseling completed Leandra Jon Nahomy [facility] 11/11/2022 14:46:56 05/20/20 21 Smoking cessation counseling completed Chanell Hampton [facility] 05/20/2021 11:59:37 04/18/20 20 Smoking cessation counseling completed Rhonda Diaz [facility] 04/18/2020 08:57:55 04/18/20 20 Carbon Monoxide Testing completed Rhonda Diaz [facility] 04/18/2020 08:57:55 01/25/20 19 Smoking cessation counseling completed Leeanne Danielson MD [address] [place] [address], [address], [facility] 01/24/2019 10:19:53 01/25/20 19 Carbon Monoxide Testing completed Leeanne Danielson MD [address] [place] [address], [address], [facility] 01/24/2019 10:19:53 06/07/18 95 Arthroscopy completed Not Available [facility] 04/23/20 11 06:06:16 Imaging Results Imaging Date Name Status LastModified by Organization Details LastModified Time 01/15/2023 electroencephalogram completed [facility] (Medical Records) [address] [place], [address], 01/20/2023 15:42:09 03/29/2023 US, abdomen + pelvis completed [facility] (Imaging) [address], [place], [address], 04/05/2023 13:15:26 04/22/2023 electroencephalogram completed [address] (Medical Records) [address] [place] [address], [address], 04/27/2023 14:02:43 06/11/2023 CT, brain, w/o contrast completed [address], [address], 06/14/2023 18:19:49 06/11/2023 XR, chest completed [address], [address], 06/14/2023 18:19:50 06/14/2023 MRI, head, w/wo contrast completed [address], [address], 06/16/2023 18:57:42 Procedure Notes None recorded. Medical Equipment None Reported. Allergies Allergen ID Allergen Name Allergen Category Reaction Reaction Severity Criticality Documentation Date Start Date Code Code System Note Provider Name and Address Organization Details Recorded Time 87346 codeine medicatio n rash Not available Not available 04/22/2011 26[address] RxNorm [address] MA [facility] 1 12:56:35 Medications Name Sig Start Date [...] bedtime. 06/16 completed dose increase d Per [facility] discharg e summary 06/15/23, not reconcil ed [...] TWICE DAILY 06/16 completed disconti nued Per [facility] discharg e summary 06/15/23, not reconcil ed [...] for 30 days. 08/26 completed Not taking 08-26-17 JG Not Available Not Available Not Available sertralin e 25 mg tablet Take 1 tablet every day by oral route. 01/26 completed per [facility] d/c Not Available Not Available Not Available aspirin 81 mg chewable tablet CHEW AND SWALLOW 1 TABLET BY MOUTH EVERY DAY active Per [facility] discharg e summary 06/15/23, not reconcil ed [...] hours by oral route. 07/05 completed Per [facility] discharg e summary 06/15/23, not reconcil ed [...] 1 tab by mouth daily active Per [facility] discharg e summary 06/15/23, not reconcil ed with pt. Not Available Not Available Not Available phenobarb ital 30mg po BID 07/05 completed Per [facility] discharg e summary 06/15/23, not reconcil ed with pt. Not taking 07/05/24 cc Not Available Not Available Not Available lorazepam active PRN per pt's rehab Not Available Not Available Not Available Aspir-81 1 tab p.o. daily 08/26 completed per [facility] Not Available Not Available Not Available ProAir HFA 90 mcg/actua tion aerosol inhaler INHALE 2 PUFFS BY MOUTH EVERY 4 HOURS NEEDED 04/18 completed Not taking 08-26- JG, Pt not taking 09/29/19 NMT Not Available Not Available Not Available hydrochlo rothiazid e 12.5 mg tablet TAKE 1 TABLET BY MOUTH DAILY 01/26 completed Not Available Not Available Not Available buprenorp charissa 8 mg-naloxo ne 2 mg sublingua l film 06/16 completed dosage changed Per [facility] discharg e summary 06/15/23, not reconcil ed [...] Updated DateTime 3 164.47 cm 30.1 kg/m2 34482.1 3 g 80 /min 172 mm[Hg] 120 mm[Hg] Shyla Joiner [facility] 3 13:41:15 Date Recorded Systolic blood pressure Diastolic blood pressure Systolic blood pressure Diastolic blood pressure Provider Name and Address Organization Details Last Updated DateTime 01/18/2023 160 mm[Hg] 110 mm[Hg] 134 mm[Hg] 98 mm[Hg] RASHI De La O [address] [place] [address], [address] , [facility] 3 18:05:48 Date Recorded Body height Body mass index (BMI) Body weight Heart rate Systolic blood pressure Diastolic blood pressure Systolic blood pressure Diastolic blood pressure Provider Name and Address Organization Details Last Updated DateTime 3 164.47 cm 30.7 kg/m2 94150.5 g 88 /min 160 mm[Hg] 96 mm[Hg] 164 mm[Hg] 96 mm[Hg] Rhonda العلي MA [facility] 3 09:37:43 Date Recorded Body height Body mass index (BMI) Body weight Heart rate Systolic blood pressure Diastolic blood pressure Provider Name and Address Organization Details Last Updated DateTime 3 164.47 cm 32 kg/m2 16879.8 4 g 80 /min 126 mm[Hg] 76 mm[Hg] Rhonda العلي MA [facility] 3 13:49:16 Date Recorded Systolic blood pressure Diastolic blood pressure Provider Name and Address Organization Details Last Updated DateTime 03/01/2023 121 mm[Hg] 88 mm[Hg] Brandon Gray [facility] 03/01/2023 10:16:09 Date Recorded Body height Body mass index (BMI) Body weight Oxygen saturation Oxygen saturation in Arterial blood by Pulse oximetry Heart rate Systolic blood pressure Diastolic blood pressure Provider Name and Address Organization Details Last Updated DateTime 3 164.47 cm 31.4 kg/m2 49155.7 7 g 96 % 96 % 114 /min 148 mm[Hg] 94 mm[Hg] Rubia Lopez MA [facility] 3 16:29:12 Date Recorded Body height Body mass index (BMI) Body weight Heart rate Body temperature Oxygen saturation Oxygen saturation in Arterial blood by Pulse oximetry Oxygen saturation Oxygen saturation in Arterial blood by Pulse oximetry Systolic blood pressure Diastolic blood pressure Provider Name and Address Organization Details Last Updated DateTime 5 164.47 cm 36.2 kg/m2 17503.9 5 g 75 /min 98.6 [degF] 91 % 91 % 93 % 93 % 122 mm[Hg] 76 mm[Hg] Rubia Lopez MA [facility] 5 16:55:51 Date Recorded Body height Body mass index (BMI) Body weight Oxygen saturation Oxygen saturation in Arterial blood by Pulse oximetry Heart rate Provider Name and Address Organization Details Last Updated DateTime 5 167.64 cm 30.7 kg/m2 59985.5 5 g 97 % 97 % 77 /min Ivory Richardson RN [facility] 5 15:09:46 Date Recorded Systolic blood pressure Diastolic blood pressure Provider Name and Address Organization Details Last Updated DateTime 08/11/2023 134 mm[Hg] 86 mm[Hg] Valerie Rico PA-C [address] [place] [address], [address], [facility] 03/13/2024 11:29:20 Social History Question Answer Notes LastModified by Organizat ion Details LastModified Time Tobacco Smoking Status Former Smoker quit a few weeks ago 01/18/23 NAOMI Alejandre, [facility] 01/18/2023 13:34:08 What Is Your Level Of [...] You Used? MJ 2 Times A Day [email or web address] Information not available 07/01/2012 Do You Or Have You Ever Used E-cigarettes Or Vape? Current User Of Electronic Cigarettes 07/05/24 Cc Information not available 07/05/2024 What Is The Highest Grade Or Level Of School You Have Completed Or The Highest Degree You Have Received? [id number] Information not available 05/20/2021 Have There Been [...] LastModified Time Father Heart disease 50 [email or web address] [id number] Not available 01/16/2013 03:01:10 Father Malignant neoplasm of lung hx tobacc o - 62 Not available 08/26/2017 14:30:26 Father Diabetes mellitus Not available 08/26 14:30:53 Mother Hyperlipidem ia [email or web address] [id number] Not available 01/16/2013 03:01:10 Maternal Grandfather Chronic obstructive pulmonary disease 75 previo usly record ed as COPD [email or web address] [id number] Not available 01/16/2013 03:01:10 Maternal Grandmother Cerebrovascu lar accident 75 previo usly record ed as Stroke [email or web address] [id number] Not available 01/16/2013 03:01:10 Paternal Grandfather Heart disease 35 35 [email or web address] [id number] Not available 01/16/2013 03:01:10 Paternal Grandmother Chronic hepatitis C 62 [email or web address] [id number] Not available 01/16/2013 03:01:10 Sister Schizophreni a [...] Recorded Time Tdap 08/26/2017 completed Not Available [facility] 06/24/2019 02:22:32 COVID-19, mRNA, LNP-S, PF, 30 mcg/0.3 mL dose 09/29/2020 [facility] 15:04:13 COVID-19, mRNA, LNP-S, PF, 30 mcg/0.3 mL dose 10/20/2020 [facility]/2021 15:04:23 Past Encounters Encounter ID Performer Location Encounter Start Date Encounter Closed Date Diagnosis/Indication Diagnosis SNOMED-CT Code Diagnosis ICD10 Code Diagnosis Note [id number] Saw Soto , [facility], OFFICE [address] [place] [address] 04/28/2010 14:01:02 05/07/2010 08:22:34 [id number] Vu Gorman MD , [facility], OFFICE [address] [place] [address] 05/04/2010 09:32:18 05/08/2010 13:50:06 [id number] Saw Soto , [facility], OFFICE [address] [place] [address] 05/21/2010 15:38:42 05/27/2010 14:18:09 [id number] Saw DARLING, [facility], OFFICE [address] [place] [address] 07/15/2010 14:28:44 07/18/2010 15:14:52 [id number] [facility] Radiology , [facility] [address] [place] [address] 07/22/2010 11:32:04 07/23/2010 12:18:14 [id number] Saw DARLING, [facility], OFFICE [address] [place] [address] 09/08/2010 10:08:03 09/11/2010 13:42:00 [id number] Leopoldo Cho MD , [facility], OFFICE [address] [place] [address] 04/22/2011 11:24:04 04/22/2011 14:15:58 [id number] Sherwin Llanes MD , [facility], [address]ICE [address] [place] [address] 09/08/2011 13:54:48 09/08/2011 15:32:36 [id number] [facility] RADIOLOGY Technologi Radiology , [facility] [address] [place] [address] 09/08/2011 14:59:25 09/09/2011 14:30:19 [id number] Saw Soto , [facility], OFFICE [address] [facility] [address] 05/25/2012 11:07:26 05/25/2012 11:43:59 [id number] Leopoldo Cho MD , [facility], OFFICE [address] [place] [address] [place] [address] 07/01/2012 10:16:56 07/01/2012 10:55:19 [id number] Phyllis Srinivasan NP , [facility], OFFICE [address] [facility] [address] 07/04/2012 09:47:24 07/04/2012 10:30:01 [id number] Vu Gorman MD , [facility], OFFICE [address] [facility] [address] 11/03/2012 13:44:19 11/03/2012 14:05:26 [id number] MD LISSET Mercado, [facility], OFFICE [address] [facility] [address] 10/09/2013 14:36:47 10/09/2013 15:32:59 Conjunctivitis [id number] MD LISSET Tyler, [facility], OFFICE [address] [facility] [address] 12/25/2013 10:51:15 12/25/2013 11:33:54 Bronchitis [id number] Saw DARLING, [facility], OFFICE [address] [facility] [address] 07/11/2015 11:06:43 07/11/2015 12:43:14 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 Would still recommend prophylact ic medication . Would avoid topamax initially given that can cause depression , would hold off on using a BP med because pt may not need to be on this permanentl y. Stress 25112276 Z73.3 Hypertensive disorder 38 897839 I10 [id number] Saw Soto , [facility], OFFICE [address] [place] [address] 07/25/2015 11:12:11 07/25/2015 12:09:15 Major depression, melancholic type 729253669 F32.9 Pt to case picker the citalopram and plan on follow-up [...] gradually and work back up to speed. [id number] Saw DARLING, [facility], OFFICE [address] [place] [address] 08/26/2017 13:48:31 08/26/2017 15:05:01 Adult health examination 289554779 Z00.00 see Risk Assessment and Lifestyle Change Counseling section above Counseling 834017787 Z71 .9 Depression screening 171 145262 Z13.89 depression screening tool administer ed, entered into emr, scored and discussed, time greater than 7.5 minutes, some depression . Active or passive immunization 716455408 Z23 Unintentio nal weight loss 253381140 R63.4 Suspicious this could be the suboxone, but will check other labwork to be sure. Amenorrhea 28037013 N91. 2 Will get labwork. Psoriasis 5594020 L40.9 Neoplasm o f uncertain behavior of skin 50481434 D48.5 Opioid dep endence in remission 023769446 F11.21 [id number] MD LISSET Han, [facility], OFFICE [address] [place] [address] 01/24/2019 09:31:48 01/24/2019 13:45:13 Abnormal breath sounds 233420172 R09.89 43 year old with history of [...] with primary provider as needed. Chest pain 97686597 R07. 9 As above. Tobacco user 193326762 Z 72.0 above. Smoking cessation discussed and will refer for counseling . Cigarette smoker 9577755 7 F17.210 As above Bronchitis 00755648 J40 As above.At least 40 minutes spent on patient care with over 50% of the time face to face in counseling and coordinati on on above concerns. [id number] Gillian Gaines MD , [facility], [address] [place] [address] 06/10/2019 11:03:20 06/10/2019 12:07:17 Pain of left shoulder joint 8509695517 3562159 M25.512 reaching, stretching injury two months ago with worsening pain and limitation with any extension, abduction, internal and external rotationcl unking on examlimite d exam with pain, pt tearfulche ck xraystart PTokay ibuprofen as needed as she has been [id number] Bailey Mo NP FP, [facility], OFFICE [address] [place] [address] 09/29/2019 11:42:51 10/02/2019 13:18:42 Infection of tooth 126047352 K04.7 chronic poor dentition with worsening pain x3 days. no fevers. Rx Augmentin for likely infection. can also do warm salt water gargles. strongly encouraged to follow up with dentist for extraction . call if fever or pain significan tly worsens Jaw pain 588427181 R68.8 4 likely related to chronic dentition and clenching jaw at night. will try otc mouth guard and follow up with dental [id number] Saw Soto , [facility], OFFICE [address] [place] [address] 04/18/2020 08:55:29 04/24/2020 12:28:38 Opioid dependence in remission F11.21 Pt is doing very well with [facility], will refax referral. Further plans as below. Cigarette smoker 3032307 7 F17.210 Tobacco user 430662328 Z 72.0 [id number] Saw Soto , [facility], OFFICE [address] [place] [address] 04/15/2021 15:46:13 04/17/2021 16:03:43 Tuberculosis screening 289068218 Z11.7 [id number] Saw Soto , [facility], OFF[address] [place] [address] 05/20/2021 14:52:12 05/20/2021 16:02:25 Adult health examination 778493504 Z00.00 see Risk Assessment and Lifestyle Change Counseling section above Counseling 395593944 Z71 .9 including cardiovasc ular risk reduction counseling Depression screening 171 399934 Z13.31 depression screening tool administer ed, entered into emr, scored and discussed, time greater than 7.5 minutes, significan t depression ; plan as below Screening for alcohol abuse 593045471 Z13.39 Screening for disorder 313804364 Z11.59 Screening for malignant neoplasm of colon 125689787 Z12.11 Major depr ession, melancholic type 994404617 F32.9 Citalopram caused sleepiness . Review of chart shows pt was on sertraline and doesn't recall that it was effective or not. Will use fluoxetine as below. Amenorrhea 68222173 N91. 2 Will get labwork to assess for source. Psoriasis 6506978 L40.9 Refilled. Opioid dep endence in remission 604989843 F11.21 Pt is doing very well with current program [id number] MD LISSET Plaza, [facility] [facility] [address] [place] [address] 08/21/2021 15:59:09 08/29/2021 14:11:28 Screening for malignant neoplasm of colon [id number] Z12.11 Peripheral edema [id number] 00 R60.9 see above Essential hypertension 08478450 I10 hx of HTN with weight gain in the past. will start HCTZ which may also help with edema. work on a low salt/cara arti diet. follow up in 2-3 weeks Bilateral ankle joint pain [id number] M25.571 persistent bilateral ankle pain and swelling x2-3 months. worse in the morning. no injury. she has gained about 60lb in the last 10 months since she stopped smoking. will get xrays and labs. try low salt diet [id number] Saw DARLING, [facility], OFFICE [address] [place] [address] 04/27/2022 14:26:52 04/27/2022 16:32:06 Adult health examination [id number] Z00.00 Counseling 937954866 Z71 .9 Depression screening 171 705127 Z13.31 depression screening tool administer ed, entered into emr, scored and discussed, time greater than 7.5 minutes Active or passive immunization 968700304 Z23 flu- declinesco vid- vac x2 declines booster Major depr ession, melancholic type 442143922 F32.9 Will increase Fluoxetine to 40mg daily, continue with regular counseling Please contact the office if no improvemen t or any worsening symptoms develop Opioid dep endence in remission 378864139 F11.21 Doing well on Suboxone at [place] Screening for malignant neoplasm of cervix 529100502 Z12.4 Pain in right foot 85397 90590 87438 M79.671 Old fracture in R foot, pain has returned in the area of fracture, will get xray [id number] Saw DARLING, [facility] OFFICE [address] [place] [address] 10/14/2022 13:57:09 10/15/2022 09:18:25 Thoracic back pain 489347792 M54.6 - continue with heating pad and motrin, stretching , practicing deep breaths- recommend out of work the rest of this week- no heavy lifting until pain resolves- work note given- call if not improving- declines muscle relaxant for now [id number] Saw DARLING, [facility] OFFICE [address] [place] [address] 11/11/2022 14:36:49 11/11/2022 15:04:51 Screening mammography 16525252 Z12.31 declined at this time Major depr ession, melancholic type 257703420 F33.3 - worsening symptoms and unable to work, FMLA filled out for three weeks through 12/02- follow up 2-3 weeks- will taper off fluoxetine - decrease to 20mg for 7 days- then stop fluoxetine , and start citalopram - schedule appt with your therapist Screening for malignant neoplasm of colon 252554428 Z12.11 IFOB due march Tobacco user 879938652 Z 72.0 We discussed your smoking today for more than 3 minutes. Cigarette use is the leading cause of preventabl e disease, disability , and in the [place]. We talked about tools and medication s available to help you in smoking cessation. We discussed utilizing our smoking cessation curriculum coach and online resources. Your personal goal: to quit, has been doing well and not smoking daily Anxiety 42515849 F41.9 - recent worsening, plan as above Essential hypertension 38880972 I10 - high today but also at previous visits- increase HCTZ to 25mg- follow up two weeks [id number] Saw DARLING, [facility] [address] [place] [address] 11/30/2022 15:21:02 12/01/2022 10:48:08 Major depression, melancholic type 608144006 F33.3 - worsening symptoms and unable to work, work note given for another month out- will slow down taper off fluoxetine - decrease to 30mg for two weeks, the last taper resulted in many symptoms- in two weeks, can decrease to 20mg- schedule appt with Claribel- continue with therapy Tobacco user 857850469 Z 72.0 We discussed your smoking today for more than 3 minutes. Cigarette use is the leading cause of preventabl e disease, disability , and in the [place]. We talked about tools and medication s available to help you in smoking cessation. We discussed utilizing our smoking cessation curriculum coach and online resources. Your personal goal: continue to not smoke! Anxiety 27281877 F41.9 - recent worsening, plan as above Essential hypertension 41820686 I10 - high today but also at previous visits- discussed importance of taking medication s daily and consistent ly- low salt diet- walking for exercise- follow up two weeks [id number] MD LISSET Mercado, [facility] [address] [place] [address] 01/18/2023 13:24:52 01/20/2023 08:47:49 Seizure 18391006 R56.9 taken to ER for seizure activity, related to uncontroll ed HTN as abovef/u with neurology, referral placed statcurren tly not on any anti seizure medication aware not to drive or swim by self until cleared by neurology Opioid dep endence in remission 315618804 F11.21 stable, on suboxone through [facility] Essential hypertension 77934945 I10 still above goalincrea se amlodipine to 10mg - take second 5mg dose today once home and then call in BP reading later today to check into ER with any BP >200s/120s or with any severe headache, vision changesf/u 1 week, should get labs in 1-2 weeks Hypertensi ve encephalopathy 78029929 I67.4 admission discharge notes reviewedmi ld headache otherwise no neurologic al deficitshe ad CT showing 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 Will refill old script and have pt stop sertraline . Essential hypertension 82503537 I10 Blood pressures not at goal yet, but JUST on HCTZ 25mg for a couple of days. Goal is <130/80. To continue with amlodipine 10mg and HCTZ 25mg; new script sent. To f/u with for BP's next week as scheduled. [id number] Saw DARLING, [facility] [address] [place] [address] 03/01/2023 13:43:24 03/01/2023 14:07:39 Hypertensive encephalopathy 67842197 I67.4 Essential hypertension 46993606 I10 Blood pressures at goal on HCTZ 25mg and amlodipine 10mg daily. Plan on labwork and follow-up in 2-3 months Major depr ession, melancholic type 233718171 F32.9 Pt was doing better on fluoxetine ; no real clear reason why this was changed. Will refill old script and have pt stop sertraline . [id number] Vu Gorman MD FP, [facility] [address] [place] [address] 03/23/2023 16:07:30 03/23/2023 16:50:16 Active or passive immunization 639419848 Z23 flu - declines Abdominal discomfort 433 73578 R10.9 bloating and like movements x2.5 months, worseningP OC hcg negativech george abd US and call with any worsening or new symptoms in the interim Essential hypertension 46852181 I10 above goal, is very anxious todayconti nue current regimen and home checks, sill have staff call for reading later this week Anxiety 39573320 F41.9 regarding above symptoms, plan as aboveaware of [facility] resources if needed [id number] Saw Soto , [facility] [address] [place] [address] 07/05/2024 16:38:15 07/06/2024 09:21:44 Active or passive immunization 124854792 Z23 flu - declines 07/05/24 cc Screening for malignant neoplasm of colon 621049836 Z12.11 Stool kit mailed to pt 04/12/24, reminded to complete Screening mammography 24 701808 Z12.31 Ordered 07/05/24 cc Edema of l ower extremity 968627806 R60.0 Given timing of swelling, likely a result of mirtazapin e or gabapentin . Would still want to check labwork. Will have pt do this nonfasting tomorrow. Pt has already been off mirtazapin e x3 days without any improvemen t, so more suspicious for the gabapentin . Chronic al coholism in remission 114347488 F10.21 Currently pt has not had any alcohol since 05/21/24. She is not currently on anything for sobriety. Naltrexone is not an option given pt is on suboxone for opiate hx. She did not find acamprosat e helpful. She declines disulfiram . Opioid dep endence in remission 283606741 F11.21 Pt is doing very well with current program on suboxone. Generalize d anxiety disorder 34616842 F41.1 Pt is on fluoxetine ; would [...] Steele Member ID Guarantor Name 01/18/2023 1 [employer] - DOS ON OR AFTER 2022 - [employer] (MEDICAID REPLACEMENT - HMO) Stefany Gibbssahara [id number] Stefany Odomhrsahara 01/26/2023 1 [employer] - DOS ON OR AFTER 2022 - [employer] (MEDICAID REPLACEMENT - HMO) Stefany Odomkeyona [id number] Stefany Odomhrsahara 03/01/2023 1 [employer] - DOS ON OR AFTER 2022 - [employer] (MEDICAID REPLACEMENT - HMO) Stefany Gibbssahara [id number] Stefany Odomhrsahara 03/23/2023 1 [employer] - DOS ON OR AFTER 2022 - [employer] (MEDICAID REPLACEMENT - HMO) Stefany Gibbssahara [id number] Stefany Odomhrsahara 07/05/2024 1 [employer] - DOS ON OR AFTER 2022 - [employer] (MEDICAID REPLACEMENT - HMO) Stefany Brennen [id number] Stefany Brennen Notes Date Note Type Note Provider Name and Address Organization Details Recorded Time 01/18/2023 text/html 01/18/23-hospital f/uadmitted to [facility] x2 nightsreports was at work then taken [...] no paperwork in hand yet RASHI Pollard [address] [place], [address], [facility] 01/18/2023 18:11:32 01/26/2023 text/html Pt comes in [facility] to [facility] [place]. She was hospitalized 01/14-01/16 for HTN [...] back on the fluoxetine. 01/18/23-hospital f/uadmitted to [facility] x2 nightsreports was at work then taken [...] no paperwork in hand yet Saw Soto [address] [place], [address], [facility] 01/26/2023 10:01:55 03/01/2023 text/html Pt comes in to y for follow-up HTN with hypertensive encephalopathy. She is on HCTZ 25mg, amlodipine 10mg daily. She is also on atorvastatin and aspirin 81mg. She is feeling well overall. 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 She sometimes is getting ankle swelling - this comes and goes. She did get compression stockings. Pt also c/o depression and anxiety. She is back on her fluoxetine and feeling better than the sertraline had her feeling. From last visit: Pt comes in today to complete [facility] paperwork. She was hospitalized 01/14-01/16 for HTN [...] go back on the fluoxetine. Saw Soto [address] [place] [address], [phone], [facility] 03/01/2023 14:07:18 03/23/2023 text/html 03/23/23-x2.5 we eks [...] abd pains, urinary symptoms RASHI Pollard [address] [place], [phone], [facility] 03/23/2023 16:56:50 07/05/2024 text/html a/vmg-smoking [id number] bypatient.Notes:Pt quit smoking cigarettes, she is vaping [...] whiskey daily prior to admission (went to [facility] in [place]). Pt was recommended to follow up with IOP. She is thinking about one, but hasn't had a specific recommendation besides one in [place]. Pt started taking HCTZ 25mg she had [...] wants to keep taking this. Saw Soto [address] [place] [address], [phone], [facility] 07/05/2024 17:35:21 OBGyn Episode No OBEpisode recorded.
== END 2024-10-13 10:28 | disposition home or self-care (01) ==
LOC: HO.HCC 09:48
PROVIDERS: PCP Family Medicine; Visit Provider Internal Medicine
DX: F11.21 Opioid dependence, in remission (principal); F10.20 Alcohol dependence, uncomplicated; Z51.81 Encounter for therapeutic drug level monitoring
CPT/HCPCS: 99213

== ENCOUNTER → 2024-10-13 09:47 | Outpatient (BNVA) | payer MEDICAID, SELFPAY | PROVIDERS: PCP Family Medicine; Visit Provider Internal Medicine | DX: F11.21 Opioid dependence, in remission (principal); F10.20 Alcohol dependence, uncomplicated; Z51.81 Encounter for therapeutic drug level monitoring | CPT/HCPCS: 80307 ==

== ENCOUNTER 2024-11-13 11:03 | Outpatient (AMB) | payer MEDICAID, SELFPAY ==
[2024-11-13 11:53] VITALS: PULSE 100; O2SAT 98
--- NOTE | 2024-11-13 11:53 | A.OFFVIS_ITS ---
Vital Signs 11/13/24 11:53 Height 5 ft 6 in Pulse 100 Pulse Source Pulse Oximeter Pulse Oximetry (%) 98 Oxygen Delivery Method Room Air Intake Visit Reasons: MAT Allergies codeine (CODEINE) Allergy (Unknown, Verified 11/13/24 11:55) HIVES Codeine Phosphate Allergy (Unknown, Uncoded 10/06/23 14:27) rash HPI HPI MAT: Details: She is doing well on Suboxone. She has no concerns. [facility] Medical History Hypertension Depression Anxiety Social History Household Members: Family Housing: Apartment Do you presently have visiting nurse or other home services: No Alcohol intake: current Alcohol intake frequency: 0-2 drinks per day Alcohol type: hard liquor Comment: patient and family refuse camera Patient Tobacco Use Status: Never used Tobacco Substance Use Type: Marijuana Advance Directives Date on File: 06/16/23 service: No Review of Systems Const All systems reviewed & are unremarkable except as noted in HPI and below Physical Exam Vital Signs: Last Vital Signs Pulse 100 11/13/24 11:53 Pulse Ox 98 11/13/24 11:53 Oxygen Delivery Method Room Air 11/13/24 11:53 Const General: cooperative Assessment & Plan Assessment & Plan (1) Opioid use disorder, moderate, in sustained remission: Comment: She has been doing well with two Suboxone daily Code(s): F11.21 - Opioid dependence, in remission Category: Medical Plan: Continue current plan. Return as scheduled. Medications: New buprenorphine-naloxone 8-2 mg (Suboxone) 1 film sublingual BID 60 ea 1RF 30 days clonidine HCl 0.1 mg PO BID PRN 60 tabs 0RF withdrawal symptoms 30 days Coding Level of Care Code Est Pt Level 3 (42282) Diagnoses Opioid use disorder, moderate, in sustained remission F11.21
--- OUTSIDE RECORDS SUMMARY | 2024-11-13 12:38 | XMS_ITS | Data Portability ---
Author Organization [facility], , [facility] Address [address] [place] [address] Care Team Providers Care Strategic Partner Development Manager Name Role Phone SAW SOTO Primary Care Provider [facility] Addiction Medicine SEBASTIEN BARRAZA OTHER Assessment No assessment recorded. Plan of Treatment Reminders Order Date Submit Date Provider Last Modified By Organization Details Last Modified Time Details Appointments Mammo gram, Cuonge galina 2024 02:00P M [facility] Mammography Not available Not available Not available Lab TSH, serum or plasm a 2024 025 [facility], [address] [place] [address], [id number], 08/17/2024 10:23:39 CMP, serum or plasm a 2024 025 [facility], [address] [place] [address], [id number], 08/17/2024 10:23:39 CBC 2024 025 [facility], [address] [place] [address], [id number], 08/17/2024 10:23:39 pregn lacey test, urine [email or web address] [facility], [address] [place] [address], [id number], 03/23/2023 16:58:28 Referral neuro logis t refer ral - seizu re like activ ity dx with HTN encep halop athy. seen by Dr. Ghassan tovar inpt. needs outpt follo w up. 2022 023 [email or web address] Vitaliy Stevenson MD, [address] [place] [address] [place], [address], 03/23/2023 16:50:47 Procedures None recor ded. Surgeries None recor ded. Imaging US, abdom en, compl ete - 49 y/o with hx of alcoh ol, now with edema , pleas e asses s 2024 025 [facility] (Imaging), [address], [place], [address], 08/14/2024 14:04:53 MAMMO , scree galina, tomos ynthe sis, bilat eral - 2nd Look Consu lt/Di ag Mammo /US Breas t/Bobby ded Asp/B reast Bx/Cl ip Place ment, as clini nery indic ated. 2024 025 [facility] (Imaging), [address], [place], [address], 08/03/2024 16:02:16 US, abdom en + pelvi s - abdom inal move ments x2.5 month s and worse galina. bloat ing. 2022 023 [facility] (Imaging), [address], [place], [address], 03/29/2023 20:14:14 Medication Orders hydro xyzin e HCl 25 mg table t 2024 025 [facility], [address] [facility] [place], [id number], 07/05/2024 17:35:23 aspir in 81 mg chewa ble table t [address] [facility]49843, [address] [facility] [place], [id number], 07/05/2024 16:50:36 fluox etine 40 mg capsu le [address] [facility]18, [address] [place], [place], [id number], 06/16/2023 10:14:20 hydro chlor othia zide 25 mg table t [address] [facility]48085, [address] [place], [place], [id number], 06/16/2023 10:15:05 amlod ipine 10 mg table t [address] [facility]86918, [address] [place], [place], [id number], 06/16/2023 10:14:36 Patient TargetsNo targets recorded. Patient Instructions Encounter Date Encounter Id Patient Instructions Last Modified By Organization Details Last Modified Time 01/26/2023 [id number] Blood pressure check instructions -Do not have [...] from sertraline Not available 01/26/2023 09:57:37 03/01/2023 [id number] -Fasting labwork (nothing to eat/drink for 12 hours prior to appointment except water) in 2-3 months with follow-up hypertension -Wellness visit after April ls Not available 03/01/2023 14:02:14 07/05/2024 [id number] -Take gabapentin 300mg twice daily (half tablet) until they're gone -Labwork tomorrow -Ultrasound liver (see if they can do with the labwork -Check out the IOP at [place] and [place] -STOP HCTZ because I don't think that [...] HCG HCG POC NEGATI VE Not Available [facility] [address] [place], [address], 03/23/2023 16:43:48 01/21/2001/15/2023 elect ronaila ephal ogram No observ ation record ed. [facility] (Medical Records) [address] [place], [address], 01/20/2023 15:42:09 03/29/2003/29/2023 US, abdom en + [...] Readin g Physic kaylen: Solomon Lisa ms [facility] (Imaging) [address], [place], [address], 04/05/2023 13:15:26 04/27/20 23 04/22/2023 elect roenc ephal ogram No observ ation record ed. [facility] (Medical Records) [address] [facility], [place], [address], 04/27/2023 14:02:43 06/11/19 24 06/11/2023 CT, brain , w/o contr ast No observ ation record ed. [facility] [id number] [place], [address], 06/14/2023 18:19:49 06/11/19 24 06/11/2023 XR, chest No observ ation record ed. [facility] [id number] [place], [address], 06/14/2023 18:19:50 06/14/19 24 06/14/2023 MRI, head, w/wo contr ast No observ ation record ed. [facility] [id number] [place], [address], 06/16/2023 18:57:42 Result Notes None recorded. Problems Name Problem SNOMED Code Status Onset Date Resolution Date Notes Provider Name and Address Organization Details Recorded Time Major depressi on, melancho lic type 572488080 Active Saw Soto [address] [place] [address], [address] , [facility] 6 12:05:54 Insect bite, nonvenom ous, of shoulder 305973073 Completed 04/05/2013 Reena Damian PA-C [address] [place] [address], [address] , [facility] 3 10:35:12 Joint pain in ankle and foot Completed 09/08/2011 Not Available [facility] 3 03:34:35 Benign essentia l hyperten renard 0590099 Completed 08/26/2017 Removal Reason: in remissio n Saw Soto [address] [place] [address], [address] , [facility] 8 14:33:20 Pain of hip region 30483297 Completed 04/05/2013 Reena Damian PA-C [address] [place] [address], [address] , [facility] 3 10:35:12 Acute pharyngi tis 737210489 Completed 04/05/2013 Reena Damian PA-C [address] [place] [address], [address] , [facility] 3 10:35:12 Bronchit is 19574673 Active Phyllis Srinivasan NP [address] [place] [address], [address] , [facility] 4 20:58:55 Opioid dependen ce in remissio n 358103902 Active 2017 on suboxone Saw Soto [address] [place] [address], [address] , [facility] 8 14:32:26 Tobacco user 920649588 Completed 201805/20/2021 Saw Soto [address] [place] [address], [address] , [facility] 1 16:01:20 Ex-smoke r 1242387 Active 2019 Saw Soto [address] [place] [address], [address] , [facility] 1 16:01:16 Anxiety 19645052 Active 2022 Valerie Rico PA-C [address] [place] [address], [address] , [facility] 3 14:57:33 Essentia l hyperten renard 42694408 Active 2022 Valerie Rico PA-C [address] [place] [address], [address] , [facility] 3 15:36:54 Hyperten sive encephal opathy 16097180 Active 2022 RASHI Pollard [address] [place] [address], [address] , [facility] 3 18:07:27 Alcohol withdraw al 006802811 Active 2023 Wih seizures : Per [facility] discharg e summary 06/15/23 Esthela Fuller RN null, [facility] 4 10:32:38 Seizure 65136388 Active 2023 Per [facility] discharg e summary 06/15/23 Esthela Fuller RN [facility] 4 10:31:58 Alcohol dependen ce 75428841 Active Saw Vivi Soto [address] [place] [address], [address] [place] [address] , [facility] 4 19:44:49 Problem Notes None recorded. Procedures Surgical History Date Name Laterality Status Provider Name and Address Organization Details Recorded Time 07/05/19 25 Smoking cessation counseling completed Rubia Lopez [facility] 07/05/2024 16:52:44 12/01/19 23 Smoking cessation counseling completed Rhonda العلي [facility] 11/26/2022 14:44:20 11/12/19 23 Smoking cessation counseling completed Leandra Jon Nahomy [facility] 11/11/2022 14:46:56 05/20/20 21 Smoking cessation counseling completed Chanell Hampton [facility] 05/20/2021 11:59:37 04/18/20 20 Smoking cessation counseling completed Rhonda Diaz [facility] 04/18/2020 08:57:55 04/18/20 20 Carbon Monoxide Testing completed Rhonda Diaz [facility] 04/18/2020 08:57:55 01/25/20 19 Smoking cessation counseling completed Leeanne Danielson MD [address] [place] [address], [address] [place] [place] [address], [facility] 01/24/2019 10:19:53 01/25/20 19 Carbon Monoxide Testing completed Leeanne Danielson MD [address] [place] [address], [address] [place] [place] [address], [facility] 01/24/2019 10:19:53 06/07/18 95 Arthroscopy completed Not Available [facility] 04/[facility]20 11 06:06:16 Imaging Results None recorded. Procedure Notes None recorded. Medical Equipment None Reported. Allergies Allergen ID Allergen Name Allergen Category Reaction Reaction Severity Criticality Documentation Date Start Date Code Code System Note Provider Name and Address Organization Details Recorded Time 72579 codeine medicatio n rash Not available Not available 04/22/2011 2670 RxNorm [facility] 1 12:56:35 Medications Name Sig Start Date Stop Date Status Note LastModified by Organization Details LastModified Time Prescript ion - Prior Authoriza tion Request 04/18 completed Not Available Not Available Not Available fluoxetin e 40 mg capsule TAKE 1 CAPSULE BY MOUTH EVERY DAY - 2024 active Not Available Not Available Not Avai lable amoxicill in 500 mg capsule TK 1 [...] bedtime. 06/16 completed dose increase d Per [facility] discharg e summary 06/15/23, not reconcil ed [...] TWICE DAILY 06/16 completed disconti nued Per [facility] discharg e summary 06/15/23, not reconcil ed [...] day by oral route. 01/26 completed per [facility] d/c Not Available Not Available Not Available aspirin 81 mg chewable tablet CHEW AND SWALLOW 1 TABLET BY MOUTH EVERY DAY active Per [facility] discharg e summary 06/15/23, not reconcil ed [...] ROUTE ONCE DAILY 08/26 completed Not taking 08-26-17 JG Not [...] hours by oral route. 07/05 completed Per [facility] discharg e summary 06/15/23, not reconcil ed [...] 1 tab by mouth daily active Per [facility] discharg e summary 06/15/23, not reconcil ed with pt. Not Available Not Available Not Available phenobarb ital 30mg po BID 07/05 completed Per [facility] discharg e summary 06/15/23, not reconcil ed with pt. Not taking 07/05/24 cc Not Available Not Available Not Available lorazepam active PRN per pt's rehab Not Available Not Available Not Available Aspir-81 1 tab p.o. daily 08/26 completed per [facility] Not Available Not Available Not Available ProAir HFA 90 mcg/actua tion aerosol inhaler INHALE 2 PUFFS BY MOUTH EVERY 4 HOURS NEEDED 04/18 completed Not taking 08-26-17 JG, Pt not taking 09/29/19 NMT Not Available Not Available Not Available hydrochlo rothiazid e 12.5 mg tablet TAKE 1 TABLET BY MOUTH DAILY 01/26 completed Not Available Not Available Not Available buprenorp charissa 8 mg-naloxo ne 2 mg sublingua l film 06/16 completed dosage changed Per [facility] discharg e summary 06/15/23, not reconcil ed [...] Updated DateTime 5 164.47 cm 36.2 kg/m2 25917.9 5 g 75 /min 98.6 [degF] 91 % 91 % 93 % 93 % 122 mm[Hg] 76 mm[Hg] Rubia Lopez MA [facility] 5 16:55:51 Date Recorded Systolic blood pressure Diastolic blood pressure Provider Name and Address Organization Details Last Updated DateTime 08/11/2023 134 mm[Hg] 86 mm[Hg] Valerie Rico PA-C [address] [place] [address], [address], [facility] 03/13/2024 11:29:20 Date Recorded Body height Body mass index (BMI) Body weight Oxygen saturation Oxygen saturation in Arterial blood by Pulse oximetry Heart rate Provider Name and Address Organization Details Last Updated DateTime 5 167.64 cm 30.7 kg/m2 80658.5 5 g 97 % 97 % 77 /min Ivory Richardson RN [facility] 5 15:09:46 Date Recorded Systolic blood pressure Diastolic blood pressure Systolic blood pressure Diastolic blood pressure Provider Name and Address Organization Details Last Updated DateTime 01/18/2023 160 mm[Hg] 110 mm[Hg] 134 mm[Hg] 98 mm[Hg] RASHI De La O [address] [place] [address], [address] , [facility] 3 18:05:48 Date Recorded Body height Body mass index (BMI) Body weight Heart rate Systolic blood pressure Diastolic blood pressure Provider Name and Address Organization Details Last Updated DateTime 3 164.47 cm 30.1 kg/m2 75409.1 3 g 80 /min 172 mm[Hg] 120 mm[Hg] Shyla Joiner [facility] 3 13:41:15 Date Recorded Body height Body mass index (BMI) Body weight Heart rate Systolic blood pressure Diastolic blood pressure Systolic blood pressure Diastolic blood pressure Provider Name and Address Organization Details Last Updated DateTime 3 164.47 cm 30.7 kg/m2 02067.5 g 88 /min 160 mm[Hg] 96 mm[Hg] 164 mm[Hg] 96 mm[Hg] Rhonda العلي [facility] 3 09:37:43 Date Recorded Systolic blood pressure Diastolic blood pressure Provider Name and Address Organization Details Last Updated DateTime 03/01/2023 121 mm[Hg] 88 mm[Hg] Brandon Isaac [facility] 03/01/2023 10:16:09 Date Recorded Body height Body mass index (BMI) Body weight Heart rate Systolic blood pressure Diastolic blood pressure Provider Name and Address Organization Details Last Updated DateTime 3 164.47 cm 32 kg/m2 85369.8 4 g 80 /min 126 mm[Hg] 76 mm[Hg] Rhonda العلي [facility] 3 13:49:16 Date Recorded Body height Body mass index (BMI) Body weight Oxygen saturation Oxygen saturation in Arterial blood by Pulse oximetry Heart rate Systolic blood pressure Diastolic blood pressure Provider Name and Address Organization Details Last Updated DateTime 3 164.47 cm 31.4 kg/m2 88410.7 7 g 96 % 96 % 114 /min 148 mm[Hg] 94 mm[Hg] Rubia Lopez [facility] 3 16:29:12 Social History Question Answer Notes LastModified by Organizat ion Details LastModified Time Tobacco Smoking Status Former Smoker quit a few weeks ago 01/18/23 [facility] 01/18/2023 13:34:08 Do You Wear A Helmet When Biking? No Does Not Ride Information not available 08/26/2017 What Is Your Level Of Caffeine Consumption? Moderate 3 Medium Coffees A Day Information not available 08/26/2017 How Much Tobacco Do You Chew? None Information not available 07/25/2015 What Type Of Diet Are You Following? REGULAR Information not available 08/26/2017 Which Illicit Or Recreational Drugs Have You Used? MJ 2 Times A Day [email or web address] Information not available 07/01/2012 What Is The Highest Grade Or Level Of School You Have Completed Or The Highest Degree You Have Received? [id number] Information not available 05/20/2021 Have There Been [...] 05/20/2021 What Is Your Current Pack Years? 10-19packye ars Previously Smoking MJ With Nicotine Wraps Information [...] To Smoke? No Information not available 05/20/2021 What Types Of Sporting Activities Do You Participate In? None Information not available 08/26/2017 Do You Use Sunscreen Routinely? Yes Information not available 07/25/2015 How Many Years Have You Smoked Tobacco? 21 Information not available 05/20/2021 Sex: Female Functional Status Question Answer Note LastModified by Organizat ion Details LastModified Time Do you or have you ever used any other forms of tobacco or nicotine? No Information not available 05/20/2021 What is your level of alcohol consumption? None Information not available 07/25/2015 Do you or have you ever used smokeless tobacco? Never used smokeless tobacco Information not available 04/18/2020 Are you currently employed? Yes Information not available 05/20/2021 What is your occupation? works at [employer]) - 05/20/21 - Information not available 05/20/2021 Do you or have you ever used e-cigarettes or vape? Current user of electronic cigarettes 07/05/24 cc Information not available 07/05/2024 What is your exercise level? None Information not available 05/20/2021 Mental Status None recorded. Family History Relationship Description Onset Age of this Age Resolved Age Notes LastModified by Organization Details LastModified Time Father Heart disease 50 Not available 01/16/2013 03:01:10 Father Malignant neoplasm of lung hx tobacc o - 62 Not available 08/26/2017 14:30:26 Father Diabetes mellitus [email or web address] Not available 08/26 14:30:53 Mother Hyperlipidem ia [email or web address] [id number] Not available 01/16/2013 03:01:10 Maternal Grandfather Chronic obstructive pulmonary disease 75 previo usly record ed as COPD [email or web address] [id number] Not available 01/16/2013 03:01:10 Maternal Grandmother Cerebrovascu lar accident 75 previo usly record ed as Stroke [email or web address] [id number] Not available 01/16/2013 03:01:10 Paternal Grandfather Heart disease 35 35 [email or web address] [id number] Not available 01/16/2013 03:01:10 Paternal Grandmother Chronic hepatitis C 62 [email or web address] [id number] Not available 01/16/2013 03:01:10 Sister Schizophreni a [...] Recorded Time Tdap 08/26/2017 completed Not Available [facility] 06/24/2019 02:22:32 COVID-19, mRNA, LNP-S, PF, 30 mcg/0.3 mL dose 09/29/2020 [facility] 05/20/2021 15:04:13 COVID-19, mRNA, LNP-S, PF, 30 mcg/0.3 mL dose 10/20/2020 completed [facility] 05/20/2021 15:04:23 Past Encounters Encounter ID Performer Location Encounter Start Date Encounter Closed Date Diagnosis/Indication Diagnosis SNOMED-CT Code Diagnosis ICD10 Code Diagnosis Note [id number] Saw DARLING, [facility], OFFICE [address] [place] [address] 04/28/2010 14:01:02 05/07/2010 08:22:34 [id number] MD LISSET Mercado, [facility], [address] [place] [address] 05/04/2010 09:32:18 05/08/2010 13:50:06 [id number] Saw DARLING, [facility], [address] [place] [address] 05/21/2010 15:38:42 05/27/2010 14:18:09 [id number] Saw DARLING, [facility], [address] [facility] [place] [place] [address] 07/15/2010 14:28:44 07/18/2010 15:14:52 [id number] [facility] Radiology , [facility] [address] [facility] [place] [address] 07/22/2010 11:32:04 07/23/2010 12:18:14 [id number] Saw DARLING, [facility], OFF[address] [facility] [place] [address] 09/08/2010 10:08:03 09/11/2010 13:42:00 [id number] MD LISSET Allen, [facility], OFF[address] [facility] [place] [address] 04/22/2011 11:24:04 04/22/2011 14:15:58 [id number] Sherwin Llanes MD , [facility], [address] [place] [address] 09/08/2011 13:54:48 09/08/2011 15:32:36 [id number] [facility] RADIOLOGY Technologi Radiology , [facility] [address] [place] [address] 09/08/2011 14:59:25 09/09/2011 14:30:19 [id number] Saw DARLING, [facility], OFF[address] [facility] [place] [address] 05/25/2012 11:07:26 05/25/2012 11:43:59 [id number] MD LISSET Allen, [facility], OFFICE [address] [place] [address] 07/01/2012 10:16:56 07/01/2012 10:55:19 [id number] Phyllis Srinivasan NP , [facility], OFF[address] [facility] [place] [address] 07/04/2012 09:47:24 07/04/2012 10:30:01 [id number] MD LISSET Mercado, [facility], OFF[address] [facility] [place] [address] 11/03/2012 13:44:19 11/03/2012 14:05:26 [id number] MD LISSET Mercado, [facility], [address] [place] [address] 10/09/2013 14:36:47 10/09/2013 15:32:59 Conjunctivitis [id number] MD LISSET Tyler, [facility], OFFICE [address] [place] [address] 12/25/2013 10:51:15 12/25/2013 11:33:54 [facility] [id number] Saw Soto , [facility], OFFICE [address] [place] [address] 07/11/2015 11:06:43 07/11/2015 12:43:14 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 Would still recommend prophylact ic medication . Would avoid topamax initially given that can cause depression , would hold off on using a BP med because pt may not need to be on this permanentl y. 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 [id number] Saw Soto , [facility], OFFICE [address] [place] [address] 08/26/2017 13:48:31 08/26/2017 15:05:01 Adult health examination 645282699 Z00.00 see Risk Assessment and Lifestyle Change Counseling section above Counseling 918267673 Z71 .9 Depression screening 171 188143 Z13.89 depression screening tool administer ed, entered into emr, scored and discussed, time greater than 7.5 minutes, some depression . Active or passive immunization 939813591 Z23 Unintentio nal weight loss 752698746 R63.4 Suspicious this could be the suboxone, but will check other labwork to be sure. Amenorrhea 52934080 N91. 2 Will get labwork. Psoriasis 6788073 L40.9 Neoplasm o f uncertain behavior of skin 77671806 D48.5 Opioid dep endence in remission 951811668 F11.21 [id number] Leeanne Danielson MD , [facility], [address] [place] [address] 01/24/2019 09:31:48 01/24/2019 13:45:13 Abnormal breath sounds 824117468 R09.89 43 year old with history of [...] with primary provider as needed. Chest pain 58188971 R07. 9 As above. Tobacco user 043755049 Z 72.0 above. Smoking cessation discussed and will refer for counseling . Cigarette smoker 0149252 7 F17.210 As above Bronchitis 79925768 J40 As above.At least 40 minutes spent on patient care with over 50% of the time face to face in counseling and coordinati on on above concerns. [id number] Gillian Gaines MD , [facility], [address] [place] [address] 06/10/2019 11:03:20 06/10/2019 12:07:17 Pain of left shoulder joint 4549726023 9359277 M25.512 reaching, stretching injury two months ago with worsening pain and limitation with any extension, abduction, internal and external rotationcl unking on examlimite d exam with pain, pt tearfulche ck xraystart PTokay ibuprofen as needed as she has been [id number] Bailey [facility] OFF[facility] [address] [place] [address] 09/29/2019 11:42:51 10/02/2019 13:18:42 Infection of tooth 117278214 K04.7 chronic poor dentition with worsening pain x3 days. no fevers. Rx Augmentin for likely infection. can also do warm salt water gargles. strongly encouraged to follow up with dentist for extraction . call if fever or pain significan tly worsens Jaw pain 919663508 R68.8 4 likely related to chronic dentition and clenching jaw at night. will try otc mouth guard and follow up with dental [id number] Saw Soto , [facility], OFFICE [address] [place] [address] [phone] 04/18/2020 08:55:29 04/24/2020 12:28:38 Opioid dependence in remission [id number] F11.21 Pt is doing very well with [facility], will refax referral. Further plans as below. Cigarette smoker [id number] 7 F17.210 Tobacco user 729747445 Z 72.0 [id number] Saw Soto [facility], OFFICE [address] [place] [phone] 04/15/2021 15:46:13 04/17/2021 16:03:43 Tuberculosis screening 967826811 Z11.7 [id number] Saw Soto [facility], OFFICE [address] [place] [address] 6 05/20/2021 14:52:12 05/20/2021 16:02:25 Adult health examination 865331364 Z00.00 see Risk Assessment and Lifestyle Change Counseling section above Counseling 452629702 Z71 .9 including cardiovasc ular risk reduction counseling Depression screening 171 626295 Z13.31 depression screening tool administer ed, entered into emr, scored and discussed, time greater than 7.5 minutes, significan t depression ; plan as below Screening for alcohol abuse 549978831 Z13.39 Screening for disorder 669788348 Z11.59 Screening for malignant neoplasm of colon 143098410 Z12.11 Major depr ession, melancholic type 259088955 F32.9 Citalopram caused sleepiness . Review of chart shows pt was on sertraline and doesn't recall that it was effective or not. Will use fluoxetine as below. Amenorrhea 16966420 N91. 2 Will get labwork to assess for source. Psoriasis 9498528 L40.9 Refilled. Opioid dep endence in remission Pt is doing very well with current program [id number] MD LISSET Plaza, [facility], OFFICE [address] [place] [address] 08/21/2021 15:59:09 08/29/2021 14:11:28 Screening for malignant neoplasm of colon 080726725 Z12.11 Peripheral edema 4950754 00 R60.9 see above Essential hypertension 44491731 I10 hx of HTN with weight gain in the past. will start HCTZ which may also help with edema. work on a low salt/cara arti diet. follow up in 2-3 weeks Bilateral ankle joint pain [id number] 4108230 M25.571 persistent bilateral ankle pain and swelling x2-3 months. worse in the morning. no injury. she has gained about 60lb in the last 10 months since she stopped smoking. will get xrays and labs. try low salt diet [id number] Saw Soto , [facility], OFFICE [address] [place] [address] 04/27/2022 14:26:52 04/27/2022 16:32:06 Adult health examination 717251578 Z00.00 Counseling 071514432 Z71 .9 Depression screening 171 792951 Z13.31 depression screening tool administer ed, entered into emr, scored and discussed, time greater than 7.5 minutes Active or passive immunization 685024722 Z23 flu- declinesco vid- vac x2 declines booster Major depr ession, melancholic type 469798926 F32.9 Will increase Fluoxetine to 40mg daily, continue with regular counseling Please contact the office if no improvemen t or any worsening symptoms develop Opioid dep endence in remission 21 Doing well on Suboxone at [place] Screening for malignant neoplasm of cervix 862524878 Z12.4 Pain in right foot 75830 86804 61107 M79.671 Old fracture in R foot, pain has returned in the area of fracture, will get xray [id number] Saw DARLING, [facility], OFFICE [address] [place] [address] 10/14/2022 13:57:09 10/15/2022 09:18:25 Thoracic back pain 888950700 M54.6 - continue with heating pad and motrin, stretching , practicing deep breaths- recommend out of work the rest of this week- no heavy lifting until pain resolves- work note given- call if not improving- declines muscle relaxant for now [id number] Saw Soto , [facility], OFFICE [address] [place] [address] 11/11/2022 14:36:49 11/11/2022 15:04:51 Screening mammography 46198318 Z12.31 declined at this time Major depr ession, melancholic type 361872527 F33.3 - worsening symptoms and unable to work, FMLA filled out for three weeks through 12/02- follow up 2-3 weeks- will taper off fluoxetine - decrease to 20mg for 7 days- then stop fluoxetine , and start citalopram - schedule appt with your therapist Screening for malignant neoplasm of colon 693453791 Z12.11 IFOB due march Tobacco user 843496189 Z 72.0 We discussed your smoking today for more than 3 minutes. Cigarette use is the leading cause of preventabl e disease, disability , and in the [place]. We talked about tools and medication s available to help you in smoking cessation. We discussed utilizing our smoking cessation reading coach and online resources. Your personal goal: to quit, has been doing well and not smoking daily Anxiety 72209554 F41.9 - recent worsening, plan as above Essential hypertension 13056130 I10 - high today but also at previous visits- increase HCTZ to 25mg- follow up two weeks [id number] Saw Soto , [facility], OFFICE [address] [place] [address] 11/30/2022 15:21:02 12/01/2022 10:48:08 Major depression, melancholic type 847874232 F33.3 - worsening symptoms and unable to work, work note given for another month out- will slow down taper off fluoxetine - decrease to 30mg for two weeks, the last taper resulted in many symptoms- in two weeks, can decrease to 20mg- schedule appt with Claribel- continue with therapy Tobacco user 319444721 Z 72.0 We discussed your smoking today for more than 3 minutes. Cigarette use is the leading cause of preventabl e disease, disability , and in the [place]. We talked about tools and medication s available to help you in smoking cessation. We discussed utilizing our smoking cessation reading coach and online resources. Your personal goal: continue to not smoke! Anxiety 00019629 F41.9 - recent worsening, plan as above Essential hypertension 88363670 I10 - high today but also at previous visits- discussed importance of taking medication s daily and consistent ly- low salt diet- walking for exercise- follow up two weeks [id number] MD LISSET Mercado, [facility], OFFICE [address] [place] [address] 01/18/2023 13:24:52 01/20/2023 08:47:49 Seizure 84220060 R56.9 taken to ER for seizure activity, related to uncontroll ed HTN as abovef/u with neurology, referral placed statcurren tly not on any anti seizure medication aware not to drive or swim by self until cleared by neurology Opioid dep endence in remission 132357449 F11.21 stable, on suboxone through [facility] healthy living program Essential hypertension 13680582 I10 still above goalincrea se amlodipine to 10mg - take second 5mg dose today once home and then call in BP reading later today to check into ER with any BP >200s/120s or with any severe headache, vision changesf/u 1 week, should get labs in 1-2 weeks Hypertensi ve encephalopathy 79426047 I67.4 admission discharge notes reviewedmi ld headache otherwise no neurologic al deficitshe ad CT showing 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 Will refill old script and have pt stop sertraline . Essential hypertension 55457344 I10 Blood pressures not at goal yet, but JUST on HCTZ 25mg for a couple of days. Goal is <130/80. To continue with amlodipine 10mg and HCTZ 25mg; new script sent. To f/u with [facility] for BP's next week as scheduled. [id number] Saw Soot , [facility], OFFICE [address] [place] [address] 03/01/2023 13:43:24 03/01/2023 14:07:39 Hypertensive encephalopathy 99066695 I67.4 Essential hypertension 41013203 I10 Blood pressures at goal on HCTZ 25mg and amlodipine 10mg daily. Plan on labwork and follow-up in 2-3 months Major depr ession, melancholic type 869788600 F32.9 Pt was doing better on fluoxetine ; no real clear reason why this was changed. Will refill old script and have pt stop sertraline . [id number] MD LISSET Mercado, [facility], OFFICE [address] [place] [address] 03/23/2023 16:07:30 03/23/2023 16:50:16 Active or passive immunization 196972199 Z23 flu - declines Abdominal discomfort 433 62944 R10.9 bloating and like movements x2.5 months, worseningP OC hcg negativech george abd US and call with any worsening or new symptoms in the interim Essential hypertension 55842066 I10 above goal, is very anxious todayconti nue current regimen and home checks, sill have staff call for reading later this week Anxiety 04524615 F41.9 regarding above symptoms, plan as aboveaware of [facility] resources if needed [id number] Saw Soto , [facility], OFFICE [address] [place] [address] 07/05/2024 16:38:15 07/06/2024 09:21:44 Active or passive immunization 746661513 Z23 flu - declines 07/05/24 cc Screening for malignant neoplasm of colon 747838179 Z12.11 Stool kit mailed to pt 04/12/24, reminded to complete Screening mammography 000325 Z12.31 Ordered 07/05/24 cc Edema of l ower extremity 549388791 R60.0 Given timing of swelling, likely a result of mirtazapin e or gabapentin . Would still want to check labwork. Will have pt do this nonfasting tomorrow. Pt has already been off mirtazapin e x3 days without any improvemen t, so more suspicious for the gabapentin . Chronic al coholism in remission 547588809 F10.21 Currently pt has not had any alcohol since 05/21/24. She is not currently on anything for sobriety. Naltrexone is not an option given pt is on suboxone for opiate hx. She did not find acamprosat e helpful. She declines disulfiram . Opioid dep endence in remission 495571421 F11.21 Pt is doing very well with current program on suboxone. Generalize d anxiety disorder 19320763 F41.1 Pt is on fluoxetine ; would [...] ACO (MEDICAID REPLACEMENT - HMO) Stefany Odomkeyona [id number] Stefany Odomkeyona 01/26/2023 1 [facility] - DOS ON OR AFTER 2022 - [facility] (MEDICAID REPLACEMENT - HMO) Stefany Brennen [id number] Stefany Odomhrsahara 03/01/2023 1 [facility] - DOS ON OR AFTER 2022 - [facility] (MEDICAID REPLACEMENT - HMO) Stefany Brennen [id number] Stefany Odomkeyona 03/23/2023 1 [facility] - DOS ON OR AFTER 2022 - [facility] (MEDICAID REPLACEMENT - HMO) Stefany Brennen [id number] Stefany Hutton 07/05/2024 1 [facility] - DOS ON OR AFTER 2022 - [facility] ACO (MEDICAID REPLACEMENT - HMO) Stefany Hutton [id number] Stefany Hutton Notes Date Note Type Note Provider Name and Address Organization Details Recorded Time 01/18/2023 text/html 01/18/23-hospital f/uadmitted to [facility] x2 nightsreports was at work then taken [...] no paperwork in hand yet RASHI Pollard [address] [place] [address], [phone], [facility] 01/18/2023 18:11:32 01/26/2023 text/html Pt comes in toda y to complete [facility] paperwork. She was hospitalized 01/14-01/16 for [...] back on the fluoxetine. 01/18/23-hospital f/uadmitted to [facility] x2 nightsreports was at work then taken [...] but no paperwork in hand yet Saw Vivi Soto [address] [place], [address], [facility] 01/26/2023 10:01:55 03/01/2023 text/html Pt comes in toda y for follow-up HTN with hypertensive encephalopathy. She is on HCTZ 25mg, amlodipine 10mg daily. She is also on atorvastatin and aspirin 81mg. She is feeling well overall. 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 She sometimes is getting ankle swelling - this comes and goes. She did get compression stockings. Pt also c/o depression and anxiety. She is back on her fluoxetine and feeling better than the sertraline had her feeling. From last visit: Pt comes in today to complete [facility] paperwork. She was hospitalized 01/14-01/16 for [...] back on the fluoxetine. Saw Soto [address] [place], [address], [facility] 03/01/2023 14:07:18 03/23/2023 text/html 03/23/23-x2.5 we eks [...] abd pains, urinary symptoms RASHI Pollard [address] [place], [address], [facility] 03/23/2023 16:56:50 07/05/2024 text/html a/vmg-smoking [id number] bypatient.Notes:Pt quit smoking cigarettes, she is vaping [...] whiskey daily prior to admission (went to [facility] in [place]). Pt was recommended to follow up with IOP. She is thinking about one, but hasn't had a specific recommendation besides one in [place]. Pt started taking HCTZ 25mg she had [...] wants to keep taking this. Saw Soto [address] [place] [address], [phone], [facility] 07/05/2024 17:35:21 OBGyn Episode No OBEpisode recorded.
== END 2024-11-13 13:12 | disposition home or self-care (01) ==
LOC: HO.HCC 11:03
PROVIDERS: PCP Family Medicine; Visit Provider Internal Medicine
DX: F11.21 Opioid dependence, in remission (principal)
CPT/HCPCS: 99213

== ENCOUNTER → 2024-11-13 11:03 | Outpatient (BNVA) | payer MEDICAID, SELFPAY | PROVIDERS: PCP Family Medicine; Visit Provider Internal Medicine | DX: F11.21 Opioid dependence, in remission (principal) | CPT/HCPCS: 99212 ==

== ENCOUNTER 2025-01-12 11:01 | Outpatient (AMB) | payer MEDICAID, SELFPAY ==
[2025-01-12 11:08] VITALS: PULSE 105; O2SAT 96
--- NOTE | 2025-01-12 11:08 | A.OFFVIS_ITS ---
Vital Signs 01/12/25 11:08 Height 5 ft 6 in Weight 186 lb BMI 30.0 Pulse 105 H Pulse Source Pulse Oximeter Pulse Oximetry (%) 96 Oxygen Delivery Method Room Air Intake Visit Reasons: MAT visit Allergies codeine (CODEINE) Allergy (Unknown, Verified 01/12/25 11:35) HIVES Codeine Phosphate Allergy (Unknown, Uncoded 10/06/23 14:27) rash HPI Comments Details: She is doing well. She is not drinking alcohol. COUNTS INCLUDE 234 BEDS AT THE [facility] Medical History Hypertension Depression Anxiety Social History Household Members: Family Housing: Apartment Do you presently have visiting nurse or other home services: No Alcohol intake: current Alcohol intake frequency: 0-2 drinks per day Alcohol type: hard liquor Comment: patient and family refuse camera Patient Tobacco Use Status: Never used Tobacco Substance Use Type: Marijuana Advance Directives Date on File: 06/16/23 service: No Review of Systems Const All systems reviewed & are unremarkable except as noted in HPI and below Physical Exam Vital Signs: Last Vital Signs Pulse 105 H 01/12/25 11:08 Pulse Ox 96 01/12/25 11:08 Oxygen Delivery Method Room Air 01/12/25 11:08 BMI result Body Mass Index 30.0 Const General: cooperative Assessment & Plan Assessment & Plan (1) Alcohol use disorder, severe, dependence: Code(s): F10.20 - Alcohol dependence, uncomplicated Category: Medical Plan: n/a (2) Opioid use disorder, moderate, in sustained remission: Comment: She has been doing well with two Suboxone daily Code(s): F11.21 - Opioid dependence, in remission Category: Medical Plan: Continue current plan. See as scheduled. Medications: New buprenorphine-naloxone 8-2 mg (Suboxone) 1 film sublingual BID 60 ea 1RF 30 days hydroxyzine HCl may take 1-2 hs prn need sleep/anxiety 25 mg PO BEDTIME 30 tabs 5RF 30 days Coding Level of Care Code Est Pt Level 3 (84170) Diagnoses Alcohol use disorder, severe, dependence F10.20 Opioid use disorder, moderate, in sustained remission F11.21
== END 2025-01-12 12:58 | disposition home or self-care (01) ==
LOC: HO.HCC 11:01
PROVIDERS: PCP Family Medicine; Visit Provider Internal Medicine
DX: F10.20 Alcohol dependence, uncomplicated (principal); F11.21 Opioid dependence, in remission
CPT/HCPCS: 99213

== ENCOUNTER → 2025-01-12 11:01 | Outpatient (BNVA) | payer MEDICAID, SELFPAY | PROVIDERS: PCP Family Medicine; Visit Provider Internal Medicine | DX: F10.20 Alcohol dependence, uncomplicated (principal); F11.21 Opioid dependence, in remission | CPT/HCPCS: 99212 ==

== ENCOUNTER 2025-03-28 13:00 | Outpatient (AMB) | payer MEDICAID, SELFPAY ==
[2025-03-28 13:34] VITALS: BP 148/82; PULSE 84; O2SAT 98; BMI 30.2
--- NOTE | 2025-03-28 13:34 | MHC.OFFVIS ---
Vital Signs 03/28/25 13:34 Height 5 ft 6 in Weight 187 lb BMI 30.2 BP 148/82 H Pulse 84 Pulse Oximetry (%) 98 Intake Visit Reasons: MAT Allergies codeine (CODEINE) Allergy (Unknown, Verified 03/28/25 13:35) HIVES Codeine Phosphate Allergy (Unknown, Uncoded 03/28/25 13:35) rash HPI Comments Details: History of Present Illness The patient is a 50-year-old female presenting for follow-up on her opioid dependence treatment. She has been stable on a regimen of Suboxone 8/2 mg twice daily. The patient reports no adverse effects, including gastrointestinal symptoms such as constipation. She denies experiencing any anxiety or depressive symptoms and has no suicidal or homicidal ideation. The patient expresses satisfaction with her current treatment and adherence to the medication has been consistent. Her condition has remained stable without any new issues arising. Review of Systems - General: Reports feeling well with no complaints. - Psychiatric: Denies anxiety, depression, suicidal or homicidal thoughts. - Gastrointestinal: Denies constipation. Physical Exam Results Plan Patient was informed and verbally consented to the use of an ambient scribe for clinic note documentation during this visit. 1. Opioid dependence, in remission F11.21 HCC 55 The patient is on Suboxone (Buprenorphine/Naloxone) 8/2 mg twice daily for opioid dependence, presenting good adherence and no notable side effects. She reports stability and satisfaction with her current treatment regimen. Routine follow-up will ensure ongoing management and adherence. Discussion Notes I discussed with the patient the continuation of her current Suboxone treatment without any changes. We reviewed the risks and benefits, emphasizing the importance of adherence to prevent relapse. She is doing well on her current dose with no side effects, which reinforces maintaining the current regimen. The patient understands the importance of follow-up appointments to monitor the efficacy and safety of her treatment. Medical Decision Making The patient is stable on her Suboxone regimen for opioid dependence management with no reported adverse effects or complications. She denies any psychological distress or ideations that would necessitate a change in treatment. Continued monitoring and consistent follow-up are essential to ensuring ongoing treatment success and addressing any new issues promptly. The current treatment appears to effectively maintain her condition in remission. Patient Instructions - Continue taking Suboxone exactly as prescribed, twice daily. - Maintain follow-up appointments as scheduled to monitor treatment progress. - Report any new symptoms or concerns immediately. - Adhere to treatment to prevent relapse. - Contact the office urgently if experiencing any distress or changes in mood. PFSH Medical History Hypertension Depression Anxiety Social History Household Members: Family Housing: Apartment Do you presently have visiting nurse or other home services: No Alcohol intake: current Alcohol intake frequency: 0-2 drinks per day Alcohol type: hard liquor Comment: patient and family refuse camera Patient Tobacco Use Status: Never used Tobacco Substance Use Type: Marijuana Advance Directives Date on File: 06/16/23 service: No Physical Exam Vital Signs: Last Vital Signs Pulse 84 03/28/25 13:34 BP 148/82 H 03/28/25 13:34 Pulse Ox 98 03/28/25 13:34 BMI result Body Mass Index 30.2 Assessment & Plan Assessment & Plan (1) Alcohol use disorder, severe, dependence: Code(s): F10.20 - Alcohol dependence, uncomplicated Category: Medical (2) Opioid use disorder, moderate, in sustained remission: Comment: She has been doing well with two Suboxone daily Code(s): F11.21 - Opioid dependence, in remission Category: Medical Plan na Medications: New buprenorphine-naloxone 8-2 mg (Suboxone) 1 film sublingual BID 60 ea 2RF 30 days Coding Level of Care Code Est Pt Level 3 (01458) Diagnoses Alcohol use disorder, severe, dependence F10.20 Opioid use disorder, moderate, in sustained remission F11.21
--- OUTSIDE RECORDS SUMMARY | 2025-03-28 18:12 | XMS_ITS | Encounter Summary ---
Author Organization [facility] Address [address] [address] Phone Care Team Providers Care Fixed Income Trading Vice President Name Role Phone Fanta Soto MD Primary Care Provider [phone] Fanta Soto MD Unavailable [phone] Encounter Details Date Type Department Care Team (Late st Contact Info) Description 04/29/2020 Transcribe Orders Virtual Department [address] [place] [address] Fanta Soto MD [address], [place] [phone] [email or web address] Exposure to SARS-associated coronavirus (Primary Dx) Social History Tobacco Use Types Packs/Day Years Used Date Smoking Tobacco: Never Assessed Comments Unknown Sex and Gender Information Value Date Recorded Sex Assigned at Not on file Legal Sex Female 9:28 PM EDT Gender Identity Not on file Sexual Orientation Not on file documented as of this encounter Plan of Treatment Not on file documented as of this encounter Visit Diagnoses Diagnosis Exposure to SARS-associated coronavirus- Primary documented in this encounter Additional Health Concerns Infection Onset Date Last Indicated Resolved Time CoV-Exposed Comment:Recent close contact 04/29/2020 04/29/2020 05/13/2020 1:24 AM EST documented as of this encounter Care Teams Fixed Income Trading Vice President Relationship Specialty Start Date End Date Fanta Soto MD [email or web address] PCP - General 03/23/17 Fanta Soto MD [address] [place] [address] [email or web address] Insurance Assigned Provider 05/16/22 documented as of this encounter Additional Source Comments The information contained in this document represents components of the legal health record. It is not the complete legal health record.[facility]
--- OUTSIDE RECORDS SUMMARY | 2025-03-28 18:12 | XMS_ITS | Clinical Summary ---
Author Organization [facility] Address [address] [place] [address] Phone Care Team Providers Care Explosive Man Name Role Phone Fanta Soto MD Primary Care Provider [phone] Encounters Date Type Department Care Team Description 03/05/2025 [facility] RISK SCORES SYSTEM GENERATED External System Generated Encounter [address] [place] [address] Unknown, Unknown, from Last 3 Months Social History Tobacco Use Types Packs/Day Years Used Date Smoking Tobacco: Never Assessed Education Answer Date Recorded Are you interested in more education? Not on mela e 10/02/2022 Are you concerned about learning? Not on file 10/02/2022 No 10/02/2022 No 10/02/2022 Digital Access Answer Date Recorded No 11/02/2022 No 11/02/2022 No 11/02/2022 Reliable internet access at home? Not on file 11/02/2022 Device with a working camera? Not on file Comments Unknown Sex and Gender Information Value Date Recorded Sex Assigned at Not on file Legal Sex Female 9:28 PM EDT Gender Identity Not on file Sexual Orientation Not on file Plan of Treatment Not on file Medical Devices [place] [address] [facility] Care Teams Explosive Man Relationship Specialty Start Date End Date Fanta Soto MD [email or web address] PCP - General 03/23/17 Additional Source Comments The information contained in this document represents components of the legal health record. It is not the complete legal health record.[facility]
== END 2025-03-28 13:53 | disposition home or self-care (01) ==
LOC: HO.HCC 13:00
PROVIDERS: PCP Family Medicine; Visit Provider Internal Medicine
DX: F10.20 Alcohol dependence, uncomplicated (principal); F11.21 Opioid dependence, in remission
CPT/HCPCS: 99213

== ENCOUNTER → 2025-03-28 13:00 | Outpatient (BNVA) | payer MEDICAID, SELFPAY | PROVIDERS: PCP Family Medicine; Visit Provider Internal Medicine | DX: F11.21 Opioid dependence, in remission (principal); F10.20 Alcohol dependence, uncomplicated; Z79.899 Other long term (current) drug therapy | CPT/HCPCS: 99212 ==